=== PATIENT | female | born 1975 | race Caucasian/White ===

== ENCOUNTER 2017-06-01 17:58 | Observation (INO) | payer OTHER ==
[2017-06-01] MEDS ORDERED: HYDROmorphone 0.5 MG/0.5 ML SYRINGE IVP STA (18:33)
[2017-06-01] MEDS ORDERED: ONDANSETRON 4 MG/2 ML VIAL IVP STA (18:33)
[2017-06-01] MEDS ORDERED: ACETAMINOPHEN TAB 500 MG TAB PO STA (18:33)
[2017-06-01] MEDS ORDERED: RX INFO: IV CONTRAST WAS GIVEN 1 EACH MISC MISCELLANE PRN (18:36)
--- NOTE | 2017-06-01 18:40 | ED ---
Nausea/Vomiting/Diarrhea HPI - General Chief complaint: Nausea/Vomiting/Diarrhea Stated complaint: Vomiting Time Seen by Provider: 06/01/17 18:27 Source: patient, RN notes reviewed Mode of arrival: ambulatory Limitations: no limitations - History of Present Illness Initial comments: 41-year-old female presents emergency Department chief complaint of nausea vomiting abdominal discomfort. Patient states that she had abdominal surgery for colon cancer [address] Villa Moreno. Patient states she was released from the hospital one week ago. Patient does have 2 ZOE drains states that she has not had to empty them as often as she was. She states it slowing down. She does complain of mid to left-sided abdominal pain. Patient states that she was diagnosed with stage III colon cancer she did have bowel resection she believes along with some of her pancreas. Patient denies knowing that she had a fever she is febrile here at the emergency department. Patient denies headache, dizziness, chest pain or shortness breath. Denies any dysuria hematuria. - Related Data Home Medications Medication Instructions Recorded Confirmed Esomeprazole Magnesium [NexIUM] 20 mg PO DAILY 05/13/17 06/01/17 Previous Rx's Medication Instructions Recorded HYDROcodone/APAP 7.5-325MG [[place] 1 tab PO Q4H PRN #20 tab 05/24/17 7.5-325] Allergies Allergy/AdvReac Type Severity Reaction Status Date / Time No Known Allergies Allergy Verified 06/01/17 19:02 Review of Systems ROS Statement: Those systems with pertinent positive or pertinent negative responses have been documented in the HPI. ROS Other: All systems not noted in ROS Statement are negative. Past Medical History Past Medical History: Cancer, GERD/Reflux Additional Past Medical History / Comment(s): Intermittent diarrhea since gallbladder surgery, colon History of Any Multi-Drug Resistant Organisms: None Reported Past Surgical History: Bowel Resection, Section, Cholecystectomy Additional Past Surgical History / Comment(s): colon CA removal Additional Past Anesthesia/Blood Transfusion Reaction / Comment(s): Pt states she woke from anesthesia very confused. Past Psychological History: No Psychological Hx Reported Smoking Status: Never smoker Past Alcohol Use History: None Reported Past Drug Use History: None Reported - Past Family History Mother Family Medical History: Diabetes Mellitus Father Family Medical History: No Reported History Additional Family Medical History / Comment(s): Father is 64 yrs old. General Exam Limitations: no limitations General appearance: alert, in no apparent distress Head exam: Present: atraumatic, normocephalic, normal inspection Respiratory exam: Present: normal lung sounds bilaterally. Absent: respiratory distress, wheezes, rales, rhonchi, stridor Cardiovascular Exam: Present: normal rhythm, tachycardia, normal heart sounds. Absent: systolic murmur, diastolic murmur, rubs, gallop, clicks GI/Abdominal exam: Present: soft, tenderness (Moderate mid to left-sided abdominal tenderness), normal bowel sounds, other (There is a midline incision healing with no erythema or purulent drainage to her dermal alexandru in place along with 2 ZOE drains). Absent: distended, guarding, rebound, rigid Back exam: Absent: CVA tenderness (R), CVA tenderness (L) Skin exam: Present: warm, dry, intact, normal color. Absent: rash Course Vital Signs 06/01/17 06/01/17 18:10 19:33 Temperature 100.9 F H 98.2 F Pulse Rate 125 H 78 Respiratory 16 16 Rate Blood Pressure 135/78 137/68 O2 Sat by Pulse 100 98 Oximetry Medical Decision Making - Medical Decision Making Dr. Estevez did discuss case with on-call surgeon from [facility]. Patient be admitted for IV antibiotics and reevaluation. - Lab Data Result diagrams: 06/01/17 18:43 06/01/17 18:43 Lab Results 06/01/17 06/01/17 06/01/17 Range/Units 18:43 18:43 18:43 WBC 13.9 H (3.8-10.6) k/uL RBC 5.72 H (3.80-5.40) m/uL Hgb 11.3 L (11.4-16.0) gm/dL Hct 41.9 (34.0-46.0) % MCV 73.2 L (80.0-100.0) fL MCH 19.8 L (25.0-35.0) pg MCHC 27.1 L (31.0-37.0) g/dL RDW 23.8 H (11.5-15.5) % Plt Count 705 H (150-450) k/uL Neutrophils % (Manual) 81 % Lymphocytes % (Manual) 11 % Monocytes % (Manual) 4 % Eosinophils % (Manual) 4 % Neutrophils # (Manual) 11.26 H (1.3-7.7) k/uL Lymphocytes # (Manual) 1.53 (1.0-4.8) k/uL Monocytes # (Manual) 0.56 (0-1.0) k/uL Eosinophils # (Manual) 0.56 (0-0.7) k/uL Nucleated RBCs 0 (0-0) /100 WBC Manual Slide Review Performed Polychromasia Present Hypochromasia Marked Poikilocytosis Moderate Anisocytosis Moderate Microcytosis Marked Spherocytes Present Ovalocytes Present PT (9.0-12.0) sec INR (<1.2) APTT (22.0-30.0) sec Sodium 138 (137-145) mmol/L Potassium 5.0 (3.5-5.1) mmol/L Chloride 104 (98-107) mmol/L Carbon Dioxide 23 (22-30) mmol/L Anion Gap 11 mmol/L BUN 7 (7-17) mg/dL Creatinine 0.70 (0.52-1.04) mg/dL Est GFR (MDRD) Af Amer >60 (>60 ml/min/1.73 sqM) Est GFR (MDRD) Non-Af >60 (>60 ml/min/1.73 sqM) Glucose 101 H (74-99) mg/dL Plasma Lactic Acid [place] 1.3 (0.7-2.0) mmol/L Calcium 9.4 (8.4-10.2) mg/dL Total Bilirubin 0.6 (0.2-1.3) mg/dL AST 35 (14-36) U/L ALT 30 (9-52) U/L Alkaline Phosphatase 82 (38-126) U/L Total Protein 7.8 (6.3-8.2) g/dL Albumin 3.5 (3.5-5.0) g/dL Urine Color Urine Appearance (Clear) Urine pH (5.0-8.0) Ur Specific [place] (1.001-1.035) Urine Protein (Negative) Urine Glucose (UA) (Negative) Urine Ketones (Negative) Urine Blood (Negative) Urine Nitrite (Negative) Urine Bilirubin (Negative) Urine Urobilinogen (<2.0) mg/dL Ur Leukocyte Esterase (Negative) Urine RBC (0-5) /hpf Urine WBC (0-5) /hpf Ur Squamous Epith Cells (0-4) /hpf Urine Bacteria (None) /hpf Hyaline Casts (0-2) /lpf Urine Mucus (None) /hpf 06/01/17 06/01/17 Range/Units 18:43 18:54 WBC (3.8-10.6) k/uL RBC (3.80-5.40) m/uL Hgb (11.4-16.0) gm/dL Hct (34.0-46.0) % MCV (80.0-100.0) fL MCH (25.0-35.0) pg MCHC (31.0-37.0) g/dL RDW (11.5-15.5) % Plt Count (150-450) k/uL Neutrophils % (Manual) % Lymphocytes % (Manual) % Monocytes % (Manual) % Eosinophils % (Manual) % Neutrophils # (Manual) (1.3-7.7) k/uL Lymphocytes # (Manual) (1.0-4.8) k/uL Monocytes # (Manual) (0-1.0) k/uL Eosinophils # (Manual) (0-0.7) k/uL Nucleated RBCs (0-0) /100 WBC Manual Slide Review Polychromasia Hypochromasia Poikilocytosis Anisocytosis Microcytosis Spherocytes Ovalocytes PT 10.9 (9.0-12.0) sec INR 1.1 (<1.2) APTT 22.5 (22.0-30.0) sec Sodium (137-145) mmol/L Potassium (3.5-5.1) mmol/L Chloride (98-107) mmol/L Carbon Dioxide (22-30) mmol/L Anion Gap mmol/L BUN (7-17) mg/dL Creatinine (0.52-1.04) mg/dL Est GFR (MDRD) Af Amer (>60 ml/min/1.73 sqM) Est GFR (MDRD) Non-Af (>60 ml/min/1.73 sqM) Glucose (74-99) mg/dL Plasma Lactic Acid [place] (0.7-2.0) mmol/L Calcium (8.4-10.2) mg/dL Total Bilirubin (0.2-1.3) mg/dL AST (14-36) U/L ALT (9-52) U/L Alkaline Phosphatase (38-126) U/L Total Protein (6.3-8.2) g/dL Albumin (3.5-5.0) g/dL Urine Color Yellow Urine Appearance Turbid H (Clear) Urine pH 6.0 (5.0-8.0) Ur Specific [place] 1.019 (1.001-1.035) Urine Protein 1+ H (Negative) Urine Glucose (UA) Negative (Negative) Urine Ketones Negative (Negative) Urine Blood Small H (Negative) Urine Nitrite Negative (Negative) Urine Bilirubin Negative (Negative) Urine Urobilinogen <2.0 (<2.0) mg/dL Ur Leukocyte Esterase Moderate H (Negative) Urine RBC 4 (0-5) /hpf Urine WBC 6 H (0-5) /hpf Ur Squamous Epith Cells 31 H (0-4) /hpf Urine Bacteria Occasional H (None) /hpf Hyaline Casts 6 H (0-2) /lpf Urine Mucus Few H (None) /hpf Disposition Clinical Impression: Postoperative fever, Nausea & vomiting, Abdominal pain Disposition: ADMITTED IP TO THIS [facility] Condition: Fair Referrals: None,Stated [Primary Care Provider] - 1-2 days
[2017-06-01] MEDS: SODIUM CHLORIDE 0.9% 500 ML IV SCH ×2 (18:44→19:30)
[2017-06-01 18:56] LABS: Anisocytosis Moderate; CH 19.9; CHCM 26.8; HCT 41.9 % (34.0-46.0); HGB 11.3 gm/dL (11.4-16.0); Hypochromasia Marked; MCH 19.8 pg (25.0-35.0); MCHC 27.1 g/dL (31.0-37.0); MCV 73.2 fL (80.0-100.0); Mean Platelet Volume 6.4; Microcytosis Marked; Poikilocytosis Moderate; RBC 5.72 m/uL (3.80-5.40); RBC Fragment Flag Slight; RDW 23.8 % (11.5-15.5); WBC 13.9 k/uL (3.8-10.6); WBC (Perox) 13.81
[2017-06-01 19:03] LABS: ALT 30 U/L (9-52); AST 35 U/L (14-36); Alkaline Phosphatase 82 U/L (38-126); Blood Urea Nitrogen 7 mg/dL (7-17); Calcium 9.4 mg/dL (8.4-10.2); Carbon Dioxide 23 mmol/L (22-30); Glucose 101 mg/dL (74-99); INR 1.1 (<1.2); Non-African American GFR(MDRD) >60 (>60 ml/min/1.73 sqM); Partial Thromboplastin Time 22.5 sec (22.0-30.0); Prothrombin Time 10.9 sec (9.0-12.0); Sodium 138 mmol/L (137-145); Total Bilirubin 0.6 mg/dL (0.2-1.3); Total Protein 7.8 g/dL (6.3-8.2)
[2017-06-01 19:04] LABS: Appearance,Urine Turbid (Clear); Bacteria,Urine Occasional /hpf; Bilirubin,Urine Negative (Negative); Glucose,Urine (UA) Negative (Negative); Ketones,Urine Negative (Negative); Leukocyte Esterase,Urine Moderate (Negative); Mucus,Urine Few /hpf; Nitrite,Urine Negative (Negative); Particle Count 16908; Protein,Urine 1+ (Negative); RBC,Urine 4 /hpf (0-5); Specific Gravity,Urine 1.019 (1.001-1.035); Squamous Epithelial Cell,Urine 31 /hpf (0-4); UA Billing (MACRO vs. MICRO) MICRO; Urobilinogen,Urine <2.0 mg/dL (<2.0); WBC,Urine 6 /hpf (0-5)
[2017-06-01 19:06] LABS: Anion Gap 11 mmol/L; Chloride 104 mmol/L (98-107)
[2017-06-01 19:30] LABS: Add Differential Manual Differential
[2017-06-01 19:31] LABS: Manual Review Performed; Nucleated Red Blood Cells 0 /100 WBC (0-0); Ovalocytes Present; Total Cells Counted 100
[2017-06-01 19:32] LABS: Polychromasia Present; Spherocytes Present
--- NOTE | 2017-06-01 19:53 | CT ---
EXAMINATION TYPE: CT abdomen pelvis w con DATE OF EXAM: 06/01/2017 COMPARISON: 05/15/2017 HISTORY: FEVER AND VOMITING CT DLP: 1892 mGycm Automated exposure control for dose reduction was used. TECHNIQUE: Helical acquisition of images was performed from the lung bases through the pelvis. CONTRAST: Performed without Oral Contrast and with IV Contrast, patient injected with 100 mL of Omnipaque 300. FINDINGS: Lung bases are clear of consolidation. There is no pleural effusion. There are numerous calcified granulomata in the spleen. There is mild periportal edema in the liver. Bile ducts are not dilated. There are clips from cholecystectomy. Pancreas appears normal. There are skin alexandru over the anterior midline abdomen. There is a 5 jX 16 cm subcutaneous fluid collection a t the incision site consistent with seroma or hematoma. There is a drainage catheter in the left uppe r quadrant. There is a 3 mm calcification in the lateral left kidney. There is no hydronephrosis. There is no ret roperitoneal adenopathy. There is a drainage catheter in the right paracolic gutter. There is a small amount of free fluid in the pelvis. Uterus is anteverted. Bladder is almost empty. There is some flu id anterior to the uterine fundus. I see no bony destructive process. There is no sign of a bowel obs truction. There are surgical clips noted at the gastric antrum. IMPRESSION: THERE IS MILD FREE FLUID IN THE PELVIS THAT IS INCREASED SLIGHTLY COMPARED TO LAST EXAM. THERE ARE LE FT AND RIGHT SIDED DRAINAGE CATHETERS NOTED. THESE APPEAR IN GOOD POSITION. LARGE MIDLINE SUBCUTANEOU S FLUID COLLECTION CONSISTENT WITH HEMATOMA OR SEROMA AT THE INCISION SITE IS NEW COMPARED TO OLD EXA M. Gastric surgery noted. Nonobstructing small left renal calculus.
--- NOTE | 2017-06-01 20:12 | XR ---
EXAMINATION TYPE: XR chest 2V DATE OF EXAM: 06/01/2017 COMPARISON: 05/13/2017 HISTORY: Cough and fever TECHNIQUE: Frontal and lateral views of the chest are obtained. FINDINGS: Heart and mediastinum are normal. Lungs are clear of consolidation. There is no pleural ef fusion. Bony thorax is intact. IMPRESSION: No active cardiopulmonary disease. No change.
[2017-06-01] MEDS ORDERED: PIPERACILLIN-TAZOBACTAM 3.375 GM in DEXTROSE/WATER 1 50ML.BAG IVPB STA (20:33)
[2017-06-01] MEDS ORDERED: HYDROmorphone 0.5 MG/0.5 ML SYRINGE IVP PRN (20:34)
[2017-06-01] MEDS ORDERED: NALOXONE 0.4 MG/ML 1 ML VIAL IV PRN (20:34)
[2017-06-01] MEDS ORDERED: ACETAMINOPHEN TAB 500 MG TAB PO PRN (21:05)
[2017-06-01] MEDS: SODIUM CHLORIDE 0.9% 1,000 ML IV SCH (21:10)
[2017-06-01] MEDS: ONDANSETRON 4 MG/2 ML VIAL IVP PRN (21:12)
[2017-06-01 21:37] VITALS: BMI 38.0
[2017-06-02] MEDS: PIPERACILLIN-TAZOBACTAM 3.375 GM in DEXTROSE/WATER 1 50ML.BAG IVPB SCH ×3 (04:56→20:04)
[2017-06-02] MEDS: ONDANSETRON 4 MG/2 ML VIAL IVP PRN (05:01)
[2017-06-02] MEDS ORDERED: METOCLOPRAMIDE 5 MG/ML 2 ML VIAL IVP PRN (07:20)
[2017-06-02] MEDS ORDERED: HYDROcodone/APAP 5-325MG 1 EACH TAB PO PRN (08:24)
[2017-06-02] MEDS ORDERED: HYDROmorphone 0.5 MG/0.5 ML SYRINGE IVP PRN (08:25)
--- NOTE | 2017-06-02 08:36 | P.GSHP ---
History of Present Illness H&P Date: 06/02/17 Chief Complaint: Nausea vomiting 41-year-old female presented to the emergency room on the day of admission with a chief complaint of developing nausea vomiting with abdominal cramping with a sudden onset patient states that she woke up yesterday morning felt nauseated and vomited once. Stated continued to feel nauseated came into the emergency room to be evaluated patient denies any fever chills frequent stooling dizziness lightheadedness shortness of breath or chest pain. Denied any burning on urination. Patient was just discharged one week prior after undergoing on May 18 laparoscopic assisted right colon resection open procedure for removal of approximately 14 cm tumor was desmoplastic on the third and fourth portion of the duodenum. For near obstructing colon cancer to ZOE drains were in place patient states it's been serous drainage output has decreased plan was for the patient to follow-up with surgical service tomorrow to have a ZOE drains removed currently the patient is denying abdominal pain had one episode of vomiting this morning white count on admission 13.9 hemoglobin 11.3 electrolytes potassium 5 temp on admission 100.9 with the current temp this morning 98.3 A CAT scan of the abdomen pelvis with contrast was done on admission. It showed no evidence of a small bowel obstruction. It did show a large midline subcutaneous fluid collection consistent with hematoma or seroma - Review of Systems ROS unobtainable: Reports: due to endotracheal tube - Constitutional Comment: Essentially unremarkable except as mentioned in the present illness Past Medical History Past Medical History: Cancer, GERD/Reflux Additional Past Medical History / Comment(s): Intermittent diarrhea since gallbladder surgery, colon History of Any Multi-Drug Resistant Organisms: None Reported Past Surgical History: Bowel Resection, Section, Cholecystectomy Additional Past Surgical History / Comment(s): colon CA removal Additional Past Anesthesia/Blood Transfusion Reaction / Comment(s): Pt states she woke from anesthesia very confused. Past Psychological History: No Psychological Hx Reported Additional Psychological History / Comment(s): Pt resides with her parents and her 16yr old maikol. She is independent. Smoking Status: Never smoker Past Alcohol Use History: None Reported Past Drug Use History: None Reported - Past Family History Mother Family Medical History: Diabetes Mellitus Father Family Medical History: No Reported History Additional Family Medical History / Comment(s): Father is 64 yrs old. Medications and Allergies Home Medications Medication Instructions Recorded Confirmed Type Esomeprazole Magnesium [NexIUM] 20 mg PO DAILY 05/13/17 06/01/17 History HYDROcodone/APAP 7.5-325MG [[place] 1 tab PO Q4H PRN #20 tab 05/24/17 06/01/17 Rx 7.5-325] Allergies Allergy/AdvReac Type Severity Reaction Status Date / Time No Known Allergies Allergy Verified 06/01/17 19:02 Surgical - Exam Vital Signs Temp Pulse Resp BP Pulse Ox 100.9 F H 125 H 16 135/78 100 06/01/17 18:10 06/01/17 18:10 06/01/17 18:10 06/01/17 18:10 06/01/17 18:10 GENERAL APPEARANCE: 41-year-old female pleasant cooperative patient is alert, oriented, in no acute distress. VITAL SIGNS: Reviewed HEENT: Head is normocephalic and atraumatic. Pupils are equal and reactive. The nares are patent. Oropharynx is clear without lesions. NECK: Supple without lymphadenopathy. Traches midline. HEART: S1, S2. Regular rate and rhythm. No murmur noted LUNGS: No crackles or wheezes are heard. Adequate air movement bilaterally on room air sats 95% ABDOMEN: alexandru to suture line well approximated no redness 2 ZOE drains noted serous straw colored drainage noted soft not distended no facial grimacing to palpitation to the abdominal wall nontender, nondistended with good bowel sounds. No peritoneal signs. No palpable organomegaly or masses. Bowel tones present repair a nausea sensation no active emesis states urinating no difficulty no burning on urination states had a bowel movement yesterday EXTREMITIES: Normal skin color and turgor. No cyanosis, rash, ulceration, clubbing or edema. Radial pedal pulses are 2/4 bilaterally. NEUROLOGICAL: No focal deficits. Strength and sensation are grossly intact. Results - Labs 06/02/17 08:30 06/02/17 08:30 Abnormal Lab Results - Last 24 Hours (Table) 06/01/17 06/01/17 06/01/17 Range/Units 18:43 18:43 18:54 WBC 13.9 H (3.8-10.6) k/uL RBC 5.72 H (3.80-5.40) m/uL Hgb 11.3 L (11.4-16.0) gm/dL MCV 73.2 L (80.0-100.0) fL MCH 19.8 L (25.0-35.0) pg MCHC 27.1 L (31.0-37.0) g/dL RDW 23.8 H (11.5-15.5) % Plt Count 705 H (150-450) k/uL Neutrophils # (Manual) 11.26 H (1.3-7.7) k/uL Glucose 101 H (74-99) mg/dL Urine Appearance Turbid H (Clear) Urine Protein 1+ H (Negative) Urine Blood Small H (Negative) Ur Leukocyte Esterase Moderate H (Negative) Urine WBC 6 H (0-5) /hpf Ur Squamous Epith Cells 31 H (0-4) /hpf Urine Bacteria Occasional H (None) /hpf Hyaline Casts 6 H (0-2) /lpf Urine Mucus Few H (None) /hpf Microbiology - Last 24 Hours (Table) 06/01/17 18:54 Urine Culture - Preliminary Urine,Voided Diabetes panel 06/01/17 Range/Units 18:43 Sodium 138 (137-145) mmol/L Potassium 5.0 (3.5-5.1) mmol/L Chloride 104 (98-107) mmol/L Carbon Dioxide 23 (22-30) mmol/L BUN 7 (7-17) mg/dL Creatinine 0.70 (0.52-1.04) mg/dL Glucose 101 H (74-99) mg/dL Calcium 9.4 (8.4-10.2) mg/dL AST 35 (14-36) U/L ALT 30 (9-52) U/L Alkaline Phosphatase 82 (38-126) U/L Total Protein 7.8 (6.3-8.2) g/dL Albumin 3.5 (3.5-5.0) g/dL Calcium panel 06/01/17 Range/Units 18:43 Calcium 9.4 (8.4-10.2) mg/dL Albumin 3.5 (3.5-5.0) g/dL Pituitary panel 06/01/17 Range/Units 18:43 Sodium 138 (137-145) mmol/L Potassium 5.0 (3.5-5.1) mmol/L Chloride 104 (98-107) mmol/L Carbon Dioxide 23 (22-30) mmol/L BUN 7 (7-17) mg/dL Creatinine 0.70 (0.52-1.04) mg/dL Glucose 101 H (74-99) mg/dL Calcium 9.4 (8.4-10.2) mg/dL Adrenal panel 06/01/17 Range/Units 18:43 Sodium 138 (137-145) mmol/L Potassium 5.0 (3.5-5.1) mmol/L Chloride 104 (98-107) mmol/L Carbon Dioxide 23 (22-30) mmol/L BUN 7 (7-17) mg/dL Creatinine 0.70 (0.52-1.04) mg/dL Glucose 101 H (74-99) mg/dL Calcium 9.4 (8.4-10.2) mg/dL Total Bilirubin 0.6 (0.2-1.3) mg/dL AST 35 (14-36) U/L ALT 30 (9-52) U/L Alkaline Phosphatase 82 (38-126) U/L Total Protein 7.8 (6.3-8.2) g/dL Albumin 3.5 (3.5-5.0) g/dL Assessment and Plan Assessment: Impression Present on admission nausea vomiting with abdominal cramping febrile mild leukocytosis suspect viral gastroenteritis Recent Right colon resection for adenocarcinoma done on May 18 Obesity BMI 38 Present on admission UTI urine culture pending Plan Nasal swab to rule out influenza A and B Repeat a CMP lipase and amylase now follow up on results Repeat flat plate of the abdomen now follow up on results IV fluid for hydration Clear liquid diet advanced after evaluating abdominal x-rays Pain control DVT and GI prophylaxis Home meds as appropriate No evidence of an acute surgical abdomen Medical management consult pending The above impression and plan of care have been discussed and directed by signing physician. Manisha Quintana nurse practitioner acting as scribe for signing physician.
--- NOTE | 2017-06-02 08:39 | XR ---
EXAMINATION TYPE: XR abdomen 2V DATE OF EXAM: 06/02/2017 HISTORY: Pain. Technique: 3 views of the abdomen are submitted. Comparison: None. Findings: There is no convincing evidence of pneumoperitoneum. Bowel gas pattern is nonspecific as there is an overall possibility of the bowel gas noted. No dilate d loops seen at this time. Drainage catheters are in place as well as midline skin alexandru and rings of sutures. No mass effects are noted. No renal calcifications are identified. IMPRESSION: 1. Nonspecific bowel gas pattern
[2017-06-02 08:57] LABS: Anisocytosis Marked; Basophils % (A) 0 %; CH 19.1; CHCM 26.7; Eosinophils # (A) 0.4 k/uL (0-0.7); Eosinophils % (A) 3 %; HCT 36.2 % (34.0-46.0); HDW 4.09; Hypochromasia Marked; Luc # (Auto) 0.11; Luc % (Auto) 1; Lymphocytes # (A) 1.2 k/uL (1.0-4.8); Lymphocytes % (A) 12 %; MCH 19.5 pg (25.0-35.0); MCHC 27.7 g/dL (31.0-37.0); MCV 70.5 fL (80.0-100.0); Mean Platelet Volume 7.1; Microcytosis Marked; Monocytes # (A) 0.8 k/uL (0-1.0); Monocytes % (A) 7 %; Neutrophils # (A) 8.2 k/uL (1.3-7.7); Neutrophils % (A) 76 %; Poikilocytosis Moderate; RBC 5.13 m/uL (3.80-5.40); WBC 10.8 k/uL (3.8-10.6); WBC (Perox) 10.89
[2017-06-02 08:58] LABS: RDW 25.6 % (11.5-15.5)
[2017-06-02 09:00] LABS: ALT 32 U/L (9-52); AST 14 U/L (14-36); Alkaline Phosphatase 72 U/L (38-126); Amylase 35 U/L (30-110); Anion Gap 8 mmol/L; Blood Urea Nitrogen 7 mg/dL (7-17); Calcium 8.8 mg/dL (8.4-10.2); Carbon Dioxide 24 mmol/L (22-30); Chloride 106 mmol/L (98-107); Glucose 103 mg/dL (74-99); Non-African American GFR(MDRD) >60 (>60 ml/min/1.73 sqM); Potassium 4.4 mmol/L (3.5-5.1); Sodium 138 mmol/L (137-145); Total Bilirubin 0.6 mg/dL (0.2-1.3); Total Protein 6.8 g/dL (6.3-8.2)
--- NOTE | 2017-06-02 10:13 | P.CONS ---
History of Present Illness - Reason for Consult Consult date: 06/02/17 Fevers Requesting physician: Dorota Cortez - Chief Complaint vomiting - History of Present Illness Is a 41-year-old female with a past medical history of acid reflux and recently discovered colon cancer status post hemicolectomy who presented with nausea and vomiting. In the ER she underwent an extensive evaluation. She was found to be febrile on arrival with a fever of 100.9. She was found to have a leukocytosis of 13.9. She underwent a CT of the abdomen and pelvis which showed possible hematoma versus seroma at her prior incision site. She was admitted to Dr. Cortez we have been consulted for medical management. Patient seen and examined at bedside. She states that yesterday she ate breakfast and then had vomiting 1. She then had an upset stomach but denies abdominal pain. She denies any unusual diarrhea or constipation. She states her bowel movements have been normal. She does state she stopped taking her Nexium once she was discharged she was worried whether she should take this or not. She has been having issues with acid reflux since discharge. She denies any recent travel, eating any unusual foods, or exposure to contaminated water. She denies any sick contacts at home. She has not ate out since leaving the hospital. She feels as though this might be "the flu". She denies any dysuria or urinary frequency. She states that she tolerated a water and jackie crackers this morning. She denies any unusual cough or cold. She has no other complaints currently. She had not been able to find a PCP which would take her melena insurance. We have contacted Dr. Cummings's office and she is in agreement with excepting the patient is very able to take her insurance. Review of Systems General: no fever/chills at home, no rigors, no weight loss/weight gain, no change in appetite Eyes: No double vision, no unusual blurry vision, no loss of vision ENT: No rhinorrhea, congestion, no trush Cardiovascular: No chest pain, no palpitations, no syncope, no edema, No paroxysmal nocturnal dyspnea, No dizziness Pulmonary: No shortness of breath, no wheezing, no cough, hemoptysis Abdominal: + Abdominal cramping, no constipation, no diarrhea, + vomiting, + nausea, no distention Genitourinary: No dysuria, no urinary frequency, no hematuria, no unusual discharge/odor Neuro: No unusual paresthesias, no unusual paresis/paralysis, no headache Dermatologic: No unusual rashes, no unusual lesions, no unusual changes in nails Endocrinology: No intolerance to heat/cold, no excessive thirst,] no unusual fatigue Hematologic: No unusual bruising or bleeding, no unusual cervical lymphadenopathy Psychiatric: No changes in mood or behaviors, no changes in sleep pattern Past Medical History Past Medical History: Cancer, GERD/Reflux Additional Past Medical History / Comment(s): Colon cancer History of Any Multi-Drug Resistant Organisms: None Reported Past Surgical History: Bowel Resection, Section, Cholecystectomy Additional Past Surgical History / Comment(s): Right hemicolectomy for colon CA Additional Past Anesthesia/Blood Transfusion Reaction / Comm: Pt states she woke from anesthesia very confused. Past Psychological History: No Psychological Hx Reported Additional Psychological History / Comment(s): Pt resides with her parents and her 16yr old maikol. She is independent. Smoking Status: Never smoker Past Alcohol Use History: None Reported Past Drug Use History: None Reported Additional History: Has not returned to work since surgery. No assistive devices. Oncologist is Dr. Culver - Past Family History Mother Family Medical History: Diabetes Mellitus Father Family Medical History: No Reported History Additional Family Medical History / Comment(s): Father is 64 yrs old. Medications and Allergies Home Medications Medication Instructions Recorded Confirmed Type Esomeprazole Magnesium [NexIUM] 20 mg PO DAILY 05/13/17 06/01/17 History HYDROcodone/APAP 7.5-325MG [[place] 1 tab PO Q4H PRN #20 tab 05/24/17 06/01/17 Rx 7.5-325] Allergies Allergy/AdvReac Type Severity Reaction Status Date / Time No Known Allergies Allergy Verified 06/01/17 19:02 Physical Exam Osteopathic Statement: *. No significant issues noted on an osteopathic structural exam other than those noted in the History and Physical/Consult. Vitals: Vital Signs Temp Pulse Pulse Resp BP BP Pulse Ox 06/02/17 07:00 98.8 F 88 16 111/52 96 06/02/17 00:15 98.3 F 82 16 109/67 97 06/01/17 21:00 100.5 F H 76 18 122/79 99 06/01/17 20:59 98.6 F 16 129/71 94 L 06/01/17 19:33 98.2 F 78 16 137/68 98 06/01/17 18:10 100.9 F H 125 H 16 135/78 100 Intake and Output 06/01/17 06/02/17 06/02/17 22:59 06:59 14:59 Intake Total 75 600 Balance 75 600 Intake: Intake, IV Titration 75 600 Amount Sodium Chloride 0.9% 1, 75 600 000 ml @ 75 mls/hr IV . [id number] MAY Rx#:[id number] Other: # Voids 2 Weight 113.398 kg General: Ill appearing, no distress, appears at stated age, obese Derm: Midline incision clean/dry/intact with alexandru in place or erythema, ZOE drain site without erythema no rashes, no lesions, no ulcers, no unusual ecchymoses, tattoo over left shoulder blade Head: atraumatic, normocephalic, symmetric Eyes: EOMI, no lid lag, anicteric sclera, pupils equal round reactive to light ENT: no post nasal drip, no thrush , nares patent, no pharyngeal erythema Neck: No thyromegaly, no cervical lymphadenopathy, trachea midline, supple Mouth: no lip lesion, mucus membranes moist Cardiovascular: S1S2 reg, no murmur, positive posterior tibial pulse bilateral, no edema , no JVD, no clubbing, no cyanosis, capillary refill less than 2 seconds Lungs: CTA bilateral, no rhonchi, no rales , no accessory muscle use Abdominal: soft, nontender to palpation, no guarding, no appreciable organomegaly, normal bowel sounds Ext: no gross muscle atrophy, muscle strength 5 out of 5 in all 4 extremities grossly, no contractures, Neuro: CN II-XI grossly intact, light touch intact all 4 extremities, finger to nose within normal limits, Psych: Alert, oriented, appropriate affect Results CBC & Chem 7: 06/02/17 08:30 06/02/17 08:30 Labs: Abnormal Lab Results - Last 24 Hours (Table) 06/01/17 06/01/17 06/01/17 Range/Units 18:43 18:43 18:54 WBC 13.9 H (3.8-10.6) k/uL RBC 5.72 H (3.80-5.40) m/uL Hgb 11.3 L (11.4-16.0) gm/dL MCV 73.2 L (80.0-100.0) fL MCH 19.8 L (25.0-35.0) pg MCHC 27.1 L (31.0-37.0) g/dL RDW 23.8 H (11.5-15.5) % Plt Count 705 H (150-450) k/uL Neutrophils # (1.3-7.7) k/uL Neutrophils # (Manual) 11.26 H (1.3-7.7) k/uL Glucose 101 H (74-99) mg/dL Albumin (3.5-5.0) g/dL Urine Appearance Turbid H (Clear) Urine Protein 1+ H (Negative) Urine Blood Small H (Negative) Ur Leukocyte Esterase Moderate H (Negative) Urine WBC 6 H (0-5) /hpf Ur Squamous Epith Cells 31 H (0-4) /hpf Urine Bacteria Occasional H (None) /hpf Hyaline Casts 6 H (0-2) /lpf Urine Mucus Few H (None) /hpf 06/02/17 06/02/17 Range/Units 08:30 08:30 WBC 10.8 H (3.8-10.6) k/uL RBC (3.80-5.40) m/uL Hgb 10.0 L (11.4-16.0) gm/dL MCV 70.5 L (80.0-100.0) fL MCH 19.5 L (25.0-35.0) pg MCHC 27.7 L (31.0-37.0) g/dL RDW 25.6 H (11.5-15.5) % Plt Count 577 H (150-450) k/uL Neutrophils # 8.2 H (1.3-7.7) k/uL Neutrophils # (Manual) (1.3-7.7) k/uL Glucose 103 H (74-99) mg/dL Albumin 3.1 L (3.5-5.0) g/dL Urine Appearance (Clear) Urine Protein (Negative) Urine Blood (Negative) Ur Leukocyte Esterase (Negative) Urine WBC (0-5) /hpf Ur Squamous Epith Cells (0-4) /hpf Urine Bacteria (None) /hpf Hyaline Casts (0-2) /lpf Urine Mucus (None) /hpf Microbiology - Last 24 Hours (Table) 06/01/17 18:54 Urine Culture - Preliminary Urine,Voided CT scan - abdomen: report reviewed CT scan - pelvis: report reviewed Assessment and Plan Plan: #Febrile illness with vomiting and leukocytosis -Check urinalysis as prior urine was contaminated with epithelial cells -Await influenza swab results -Suspect possibly secondary to viral gastroenteritis -IV fluids, antiemetics, advance diet as per surgical team -Also with hematoma/seroma on computed tomography scan -Continue to await blood cultures -Continue with empiric Zosyn, if urine is negative and blood cultures are negative then would suggest discontinuation as this is likely secondary to viral illness #Severe iron deficiency anemia with ferritin 3.3 last admission -Suggest oral iron supplementation, status post parenteral replacement during her hospitalization -Is following up with oncology as an outpatient #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 Russell Bursitis, psychosis, secondary to severe iron deficiency anemia -Downtrending -Follow intermittent CBC #Morbid obesity with BMI 38 -Outpatient weight loss regiment Dr. Cummings's office has been accepted the patient in follow-up, information given to floor nursing on how to obtain admission packet from Dr. Cummings's office. DVT prophylaxis: SCDs Discussed with: Patient, nursing, hospitalist RN A total of 60 minutes was spent on the care of this complex patient more than 50 % of the time was spent in counseling and care coordination.
[2017-06-02 11:35] LABS: Appearance,Urine Clear (Clear); Bilirubin,Urine Negative (Negative); Glucose,Urine (UA) Negative (Negative); Ketones,Urine Negative (Negative); Leukocyte Esterase,Urine Negative (Negative); Nitrite,Urine Negative (Negative); Protein,Urine Trace (Negative); UA Billing (MACRO vs. MICRO) CHEM; Urobilinogen,Urine <2.0 mg/dL (<2.0)
[2017-06-02] MEDS: PANTOPRAZOLE 40 MG TABLET PO SCH ×2 (13:35→19:01)
[2017-06-02] MEDS ORDERED: CALCIUM CARBONATE 500 MG CHEWABLE PO PRN (17:51)
[2017-06-02] MEDS ORDERED: MELATONIN 5 MG TABLET PO PRN (17:51)
[2017-06-02] MEDS: FERROUS SULFATE 325 MG TAB PO SCH (19:01)
[2017-06-02] MEDS: SODIUM CHLORIDE 0.9% 1,000 ML IV SCH ×2 (19:45→19:46)
[2017-06-03] MEDS: PIPERACILLIN-TAZOBACTAM 3.375 GM in DEXTROSE/WATER 1 50ML.BAG IVPB SCH (04:05)
[2017-06-03] MEDS: SODIUM CHLORIDE 0.9% 1,000 ML IV SCH (04:05)
[2017-06-03 07:18] VITALS: BP 102/69; PULSE 78; RESP 12; TEMP 98.3
[2017-06-03] MEDS: FERROUS SULFATE 325 MG TAB PO SCH (07:21)
[2017-06-03] MEDS: PANTOPRAZOLE 40 MG TABLET PO SCH (07:21)
[2017-06-03 07:29] LABS: Anisocytosis Marked; CH 19.3; CHCM 26.8; HCT 34.4 % (34.0-46.0); HDW 4.08; HGB 9.5 gm/dL (11.4-16.0); Hypochromasia Marked; MCH 19.6 pg (25.0-35.0); MCHC 27.4 g/dL (31.0-37.0); MCV 71.3 fL (80.0-100.0); Microcytosis Marked; Poikilocytosis Moderate; RBC 4.83 m/uL (3.80-5.40); WBC 9.4 k/uL (3.8-10.6)
[2017-06-03 07:38] LABS: RDW 25.7 % (11.5-15.5)
[2017-06-03 07:56] LABS: ALT 21 U/L (9-52); AST 24 U/L (14-36); Alkaline Phosphatase 72 U/L (38-126); Anion Gap 10 mmol/L; Blood Urea Nitrogen 6 mg/dL (7-17); Calcium 8.7 mg/dL (8.4-10.2); Carbon Dioxide 21 mmol/L (22-30); Chloride 106 mmol/L (98-107); Glucose 106 mg/dL (74-99); Non-African American GFR(MDRD) >60 (>60 ml/min/1.73 sqM); Potassium 4.7 mmol/L (3.5-5.1); Sodium 137 mmol/L (137-145); Total Bilirubin 0.4 mg/dL (0.2-1.3); Total Protein 6.5 g/dL (6.3-8.2)
--- NOTE | 2017-06-03 08:55 | P.PN ---
Subjective Progress Note Date: 06/03/17 Principal diagnosis: vomiting Is a 41-year-old female with a past medical history of acid reflux and recently discovered colon cancer status post hemicolectomy who presented with nausea and vomiting. In the ER she underwent an extensive evaluation. She was found to be febrile on arrival with a fever of 100.9. She was found to have a leukocytosis of 13.9. She underwent a CT of the abdomen and pelvis which showed possible hematoma versus seroma at her prior incision site. She was admitted to Dr. Cortez we have been consulted for medical management. On have possible urinary tract infection. Her urine does appear contaminated but it is growing out post gram negatives and group B strep which could be considered contaminants which she will complete a course of antibiotics. Patient seen and examined at bedside. Asking to go home. She is feeling well. She denies any nausea, vomiting, diarrhea, constipation, and abdominal pain. No shortness of breath. She has no other complaints currently. Discussed with Dr. Cummings will take her insurance, she needs to go to their office and supervisor picking crew her new patient packet. Objective - Vital Signs Vital signs: Vital Signs Temp 98.3 F 06/03/17 07:00 Pulse 78 06/03/17 07:00 Resp 12 06/03/17 07:00 BP 102/69 06/03/17 07:00 Pulse Ox 95 06/03/17 07:00 Intake & Output 06/02/17 06/03/17 06/03/17 18:59 06:59 18:59 Intake Total 250 1550 240 Output Total 40 Balance 250 1550 200 Weight 113.398 kg Intake: Intake, IV Titration 50 1250 Amount Piperacillin-Tazobactam 3 50 100 .375 gm In Dextrose/Water 1 50ml.bag @ 12.5 mls/hr IVPB Q8H MAY Rx#: [id number] Sodium Chloride 0.9% 1, 1150 000 ml @ 100 mls/hr IV . Q10H MAY Rx#:[id number] Oral 200 300 240 Output: Drainage 40 Abdomen 40 Other: Voiding Method Toilet # Voids 2 1 - Exam General: non toxic, no distress, appears at stated age, obese Derm: no rashes, no lesions Head: atraumatic, normocephalic, symmetric Eyes: EOMI, no lid lag, anicteric sclera ENT: no post nasal drip, no thrush Mouth: no lip lesion, mucus membranes moist Cardiovascular: S1S2 reg, no murmur, positive posterior tibial pulse bilateral, Lungs: CTA bilateral, no rhonchi, no rales , no accessory muscle use Abdominal: soft, nontender to palpation, no guarding, no appreciable organomegaly, alexandru in ZOE drain intact Ext: no gross muscle atrophy, no edema, no contractures Neuro: CN II-XI grossly intact, no focal neuro deficits Psych: Alert, oriented, appropriate affect - Labs CBC & Chem 7: 06/03/17 06:52 06/03/17 06:52 Labs: Abnormal Lab Results - Last 24 Hours (Table) 06/02/17 06/02/17 06/02/17 Range/Units 08:30 08:30 10:55 WBC 10.8 H (3.8-10.6) k/uL Hgb 10.0 L (11.4-16.0) gm/dL MCV 70.5 L (80.0-100.0) fL MCH 19.5 L (25.0-35.0) pg MCHC 27.7 L (31.0-37.0) g/dL RDW 25.6 H (11.5-15.5) % Plt Count 577 H (150-450) k/uL Neutrophils # 8.2 H (1.3-7.7) k/uL Carbon Dioxide (22-30) mmol/L BUN (7-17) mg/dL Glucose 103 H (74-99) mg/dL Albumin 3.1 L (3.5-5.0) g/dL Urine Protein Trace H (Negative) 06/03/17 06/03/17 Range/Units 06:52 06:52 WBC (3.8-10.6) k/uL Hgb 9.5 L (11.4-16.0) gm/dL MCV 71.3 L (80.0-100.0) fL MCH 19.6 L (25.0-35.0) pg MCHC 27.4 L (31.0-37.0) g/dL RDW 25.7 H (11.5-15.5) % Plt Count 489 H (150-450) k/uL Neutrophils # (1.3-7.7) k/uL Carbon Dioxide 21 L (22-30) mmol/L BUN 6 L (7-17) mg/dL Glucose 106 H (74-99) mg/dL Albumin 2.9 L (3.5-5.0) g/dL Urine Protein (Negative) Microbiology - Last 24 Hours (Table) 06/01/17 18:54 Urine Culture - Preliminary Urine,Voided Gram Neg Bacilli Strep agalactiae - (group b) 06/01/17 18:43 Blood Culture - Preliminary Blood No Growth after 24 hours 06/02/17 10:55 Urine Culture - Preliminary Urine,Clean Catch Assessment and Plan Plan: # Uncomplicated UTI, POA - has received 1.5 days of ABX, will complete a 3 day course with cipro Rx sent to pharmacy -Initial urine does appear contaminated however urine culture is growing out skin elena plus gram-negative bacilli plus group B strep. We'll treat her with antibiotics for 3 days to ensure that there is not an infection. - will follow with Dr. 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 Russell # Thrombocytosis, secondary to severe iron deficiency anemia -Downtrending -Follow intermittent CBC #Morbid obesity with BMI 38 -Outpatient weight loss regiment Dr. Cummings's office has been accepted the patient in follow-up, information given to patient on how to obtain admission packet from Dr. Cummings's office. Patient has asked for a prescription of zofran for home. This has been ordered and sent to pharmacy DVT prophylaxis: SCDs Discussed with: Patient, nursing, A total of 25 minutes was spent on the care of this complex patient more than 50 % of the time was spent in counseling and care coordination. Thank you for allowing us to participate in the care of this patient.
[2017-06-03] MEDS ORDERED: INFLUENZA VACCINE (6 MOS+) 60 MCG/0.5 ML SYRINGE IM ONE (09:04)
--- NOTE | 2017-06-03 12:04 | P.DS ---
Providers Date of admission: 06/01/17 20:45 Expected date of discharge: 06/03/17 Attending physician: Dorota Cortez Consults: 06/02/17 08:07 Consult Physician Urgent Consulting Provider: Jesica Alvardao Consult Reason/Comments: Medical management Do you want consulting provider notified?: Yes Primary care physician: Stated None Hospital Course: 41-year-old female presented to the emergency room on the day of admission with a chief complaint of developing nausea vomiting with abdominal cramping with a sudden onset patient states that she woke up yesterday morning felt nauseated and vomited once. Stated continued to feel nauseated came into the emergency room to be evaluated patient denies any fever chills frequent stooling dizziness lightheadedness shortness of breath or chest pain. Denied any burning on urination. Patient was just discharged one week prior after undergoing on May 18 laparoscopic assisted right colon resection open procedure for removal of approximately 14 cm tumor was desmoplastic on the third and fourth portion of the duodenum. For near obstructing colon cancer to ZOE drains were in place patient states it's been serous drainage output has decreased plan was for the patient to follow-up with surgical service tomorrow to have a ZOE drains removed currently the patient is denying abdominal pain had one episode of vomiting this morning white count on admission 13.9 hemoglobin 11.3 electrolytes potassium 5 temp on admission 100.9 with the current temp this morning 98.3 A CAT scan of the abdomen pelvis with contrast was done on admission. It showed no evidence of a small bowel obstruction. It did show a large midline subcutaneous fluid collection consistent with hematoma or seroma Doug were removed from the surgical site with the 2 ZOE drains removed prior to discharge. 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 Manisha Quintana nurse practitioner acting as scribe for signing physician. Patient Condition at Discharge: Fair Plan - Discharge Summary Discharge Rx Participant: Yes New Discharge Prescriptions: New Ciprofloxacin HCl [Cipro] 500 mg PO Q12HR #3 tablet Ferrous Sulfate [Iron (65 MG Elemental)] 325 mg PO BID-W/MEALS #60 tab Ondansetron [Zofran] 4 mg PO Q8HR PRN 30 Days #90 tab PRN Reason: Nausea Continue HYDROcodone/APAP 7.5-325MG [[place] 7.5-325] 1 tab PO Q4H PRN #20 tab PRN Reason: Mild Breakthrough Pain Esomeprazole Magnesium [NexIUM] 20 mg PO DAILY #30 capsule.dr Discharge Medication List HYDROcodone/APAP 7.5-325MG [[place] 7.5-325] 1 tab PO Q4H PRN #20 tab 05/24/17 [Rx ] Ciprofloxacin HCl [Cipro] 500 mg PO Q12HR #3 tablet 06/03/17 [Rx] Esomeprazole Magnesium [NexIUM] 20 mg PO DAILY #30 capsule. 06/03/17 [Rx] Ferrous Sulfate [Iron (65 MG Elemental)] 325 mg PO BID-W/MEALS #60 tab 06/03/17 [Rx] Ondansetron [Zofran] 4 mg PO Q8HR PRN 30 Days #90 tab 06/03/17 [Rx] Follow up Appointment(s)/Referral(s): Kavitha Cummings MD [STAFF PHYSICIAN] - 3 Days Dorota Cortez MD [STAFF PHYSICIAN] - 1 Week Patient Instructions/Handouts: Iron Rich Diet (DC), Anemia (DC), Enteritis (DC) Activity/Diet/Wound Care/Special Instructions: After you leave the hospital please proceed to Dr. Cummings's office where you can pickling solution maker the admission packet for her practice. Discharge Disposition: HOME SELF-CARE
== END 2017-06-03 14:05 | disposition home or self-care (01) ==
LOC: EC 17:58 → 3SUR 20:45 → INTOOBSV 20:45
PROVIDERS: ADMIT Surgery; ATTEND Surgery
DX: R82.71 Bacteriuria (principal); B95.1 Streptococcus, group B, as the cause of diseases classified elsewhere; R11.2 Nausea with vomiting, unspecified; R50.9 Fever, unspecified; R10.9 Unspecified abdominal pain; D72.829 Elevated white blood cell count, unspecified; C18.9 Malignant neoplasm of colon, unspecified; K21.9 Gastro-esophageal reflux disease without esophagitis; D75.89 Other specified diseases of blood and blood-forming organs; D50.9 Iron deficiency anemia, unspecified; E66.01 Morbid (severe) obesity due to excess calories; Z68.38 Body mass index [BMI] 38.0-38.9, adult; Z90.49 Acquired absence of other specified parts of digestive tract; Z79.899 Other long term (current) drug therapy
CPT/HCPCS: 96376 ×2; 96366 ×2; 96375 ×2; 96361; 96365; 99285; 36415; 93005; 80053 ×3; 82150; 83605; 83690; 85025 ×2; 85027; 85610; 85730; 81003; 81001; 87040; 87086 ×2; 87077; 87186; 87502; 71020; 74020; 74177; 90686; G0378 ×3; G0008; J2765; J2405 ×2; J2543 ×3; Q9967; J1170

== ENCOUNTER 2018-01-05 09:00 | Day surgery (SDC) | payer OTHER ==
[2017-12-30 14:00] VITALS: BMI 43.0
[~2018-01-05 09:00] MED LIST: DEXAMETHASONE SOD PHOSPHATE 10 MG/ML 1 ML VIAL IV ONE; HEPARIN SODIUM,PORCINE 5,000 UNIT/ML 1 ML VIAL SQ ONE; LACTATED RINGERS 1,000 ML IV SCH; MORPHINE SULFATE 4 MG/ML SYRINGE IV PRN; ONDANSETRON 4 MG/2 ML VIAL IVP ONE; ONDANSETRON 4 MG/2 ML VIAL IVP PRN
[2018-01-05 09:24] VITALS: TEMP 98.4
[2018-01-05] MEDS ORDERED: LIDOCAINE 1% 20 ML VIAL (10MG/ML) FOR IV START INTRADERMA ONE (09:37)
[2018-01-05] MEDS ORDERED: SCOPOLAMINE 1.5MG/72HR PATCH TRANSDERM ONE (09:47)
[2018-01-05] MEDS ORDERED: fentaNYL (PF) 50 MCG/ML 2 ML AMP ONE (10:04)
[2018-01-05] MEDS ORDERED: PROPOFOL 10 MG/ML 20 ML VIAL IV ONE (10:04)
[2018-01-05] MEDS ORDERED: LIDOCAINE 1% INJ 10MG/ML (20 ML MDV) ONE (10:04)
--- NOTE | 2018-01-05 10:06 | P.GSHP ---
History of Present Illness H&P Date: 01/05/18 Chief Complaint: History of colon cancer This a 42-year-old female with history of colon cancer. Patient presents today for removal of Port-A-Cath. Past Medical History Past Medical History: Cancer, GERD/Reflux Additional Past Medical History / Comment(s): Intermittent diarrhea since gallbladder surgery, colon cancer received chemotherapy for 6 months completed 11/21/17, port a cath History of Any Multi-Drug Resistant Organisms: None Reported Past Surgical History: Bowel Resection, Section, Cholecystectomy Additional Past Surgical History / Comment(s): colon CA removal, port a cath Past Anesthesia/Blood Transfusion Reactions: Previous Problems w/ Anesthesia, Motion Sickness Additional Past Anesthesia/Blood Transfusion Reaction / Comment(s): Pt states she woke from anesthesia very confused. "Mom takes a while to go to sleep" Smoking Status: Never smoker - Past Family History Mother Family Medical History: Diabetes Mellitus Father Family Medical History: No Reported History Additional Family Medical History / Comment(s): Father is 64 yrs old. Medications and Allergies Home Medications Medication Instructions Recorded Confirmed Type Ferrous Sulfate [Iron (65 MG 325 mg PO BID-W/MEALS #60 tab 06/03/17 01/05/18 Rx Elemental)] Ondansetron [Zofran] 4 mg PO Q8HR PRN 30 Days #90 tab 06/03/17 01/05/18 Rx Pantoprazole [Protonix] 40 mg PO DAILY PRN 06/09/17 01/05/18 History Allergies Allergy/AdvReac Type Severity Reaction Status Date / Time No Known Allergies Allergy Verified 01/05/18 09:24 Surgical - Exam Vital Signs Temp Pulse Resp BP Pulse Ox 98.4 F 104 H 16 153/73 95 01/05/18 09:22 01/05/18 09:22 01/05/18 09:22 01/05/18 09:22 01/05/18 09:22 - General well developed, no distress - Eyes PERRL - ENT normal pinna - Neck no masses - Respiratory normal expansion - Cardiovascular Rhythm: regular - Abdomen Abdomen: soft, non tender Assessment and Plan Assessment: History of colon cancer. We'll perform removal of Port-A-Cath.
[2018-01-05] MEDS ORDERED: BUPIVACAINE (PF) 0.5% 30 ML VIAL SQ ONE ×2 (10:16)
--- NOTE | 2018-01-05 10:35 | P.OP ---
Date of Procedure: 01/05/18 Preoperative Diagnosis: History of colon cancer Postoperative Diagnosis: History of colon cancer Procedure(s) Performed: Removal of Port-A-Cath Anesthesia: MAC Surgeon: Bharat Stein Estimated Blood Loss (ml): 5 Pathology: none sent Condition: stable Disposition: PACU Description of Procedure: The patient's placed on the operating table in supine position. She received IV sedation. Her left chest wall was prepped and draped in usual sterile fashion. The skin anesthetized with Xylocaine. Using a 15 blade the skin was incised at the port site and then using blunt and sharp dissection with cautery the port cath was removed from subcutaneous tissue. The catheter was removed intact with the Port-A-Cath. Hemostasis was achieved with a Bovie. Skin was closed interrupted 3-0 Monocryl suture. Dermabond was applied. Patient thought procedure well and sent to recovery in stable condition.
[2018-01-05 11:41] VITALS: PULSE 89; RESP 18
[2018-01-05 11:53] VITALS: BP 133/84
== END 2018-01-05 12:15 | disposition home or self-care (01) ==
LOC: OR 09:00
PROVIDERS: ATTEND Surgery
DX: C18.9 Malignant neoplasm of colon, unspecified (principal); Z45.2 Encounter for adjustment and management of vascular access device; Z90.49 Acquired absence of other specified parts of digestive tract; K21.9 Gastro-esophageal reflux disease without esophagitis; Z92.21 Personal history of antineoplastic chemotherapy; Z79.899 Other long term (current) drug therapy
CPT/HCPCS: 36589; J1644; J1100; J0690; J2405; J2001; J3010; J2704

== ENCOUNTER → 2018-03-18 | Outpatient (CLI) | payer OTHER ==
--- NOTE | 2018-03-18 13:58 | US ---
EXAMINATION TYPE: US venous doppler duplex LE LT DATE OF EXAM: 03/18/2018 1:47 PM COMPARISON: NONE CLINICAL HISTORY: Swelling left leg R22.42. Patient had colon cancer, finished chemo in November. Bruisi ng and swelling left calf. Does not recall any injury. No history of blood clots SIDE PERFORMED: Left TECHNIQUE: The lower extremity deep venous system is examined utilizing real time linear array sonog malik with graded compression, doppler sonography and color-flow sonography. VESSELS IMAGED: External Iliac Vein (EIV) Common Femoral Vein Deep Femoral Vein Greater Saphenous Vein * Femoral Vein Popliteal Vein Small Saphenous Vein * Proximal Calf Veins (* superficial vessels) Grayscale, color doppler, spectral doppler imaging performed of the deep veins of the left lower ext remity. There is normal flow, compressibility, vascular waveforms. Left Leg: Appears negative for DVT At the area of bruising on the patient's left calf, there is a hyperechoic area with internal heterog eneity within visualized measuring 1.5 x 1.6 x 1.7 cm. There was no vascularity visualized within thi s area. IMPRESSION: 1. No sonographic evidence of deep venous thrombosis within the left lower extremity. 2. Deep to the superficial visible anastomosis there is a hyperechoic subcutaneous region measuring 1 .7 cm that is avascular most compatible with a resolving hematoma/contusion. However if palpable abno rmality or bruising persists short-term follow-up ultrasound could be performed.
== END | disposition home or self-care (01) ==
LOC: RADUSWWP 13:23
PROVIDERS: ATTEND Internal Medicine Hematology & Oncology
DX: R22.42 Localized swelling, mass and lump, left lower limb (principal); Z98.890 Other specified postprocedural states

== ENCOUNTER 2018-05-06 09:53 | Emergency (ER) | payer OTHER ==
[2018-05-06] MEDS ORDERED: ACETAMINOPHEN TAB 500 MG TAB PO STA (10:21)
[2018-05-06] MEDS ORDERED: HYDROmorphone 1 MG/ML 1 ML SYRINGE IVP STA (10:22)
[2018-05-06] MEDS ORDERED: ONDANSETRON 4 MG/2 ML VIAL IVP STA (10:22)
--- NOTE | 2018-05-06 10:24 | ED ---
Abdominal Pain HPI - General Source: patient, RN notes reviewed, old records reviewed Mode of arrival: ambulatory Limitations: no limitations <Hellen Shaw - Last Filed: 05/06/18 13:27> <Bobby Medina - Last Filed: 05/06/18 13:36> - General Chief Complaint: Abdominal Pain Stated Complaint: poss uti Time Seen by Provider: 05/06/18 10:09 - History of Present Illness Initial Comments: Patient is a 42-year-old female with a history of colon cancer, last chemo treatment in November. Patient reports that over the past 3 days she's been having some right-sided back pain as well as increased nausea and vomiting. She reports that she's been having over 10 episodes of vomiting over the past few days. She states she feels weak and dizzy. She denies any chest pain shortness of breath. She relates that she has had off-and-on fevers and chills. She denies any dysuria at this time. As that she's had normal bowel movements. Her last menstrual period was 3 weeks ago and she does report that it was happy at that time. (Hellen Shaw) - Related Data Home Medications Medication Instructions Recorded Confirmed Pantoprazole [Protonix] 40 mg PO DAILY 06/09/17 05/06/18 Cranberry Fruit Concentrate [Azo 500 mg PO TID PRN 05/06/18 05/06/18 Cranberry] Ferrous Sulfate [Iron (65 MG 650 mg PO DAILY 05/06/18 05/06/18 Elemental)] Ibuprofen [Motrin Ib] 400 mg PO Q6H PRN 05/06/18 05/06/18 Previous Rx's Medication Instructions Recorded Nitrofurantoin Monohyd/M-Cryst 100 mg PO Q12HR #14 cap 05/06/18 [Macrobid] Ondansetron [Zofran] 4 mg PO Q8HR PRN #8 tab 05/06/18 Allergies Allergy/AdvReac Type Severity Reaction Status Date / Time No Known Allergies Allergy Verified 05/06/18 10:09 Review of Systems ROS Other: All systems not noted in ROS Statement are negative. <Hellen Shaw - Last Filed: 05/06/18 13:27> ROS Other: All systems not noted in ROS Statement are negative. <Bobby Medina - Last Filed: 05/06/18 13:36> ROS Statement: Those systems with pertinent positive or pertinent negative responses have been documented in the HPI. Past Medical History Past Medical History: Cancer, GERD/Reflux Additional Past Medical History / Comment(s): Intermittent diarrhea since gallbladder surgery, colon cancer received chemotherapy for 6 months completed 11/21/17, port a cath History of Any Multi-Drug Resistant Organisms: None Reported Past Surgical History: Bowel Resection, Section, Cholecystectomy Additional Past Surgical History / Comment(s): colon CA removal, port a cath Past Anesthesia/Blood Transfusion Reactions: Previous Problems w/ Anesthesia, Motion Sickness Additional Past Anesthesia/Blood Transfusion Reaction / Comment(s): Pt states she woke from anesthesia very confused. "Mom takes a while to go to sleep" Past Psychological History: No Psychological Hx Reported Smoking Status: Never smoker Past Alcohol Use History: None Reported Past Drug Use History: None Reported - Past Family History Mother Family Medical History: Diabetes Mellitus Father Family Medical History: No Reported History Additional Family Medical History / Comment(s): Father is 64 yrs old. <Hellen Shaw - Last Filed: 05/06/18 13:27> General Exam Limitations: no limitations General appearance: alert, in no apparent distress Head exam: Present: atraumatic, normocephalic, normal inspection Eye exam: Present: normal appearance, PERRL, EOMI. Absent: scleral icterus, conjunctival injection, periorbital swelling ENT exam: Present: normal exam, mucous membranes moist Neck exam: Present: normal inspection. Absent: tenderness, meningismus, lymphadenopathy Respiratory exam: Present: normal lung sounds bilaterally. Absent: respiratory distress, wheezes, rales, rhonchi, stridor Cardiovascular Exam: Present: regular rate, normal rhythm, normal heart sounds. Absent: systolic murmur, diastolic murmur, rubs, gallop, clicks GI/Abdominal exam: Present: soft, tenderness (Suprapubic tenderness and left lower quadrant tenderness.), normal bowel sounds, other (Patient has well- appearing scar over the mid abdomen.). Absent: distended, guarding, rebound, rigid Extremities exam: Present: normal inspection, full ROM, normal capillary refill. Absent: tenderness, pedal edema, joint swelling, calf tenderness Back exam: Present: normal inspection, CVA tenderness (R) Neurological exam: Present: alert, oriented X3, CN II-XII intact Psychiatric exam: Present: normal affect, normal mood <ValeriaHellen - Last Filed: 05/06/18 13:27> <Bobby Medina - Last Filed: 05/06/18 13:36> - General Exam Comments Initial Comments: This is a 42-year-old female. Alert and oriented. No significant distress. ( Hellen Shaw) Vital Signs 05/06/18 05/06/18 09:56 11:34 Temperature 98.7 F 98.4 F Pulse Rate 123 H 87 Respiratory 20 18 Rate Blood Pressure 130/87 139/86 O2 Sat by Pulse 95 96 Oximetry Medical Decision Making - Lab Data Result diagrams: 05/06/18 10:46 05/06/18 10:46 - Radiology Data Radiology results: report reviewed <ValeriaHellen - Last Filed: 05/06/18 13:27> - Lab Data Result diagrams: 05/06/18 10:46 05/06/18 10:46 <Bobby Medina - Last Filed: 05/06/18 13:36> - Medical Decision Making Patient's case discussed with Dr. thomas. He recommends following up with him out patiently. Patient can have follow-up with surgeon as well. Given referrals for Dr. Barroso and Dr. Whyte. We will treat the Patient for the possibility of urinary tract infection, she was given a dose of Rocephin emergency department we'll discharge her with Macrobid. Urine culture pending. Discussed strict return parameters. Patient agrees treatment plan will comply. (Hellen Shaw) Case was discussed with Dr. Beckett including CT results. He does feel patient can be discharged. He will follow-up with the patient. Patient will be provided discharge instructions with recommendation to follow-up with oncology as well as surgery. (Bobby Medina) - Lab Data Lab Results 05/06/18 05/06/18 05/06/18 Range/Units 10:09 10:46 10:46 WBC 7.0 (3.8-10.6) k/uL RBC 5.30 (3.80-5.40) m/uL Hgb 13.0 (11.4-16.0) gm/dL Hct 41.2 (34.0-46.0) % MCV 77.6 L (80.0-100.0) fL MCH 24.5 L (25.0-35.0) pg MCHC 31.6 (31.0-37.0) g/dL RDW 14.7 (11.5-15.5) % Plt Count 263 (150-450) k/uL Neutrophils % 69 % Lymphocytes % 18 % Monocytes % 7 % Eosinophils % 4 % Basophils % 1 % Neutrophils # 4.8 (1.3-7.7) k/uL Lymphocytes # 1.3 (1.0-4.8) k/uL Monocytes # 0.5 (0-1.0) k/uL Eosinophils # 0.3 (0-0.7) k/uL Basophils # 0.1 (0-0.2) k/uL Hypochromasia Slight PT (9.0-12.0) sec INR (<1.2) APTT (22.0-30.0) sec Sodium 141 (137-145) mmol/L Potassium 4.0 (3.5-5.1) mmol/L Chloride 107 (98-107) mmol/L Carbon Dioxide 21 L (22-30) mmol/L Anion Gap 13 mmol/L BUN 10 (7-17) mg/dL Creatinine 0.84 (0.52-1.04) mg/dL Est GFR (CKD-EPI)AfAm >90 (>60 ml/min/1.73 sqM) Est GFR (CKD-EPI)NonAf 86 (>60 ml/min/1.73 sqM) Glucose 101 H (74-99) mg/dL Plasma Lactic Acid [place] (0.7-2.0) mmol/L Calcium 9.7 (8.4-10.2) mg/dL Total Bilirubin 1.3 (0.2-1.3) mg/dL AST 39 H (14-36) U/L ALT 28 (9-52) U/L Alkaline Phosphatase 115 (38-126) U/L Troponin I (0.000-0.034) ng/mL Total Protein 8.4 H (6.3-8.2) g/dL Albumin 4.2 (3.5-5.0) g/dL Urine Color Dark Brown Urine Appearance Cloudy H (Clear) Urine pH 5.5 (5.0-8.0) Ur Specific [place] 1.023 (1.001-1.035) Urine Protein 1+ H (Negative) Urine Glucose (UA) Negative (Negative) Urine Ketones Negative (Negative) Urine Blood Small H (Negative) Urine Nitrite Positive H (Negative) Urine Bilirubin 2+ H (Negative) Urine Urobilinogen 8.0 (<2.0) mg/dL Ur Leukocyte Esterase Negative (Negative) Urine RBC 57 H (0-5) /hpf Urine WBC 8 H (0-5) /hpf Ur Squamous Epith Cells 3 (0-4) /hpf Urine Bacteria Rare H (None) /hpf Urine Mucus Many H (None) /hpf 05/06/18 05/06/18 05/06/18 Range/Units 10:46 10:46 11:15 WBC (3.8-10.6) k/uL RBC (3.80-5.40) m/uL Hgb (11.4-16.0) gm/dL Hct (34.0-46.0) % MCV (80.0-100.0) fL MCH (25.0-35.0) pg MCHC (31.0-37.0) g/dL RDW (11.5-15.5) % Plt Count (150-450) k/uL Neutrophils % % Lymphocytes % % Monocytes % % Eosinophils % % Basophils % % Neutrophils # (1.3-7.7) k/uL Lymphocytes # (1.0-4.8) k/uL Monocytes # (0-1.0) k/uL Eosinophils # (0-0.7) k/uL Basophils # (0-0.2) k/uL Hypochromasia PT 11.0 (9.0-12.0) sec INR 1.1 (<1.2) APTT 24.9 (22.0-30.0) sec Sodium (137-145) mmol/L Potassium (3.5-5.1) mmol/L Chloride (98-107) mmol/L Carbon Dioxide (22-30) mmol/L Anion Gap mmol/L BUN (7-17) mg/dL Creatinine (0.52-1.04) mg/dL Est GFR (CKD-EPI)AfAm (>60 ml/min/1.73 sqM) Est GFR (CKD-EPI)NonAf (>60 ml/min/1.73 sqM) Glucose (74-99) mg/dL Plasma Lactic Acid [place] 0.9 (0.7-2.0) mmol/L Calcium (8.4-10.2) mg/dL Total Bilirubin (0.2-1.3) mg/dL AST (14-36) U/L ALT (9-52) U/L Alkaline Phosphatase (38-126) U/L Troponin I <0.012 (0.000-0.034) ng/mL Total Protein (6.3-8.2) g/dL Albumin (3.5-5.0) g/dL Urine Color Urine Appearance (Clear) Urine pH (5.0-8.0) Ur Specific [place] (1.001-1.035) Urine Protein (Negative) Urine Glucose (UA) (Negative) Urine Ketones (Negative) Urine Blood (Negative) Urine Nitrite (Negative) Urine Bilirubin (Negative) Urine Urobilinogen (<2.0) mg/dL Ur Leukocyte Esterase (Negative) Urine RBC (0-5) /hpf Urine WBC (0-5) /hpf Ur Squamous Epith Cells (0-4) /hpf Urine Bacteria (None) /hpf Urine Mucus (None) /hpf 05/06/18 10:55 EKG performed at 1046 shows sinus tachycardia otherwise normal EKG noted. Ventricular rate of 103 beats were minute. Verbal 176 most seconds. QRS duration 86 most seconds. QT QTc is 350/458 ms. ( Hellen Shaw) - Radiology Data : Soft tissue mass within the region of the gena hepatis is warm or masses noted to the small bowel mesentery reflect adenopathy. Also splinted megaly. Correlating for lymphoma or leukemia. (Hellen Shaw) Disposition Is patient prescribed a controlled substance at d/c from ED?: No Time of Disposition: 13:30 <Hellen Shaw - Last Filed: 05/06/18 13:27> <Bobby Medina - Last Filed: 05/06/18 13:36> Clinical Impression: Nausea & vomiting, UTI (urinary tract infection), Abdominal mass Disposition: HOME SELF-CARE Condition: Good Instructions: Urinary Tract Infection in Women (ED) Additional Instructions: Patient has a take the antibiotic as prescribed. Follow-up with your primary care provider, as well as the oncologist and surgeon. Patient should return to the emergency department if any alarming signs or symptoms occur. Prescriptions: Nitrofurantoin Monohyd/M-Cryst [Macrobid] 100 mg PO Q12HR #14 cap Ondansetron [Zofran] 4 mg PO Q8HR PRN #8 tab PRN Reason: Nausea And Vomiting Referrals: None,Stated [Primary Care Provider] - 1-2 days Kenan Montgomery MD [STAFF PHYSICIAN] - 1-2 days Bharat Stein MD [STAFF PHYSICIAN] - 1-2 days Bhumika Miranda MD [STAFF PHYSICIAN] - 1-2 days
[2018-05-06] MEDS: SODIUM CHLORIDE 0.9% 500 ML IV SCH ×2 (10:39→12:50)
[2018-05-06 11:07] LABS: Basophils # (A) 0.1 k/uL (0-0.2); Basophils % (A) 1 %; Eosinophils # (A) 0.3 k/uL (0-0.7); Eosinophils % (A) 4 %; HCT 41.2 % (34.0-46.0); Hypochromasia Slight; Lymphocytes # (A) 1.3 k/uL (1.0-4.8); Lymphocytes % (A) 18 %; MCH 24.5 pg (25.0-35.0); MCHC 31.6 g/dL (31.0-37.0); MCV 77.6 fL (80.0-100.0); Mean Platelet Volume 7.6; Monocytes # (A) 0.5 k/uL (0-1.0); Monocytes % (A) 7 %; Neutrophils # (A) 4.8 k/uL (1.3-7.7); Neutrophils % (A) 69 %; Platelet Count 263 k/uL (150-450); RDW 14.7 % (11.5-15.5)
[2018-05-06 11:26] LABS: ALT 28 U/L (9-52); AST 39 U/L (14-36); Albumin 4.2 g/dL (3.5-5.0); Alkaline Phosphatase 115 U/L (38-126); Anion Gap 13 mmol/L; Blood Urea Nitrogen 10 mg/dL (7-17); Calcium 9.7 mg/dL (8.4-10.2); Carbon Dioxide 21 mmol/L (22-30); Chloride 107 mmol/L (98-107); Glucose 101 mg/dL (74-99); Sodium 141 mmol/L (137-145); Total Bilirubin 1.3 mg/dL (0.2-1.3); Total Protein 8.4 g/dL (6.3-8.2)
[2018-05-06 11:27] LABS: Appearance,Urine Cloudy (Clear); Bacteria,Urine Rare /hpf; Bilirubin,Urine 2+ (Negative); Blood,Urine Small (Negative); Color,Urine Dark Brown; Glucose,Urine (UA) Negative (Negative); Ketones,Urine Negative (Negative); Leukocyte Esterase,Urine Negative (Negative); Mucus,Urine Many /hpf; Nitrite,Urine Positive (Negative); PH, Urine 5.5 (5.0-8.0); Protein,Urine 1+ (Negative); RBC,Urine 57 /hpf (0-5); Specific Gravity,Urine 1.023 (1.001-1.035); Squamous Epithelial Cell,Urine 3 /hpf (0-4); WBC,Urine 8 /hpf (0-5)
[2018-05-06] MEDS ORDERED: cefTRIAXone 2,000 MG in SODIUM CHLORIDE 0.9% 100 ML IVPB STA (11:28)
[2018-05-06 11:35] VITALS: RESP 18
[2018-05-06 12:08] LABS: INR 1.1 (<1.2); Partial Thromboplastin Time 24.9 sec (22.0-30.0)
--- NOTE | 2018-05-06 12:29 | CT ---
EXAMINATION TYPE: CT abdomen pelvis w con DATE OF EXAM: 05/06/2018 COMPARISON: 06/01/2017 HISTORY: AB PAIN/LOWER BACK PAIN CT DLP: 2383.1 mGycm CONTRAST: CT scan of the abdomen and pelvis is performed without Oral Contrast and with IV Contrast, patient in jected with 100 mL of Isovue 300. FINDINGS: LUNG BASES-: No visible nodule. No infiltrate. LIVER/GB: Cholecystectomy clips are in place. No space occupying hepatic lesion. Common bile duct appears to be prominent. Soft tissue appears to encase the common bile duct. PANCREAS: No inflammation. No distinct mass. SPLEEN: Splenomegaly noted without chronic caudal measurement of 14 cm and AP dimension of 18.6 cm. N o lesion seen. ADRENALS: No nodule. No thickening. KIDNEYS/BLADDER: No hydronephrosis. No nephrolithiasis. No distinct renal mass. Urinary bladder g rossly unremarkable. BOWEL: Normal appendix. Postoperative changes involving the transverse colon. Normal bowel caliber. No inflammation. GENITAL ORGANS: No gross abnormality. LYMPH NODES: 5.3 x 5.5 cm soft tissue mass in the region of the gena hepatis likely reflects conglom erate adenopathy. There appears to be encasement of the common bile duct dilatation noted. Additional mass within the small bowel mesentery measuring 8.1 x 5.8 cm. AORTA: No significant abnormality. OSSEOUS STRUCTURES: No significant abnormality is seen. OTHER: No significant additional abnormality is seen. IMPRESSION: 1. Conglomerate soft tissue mass within the region of the gena hepatis as well as conglomerate mass in the region of the small bowel mesentery felt to reflect adenopathy. There is also splenomegaly. Co rrelate for lymphoma or leukemia.
[2018-05-06 13:50] VITALS: BP 121/90; PULSE 75; TEMP 98
== END 2018-05-06 13:50 | disposition home or self-care (01) ==
LOC: EC 09:53
DX: N39.0 Urinary tract infection, site not specified (principal); R11.2 Nausea with vomiting, unspecified; R19.00 Intra-abdominal and pelvic swelling, mass and lump, unspecified site; R16.1 Splenomegaly, not elsewhere classified; R00.0 Tachycardia, unspecified; R53.1 Weakness; R42 Dizziness and giddiness; K21.9 Gastro-esophageal reflux disease without esophagitis; Z79.899 Other long term (current) drug therapy; Z85.038 Personal history of other malignant neoplasm of large intestine; Z92.21 Personal history of antineoplastic chemotherapy; Z90.49 Acquired absence of other specified parts of digestive tract
CPT/HCPCS: 36415; 93005; 80053; 83605; 84484; 85025; 85610; 85730; 81001; 87040; 87086; 74177; 99285; 96365; 96375 ×2; 96361 ×2; J2405; J0696; J1170; Q9967

== ENCOUNTER 2018-05-23 08:55 | Day surgery (SDC) | payer OTHER ==
[2018-05-23 09:49] LABS: Mean Platelet Volume 7.8; Platelet Count 177 k/uL (150-450)
[2018-05-23 09:54] LABS: INR 1.1 (<1.2); Prothrombin Time 10.4 sec (9.0-12.0)
[2018-05-23] MEDS ORDERED: ALPRAZolam 0.5 MG TAB PO STA (09:54)
[2018-05-23 10:38] VITALS: RESP 16
[2018-05-23] MEDS ORDERED: HYDROmorphone 1 MG/ML 1 ML SYRINGE IVP STA (10:41)
[2018-05-23 12:15] VITALS: TEMP 98.2
--- NOTE | 2018-05-23 12:34 | CT ---
EXAMINATION TYPE: CT guided FNA DATE OF EXAM: 05/23/2018 HISTORY: Abdominal mass, colon cancer COMPARISON: CT 05/06/2018 Maximal barrier technique was utilized. The skin overlying a suitable path to the lesion was localiz ed using CT and the overlying skin was prepped and draped. Lidocaine used for local anesthesia. A s kin mana made with a scalpel. Using CT guidance, access was gained to the lesion with a 22-gauge nee dle through a 17-gauge guide. Aspirated specimen submitted to cytology. 2 passes were performed in all. Patient experienced pain despite pain medication IV, the procedure was aborted. Following the p rocedure no immediate complications. The patient is discharged in stable condition. Hemostasis ach ieved. IMPRESSION: SUCCESSFUL CT GUIDED BIOPSY, fine-needle aspiration. PATHOLOGY PENDING. THIS PROCEDURE WAS PERFORME D BY THE UNDERSIGNED.
[2018-05-23 13:49] VITALS: BP 133/77; PULSE 86
== END 2018-05-23 13:42 | disposition home or self-care (01) ==
LOC: RADPROMAIN 08:55
PROVIDERS: ATTEND Internal Medicine Hematology & Oncology
DX: C18.3 Malignant neoplasm of hepatic flexure (principal); C77.2 Secondary and unspecified malignant neoplasm of intra-abdominal lymph nodes
CPT/HCPCS: 88305; 88173; 85049; 85610; 88342; 88341; 96374; 36415; 77012; 10022; J1170

== ENCOUNTER → 2018-06-06 | Outpatient (CLI) | payer OTHER ==
--- NOTE | 2018-06-06 15:28 | NM ---
EXAMINATION TYPE: NM bone scan whole body DATE OF EXAM: 06/06/2018 COMPARISON: NONE HISTORY: C18.3 colon CA Delayed whole-body scanning was performed following the injection of 24.6 mCi Tc 99m MDP. Images acq uired 3.5 hours post injection. FINDINGS: No concerning uptake to suggest metastatic disease. Degenerative uptake about the shoulders, sternocl avicular joints, mid thoracic spine, bilateral knees as well as bilateral ankles and feet. IMPRESSION: No scintigraphic evidence to suggest metastatic uptake at this time.
== END | disposition home or self-care (01) ==
LOC: RADNMMAIN 10:09
PROVIDERS: ATTEND Internal Medicine Hematology & Oncology
DX: C18.3 Malignant neoplasm of hepatic flexure (principal)
CPT/HCPCS: 78306; A9503

== ENCOUNTER 2018-06-16 18:05 | Emergency (ER) | payer OTHER ==
[2018-06-16] MEDS ORDERED: SODIUM CHLORIDE 0.9% 1,000 ML IV STA (19:01)
[2018-06-16] MEDS ORDERED: ONDANSETRON 4 MG/2 ML VIAL IVP STA (19:03)
[2018-06-16] MEDS ORDERED: HYDROmorphone 1 MG/ML 1 ML SYRINGE IVP STA ×2 (19:05→22:15)
--- NOTE | 2018-06-16 19:13 | ED ---
Back Pain HPI - General Chief Complaint: Back Pain/Injury Stated Complaint: chest & back pain/SOB/ has colon cancer Time Seen by Provider: 06/16/18 18:53 Source: patient Limitations: no limitations - History of Present Illness Initial Comments: 42-year-old female patient with past medical history significant for colon cancer presents to emergency department today for complaints of increased mid back pain. Patient states that the pain to the middle and radiates all across her back to the bilateral flanks. Patient states that she has had pain similar to this in the past when she was diagnosed with a return of colon cancer in May. She is treated by Dr. Russell. She started immune therapy with Opdivo- [place]erv[place] today. States when she got home from her infusion the back pain started and has been gradually worsening. Patient states she is on her menses currently. She denies any dysuria, urinary frequency, or urinary urgency. States that she has been having constipation with small bowel movements daily. States she is passing gas. States that she has been nauseated and has vomited several times related to this. She denies any fever, chills, numbness, tingling , or weakness to her extremities. She denies any loss of bowel or bladder control or saddle anesthesia. Patient denies any recent rash, shortness breath, chest pain, abdominal pain, headache, visual changes, or any other complaints. - Related Data Home Medications Medication Instructions Recorded Confirmed Pantoprazole [Protonix] 40 mg PO DAILY 06/09/17 06/16/18 Ferrous Sulfate [Iron (65 MG 325 mg PO BID 05/06/18 06/16/18 Elemental)] HYDROcodone/APAP 10-325MG [[place] 1 tab PO BID PRN 06/16/18 06/16/18 10-325] Allergies Allergy/AdvReac Type Severity Reaction Status Date / Time No Known Allergies Allergy Verified 06/16/18 19:14 Review of Systems ROS Statement: Those systems with pertinent positive or pertinent negative responses have been documented in the HPI. ROS Other: All systems not noted in ROS Statement are negative. Past Medical History Past Medical History: Cancer, GERD/Reflux Additional Past Medical History / Comment(s): Intermittent diarrhea since gallbladder surgery, colon cancer received chemotherapy for 6 months completed 11/21/17, port a cath,port removed History of Any Multi-Drug Resistant Organisms: None Reported Past Surgical History: Bowel Resection, Section, Cholecystectomy Additional Past Surgical History / Comment(s): colon CA removal, Past Anesthesia/Blood Transfusion Reactions: Previous Problems w/ Anesthesia, Motion Sickness Additional Past Anesthesia/Blood Transfusion Reaction / Comment(s): Pt states she woke from anesthesia very confused. "Mom takes a while to go to sleep" Past Psychological History: No Psychological Hx Reported Smoking Status: Never smoker Past Alcohol Use History: None Reported Past Drug Use History: None Reported - Past Family History Mother Family Medical History: Diabetes Mellitus Father Family Medical History: No Reported History Additional Family Medical History / Comment(s): Father is 64 yrs old. General Exam Limitations: no limitations General appearance: alert, in no apparent distress, other (This is a well- developed, well-nourished adult female patient in no acute distress. Vital signs upon presentation are temperature 98.8F, pulse 124, respirations 18, blood pressure 141/83, pulse ox 99% on room air.) Eye exam: Present: normal appearance, PERRL, EOMI. Absent: scleral icterus, conjunctival injection, periorbital swelling ENT exam: Present: normal exam, normal oropharynx, mucous membranes moist Respiratory exam: Present: normal lung sounds bilaterally. Absent: respiratory distress, wheezes, rales, rhonchi, stridor Cardiovascular Exam: Present: regular rate, normal rhythm, normal heart sounds. Absent: systolic murmur, diastolic murmur, rubs, gallop, clicks GI/Abdominal exam: Present: soft, normal bowel sounds. Absent: distended, tenderness, guarding, rebound, rigid Back exam: Present: normal inspection. Absent: CVA tenderness (R), CVA tenderness (L) Neurological exam: Present: alert, oriented X3, CN II-XII intact Psychiatric exam: Present: normal affect, normal mood Skin exam: Present: warm, dry, intact, normal color. Absent: rash Course Vital Signs 06/16/18 06/16/18 06/16/18 18:17 21:39 22:55 Temperature 98.8 F 99.3 F Pulse Rate 124 H 104 H 101 H Respiratory 18 16 14 Rate Blood Pressure 141/83 143/82 129/75 O2 Sat by Pulse 99 98 96 Oximetry Medical Decision Making - Medical Decision Making 42-year-old female patient with past medical history significant for colon cancer presented to the emergency department today for evaluation of increased back pain. Physical examination is relatively unremarkable. Abdomen soft and nontender. Patient is neurologically intact with no focal deficits. Labs reviewed and were unremarkable. Urinalysis did have presence of a large amount of blood however patient is currently on her menstrual cycle. She denies any dysuria or urinary frequency. KUB x-ray of the abdomen was negative for any evidence of obstruction. Patient was given IV pain medication here in the department. Did improve her symptoms somewhat. Patient will be discharged home at this time to follow-up with her oncologist. She is instructed to call the morning for an appointment and further guidance regarding increasing back pain. Return parameters were discussed in detail. She verbalizes understanding and agrees with this plan. - Lab Data Result diagrams: 06/16/18 20:21 06/16/18 20:21 Lab Results 06/16/18 06/16/18 06/16/18 Range/Units 20:21 20:21 20:21 WBC 10.1 (3.8-10.6) k/uL RBC 5.10 (3.80-5.40) m/uL Hgb 12.8 (11.4-16.0) gm/dL Hct 41.0 (34.0-46.0) % MCV 80.3 (80.0-100.0) fL MCH 25.0 (25.0-35.0) pg MCHC 31.2 (31.0-37.0) g/dL RDW 15.4 (11.5-15.5) % Plt Count 177 (150-450) k/uL Neutrophils % 83 % Lymphocytes % 7 % Monocytes % 7 % Eosinophils % 2 % Basophils % 0 % Neutrophils # 8.4 H (1.3-7.7) k/uL Lymphocytes # 0.7 L (1.0-4.8) k/uL Monocytes # 0.7 (0-1.0) k/uL Eosinophils # 0.2 (0-0.7) k/uL Basophils # 0.0 (0-0.2) k/uL Hypochromasia Slight Sodium 138 (137-145) mmol/L Potassium 4.3 (3.5-5.1) mmol/L Chloride 107 (98-107) mmol/L Carbon Dioxide 22 (22-30) mmol/L Anion Gap 9 mmol/L BUN 8 (7-17) mg/dL Creatinine 0.70 (0.52-1.04) mg/dL Est GFR (CKD-EPI)AfAm >90 (>60 ml/min/1.73 sqM) Est GFR (CKD-EPI)NonAf >90 (>60 ml/min/1.73 sqM) Glucose 116 H (74-99) mg/dL Calcium 9.1 (8.4-10.2) mg/dL Total Bilirubin 1.1 (0.2-1.3) mg/dL AST 46 H (14-36) U/L ALT 30 (9-52) U/L Alkaline Phosphatase 205 H (38-126) U/L Total Creatine Kinase 73 (30-135) U/L CK-MB (CK-2) 0.5 (0.0-2.4) ng/mL CK-MB (CK-2) Rel Index 0.7 Troponin I <0.012 (0.000-0.034) ng/mL Total Protein 8.1 (6.3-8.2) g/dL Albumin 3.8 (3.5-5.0) g/dL Lipase 33 (23-300) U/L Urine Color Urine Appearance (Clear) Urine pH (5.0-8.0) Ur Specific [place] (1.001-1.035) Urine Protein (Negative) Urine Glucose (UA) (Negative) Urine Ketones (Negative) Urine Blood (Negative) Urine Nitrite (Negative) Urine Bilirubin (Negative) Urine Urobilinogen (<2.0) mg/dL Ur Leukocyte Esterase (Negative) Urine RBC (0-5) /hpf Urine WBC (0-5) /hpf 06/16/18 Range/Units 21:30 WBC (3.8-10.6) k/uL RBC (3.80-5.40) m/uL Hgb (11.4-16.0) gm/dL Hct (34.0-46.0) % MCV (80.0-100.0) fL MCH (25.0-35.0) pg MCHC (31.0-37.0) g/dL RDW (11.5-15.5) % Plt Count (150-450) k/uL Neutrophils % % Lymphocytes % % Monocytes % % Eosinophils % % Basophils % % Neutrophils # (1.3-7.7) k/uL Lymphocytes # (1.0-4.8) k/uL Monocytes # (0-1.0) k/uL Eosinophils # (0-0.7) k/uL Basophils # (0-0.2) k/uL Hypochromasia Sodium (137-145) mmol/L Potassium (3.5-5.1) mmol/L Chloride (98-107) mmol/L Carbon Dioxide (22-30) mmol/L Anion Gap mmol/L BUN (7-17) mg/dL Creatinine (0.52-1.04) mg/dL Est GFR (CKD-EPI)AfAm (>60 ml/min/1.73 sqM) Est GFR (CKD-EPI)NonAf (>60 ml/min/1.73 sqM) Glucose (74-99) mg/dL Calcium (8.4-10.2) mg/dL Total Bilirubin (0.2-1.3) mg/dL AST (14-36) U/L ALT (9-52) U/L Alkaline Phosphatase (38-126) U/L Total Creatine Kinase (30-135) U/L CK-MB (CK-2) (0.0-2.4) ng/mL CK-MB (CK-2) Rel Index Troponin I (0.000-0.034) ng/mL Total Protein (6.3-8.2) g/dL Albumin (3.5-5.0) g/dL Lipase (23-300) U/L Urine Color Red Urine Appearance Cloudy H (Clear) Urine pH 6.0 (5.0-8.0) Ur Specific [place] 1.016 (1.001-1.035) Urine Protein 1+ H (Negative) Urine Glucose (UA) Negative (Negative) Urine Ketones Trace H (Negative) Urine Blood Large H (Negative) Urine Nitrite Negative (Negative) Urine Bilirubin Negative (Negative) Urine Urobilinogen <2.0 (<2.0) mg/dL Ur Leukocyte Esterase Large H (Negative) Urine RBC >182 H (0-5) /hpf Urine WBC >182 H (0-5) /hpf - Radiology Data Radiology results: report reviewed, image reviewed Two-view x-ray of the abdomen was obtained. There is no sign of intestinal obstruction or pneumoperitoneum. Fecal pattern is normal. There are clips from cholecystectomy. Lung bases are clear. There are no pathologic calcifications. Impression by Dr. Bang shows nonacute abdomen. Disposition Clinical Impression: Back pain, Flank pain Disposition: HOME SELF-CARE Condition: Good Instructions: Flank Pain (ED), Back Pain (ED) Additional Instructions: Take home medication as prescribed. Take Zofran as needed. Follow up with your oncologist tomorrow. Return here immediately for any new, worsening, or concerning symptoms. Is patient prescribed a controlled substance at d/c from ED?: No Referrals: Nellie Russell MD [STAFF PHYSICIAN] - 1-2 days Time of Disposition: 22:25
--- NOTE | 2018-06-16 19:47 | XR ---
EXAMINATION TYPE: XR KUB DATE OF EXAM: 06/16/2018 COMPARISON: NONE HISTORY: Back pain TECHNIQUE: 2 views upright FINDINGS: There is no sign of intestinal obstruction or pneumoperitoneum. Fecal pattern is normal. Th ere are clips from cholecystectomy. Lung bases are clear. There are no pathologic calcifications. IMPRESSION: Nonacute abdomen.
[2018-06-16 20:38] LABS: Basophils % (A) 0 %; Eosinophils # (A) 0.2 k/uL (0-0.7); Eosinophils % (A) 2 %; HGB 12.8 gm/dL (11.4-16.0); Hypochromasia Slight; Lymphocytes # (A) 0.7 k/uL (1.0-4.8); Lymphocytes % (A) 7 %; MCHC 31.2 g/dL (31.0-37.0); MCV 80.3 fL (80.0-100.0); Mean Platelet Volume 7.7; Monocytes # (A) 0.7 k/uL (0-1.0); Monocytes % (A) 7 %; Neutrophils # (A) 8.4 k/uL (1.3-7.7); Neutrophils % (A) 83 %; Platelet Count 177 k/uL (150-450); RDW 15.4 % (11.5-15.5); WBC 10.1 k/uL (3.8-10.6)
[2018-06-16 20:52] LABS: Sodium 138 mmol/L (137-145)
[2018-06-16 20:54] LABS: ALT 30 U/L (9-52); AST 46 U/L (14-36); Albumin 3.8 g/dL (3.5-5.0); Alkaline Phosphatase 205 U/L (38-126); Anion Gap 9 mmol/L; Blood Urea Nitrogen 8 mg/dL (7-17); Calcium 9.1 mg/dL (8.4-10.2); Carbon Dioxide 22 mmol/L (22-30); Chloride 107 mmol/L (98-107); Glucose 116 mg/dL (74-99); Lipase 33 U/L (23-300); Potassium 4.3 mmol/L (3.5-5.1); Total Bilirubin 1.1 mg/dL (0.2-1.3); Total Protein 8.1 g/dL (6.3-8.2)
[2018-06-16 20:58] LABS: Creatine Kinase 73 U/L (30-135)
[2018-06-16 21:11] LABS: Creatine Kinase MB 0.5 ng/mL (0.0-2.4); Troponin I <0.012 ng/mL (0.000-0.034)
[2018-06-16 22:03] LABS: Appearance,Urine Cloudy (Clear); Bilirubin,Urine Negative (Negative); Blood,Urine Large (Negative); Color,Urine Red; Glucose,Urine (UA) Negative (Negative); Ketones,Urine Trace (Negative); Leukocyte Esterase,Urine Large (Negative); Nitrite,Urine Negative (Negative); Protein,Urine 1+ (Negative); RBC,Urine >182 /hpf (0-5); Specific Gravity,Urine 1.016 (1.001-1.035); Urobilinogen,Urine <2.0 mg/dL (<2.0); WBC,Urine >182 /hpf (0-5)
[2018-06-16] MEDS ORDERED: ONDANSETRON 4 MG ODT STARTER PACK 2 TAB BTL PO STA (22:24)
[2018-06-16 23:01] VITALS: BP 129/75; PULSE 101; RESP 14; TEMP 99.3
== END 2018-06-16 22:55 | disposition home or self-care (01) ==
LOC: EC 18:05
DX: M54.6 Pain in thoracic spine (principal); R10.9 Unspecified abdominal pain; R11.2 Nausea with vomiting, unspecified; K59.00 Constipation, unspecified; K21.9 Gastro-esophageal reflux disease without esophagitis; Z85.038 Personal history of other malignant neoplasm of large intestine; Z90.49 Acquired absence of other specified parts of digestive tract; Z92.21 Personal history of antineoplastic chemotherapy; Z98.890 Other specified postprocedural states; Z79.899 Other long term (current) drug therapy
CPT/HCPCS: 36415; 93005; 80053; 82550; 82553; 83690; 84484; 85025; 81001; 74018; 99284; 96374; 96375; 96376; 96361 ×2; J2405; J1170; S0119

== ENCOUNTER 2018-06-27 06:25 | Day surgery (SDC) | payer OTHER ==
[2018-06-23 14:56] VITALS: BMI 46.6
[~2018-06-27 06:25] MED LIST changes: +HYDROmorphone 0.5 MG/0.5 ML SYRINGE IVP PRN; +MIDAZOLAM 2 MG/2 ML VIAL IV PRN; -MORPHINE SULFATE 4 MG/ML SYRINGE IV PRN; -ONDANSETRON 4 MG/2 ML VIAL IVP PRN; +SCOPOLAMINE 1.5MG/72HR PATCH TRANSDERM ONE
[2018-06-27] MEDS ORDERED: LIDOCAINE 1% 20 ML VIAL (10MG/ML) FOR IV START INTRADERMA ONE (07:10)
--- NOTE | 2018-06-27 07:50 | P.GSHP ---
History of Present Illness H&P Date: 06/27/18 Chief Complaint: History of colon cancer A 42-year-old female who presents today for Port-A-Cath insertion. Patient is. History of colon cancer. Past Medical History Past Medical History: Cancer, GERD/Reflux Additional Past Medical History / Comment(s): Intermittent diarrhea since gallbladder surgery, colon cancer received chemotherapy for 6 months completed 11/21/17, port a cath IN PAST, NOW port removed History of Any Multi-Drug Resistant Organisms: None Reported Past Surgical History: Bowel Resection, Section, Cholecystectomy Additional Past Surgical History / Comment(s): colon CA removal, Past Anesthesia/Blood Transfusion Reactions: Previous Problems w/ Anesthesia, Motion Sickness Additional Past Anesthesia/Blood Transfusion Reaction / Comment(s): Pt states she woke from anesthesia very confused in past Smoking Status: Never smoker - Past Family History Mother Family Medical History: Diabetes Mellitus Father Family Medical History: No Reported History Additional Family Medical History / Comment(s): Father is 64 yrs old. Medications and Allergies Home Medications Medication Instructions Recorded Confirmed Type Pantoprazole [Protonix] 40 mg PO DAILY 06/09/17 06/27/18 History Ferrous Sulfate [Iron (65 MG 325 mg PO BID 05/06/18 06/27/18 History Elemental)] HYDROcodone/APAP 10-325MG [[facility] 1 tab PO BID PRN 06/16/18 06/27/18 History 10-325] Ondansetron HCl [Zofran] 4 mg PO DAILY PRN 06/23/18 06/27/18 History Allergies Allergy/AdvReac Type Severity Reaction Status Date / Time No Known Allergies Allergy Verified 06/23/18 14:50 Surgical - Exam Vital Signs Temp Pulse Resp BP Pulse Ox 98.6 F 77 16 136/85 97 06/27/18 07:03 06/27/18 07:03 06/27/18 07:03 06/27/18 07:03 06/27/18 07:03 - General well developed, no distress - Eyes PERRL - ENT normal pinna - Neck no masses - Respiratory normal expansion - Cardiovascular Rhythm: regular - Abdomen Abdomen: soft, non tender Assessment and Plan Assessment: History of colon cancer. We'll perform Port-A-Cath insertion.
[2018-06-27] MEDS ORDERED: GLYCOPYRROLATE 0.2 MG/ML 2 ML VIAL ONE (07:58)
[2018-06-27] MEDS ORDERED: fentaNYL (PF) 50 MCG/ML 2 ML AMP ONE (07:58)
[2018-06-27] MEDS ORDERED: KETAMINE 10 MG/ML 20 ML VIAL ONE (07:58)
[2018-06-27] MEDS ORDERED: MIDAZOLAM 2 MG/2 ML VIAL ONE (07:58)
[2018-06-27] MEDS ORDERED: PROPOFOL 10 MG/ML 20 ML VIAL IV ONE (07:58)
[2018-06-27] MEDS ORDERED: BUPIVACAIN-EPI 0.25%-1:200,000 30 ML VIAL SQ ONE ×2 (08:26)
[2018-06-27] MEDS ORDERED: HEPARIN SODIUM,PORCINE 100 UNIT/ML 5 ML VIAL IV ONE (08:26)
[2018-06-27] MEDS ORDERED: IOHEXOL 180 MG/ML 1 ML ML MISCELLANE ONE ×2 (08:26)
--- NOTE | 2018-06-27 08:52 | P.OP ---
Date of Procedure: 06/27/18 Preoperative Diagnosis: Colon cancer Postoperative Diagnosis: Colon cancer Procedure(s) Performed: Insertion of right subclavian Port-A-Cath Anesthesia: MAC Surgeon: Bharat Stein Estimated Blood Loss (ml): 3 Pathology: none sent Condition: stable Disposition: PACU Description of Procedure: MPROCEDURE: The patient was placed on the operating table in the supine position. She received MAC anesthetic. The [right] chest was prepped and draped in the usual sterile fashion. The skin underneath the right clavicle was anesthetized with 1% Xylocaine and using Seldinger technique, the right subclavian vein was cannulized. The wire was placed through the needle and positioned under fluoroscopy. Next, the needle was removed and the port site was anesthetized with 1% Xylocaine. Skin was incised with #15 blade and port pocket was made using blunt and sharp dissection. Following this the catheter was attached to the sport and the port was flushed. The port was positioned into the pocket site and was secured with 3-0 Vicryl suture. The catheter was then brought out through the wire site and then the dilator sheath was placed over the wire and the dilator and the wire were removed. The catheter was placed through the sheath and the sheath was removed. The port was flushed with hep-lock solution. Skin was closed with interrupted 3-0 Vicryl sutures. Steri-Strips were applied. The patient tolerated the procedure well. The patient was sent to recovery room for chest x-ray after the procedure.
[2018-06-27 09:06] VITALS: TEMP 97.6
[2018-06-27 09:45] VITALS: RESP 16
[2018-06-27 10:09] VITALS: BP 115/72; PULSE 90
--- NOTE | 2018-06-27 10:11 | XR ---
EXAMINATION TYPE: XR chest 1V portable DATE OF EXAM: 06/27/2018 Comparison: 06/14/2017 Clinical History: 42-year-old female with Line placement Findings: Heart normal size. Interstitial changes may reflect low lung volumes and crowded vascular markings. R ight perihilar opacity is unchanged. Right-sided subclavian injection port with catheter tip at the m id SVC level. Impression: Similar interstitial changes and possible right perihilar infiltrate. Right-sided subclavian injectio n port is similar with catheter tip at the mid SVC.
--- NOTE | 2018-06-27 12:26 | FL ---
EXAMINATION TYPE: FL guided central line placement DATE OF EXAM: 06/27/2018 FLUOROSCOPY Fluoroscopy time of 24 seconds was used during Port-A-Cath insertion. 1 image/s document/s arianne patterson.
== END 2018-06-27 10:25 | disposition home or self-care (01) ==
LOC: OR 06:25
PROVIDERS: ATTEND Surgery
DX: C18.3 Malignant neoplasm of hepatic flexure (principal); G62.0 Drug-induced polyneuropathy; Z80.0 Family history of malignant neoplasm of digestive organs; Z83.2 Family history of diseases of the blood and blood-forming organs and certain disorders involving the immune mechanism; Z79.899 Other long term (current) drug therapy; Z90.49 Acquired absence of other specified parts of digestive tract; K21.9 Gastro-esophageal reflux disease without esophagitis; Z92.21 Personal history of antineoplastic chemotherapy
CPT/HCPCS: 81025; 77001; 71045; 36571; 76937; C1788; J2250; J1644; J1642; J1100; Q9965; J2405; J3010; J2704

== ENCOUNTER → 2018-09-08 | Outpatient (CLI) | payer OTHER ==
[2018-09-08 08:30] LABS: Blood Urea Nitrogen 11 mg/dL (7-17)
--- NOTE | 2018-09-08 11:25 | CT ---
EXAMINATION TYPE: CT ChestAbdPelvis w con DATE OF EXAM: 09/08/2018 COMPARISON: 04/28/2018 HISTORY: 42-year-old female follow up to colon CA, pt currently receiving immunotherapy TECHNIQUE: Contiguous axial scanning of the chest, abdomen, and pelvis performed with IV Contrast, pa tient injected with 100 mL of Isovue 300. Delayed images through the kidneys were obtained. Coronal/s agittal reconstructions performed. CT DLP: 2355 mGycm Automated exposure control for dose reduction was used. FINDINGS: Chest: Heart normal size without pericardial effusion. Aorta normal caliber with conventional branching anatomy. Calcified lymph node in the prevascular space. Additional calcified left hilar lymph node. Findings s uggest prior granulomatous disease. No thoracic lymphadenopathy by CT size criteria. Scattered centrilobular nodularity with mild diffuse bronchial wall thickening. Some of the nodularit y has a somewhat tree-in-bud appearance. Small patches of groundglass opacity in the superior segment left lower lobe axial image 21, left upper lobe axial image 12, posterior left lower lobe axial imag e 31, and a couple foci in the basilar left lower lobe, axial image 35. No pleural effusion. ABDOMEN: Small hiatal hernia. Lower left paraesophageal lymph node measures 1.3 cm, unchanged from prior. Cholecystectomy clips. Adrenal glands within normal limits. Aside from the multiple collateralization along the pancreatic head, pancreas shows no gross abnormality. Spleen measures 18.4 cm with calcified granulomas. Lobulated contour of the bilateral kidneys is unch anged. Nonobstructive 3 mm right midpole renal calculus. Tiny subcentimeter hypodensity posterior mid left kidney, likely a tiny cyst, was also present previously. Similar lesion at the medial lower blas e left kidney. 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 Extensive collateral v essels extend along the pancreatic head. The previously described hypodense area in the gena hepatis/caudate lobe region now measures 2.9 x 2 .3 cm versus 5.5 x 5.3 cm, previously. In addition, the mid mesentery soft tissue abnormality measures 4.9 x 1.8 cm versus 8.1 x 5.8 cm, pre viously. Scattered mesenteric lymph nodes remain measuring up to 6 mm short axis, axial image 61. No dilated small bowel, free fluid, or free air. There is a anastomosis of the proximal third transverse colon relating to prior bowel resection. Scat tered moderate stool remains. Pelvis: Uterus is anteverted. 2.8 cm dominant follicle or functional cyst in left ovary. No abnormal fluid co llection in the pelvis or pelvic lymphadenopathy seen. Bones: Facet arthropathy lower lumbar spine. Endplate spondylosis mid to lower thoracic spine. No osseous de structive process. Right CVC tip terminates at the mid SVC level. The portal vein redemonstrated are chronic portal vein thrombosis/occlusion. IMPRESSION: 1. 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 EXTE NSIVE COLLATERAL VESSEL FORMATION ALONG THE PANCREATIC HEAD. 2. THE SUSPICIOUS HYPODENSE AREA IN THE PORTAHEPATIS /CAUDATE LOBE MEASURES 2.9 X 2.3 CM VERSUS 5.5 C M, PREVIOUSLY. FINDINGS SUGGEST RESPONSE TO TREATMENT. 3. THE MID MESENTERIC MASS MEASURES 4.9 X 1.8 CM VERSUS 8.1 X 5.8 CM, PREVIOUSLY. AGAIN, PARTIAL RESP ONSE TO TREATMENT IS SUGGESTED. 4. SCATTERED NONENLARGED AND BORDERLINE ENLARGED MESENTERIC LYMPH NODES MEASURING UP TO 6 MM, LARGELY STABLE. A FEW NODES HAVE SLIGHTLY ENLARGED BUT COULD BE REACTIVE. 5. SPLENOMEGALY 18.4 CM. 6. DIFFUSE CENTRILOBULAR NODULARITY. SOME OF THE NODULARITY HAS A MORE TREE-IN-BUD APPEARANCE. CORREL ATE FOR POSSIBLE ETIOLOGIES SUCH RESPIRATORY OR INFECTIOUS BRONCHIOLITIS INCLUDING ATYPICAL INFECT IONS OR CHRONIC SEQUELA OF PRIOR FUNGAL OR VIRAL INFECTIONS. SOME MORE FOCAL PATCHY AREAS OF GROUNDGL ASS ARE PRESENT ON THE LEFT SUGGESTING SMALL INFECTIOUS/INFLAMMATORY FOCI. 7. SMALL HIATAL HERNIA WITH STABLE MILDLY ENLARGED 1.3 CM PARAESOPHAGEAL LYMPH NODE.
== END | disposition home or self-care (01) ==
LOC: RADPROMAIN 06:08
PROVIDERS: ATTEND Internal Medicine Hematology & Oncology
DX: I81 Portal vein thrombosis (principal); R16.1 Splenomegaly, not elsewhere classified; R91.8 Other nonspecific abnormal finding of lung field; R59.0 Localized enlarged lymph nodes; C18.3 Malignant neoplasm of hepatic flexure
CPT/HCPCS: 82565; 84520; 71260; 74177; Q9967

== ENCOUNTER → 2018-11-28 | Outpatient (CLI) | payer OTHER ==
[2018-11-28 14:12] LABS: Blood Urea Nitrogen 10 mg/dL (7-17)
--- NOTE | 2018-11-28 16:01 | CT ---
EXAMINATION TYPE: CT ChestAbdPelvis w con DATE OF EXAM: 11/28/2018 COMPARISON: 09/08/2018 HISTORY: COLON CA CT DLP: 2761.8 mGycm CONTRAST: CT scan of the chest, abdomen and pelvis is performed with Oral Contrast and with IV Contrast, patien t injected with 100 mL of Isovue 300. CT Chest: LUNGS: Scattered centrilobular nodularity with mild diffuse bronchial wall thickening. Some of the no dularity has a somewhat tree-in-bud appearance. Small patches of groundglass opacity in the superior segment left lower lobe. No pulmonary nodule or mass is detected. No pleural effusion or CT evidence of interstitial lung dis ease. MEDIASTINUM: Thoracic aorta is of normal caliber. The heart is not enlarged. No evidence for media stinal mass or adenopathy. Multiple hiatal hernia noted. HILAR STRUCTURES: No evidence for mass. No hilar adenopathy is appreciated. OTHER: No significant abnormality. CONTRAST CT ABDOMEN AND PELVIS FINDINGS: LIVER/GB: There is cavernous transformation of the portal vein due to chronic occlusion. Extensive c ollateral vessels extend along the pancreatic head. The gallbladder surgically absent. Hypodense mass at the level of the gena hepatis currently measures 3.3 cm in greatest dimension versus 2.9 cm prev iously. No space occupying hepatic lesion. Biliary tree is of normal caliber. PANCREAS: No inflammation. No distinct mass. SPLEEN: Spleen is enlarged at 18.9 cm AP dimension. No lesion seen. Splenic granulomas noted. ADRENALS: No nodule. No thickening. KIDNEYS/BLADDER: No hydronephrosis. Nonobstructing nephrolithiasis noted. No distinct renal mass. BOWEL: Normal appendix. Normal bowel caliber. No inflammation. GENITAL ORGANS: No gross abnormality. LYMPH NODES: Negative mesenteric mass is smaller in size and measures 4.7 cm in greatest dimension ve rsus 4.8 cm previously. AORTA: No significant abnormality. OSSEOUS STRUCTURES: Degenerative changes lumbar spine OTHER: No significant additional abnormality is seen. IMPRESSION: 1. Cavernous transformation of the portal vein is unchanged. 2. Slight increase in size in gena hepatis mass at 3.3 cm versus 2.9 cm and may reflect adenopathy. 3. Mid mesenteric mass is essentially unchanged relative to the prior study. 4. Scattered mesenteric lymph nodes that remain stable and measure up to 6 to 7 mm. 5. Splenomegaly. 6. centrilobular nodularity of uncertain etiology with tree-in-bud appearance could reflect prior inf ectious bronchiolitis.
== END | disposition home or self-care (01) ==
LOC: RADPROMAIN 13:21
PROVIDERS: ATTEND Internal Medicine Hematology & Oncology
DX: Z03.89 Encounter for observation for other suspected diseases and conditions ruled out (principal); R16.2 Hepatomegaly with splenomegaly, not elsewhere classified; K66.8 Other specified disorders of peritoneum; R91.8 Other nonspecific abnormal finding of lung field; C18.3 Malignant neoplasm of hepatic flexure
CPT/HCPCS: 82565; 84520; 71260; 74177; 36415; J1642; Q9967

== ENCOUNTER → 2019-03-07 | Outpatient (CLI) | payer OTHER ==
--- NOTE | 2019-03-07 13:06 | CT ---
EXAMINATION TYPE: CT ChestAbdPelvis w con DATE OF EXAM: 03/07/2019 COMPARISON: Prior CT 11/28/2018 HISTORY: Colon cancer, observe for mets. CT DLP: 2843.6 mGycm Automated exposure control for dose reduction was used. CONTRAST: CT scan of the chest, abdomen and pelvis is performed with Oral Contrast and with IV Contrast, patien t injected with 100 mL of Isovue M300. FINDINGS: LUNGS: The lungs are grossly clear, there is no concerning parenchymal mass or nodule identified. T here is no pleural effusion or pneumothorax seen. The tracheobronchial tree is patent. MEDIASTINUM: There are no greater than 1 cm hilar or mediastinal lymph nodes. Calcification in the martinez perior mediastinum on the left is stable. No pericardial effusion is seen. AORTA: No significant abnormality is seen. OTHER: No additional significant abnormality is seen. LIVER/GB: No significant interval change is appreciated, gallbladder is absent surgically. Serpiginou s vascularity present in the portal region, portal vein is not seen at the level of the splenoportal confluence as on prior. Hypodensity within the gena likely due to central portal vein occlusion is s table appearance. PANCREAS: No significant abnormality is seen. SPLEEN: Stable splenomegaly with associated calcifications.. ADRENALS: No significant abnormality is seen. KIDNEYS: No significant abnormality is seen. REPRODUCTIVE ORGANS: Probable left ovarian cystic focus is noted measuring approximately 2.2 cm. BOWEL: Postop changes are noted at the transverse colon level, there is some soft tissue density pre sent within the mesenteric fat at this level but shows a stable appearance. FREE AIR: No Free Air visible. ASCITES: None seen. RETROPERITONEAL ADENOPATHY: No retroperitoneal adenopathy is seen. LYMPH NODES: No greater than 1 cm abdominal or pelvic lymph nodes are appreciated. URINARY BLADDER: No significant abnormality is seen. PELVIC ADENOPATHY: None visualized. OSSEOUS STRUCTURES: No significant abnormality is seen. IMPRESSION: Essentially stable findings. No evident recurrence. Additional findings above.
== END | disposition home or self-care (01) ==
LOC: RADPROMAIN 10:20
PROVIDERS: ATTEND Internal Medicine Hematology & Oncology
DX: C18.3 Malignant neoplasm of hepatic flexure (principal); R16.1 Splenomegaly, not elsewhere classified; Z90.49 Acquired absence of other specified parts of digestive tract
CPT/HCPCS: 82565; 84520; 71260; 74177; J1642; Q9967

== ENCOUNTER 2019-04-22 08:24 | Emergency (ER) | payer OTHER ==
[2019-04-22 08:31] VITALS: TEMP 98.6
--- NOTE | 2019-04-22 08:58 | ED ---
General Adult HPI - General Chief complaint: ENT Stated complaint: chemo pt, burning in mouth Time Seen by Provider: 04/22/19 08:32 Source: patient Mode of arrival: ambulatory Limitations: no limitations - History of Present Illness Initial comments: Dictation was produced using [employer] dictation software. please excuse any grammatical, word or spelling errors. Chief Complaint: 43-year-old female who is receiving chemotherapy for colon cancer presents with oral burning sensation. History of Present Illness: 43-year-old female she has been diagnosed with colon cancer for several years now. She is currently undergoing chemotherapy for colon cancer. Her oncologist is Dr. Russell. Over the last month patient has been having burning sensation in her mouth especially when she eats. She has no other complaints at this time. Otherwise feels well. She denies any abdominal pain. No difficulty in breathing. She states when she eats she feels a burning sensation however when she is not eating her oral area feels well. She does complain of some sloughing of the oral mucosa during eating. Patient normally wears dentures however she has been unable to put him in because of the discomfort. The ROS documented in this emergency department record has been reviewed and confirmed by me. Those systems with pertinent positive or negative responses have been documented in the HPI. All other systems are other negative and/or noncontributory. PHYSICAL EXAM: General Impression: Alert and oriented x3, not in acute distress HEENT: Normocephalic atraumatic, extra-ocular movements intact, pupils equal and reactive to light bilaterally, mucous membranes moist. Oral: White exudates on the tongue and buccal mucosa. No significant erythematous base with scraping of white tongue discharge. Cardiovascular: Heart regular rate and rhythm, S1&S2 audible, no murmurs, rubs or gallops Chest: Lungs clear to auscultation bilaterally, no rhonchi, no wheeze, no rales Abdomen: Bowel sounds present, abdomen soft, non-tender, non-distended, no organomegaly Musculoskeletal: Pulses present and equal in all extremities, no peripheral edema Motor: no focal deficits noted Neurological: CN II-XII grossly intact, no focal motor or sensory deficits noted Skin: Intact with no visualized rashes Psych: Normal affect and mood ED course: 43-year-old female presents with oral complaint. She is on chemotherapy for treatment of stage III colon cancer. Patient has been having these symptoms for approximately one month. Vital signs upon arrival shows heart rate of 102, worse vital signs within acceptable limits. Rest of physical examination is benign. Patient is well-appearing.Lab return evaluation obtained. CBC, metabolic panel is unremarkable. Clinical presentation is concerning for thrush. She given prescription for nystatin oral suspension. She is advised to follow-up with oncologist. Patient agreeable and un derstandable discharge. - Related Data Home Medications Medication Instructions Recorded Confirmed Ondansetron HCl [Zofran] 4 mg PO Q4H PRN 06/23/18 04/22/19 ALPRAZolam [Xanax] 0.25 mg PO BID PRN 04/22/19 04/22/19 Lidocaine-Prilocaine Cream [Emla 1 applic TOPICAL DAILY PRN 04/22/19 04/22/19 Cream 2.5%/2.5%] Pantoprazole Sodium [Protonix] 20 mg PO DAILY 04/22/19 04/22/19 Rivaroxaban [Xarelto] 20 mg PO W/SUPPER 04/22/19 04/22/19 Previous Rx's Medication Instructions Recorded Nystatin 400,000 unit PO Q6H 2 Days #1 04/22/19 bottle Allergies Allergy/AdvReac Type Severity Reaction Status Date / Time No Known Allergies Allergy Verified 04/22/19 08:59 Review of Systems ROS Statement: Those systems with pertinent positive or pertinent negative responses have been documented in the HPI. ROS Other: All systems not noted in ROS Statement are negative. Past Medical History Past Medical History: Cancer, GERD/Reflux Additional Past Medical History / Comment(s): Intermittent diarrhea since gallbladder surgery, colon cancer received chemotherapy for 6 months completed 11/21/17, port a cath IN PAST, NOW port removed History of Any Multi-Drug Resistant Organisms: None Reported Past Surgical History: Bowel Resection, Section, Cholecystectomy Additional Past Surgical History / Comment(s): colon CA removal, Past Anesthesia/Blood Transfusion Reactions: Previous Problems w/ Anesthesia, Motion Sickness Additional Past Anesthesia/Blood Transfusion Reaction / Comment(s): Pt states she woke from anesthesia very confused in past Past Psychological History: No Psychological Hx Reported Smoking Status: Never smoker Past Alcohol Use History: None Reported Past Drug Use History: None Reported - Past Family History Mother Family Medical History: Diabetes Mellitus Father Family Medical History: No Reported History Additional Family Medical History / Comment(s): Father is 64 yrs old. General Exam Limitations: no limitations Course Vital Signs 04/22/19 08:28 Temperature 98.6 F Pulse Rate 102 H Respiratory 18 Rate Blood Pressure 120/80 O2 Sat by Pulse 99 Oximetry Medical Decision Making - Lab Data Result diagrams: 04/22/19 09:00 04/22/19 09:00 Lab Results 04/22/19 04/22/19 Range/Units 09:00 09:00 WBC 6.6 (3.8-10.6) k/uL RBC 5.19 (3.80-5.40) m/uL Hgb 12.1 (11.4-16.0) gm/dL Hct 38.3 (34.0-46.0) % MCV 73.8 L (80.0-100.0) fL MCH 23.3 L (25.0-35.0) pg MCHC 31.6 (31.0-37.0) g/dL RDW 16.0 H (11.5-15.5) % Plt Count 213 (150-450) k/uL Neutrophils % 68 % Lymphocytes % 16 % Monocytes % 7 % Eosinophils % 5 % Basophils % 2 % Neutrophils # 4.5 (1.3-7.7) k/uL Lymphocytes # 1.1 (1.0-4.8) k/uL Monocytes # 0.5 (0-1.0) k/uL Eosinophils # 0.4 (0-0.7) k/uL Basophils # 0.1 (0-0.2) k/uL Hypochromasia Moderate Anisocytosis Slight Microcytosis Slight Sodium 140 (137-145) mmol/L Potassium 4.2 (3.5-5.1) mmol/L Chloride 108 H (98-107) mmol/L Carbon Dioxide 23 (22-30) mmol/L Anion Gap 9 mmol/L BUN 14 (7-17) mg/dL Creatinine 0.80 (0.52-1.04) mg/dL Est GFR (CKD-EPI)AfAm >90 (>60 ml/min/1.73 sqM) Est GFR (CKD-EPI)NonAf >90 (>60 ml/min/1.73 sqM) Glucose 110 H (74-99) mg/dL Calcium 9.1 (8.4-10.2) mg/dL Phosphorus 3.2 (2.5-4.5) mg/dL Magnesium 1.7 (1.6-2.3) mg/dL Disposition Clinical Impression: Thrush Disposition: HOME SELF-CARE Condition: Good Instructions (If sedation given, give patient instructions): Oral Candidiasis (ED) Prescriptions: Nystatin 400,000 unit PO Q6H 2 Days #1 bottle Is patient prescribed a controlled substance at d/c from ED?: No Referrals: Nellie Russell MD [Primary Care Provider] - 1-2 days Time of Disposition: 09:54
[2019-04-22 09:13] LABS: Anisocytosis Slight; Basophils # (A) 0.1 k/uL (0-0.2); Basophils % (A) 2 %; Eosinophils # (A) 0.4 k/uL (0-0.7); Eosinophils % (A) 5 %; HCT 38.3 % (34.0-46.0); HGB 12.1 gm/dL (11.4-16.0); Hypochromasia Moderate; Lymphocytes # (A) 1.1 k/uL (1.0-4.8); Lymphocytes % (A) 16 %; MCH 23.3 pg (25.0-35.0); MCHC 31.6 g/dL (31.0-37.0); MCV 73.8 fL (80.0-100.0); Mean Platelet Volume 7.6; Microcytosis Slight; Monocytes # (A) 0.5 k/uL (0-1.0); Monocytes % (A) 7 %; Neutrophils # (A) 4.5 k/uL (1.3-7.7); Neutrophils % (A) 68 %; Platelet Count 213 k/uL (150-450); RBC 5.19 m/uL (3.80-5.40); WBC 6.6 k/uL (3.8-10.6)
[2019-04-22 09:22] LABS: African American GFR (CKD) >90 (>60 ml/min/1.73 sqM); Anion Gap 9 mmol/L; Blood Urea Nitrogen 14 mg/dL (7-17); Calcium 9.1 mg/dL (8.4-10.2); Carbon Dioxide 23 mmol/L (22-30); Chloride 108 mmol/L (98-107); Glucose 110 mg/dL (74-99); Magnesium 1.7 mg/dL (1.6-2.3); Non-African American GFR(CKD) >90 (>60 ml/min/1.73 sqM); Phosphorus 3.2 mg/dL (2.5-4.5); Potassium 4.2 mmol/L (3.5-5.1); Sodium 140 mmol/L (137-145)
[2019-04-22 09:43] VITALS: BP 120/80; PULSE 102; RESP 18
== END 2019-04-22 10:04 | disposition home or self-care (01) ==
LOC: EC 08:24
DX: B37.0 Candidal stomatitis (principal); K21.9 Gastro-esophageal reflux disease without esophagitis; Z79.01 Long term (current) use of anticoagulants; Z79.899 Other long term (current) drug therapy; Z92.21 Personal history of antineoplastic chemotherapy; Z85.038 Personal history of other malignant neoplasm of large intestine; Z90.49 Acquired absence of other specified parts of digestive tract
CPT/HCPCS: 36415; 80048; 83735; 84100; 85025; 93005; 99283

== ENCOUNTER → 2019-05-29 | Outpatient (CLI) | payer OTHER ==
[2019-05-29 14:15] LABS: African American GFR (CKD) >90 (>60 ml/min/1.73 sqM); Blood Urea Nitrogen 9 mg/dL (7-17); Non-African American GFR(CKD) >90 (>60 ml/min/1.73 sqM)
--- NOTE | 2019-05-29 22:20 | CT ---
EXAMINATION TYPE: CT ChestAbdPelvis w con DATE OF EXAM: 05/29/2019 INDICATION: Observation for mets. COMPARISON: 03/07/2019 CT DLP: 1728 mGycm CONTRAST: Performed with Oral Contrast and with IV Contrast, patient injected with 100 mL of Isovue 300. TECHNIQUE: Axial images at 5 mm thick sections. Reconstructed images in the coronal plane. Delayed images through the kidneys. FINDINGS: CT CHEST: Portion of the thyroid visualized is normal. No suspicious lung nodules or focal infiltrates are present. No enlarged mediastinal or hilar adenopathy is evident. Some calcified lymphadenopathy is in the left hilar region. The ascending aorta diameter at the level of the main pulmonary artery is 2.8 cm. The main pulmonary artery diameter at the bifurcation is 3.[address] ABDOMEN: Liver: Normal Spleen: Calcified splenic granuloma are within the enlarged spleen Pancreas: Normal Adrenal glands: The adrenal glands are normal. Gallbladder: Surgically absent Kidneys: No masses are evident. No hydronephrosis is present. No cysts are present. Delayed images were obtained through the kidneys, which remain unremarkable. Aorta: Normal Inferior vena cava: Normal. CT PELVIS: Loops of bowel within the abdomen and pelvis are normal. There are loops of bowel which are incom pletely distended or lack oral contrast limiting their evaluation. Appendix: Normal as visualized. Urinary bladder: Decompressed and cannot be evaluated. Genitourinary structures: Uterus is normal. Adnexal regions are clear. Osseous structures: No suspicious lytic or sclerotic lesions. IMPRESSIONS: 1. No suspicious changes to suggest metastatic disease. 2. Splenomegaly
== END | disposition home or self-care (01) ==
LOC: RADPROMAIN 13:37
PROVIDERS: ATTEND Internal Medicine Hematology & Oncology
DX: R16.1 Splenomegaly, not elsewhere classified (principal); C18.3 Malignant neoplasm of hepatic flexure
CPT/HCPCS: 82565; 84520; 71260; 74177; 36415; J1642; Q9967 ×2

== ENCOUNTER → 2019-06-29 | Outpatient (CLI) | payer OTHER ==
[2019-06-29 15:26] VITALS: RESP 18; TEMP 98.4
[2019-06-29 15:34] VITALS: BP 146/94; PULSE 89
[2019-06-29 15:49] LABS: Anisocytosis Slight; Basophils # (A) 0.1 k/uL (0-0.2); Basophils % (A) 2 %; Eosinophils # (A) 0.3 k/uL (0-0.7); Eosinophils % (A) 6 %; HCT 35.5 % (34.0-46.0); Hypochromasia Marked; Lymphocytes # (A) 1.1 k/uL (1.0-4.8); Lymphocytes % (A) 18 %; MCH 24.3 pg (25.0-35.0); MCHC 31.1 g/dL (31.0-37.0); Mean Platelet Volume 7.3; Microcytosis Slight; Monocytes # (A) 0.5 k/uL (0-1.0); Monocytes % (A) 8 %; Neutrophils # (A) 3.8 k/uL (1.3-7.7); Neutrophils % (A) 65 %; Platelet Count 233 k/uL (150-450); RBC 4.55 m/uL (3.80-5.40); RDW 16.8 % (11.5-15.5); WBC 5.9 k/uL (3.8-10.6)
[2019-06-29 15:57] LABS: Potassium 4.2 mmol/L (3.5-5.1)
[2019-06-29 15:59] LABS: ALT 20 U/L (9-52); AST 23 U/L (14-36); African American GFR (CKD) >90 (>60 ml/min/1.73 sqM); Albumin 3.6 g/dL (3.5-5.0); Alkaline Phosphatase 61 U/L (38-126); Anion Gap 6 mmol/L; Blood Urea Nitrogen 12 mg/dL (7-17); C Reactive Protein 13.6 mg/L (<10.0); Calcium 8.9 mg/dL (8.4-10.2); Carbon Dioxide 25 mmol/L (22-30); Chloride 109 mmol/L (98-107); Glucose 92 mg/dL (74-99); Non-African American GFR(CKD) >90 (>60 ml/min/1.73 sqM); Sodium 140 mmol/L (137-145); Total Bilirubin 0.4 mg/dL (0.2-1.3); Total Protein 6.7 g/dL (6.3-8.2)
[2019-06-29 16:58] LABS: Erythrocyte Sedimentation Rate 14 mm/hr (0-20)
[2019-06-30 01:18] LABS: Folate, Serum 9.9 ng/mL
[2019-06-30 04:01] LABS: Hemoglobin A1C 5.5 % (4.0-6.0)
== END ==
LOC: PROCWHC3 15:05
PROVIDERS: ATTEND Nurse Practitioner Family
DX: K12.1 Other forms of stomatitis (principal); C18.2 Malignant neoplasm of ascending colon; M79.644 Pain in right finger(s); M79.645 Pain in left finger(s); R30.0 Dysuria; Z83.3 Family history of diabetes mellitus; Z79.899 Other long term (current) drug therapy
CPT/HCPCS: 84425; 80053; 85652; 82607; 82746; 85025; 86140; 82306; 83036; 36591; J1642

== ENCOUNTER 2019-07-17 10:33 | Emergency (ER) | payer OTHER ==
[2019-07-17 10:56] VITALS: RESP 18
--- NOTE | 2019-07-17 12:18 | ED ---
General Adult HPI - General Chief complaint: Vaginal Bleeding Stated complaint: Female Time Seen by Provider: 07/17/19 11:12 Source: patient, RN notes reviewed Mode of arrival: ambulatory Limitations: no limitations - History of Present Illness Initial comments: 43-year-old female with a past medical history of colon cancer, intermittent diarrhea, GERD presents to the emergency department for a chief complaint of "polyp in vagina." Patient states that she was urinating today and went to wipe and noticed some blood. Patient states she felt something coming out of her vagina. Patient denies any significant pain at this time. Denies significant bleeding to states it was spotting on the toilet paper. Patient has no other complaints at this time including shortness of breath, chest pain, abdominal pain, nausea or vomiting, headache, or visual changes. - Related Data Home Medications Medication Instructions Recorded Confirmed Ondansetron HCl [Zofran] 4 mg PO Q4H PRN 06/23/18 06/29/19 ALPRAZolam [Xanax] 0.25 mg PO BID PRN 04/22/19 06/29/19 Lidocaine-Prilocaine Cream [Emla 1 applic TOPICAL DAILY PRN 04/22/19 06/29/19 Cream 2.5%/2.5%] Pantoprazole Sodium [Protonix] 20 mg PO DAILY 04/22/19 06/29/19 Allergies Allergy/AdvReac Type Severity Reaction Status Date / Time No Known Allergies Allergy Verified 07/17/19 10:56 Review of Systems ROS Statement: Those systems with pertinent positive or pertinent negative responses have been documented in the HPI. ROS Other: All systems not noted in ROS Statement are negative. Past Medical History Past Medical History: Cancer, GERD/Reflux Additional Past Medical History / Comment(s): Intermittent diarrhea since gallbladder surgery, colon cancer stage 3 received chemotherapy for 6 months completed 06/23/18, port a cath IN PAST, recieiving immunotherapy History of Any Multi-Drug Resistant Organisms: None Reported Past Surgical History: Bowel Resection, Section, Cholecystectomy Additional Past Surgical History / Comment(s): colon CA removal, Past Anesthesia/Blood Transfusion Reactions: Previous Problems w/ Anesthesia, Motion Sickness Additional Past Anesthesia/Blood Transfusion Reaction / Comment(s): Pt states she woke from anesthesia very confused in past Past Psychological History: No Psychological Hx Reported Smoking Status: Never smoker Past Alcohol Use History: None Reported Past Drug Use History: None Reported - Past Family History Mother Family Medical History: Diabetes Mellitus Father Family Medical History: No Reported History Additional Family Medical History / Comment(s): Father is 64 yrs old. General Exam Limitations: no limitations General appearance: alert, in no apparent distress Head exam: Present: atraumatic, normocephalic, normal inspection Eye exam: Present: normal appearance, PERRL, EOMI. Absent: scleral icterus, conjunctival injection, periorbital swelling ENT exam: Present: normal exam, mucous membranes moist Neck exam: Present: normal inspection, full ROM. Absent: tenderness, meningismus, lymphadenopathy Respiratory exam: Present: normal lung sounds bilaterally. Absent: respiratory distress, wheezes, rales, rhonchi, stridor Cardiovascular Exam: Present: regular rate, normal rhythm, normal heart sounds. Absent: systolic murmur, diastolic murmur, rubs, gallop, clicks GI/Abdominal exam: Present: soft, normal bowel sounds. Absent: distended, tenderness, guarding, rebound, rigid External exam: Present: other (Patient has probable rectocele noted in the vaginal os. This was reduced with direct pressure). Absent: erythema, swelling, lesions, lacerations, ecchymosis Speculum exam: Present: normal speculum exam. Absent: erythema, vaginal discharge, cervical discharge, vaginal bleeding, foreign body, tissue, laceration By manual exam: Present: normal by manual exam. Absent: cervical motion tenderness, adnexal tenderness, adnexal mass, uterine enlargement, uterine tenderness Course Vital Signs 07/17/19 10:52 Temperature 99 F Pulse Rate 99 Respiratory 18 Rate Blood Pressure 156/105 O2 Sat by Pulse 98 Oximetry Medical Decision Making - Medical Decision Making On physical examination there is tissue in vaginal os, likely rectocele. I did apply direct pressure to this and it seems to have reduced. I performed a speculum exam did not show any vaginal bleeding. Patient does not have any significant pain at this time. Discussed that she needs follow-up with [facility] for this. She can also follow up with primary care. Discussed that if she has any worsening symptoms prior to that to return to the emergency department. She is aware of this. Disposition Clinical Impression: Vaginal discomfort Disposition: HOME SELF-CARE Condition: Good Instructions (If sedation given, give patient instructions): Rectocele (ED) Additional Instructions: Please follow up with primary care or [facility]. If you have any worsening symptoms such as worsening pain or vaginal bleeding be sure to return to the emergency department. Is patient prescribed a controlled substance at d/c from ED?: No Referrals: Letha South MD [Primary Care Provider] - 1-2 days Lillie Perez MD [STAFF PHYSICIAN] - 1-2 days Time of Disposition: 12:15
[2019-07-17 12:32] VITALS: BP 154/96; PULSE 92; TEMP 97
== END 2019-07-17 12:34 | disposition home or self-care (01) ==
LOC: EC 10:33
DX: N89.8 Other specified noninflammatory disorders of vagina (principal); K21.9 Gastro-esophageal reflux disease without esophagitis; Z79.899 Other long term (current) drug therapy; Z85.038 Personal history of other malignant neoplasm of large intestine; Z92.21 Personal history of antineoplastic chemotherapy; Z90.49 Acquired absence of other specified parts of digestive tract; Z98.890 Other specified postprocedural states
CPT/HCPCS: 99283

== ENCOUNTER 2019-08-22 12:35 | Observation (INO) | payer OTHER ==
[2019-08-22] MEDS ORDERED: SODIUM CHLORIDE 0.9% 500 ML 500 ML IV ONE (13:10)
[2019-08-22] MEDS ORDERED: SODIUM CHLORIDE 0.9% 1,000 ML IV ONE ×2 (13:10→14:34)
[2019-08-22] MEDS ORDERED: PIPERACILLIN-TAZOBACTAM 3.375 GM in SODIUM CHLORIDE 0.9% 100 ML IVPB STA (13:10)
[2019-08-22 13:49] LABS: Albumin 3.6 g/dL (3.5-5.0); Calcium 8.8 mg/dL (8.4-10.2); Total Bilirubin 1.1 mg/dL (0.2-1.3); Total Protein 6.7 g/dL (6.3-8.2)
[2019-08-22 14:09] LABS: Anisocytosis Slight; Basophils # (A) 0.1 k/uL (0-0.2); Basophils % (A) 1 %; Eosinophils # (A) 0.8 k/uL (0-0.7); Eosinophils % (A) 3 %; HCT 44.6 % (34.0-46.0); HGB 13.5 gm/dL (11.4-16.0); Hypochromasia Marked; Lymphocytes # (A) 2.3 k/uL (1.0-4.8); Lymphocytes % (A) 10 %; MCHC 30.3 g/dL (31.0-37.0); MCV 79.2 fL (80.0-100.0); Mean Platelet Volume 7.6; Microcytosis Slight; Monocytes # (A) 2.2 k/uL (0-1.0); Monocytes % (A) 9 %; Neutrophils # (A) 18.5 k/uL (1.3-7.7); Neutrophils % (A) 77 %; RBC 5.63 m/uL (3.80-5.40); RDW 16.8 % (11.5-15.5); WBC 24.1 k/uL (3.8-10.6)
[2019-08-22 14:17] LABS: Platelet Count 476 k/uL (150-450)
[2019-08-22] MEDS: SODIUM CHLORIDE 0.9% 1,000 ML IV SCH ×2 (14:33→20:32)
[2019-08-22] MEDS ORDERED: NALOXONE 0.4 MG/ML 1 ML VIAL IV PRN (14:42)
--- NOTE | 2019-08-22 14:44 | ED ---
Nausea/Vomiting/Diarrhea HPI - General Chief complaint: Nausea/Vomiting/Diarrhea Stated complaint: Diarrhea Time Seen by Provider: 08/22/19 12:58 Source: patient Mode of arrival: ambulatory Limitations: no limitations - History of Present Illness Initial comments: 43-year-old female with history of colon cancer presents emergency department today for diarrhea 2 days. Patient states she has recurrent episodes of diarrhea throughout the day for the past 2 days she states she is beginning to feel dehydrated. Patient states that she has had on-and-off fevers. Patient denies melena hematochezia. States she has had a small amount of bright red blood in the stools on occasion. Patient denies any severe abdominal pain, vomiting chest pain shortness of breath. Denies any headache neck stiffness or upper rest or symptoms. Patient states the oral lesions she previously was evaluated for seemed be getting better. She states she is supposed to follow-up today with infectious disease however headedness or appointment secondary to the profuse diarrhea. Patient has no other complaints upon arrival appears nontoxic however is found to have a heart rate of 139 with blood pressure near the lower aspect of normal. Patient moved to room with telemetry once reviewing VS. - Related Data Home Medications Medication Instructions Recorded Confirmed Ondansetron HCl [Zofran] 4 mg PO Q4H PRN 06/23/18 08/22/19 ALPRAZolam [Xanax] 0.25 mg PO BID PRN 04/22/19 08/22/19 Pantoprazole Sodium [Protonix] 20 mg PO DAILY 04/22/19 08/22/19 Ergocalciferol [Vitamin D2 50,000 unit PO TH 08/05/19 08/22/19 (DRISDOL)] Lisinopril [Zestril] 5 mg PO DAILY 08/05/19 08/22/19 Ibuprofen [Motrin] 600 mg PO AC-TID PRN 08/22/19 08/22/19 Lidocaine-Prilocaine Cream [Emla 1 applic TOPICAL DAILY PRN 08/22/19 08/22/19 Cream 2.5%/2.5%] hydrOXYzine HCL [Atarax] 50 mg PO Q8H PRN 08/22/19 08/22/19 predniSONE See Taper PO DAILY 08/22/19 08/22/19 valACYclovir HCL [Valtrex] 1,000 mg PO Q12HR PRN 08/22/19 08/22/19 Previous Rx's Medication Instructions Recorded Triamcinolone 0.1% Paste [Oralone 1 applic MUCOUS MEM TID PRN 7 Days 08/06/19 0.1% Paste] #1 applic Allergies Allergy/AdvReac Type Severity Reaction Status Date / Time No Known Allergies Allergy Verified 08/22/19 15:25 Review of Systems ROS Statement: Those systems with pertinent positive or pertinent negative responses have been documented in the HPI. ROS Other: All systems not noted in ROS Statement are negative. Past Medical History Past Medical History: Cancer, GERD/Reflux, Hypertension Additional Past Medical History / Comment(s): Intermittent diarrhea since gallbladder surgery, colon cancer stage 3 received chemotherapy for 6 months c ompleted 06/23/18, port a cath IN PAST, recieiving immunotherapy History of Any Multi-Drug Resistant Organisms: None Reported Past Surgical History: Bowel Resection, Section, Cholecystectomy Additional Past Surgical History / Comment(s): colon CA removal, Past Anesthesia/Blood Transfusion Reactions: Previous Problems w/ Anesthesia, Motion Sickness Additional Past Anesthesia/Blood Transfusion Reaction / Comment(s): Pt states she woke from anesthesia very confused in past Past Psychological History: No Psychological Hx Reported Smoking Status: Never smoker Past Alcohol Use History: None Reported Past Drug Use History: None Reported - Past Family History Mother Family Medical History: Diabetes Mellitus Father Family Medical History: No Reported History Additional Family Medical History / Comment(s): Father is 64 yrs old. General Exam - General Exam Comments Initial Comments: General: The patient is awake and alert, in no distress Eye: +3 mm pupils are equal, round and reactive to light, extra-ocular movements are intact. No nystagmus. There is normal conjunctiva bilaterally. No signs of icterus. Ears, nose, mouth and throat: There are dry mucous membranes and no oral lesions. Neck: The neck is supple, there is no tenderness or JVD. Cardiovascular: There is a increased rate and rhythm. No murmur, rub or gallop is appreciated. Respiratory: Lungs are clear to auscultation, respirations are non-labored, breath sounds are equal. No wheezes, stridor, rales, or rhonchi. Gastrointestinal: Soft, non-distended, non-tender abdomen without masses or organomegaly noted. There is no rebound or guarding present. Musculoskeletal: Normal ROM, no tenderness. Strength 5/5. Sensation intact. Radial pulses equal bilaterally 2+. Neurological: A&O x 3. CN II-XII intact grossly, There are no obvious motor or sensory deficits. Coordination appears grossly intact. Speech is normal. Skin: Skin is warm and dry and no rashes or lesions are noted. No LE edema. Psychiatric: Cooperative, appropriate mood & affect, normal judgment. Limitations: no limitations Course Vital Signs 08/22/19 08/22/19 08/22/19 12:39 13:10 14:30 Temperature 98.8 F Pulse Rate 139 H 123 H 98 Respiratory 22 18 18 Rate Blood Pressure 93/74 90/68 120/79 O2 Sat by Pulse 99 98 100 Oximetry 08/22/19 15:20 Temperature Pulse Rate 105 H Respiratory 18 Rate Blood Pressure 96/45 O2 Sat by Pulse 100 Oximetry Medical Decision Making - Medical Decision Making 43-year-old female presenting for possible dehydration. Patient is found to have symmetric elevation of heart rate, mild hypotension on arrival. Patient that she has had profound diarrhea 2 days. As well as unknown fevers denies any abdominal pain had outpatient CT scheduled for today, which was revealed revealing no acute process. Patient's vital signs improved and patient was given IV fluids patient's laboratory studies reveal findings consistent with developing RADHA as patient's has nearly creatinine has doubled. patient appears dry on exam. Abdominal exam benign. Lung clear. CXR (-) for acute process. Patient has lactic acidosis. Patient influenza testing (-). Unable to provide stool sample in ER. At this time we will start patient on zosyn. Admit patient for hydration, IV abx, GI evaluation. Patient is agreeable to admission Dr. zuniga patient in the emergency department. Dr. Medina was agreeable to care plan and admission. - Lab Data Result diagrams: 08/22/19 13:20 08/22/19 13:20 Lab Results 08/22/19 08/22/19 08/22/19 Range/Units 13:20 13:20 13:20 WBC 24.1 H (3.8-10.6) k/uL RBC 5.63 H (3.80-5.40) m/uL Hgb 13.5 (11.4-16.0) gm/dL Hct 44.6 (34.0-46.0) % MCV 79.2 L (80.0-100.0) fL MCH 24.0 L (25.0-35.0) pg MCHC 30.3 L (31.0-37.0) g/dL RDW 16.8 H (11.5-15.5) % Plt Count 476 H D (150-450) k/uL Neutrophils % 77 % Lymphocytes % 10 % Monocytes % 9 % Eosinophils % 3 % Basophils % 1 % Neutrophils # 18.5 H (1.3-7.7) k/uL Lymphocytes # 2.3 (1.0-4.8) k/uL Monocytes # 2.2 H (0-1.0) k/uL Eosinophils # 0.8 H (0-0.7) k/uL Basophils # 0.1 (0-0.2) k/uL Hypochromasia Marked Anisocytosis Slight Microcytosis Slight Sodium 136 L (137-145) mmol/L Potassium 4.0 (3.5-5.1) mmol/L Chloride 107 (98-107) mmol/L Carbon Dioxide 18 L (22-30) mmol/L Anion Gap 11 mmol/L BUN 27 H (7-17) mg/dL Creatinine 1.47 H (0.52-1.04) mg/dL Est GFR (CKD-EPI)AfAm 50 (>60 ml/min/1.73 sqM) Est GFR (CKD-EPI)NonAf 43 (>60 ml/min/1.73 sqM) Glucose 95 (74-99) mg/dL Plasma Lactic Acid Rosendo 2.3 H* (0.7-2.0) mmol/L Calcium 8.8 (8.4-10.2) mg/dL Total Bilirubin 1.1 (0.2-1.3) mg/dL AST 16 (14-36) U/L ALT 12 (4-34) U/L Alkaline Phosphatase 64 (38-126) U/L Troponin I (0.000-0.034) ng/mL Total Protein 6.7 (6.3-8.2) g/dL Albumin 3.6 (3.5-5.0) g/dL HCG, Qual Influenza Type A RNA (Not Detectd) Influenza Type B (PCR) (Not Detectd) 08/22/19 08/22/19 08/22/19 Range/Units 13:20 13:20 13:51 WBC (3.8-10.6) k/uL RBC (3.80-5.40) m/uL Hgb (11.4-16.0) gm/dL Hct (34.0-46.0) % MCV (80.0-100.0) fL MCH (25.0-35.0) pg MCHC (31.0-37.0) g/dL RDW (11.5-15.5) % Plt Count (150-450) k/uL Neutrophils % % Lymphocytes % % Monocytes % % Eosinophils % % Basophils % % Neutrophils # (1.3-7.7) k/uL Lymphocytes # (1.0-4.8) k/uL Monocytes # (0-1.0) k/uL Eosinophils # (0-0.7) k/uL Basophils # (0-0.2) k/uL Hypochromasia Anisocytosis Microcytosis Sodium (137-145) mmol/L Potassium (3.5-5.1) mmol/L Chloride (98-107) mmol/L Carbon Dioxide (22-30) mmol/L Anion Gap mmol/L BUN (7-17) mg/dL Creatinine (0.52-1.04) mg/dL Est GFR (CKD-EPI)AfAm (>60 ml/min/1.73 sqM) Est GFR (CKD-EPI)NonAf (>60 ml/min/1.73 sqM) Glucose (74-99) mg/dL Plasma Lactic Acid Rosendo (0.7-2.0) mmol/L Calcium (8.4-10.2) mg/dL Total Bilirubin (0.2-1.3) mg/dL AST (14-36) U/L ALT (4-34) U/L Alkaline Phosphatase (38-126) U/L Troponin I <0.012 (0.000-0.034) ng/mL Total Protein (6.3-8.2) g/dL Albumin (3.5-5.0) g/dL HCG, Qual Not Detected Influenza Type A RNA Not Detected (Not Detectd) Influenza Type B (PCR) Not Detected (Not Detectd) - EKG Data EKG Comments: Ventricular rate 115 bpm, SD interval 150 ms, QR taoist 80 ms, QT/QTC 312/ 431 ms. This is has tachycardia. No ST elevation or depression noted. Nonspecific T-wave. Otherwise no acute findings. EKG per se interpreted and reviewed by my attending provider Disposition Clinical Impression: Dehydration, SIRS (systemic inflammatory response syndrome), Diarrhea Disposition: ADMITTED IP TO THIS HOSP Condition: Stable Is patient prescribed a controlled substance at d/c from ED?: No Time of Disposition: 14:44 Decision to Admit Reason: Admit from EC Decision Date: 08/22/19 Decision Time: 14:44
--- NOTE | 2019-08-22 15:37 | XR ---
EXAMINATION TYPE: XR chest 2V DATE OF EXAM: 08/22/2019 COMPARISON: Prior chest x-ray 08/05/2019, CT 08/22/2019 HISTORY: Leukocytosis, colon cancer TECHNIQUE: Frontal and lateral views of the chest are obtained. FINDINGS: There is no focal air space opacity, pleural effusion, or pneumothorax seen. The cardiac silhouette size is within normal limits. The osseous structures are intact. Port-A-Cath is present in the right pectoral region with distal tip the catheter overlying superior vena cava via right subc lavian approach. There are overlying cardiac leads. IMPRESSION: No acute cardiopulmonary process.
[2019-08-22] MEDS ORDERED: TRIAMCINOLONE ACET 0.1% ORAL PASTE 5 GM TUBE MUCOUS MEM PRN (16:12)
[2019-08-22] MEDS ORDERED: ALPRAZolam 0.25 MG TAB PO PRN (16:12)
[2019-08-22] MEDS ORDERED: IBUPROFEN 600 MG TAB PO PRN (16:12)
[2019-08-22] MEDS ORDERED: LIDOCAINE-PRILOCAINE 2.5-2.5% CREAM 5 GM TUBE TOPICAL PRN (16:12)
--- NOTE | 2019-08-22 16:38 | XR ---
EXAMINATION TYPE: XR abdomen 1V DATE OF EXAM: 08/22/2019 COMPARISON: 06/16/2018 HISTORY: Back pain TECHNIQUE: 2 views upright FINDINGS: There is no sign of intestinal obstruction or pneumoperitoneum. Fecal pattern is normal. Th ere is contrast in the urinary tract and urinary bladder. Lung bases are clear. There is no sign of a mass. There is some contrast in the large bowel. IMPRESSION: Nonacute abdomen. No adverse change.
--- NOTE | 2019-08-22 16:52 | P.HPIM ---
History of Present Illness This is a pleasant 43 years old female with past medical history of GERD, hypertension, stage III colon cancer status post chemotherapy for 6 months, last dose was in 06/23/2018. recently was on immunotherapy.which was stopeed due to mouth sores, pt was recently admitted to the hospital for non healing mouth sores and upper resp infection , she was discharged on prednisone 60 mg , topical mouth steroid and valcyclovir. pt presents this time with 3 days history of diarrhea, with some blood in stool. nausea but no vomiting , and right lower quadrant and tanisha-umbilical pain , which looks mild on admission pt was lightheaded as well, no syncope, no fall. on admission pt was hypontensive with bp 93/73 and heart rate of 139 compared to last month her BP was 110-120s/80s-90s. currently BP 96/45 and heart rate of 105. pt is afebrile but wbc is 24k , however pt was also on steroid. creatinine elevated at 1.4, lactic acid high at 2.3, influenza negative and cxr: no acute process in ED pt was started on zosyn and iv fluids Review of Systems CONSTITUTIONAL: No fever, no malaise, no fatigue. HEENT: No recent visual problems or hearing problems. Denied any sore throat. CARDIOVASCULAR: No orthopnea, PND, no palpitations, no syncope. PULMONARY: no cough, no hemoptysis. GASTROINTESTINAL: Normoactive bowel sounds. NEUROLOGICAL: No headaches, no weakness, no numbness. HEMATOLOGICAL: Denies any bleeding or petechiae. GENITOURINARY: Denies any burning micturition, frequency, or urgency. MUSCULOSKELETAL/RHEUMATOLOGICAL: Denies any joint pain, swelling, or any muscle pain. ENDOCRINE: Denies any polyuria or polydipsia. Past Medical History Past Medical History: Cancer, GERD/Reflux, Hypertension Additional Past Medical History / Comment(s): Intermittent diarrhea since gallbladder surgery, colon cancer stage 3 received chemotherapy for 6 months completed 06/23/18, port a cath IN PAST, recieiving immunotherapy History of Any Multi-Drug Resistant Organisms: None Reported Past Surgical History: Bowel Resection, Section, Cholecystectomy Additional Past Surgical History / Comment(s): colon CA removal, Past Anesthesia/Blood Transfusion Reactions: Previous Problems w/ Anesthesia, Motion Sickness Additional Past Anesthesia/Blood Transfusion Reaction / Comment(s): Pt states she woke from anesthesia very confused in past Past Psychological History: No Psychological Hx Reported Smoking Status: Never smoker Past Alcohol Use History: None Reported Past Drug Use History: None Reported - Past Family History Mother Family Medical History: Diabetes Mellitus Father Family Medical History: No Reported History Additional Family Medical History / Comment(s): Father is 64 yrs old. Medications and Allergies Home Medications Medication Instructions Recorded Confirmed Type Ondansetron HCl [Zofran] 4 mg PO Q4H PRN 06/23/18 08/22/19 History ALPRAZolam [Xanax] 0.25 mg PO BID PRN 04/22/19 08/22/19 History Pantoprazole Sodium [Protonix] 20 mg PO DAILY 04/22/19 08/22/19 History Ergocalciferol [Vitamin D2 50,000 unit PO TH 08/05/19 08/22/19 History (DRISDOL)] Lisinopril [Zestril] 5 mg PO DAILY 08/05/19 08/22/19 History Triamcinolone 0.1% Paste [Oralone 1 applic MUCOUS MEM TID PRN 7 Days 08/06/19 08/22/19 Rx 0.1% Paste] #1 applic Ibuprofen [Motrin] 600 mg PO AC-TID PRN 08/22/19 08/22/19 History Lidocaine-Prilocaine Cream [Emla 1 applic TOPICAL DAILY PRN 08/22/19 08/22/19 History Cream 2.5%/2.5%] hydrOXYzine HCL [Atarax] 50 mg PO Q8H PRN 08/22/19 08/22/19 History predniSONE See Taper PO DAILY 08/22/19 08/22/19 History valACYclovir HCL [Valtrex] 1,000 mg PO Q12HR PRN 08/22/19 08/22/19 History Allergies Allergy/AdvReac Type Severity Reaction Status Date / Time No Known Allergies Allergy Verified 08/22/19 15:25 Physical Exam Vitals: Vital Signs Temp Pulse Resp BP Pulse Ox 08/22/19 15:20 105 H 18 96/45 100 08/22/19 14:30 98 18 120/79 100 08/22/19 13:10 123 H 18 90/68 98 08/22/19 12:39 98.8 F 139 H 22 93/74 99 Intake and Output 01/14/20 01/14/20 01/14/20 06:59 14:59 22:59 Other: Weight 136.078 kg GENERAL: The patient is alert and oriented x3, not in any acute distress. Well developed, well nourished. -HEENT: Pupils are round and equally reacting to light. EOMI. No scleral icterus. No conjunctival pallor. Normocephalic, atraumatic. No pharyngeal erythema. No thyromegaly. dry mucous membranes CARDIOVASCULAR: S1 and S2 present. No murmurs, rubs, or gallops. PULMONARY: Chest is clear to auscultation, no wheezing or crackles. -ABDOMEN: Soft, mild RLQ and periumbilical tenderness, no rebound tenderness or guarding, nondistended, normoactive bowel sounds. No palpable organomegaly. MUSCULOSKELETAL: No joint swelling or deformity. EXTREMITIES: No cyanosis, clubbing, or pedal edema. NEUROLOGICAL: Gross neurological examination did not reveal any focal deficits. SKIN: No rashes. Results CBC & Chem 7: 08/22/19 13:20 08/22/19 13:20 Labs: Abnormal Lab Results - Last 24 Hours (Table) 08/22/19 08/22/19 08/22/19 Range/Units 13:20 13:20 13:20 WBC 24.1 H (3.8-10.6) k/uL RBC 5.63 H (3.80-5.40) m/uL MCV 79.2 L (80.0-100.0) fL MCH 24.0 L (25.0-35.0) pg MCHC 30.3 L (31.0-37.0) g/dL RDW 16.8 H (11.5-15.5) % Plt Count 476 H D (150-450) k/uL Neutrophils # 18.5 H (1.3-7.7) k/uL Monocytes # 2.2 H (0-1.0) k/uL Eosinophils # 0.8 H (0-0.7) k/uL Sodium 136 L (137-145) mmol/L Carbon Dioxide 18 L (22-30) mmol/L BUN 27 H (7-17) mg/dL Creatinine 1.47 H (0.52-1.04) mg/dL Plasma Lactic Acid Rosendo 2.3 H* (0.7-2.0) mmol/L Assessment and Plan Assessment: -possible gastroenteritis -SIRS with leukocytosis and tachycardia -sepsis secondary to above -possible blood in stool -acute kidney injury -hypovolemia -elevated lactic acid -Chronic mouth sores -Metastatic colon cancer. stage III colon cancer status post chemotherapy for 6 months, last dose was in 06/23/2018 Status post immunotherapy. Status post bowel resection -GERD -Hypertension -History of severe dental caries, most of her teeth were pulled out as per patient Plan: this is a pleasant 43 yo F who presents with possible sepsis and gastroenteritis, check stool studies, continue with iv hydration , antibiotics as per ID team . Continue with the same treatment , continue with symptomatic treatment , resume home medication , monitor lytes and vitals, . GI and DVT prophylaxis , further recommendation based upon pt clinical course and progress DVT prophylaxis sc heparin GI prophylaxis Ppi Prognosis is guarded
[2019-08-22] MEDS: HEPARIN SODIUM,PORCINE 5,000 UNIT/ML 1 ML VIAL SQ SCH (20:29)
[2019-08-22] MEDS: FAMOTIDINE 20 MG/2 ML VIAL IV SCH (20:29)
--- NOTE | 2019-08-22 23:36 | CONS ---
CONSULTATION DATE OF SERVICE: 08/22/2019 REASON FOR CONSULTATION: Sepsis and diarrhea. HISTORY OF PRESENT ILLNESS: The patient is a 43-year-old female with a past medical history significant for colon cancer, presenting to the ER at [facility] with chief complaints of diarrhea that has been going on for the last 2 days apparently getting worse. The patient did mention that she has multiple loose stools but no blood or mucus in the stool. The patient has been nauseated but no vomiting and denies significant abdominal pain. The patient denies any high-grade fever or chills. With these symptoms, the patient presented to hospital. On arrival to the ER, the patient has been afebrile. The patient noticed to have elevated white count [id number]. Influenza serology was negative. Lactic acid was 2.3. Repeat is 1.2 with liver enzymes normal. Creatinine is 1.47. The patient did have abdominal x-ray which shows no acute abdomen. Chest x- ray negative as well. The patient has been started on Zosyn. Infectious Disease was consulted for further recommendations regarding antibiotic therapy. REVIEW OF SYSTEMS: Positive points have been mentioned in HPI. Rest of the systems are negative. PAST MEDICAL HISTORY: Stage III colon cancer. Gastroesophageal reflux disease. Hypertension. PAST SURGICAL HISTORY: Bowel resection, , Cholecystectomy. SOCIAL HISTORY: No history of smoking, drinking or drug use. FAMILY HISTORY: Mother with history of diabetes. ALLERGIES: No known drug allergies. MEDICATIONS: Medications currently include the patient is on prednisone. He is on Zosyn, Marcaine, Motrin, heparin, Pepcid and Xanax. PHYSICAL EXAMINATION: Blood pressure is 115/67 with a pulse of 83, temperature 99.1. She is 94% on room air. General description is a middle-aged female lying in bed in no distress. No tachypnea or accessory muscles of respiration use. HEENT: Examination shows no pallor or scleral icterus. Oral mucosal membranes are moist. Some superficial ulceration. No thrush. Neck: Trachea central. No thyromegaly. Lungs: Unlabored breathing. Clear to auscultation. No wheeze or crackles. Heart S1, S2. Regular rate and rhythm. ABDOMEN: Soft, no tenderness. No guarding. No rigidity. EXTREMITIES: No edema of the feet. SKIN examination: No rash or mass palpable. NEUROLOGICAL: Patient is awake, alert, oriented times three. Mood and affect normal. LABS: Hemoglobin 13.5, white count 4.1, BUN of 27, creatinine 1.47. Electrolytes have been normal. Lactic acid is 2.8. Repeat is 1.2. X-ray report as mentioned above. DIAGNOSTIC IMPRESSION AND PLAN: Patient admitted to the hospital with intractable diarrhea in this patient who does have a history of stage III colon cancer and the patient has been on chemo and radiation with recent admission to this facility. The patient did have an oral sore and was treated with Valtrex. C difficile will be on the top of the list versus other enteric gram- negative pathogen less likely ischemic colitis. PLAN: 1. We will check stool for C difficile. 2. Check a stool culture. 3. Discontinue Zosyn. 4. We will start the patient empirically on Flagyl. 5. We will follow up on clinical condition and culture to further adjust medication if needed. Thank you for this consultation. We will follow this patient along with you. MMDARRYL / GLADISN: [id number] / MTDD
[2019-08-23] MEDS ORDERED: PIPERACILLIN-TAZOBACTAM 3.375 GM in SODIUM CHLORIDE 0.9% 100 ML IVPB SCH ×2
[2019-08-23] MEDS: metroNIDAZOLE 500 MG TAB PO SCH ×4 (00:12→20:29)
[2019-08-23] MEDS: SODIUM CHLORIDE 0.9% 1,000 ML IV SCH ×3 (04:19→17:41)
[2019-08-23] MEDS: FAMOTIDINE 20 MG/2 ML VIAL IV SCH ×2 (08:21→20:28)
[2019-08-23] MEDS: HEPARIN SODIUM,PORCINE 5,000 UNIT/ML 1 ML VIAL SQ SCH ×2 (08:21→20:28)
--- NOTE | 2019-08-23 08:27 | P.PN ---
Subjective This is a pleasant 43 years old female with past medical history of GERD, hypertension, stage III colon cancer status post chemotherapy for 6 months, last dose was in 06/23/2018. recently was on immunotherapy.which was stopeed due to mouth sores, pt was recently admitted to the hospital for non healing mouth sores and upper resp infection , she was discharged on prednisone 60 mg , topical mouth steroid and valcyclovir. pt presents this time with 3 days history of diarrhea, with some blood in stool. nausea but no vomiting , and right lower quadrant and tanisha-umbilical pain , which looks mild on admission pt was lightheaded as well, no syncope, no fall. on admission pt was hypontensive with bp 93/73 and heart rate of 139 compared to last month her BP was 110-120s/80s-90s. currently BP 96/45 and heart rate of 105. pt is afebrile but wbc is 24k , however pt was also on steroid. creatinine elevated at 1.4, lactic acid high at 2.3, influenza negative and cxr: no acute process in ED pt was started on zosyn and iv fluids 08/23/2019 Patient is improving, she does not have any more abdominal pain and tenderness compared to yesterday, no nausea vomiting. She has 1 hernias bowel movement this morning but is better compared to yesterday. Her blood pressure is improving and currently 113/65, she is mildly tachycardic Patient conference to me that she just started her prednisone tapering and she supposed to be on 30 mg of prednisone. Her occult blood in his stools positive . C. diff is negative. continue with Flagyl, infectious disease input is appreciated Continue with normal saline at 70 mL per hour Review of systems CONSTITUTIONAL: No fever, no malaise, no fatigue. HEENT: No recent visual problems or hearing problems. Denied any sore throat. CARDIOVASCULAR: No orthopnea, PND, no palpitations, no syncope. PULMONARY: No shortness of breath, no cough, no hemoptysis. NEUROLOGICAL: No headaches, no weakness, no numbness. HEMATOLOGICAL: Denies any bleeding or petechiae. GENITOURINARY: Denies any burning micturition, frequency, or urgency. MUSCULOSKELETAL/RHEUMATOLOGICAL: Denies any joint pain, swelling, or any muscle pain. ENDOCRINE: Denies any polyuria or polydipsia. Active Medications Generic Name Dose Route Start Last Admin Trade Name Freq PRN Reason Stop Dose Admin Alprazolam 0.25 mg 08/22/19 16:12 Xanax PO BID PRN Anxiety Ergocalciferol 50,000 unit 08/24/19 09:00 Vitamin D2 PO TH MAY Famotidine 20 mg 08/22/19 21:00 08/23/19 08:21 Pepcid IV 20 mg Q12HR MAY Administration Heparin Sodium (Porcine) 5,000 unit 08/22/19 21:00 08/23/19 08:21 Heparin SQ 5,000 unit Q12HR MAY Administration Sodium Chloride 1,000 mls @ 150 mls/hr 08/22/19 13:15 08/23/19 04:19 Saline 0.9% IV 150 mls/hr .Q6H40M MAY Administration Ibuprofen 600 mg 08/22/19 16:12 Motrin PO AC-TID PRN Pain Lidocaine/Prilocaine 1 applic 08/22/19 16:12 Emla Cream 2.5%/2.5% TOPICAL DAILY PRN port access Metronidazole 500 mg 08/22/19 23:00 08/23/19 08:21 Flagyl PO 500 mg TID MAY Administration Naloxone HCl 0.2 mg 08/22/19 14:42 Narcan IV Q2M PRN Opioid Reversal Prednisone 30 mg 08/23/19 09:00 PO DAILY [facility] Triamcinolone Acetonide 1 applic 08/22/19 16:12 Oralone MUCOUS MEM TID PRN MOUTH LESIONS Objective - Vital Signs Vital signs: Vital Signs Temp 99.3 F 08/23/19 05:54 Pulse 101 H 08/23/19 05:54 Resp 18 08/23/19 05:54 BP 113/65 08/23/19 05:54 Pulse Ox 97 08/23/19 05:54 Intake & Output 08/22/19 08/23/19 08/23/19 18:59 06:59 18:59 Intake Total 500 2160 Balance 500 2160 Weight 136.078 kg 136.078 kg Intake: Amount of Fluid Infused ( 500 ml) Intake, IV Titration 1800 Amount Sodium Chloride 0.9% 1, 1800 000 ml @ 150 mls/hr IV . Q6H40M [facility] Rx#:[id number] Oral 360 - Exam GENERAL: The patient is alert and oriented x3, not in any acute distress. Well developed, well nourished. -HEENT: Pupils are round and equally reacting to light. EOMI. No scleral icterus. No conjunctival pallor. Normocephalic, atraumatic. No pharyngeal erythema. No thyromegaly. dry mucous membranes CARDIOVASCULAR: S1 and S2 present. No murmurs, rubs, or gallops. PULMONARY: Chest is clear to auscultation, no wheezing or crackles. -ABDOMEN: Soft, mild RLQ and periumbilical tenderness, no rebound tenderness or guarding, nondistended, normoactive bowel sounds. No palpable organomegaly. MUSCULOSKELETAL: No joint swelling or deformity. EXTREMITIES: No cyanosis, clubbing, or pedal edema. NEUROLOGICAL: Gross neurological examination did not reveal any focal deficits. SKIN: No rashes. - Labs CBC & Chem 7: 08/22/19 13:20 08/22/19 13:20 Labs: Abnormal Lab Results - Last 24 Hours (Table) 08/22/19 08/22/19 08/22/19 Range/Units 13:20 13:20 13:20 WBC 24.1 H (3.8-10.6) k/uL RBC 5.63 H (3.80-5.40) m/uL MCV 79.2 L (80.0-100.0) fL MCH 24.0 L (25.0-35.0) pg MCHC 30.3 L (31.0-37.0) g/dL RDW 16.8 H (11.5-15.5) % Plt Count 476 H D (150-450) k/uL Neutrophils # 18.5 H (1.3-7.7) k/uL Monocytes # 2.2 H (0-1.0) k/uL Eosinophils # 0.8 H (0-0.7) k/uL Sodium 136 L (137-145) mmol/L Carbon Dioxide 18 L (22-30) mmol/L BUN 27 H (7-17) mg/dL Creatinine 1.47 H (0.52-1.04) mg/dL Plasma Lactic Acid Rosendo 2.3 H* (0.7-2.0) mmol/L Stool Occult Blood (Negative) 08/23/19 Range/Units 00:25 WBC (3.8-10.6) k/uL RBC (3.80-5.40) m/uL MCV (80.0-100.0) fL MCH (25.0-35.0) pg MCHC (31.0-37.0) g/dL RDW (11.5-15.5) % Plt Count (150-450) k/uL Neutrophils # (1.3-7.7) k/uL Monocytes # (0-1.0) k/uL Eosinophils # (0-0.7) k/uL Sodium (137-145) mmol/L Carbon Dioxide (22-30) mmol/L BUN (7-17) mg/dL Creatinine (0.52-1.04) mg/dL Plasma Lactic Acid Rosendo (0.7-2.0) mmol/L Stool Occult Blood Positive H (Negative) Assessment and Plan Assessment: -possible gastroenteritis, improving -SIRS with leukocytosis and tachycardia -sepsis secondary to above -possible blood in stool -acute kidney injury -hypovolemia -elevated lactic acid -Chronic mouth sores -Metastatic colon cancer. stage III colon cancer status post chemotherapy for 6 months, last dose was in 06/23/2018 Status post immunotherapy. Status post bowel resection -GERD -Hypertension -History of severe dental caries, most of her teeth were pulled out as per patient Plan: this is a pleasant 43 yo F who presents with possible sepsis and gastr oenteritis, check stool studies, continue with iv hydration , antibiotics as per ID team . Consult GI team for occult blood in stool Continue with the same treatment , continue with symptomatic treatment , resume home medication , monitor lytes and vitals, . GI and DVT prophylaxis , further recommendation based upon pt clinical course and progress DVT prophylaxis sc heparin GI prophylaxis Ppi Prognosis is guarded
[2019-08-23] MEDS ORDERED: predniSONE 10 MG TAB PO SCH (09:00)
[2019-08-23 12:00] VITALS: RESP 16
[2019-08-23] MEDS: ERGOCALCIFEROL 50,000 UNIT CAP PO SCH (13:02)
[2019-08-23] MEDS: predniSONE 10 MG TAB PO SCH (13:02)
--- NOTE | 2019-08-24 00:16 | P.CONS ---
History of Present Illness - Reason for Consult Consult date: 08/23/19 Positive stool test for blood Requesting physician: Kirill E Sheet - Chief Complaint Diarrhea - History of Present Illness 43-year-old female with past medical history significant for GERD, hypertension, stage III colon cancer status post partial colectomy recently started on immunotherapy which has been held since April due to oral lesions/sores which was initiated after outpatient was found to have recurrence of her disease presents to the hospital with complaints left diarrhea. The patient reports 3 days of loose stool. She reports multiple watery bowel movements prior to presentation. She denies any unusual foods, travel, no antibiotic therapy but had been started on oral steroids for treatment of suspected mucositis. She reports that her swallowing and mucositis is much improved. She also had associated lower abdominal cramping with her diarrhea. She felt very dehydrated presented for further evaluation. Since that time diarrhea is much improved and hasn't abdominal pain has also resolved. She did have stool testing positive for lactoferrin. Testing for Clostridium difficile was negative. X-ray of the abdomen was negative. Laboratory evaluation significant for leukocytosis with WBC 24, hemoglobin 13.5, platelet count 476,000. Stool testing was positive for occult blood but the patient denies any signs or symptoms of overt bleeding. Review of Systems REVIEW OF SYSTEMS: CONSTITUTIONAL: Denies any fevers, chills, weight change but does report fatigue and generalized weakness prior to presentation. CARDIOVASCULAR: Denies any chest pain, palpitations high or low blood pressures RESPIRATORY: Denies any shortness of breath, hemoptysis or cough. GENITOURINARY: No dysuria or hematuria. MUSCULOSKELETAL: No weakness reported. SKIN: Denies any new rashes or lesions, jaundice or pallor. PSYCHIATRIC: Denies any depression or anxiety. NEUROLOGY: Denies headache, denies any new focal deficits. EARS/NOSE/THROAT: No recent hearing change, congestion, nasal discharge or sore throat. EYES: No pain in eyes, discharge or change in vision. GASTROINTESTINAL: As per HPI. Past Medical History Past Medical History: Cancer, GERD/Reflux, Hypertension Additional Past Medical History / Comment(s): Intermittent diarrhea since gallbladder surgery, colon cancer stage 3 received chemotherapy for 6 months com pleted 04/24/19 (second round), port a cath IN PAST, recieiving immunotherapy none since 04/26 History of Any Multi-Drug Resistant Organisms: None Reported Past Surgical History: Bowel Resection, Section, Cholecystectomy Additional Past Surgical History / Comment(s): colon CA removal, Past Anesthesia/Blood Transfusion Reactions: Previous Problems w/ Anesthesia, Motion Sickness Additional Past Anesthesia/Blood Transfusion Reaction / Comm: Pt states she woke from anesthesia very confused in past Past Psychological History: No Psychological Hx Reported Additional Psychological History / Comment(s): . Smoking Status: Never smoker Past Alcohol Use History: None Reported Past Drug Use History: None Reported - Past Family History Mother Family Medical History: Diabetes Mellitus Father Family Medical History: No Reported History Additional Family Medical History / Comment(s): Father is 64 yrs old. Medications and Allergies Home Medications Medication Instructions Recorded Confirmed Type Ondansetron HCl [Zofran] 4 mg PO Q4H PRN 06/23/18 08/22/19 History ALPRAZolam [Xanax] 0.25 mg PO BID PRN 04/22/19 08/22/19 History Pantoprazole Sodium [Protonix] 20 mg PO DAILY 04/22/19 08/22/19 History Ergocalciferol [Vitamin D2 50,000 unit PO TH 08/05/19 08/22/19 History (DRISDOL)] Lisinopril [Zestril] 5 mg PO DAILY 08/05/19 08/22/19 History Triamcinolone 0.1% Paste [Oralone 1 applic MUCOUS MEM TID PRN 7 Days 08/06/19 08/22/19 Rx 0.1% Paste] #1 applic Ibuprofen [Motrin] 600 mg PO AC-TID PRN 08/22/19 08/22/19 History Lidocaine-Prilocaine Cream [Emla 1 applic TOPICAL DAILY PRN 08/22/19 08/22/19 History Cream 2.5%/2.5%] hydrOXYzine HCL [Atarax] 50 mg PO Q8H PRN 08/22/19 08/22/19 History predniSONE See Taper PO DAILY 08/22/19 08/22/19 History Allergies Allergy/AdvReac Type Severity Reaction Status Date / Time No Known Allergies Allergy Verified 08/22/19 15:25 Physical Exam Vitals: Vital Signs Temp Pulse Resp BP Pulse Ox 08/23/19 21:46 98.0 F 75 16 115/77 95 01/15/20 16:00 76 16 08/23/19 12:00 98.6 F 76 16 112/56 97 08/23/19 08:00 101 H 18 08/23/19 05:54 99.3 F 101 H 18 113/65 97 Intake and Output 08/23/19 08/23/19 08/24/19 14:59 22:59 06:59 Intake Total 1200 590 Balance 1200 590 Intake: Intake, IV Titration 1200 Amount Sodium Chloride 0.9% 1, 1200 000 ml @ 75 mls/hr IV . [id number] [facility] Rx#:[id number] Oral 590 Other: # Voids 2 On physical examination, patient appears comfortable in no apparent distress. HEAD: Normocephalic, atraumatic. EYES: No scleral icterus. No conjunctival injection. MOUTH: No lesions, tongue midline. NECK: Trachea midline, no gross abnormalities. CHEST: Clear to auscultation with no wheezing or rhonchi appreciated. HEART: Regular rate and rhythm. ABDOMEN: Soft. Bowel sounds are positive. No organomegaly. No guarding or rigidity. EXTREMITIES: No pedal edema. SKIN: No rashes, no jaundice. NEUROLOGIC: Alert and oriented x3. No focal deficits. Results CBC & Chem 7: 08/22/19 13:20 08/22/19 13:20 Labs: Abnormal Lab Results - Last 24 Hours (Table) 08/23/19 08/23/19 Range/Units 00:25 00:25 Stool Occult Blood Positive H (Negative) Stool Lactoferrin POSITIVE H (NEGATIVE) Microbiology - Last 24 Hours (Table) 08/22/19 14:06 Blood Culture - Preliminary Blood No Growth after 24 hours 08/23/19 00:25 Stool Culture - Preliminary Stool Abdominal x-ray: report reviewed (No acute process seen on x-ray abdomen) Assessment and Plan (1) Diarrhea Narrative/Plan: 43-year-old with multiple medical comorbidities including stationary colon cancer treated with surgical resection currently on immunotherapy who presents to the hospital due to complaints of multiple loose bowel movements and associated weakness and dehydration. Currently bowel movements are much improved with no further diarrhea patient reporting to formed stools today. Testing for Clostridium difficile was negative. Currently on the antibiotic regimen with Flagyl. Patient did have stool testing for blood which was positive but denies any signs or symptoms GI bleeding and has had a hemoglobin which has remained normal. Current Visit: Yes Status: Acute Code(s): R19.7 - DIARRHEA, UNSPECIFIED S NOMED Code(s): 40078899 (2) Abdominal pain Current Visit: No Status: Acute Code(s): R10.9 - UNSPECIFIED ABDOMINAL PAIN SNOMED Code(s): 90245330 (3) Adenocarcinoma, colon Current Visit: No Status: Acute Code(s): C18.9 - MALIGNANT NEOPLASM OF COLON, UNSPECIFIED SNOMED Code(s): 178301824 Plan: Supportive care Okay for diet advance to low fiber low lactose today Continue monitor CBC, CMP Continue supportive care Appreciate recommendations from infectious disease service Continue Flagyl therapy No plans for endoscopic evaluation at this time Okay for discharge when otherwise medically stable Thank you for allowing us to participate in the care of the patient, the GI service will stand by, please call us back with any questions or concerns
[2019-08-24] MEDS: SODIUM CHLORIDE 0.9% 1,000 ML IV SCH (04:28)
--- NOTE | 2019-08-24 05:38 | PN ---
PROGRESS NOTE DATE OF SERVICE: 08/23/2019 REASON FOR FOLLOWUP: Diarrhea and colitis. INTERVAL HISTORY: The patient is currently afebrile. Patient overall feeling better. The patient's diarrhea has resolved and the stools are forming up. No abdominal pain. No nausea or vomiting. No chest pain, shortness of breath or cough. PHYSICAL EXAMINATION: Blood pressure is 115/77 with a pulse of 75, temperature of 98. She is 95% on room air. General description is a middle-aged female lying in bed in no distress. RESPIRATORY SYSTEM: Unlabored breathing, clear to auscultation anteriorly. HEART: S1, S2. Regular rate and rhythm. ABDOMEN: Soft, no tenderness. LABS: Stool for C difficile negative. Stool occult blood and lactoferrin was positive. Stool cultures currently pending. DIAGNOSTIC IMPRESSION AND PLAN: Patient presented to hospital with acute diarrhea with concern for possible infectious etiology. The patient Clostridium difficile is negative responded to oral Flagyl to continue while waiting for the stool culture to finalize. Continue with supportive care. MMODL / IJN: [id number] /
[2019-08-24] MEDS: FAMOTIDINE 20 MG/2 ML VIAL IV SCH (07:30)
[2019-08-24] MEDS: HEPARIN SODIUM,PORCINE 5,000 UNIT/ML 1 ML VIAL SQ SCH (07:30)
[2019-08-24] MEDS: predniSONE 10 MG TAB PO SCH (07:30)
[2019-08-24] MEDS: metroNIDAZOLE 500 MG TAB PO SCH (07:31)
[2019-08-24] MEDS: ERGOCALCIFEROL 50,000 UNIT CAP PO SCH (07:31)
[2019-08-24 08:09] LABS: Anisocytosis Slight; Basophils % (A) 1 %; Eosinophils # (A) 0.3 k/uL (0-0.7); Eosinophils % (A) 4 %; HGB 10.8 gm/dL (11.4-16.0); Hypochromasia Moderate; Lymphocytes # (A) 0.9 k/uL (1.0-4.8); Lymphocytes % (A) 12 %; MCH 23.6 pg (25.0-35.0); MCHC 30.1 g/dL (31.0-37.0); MCV 78.4 fL (80.0-100.0); Mean Platelet Volume 7.2; Microcytosis Slight; Monocytes # (A) 0.5 k/uL (0-1.0); Monocytes % (A) 7 %; Neutrophils # (A) 5.7 k/uL (1.3-7.7); Neutrophils % (A) 75 %; RBC 4.59 m/uL (3.80-5.40); RDW 17.4 % (11.5-15.5); WBC 7.6 k/uL (3.8-10.6)
[2019-08-24 08:10] LABS: Platelet Count 181 k/uL (150-450)
[2019-08-24 08:22] LABS: African American GFR (CKD) >90 (>60 ml/min/1.73 sqM); Anion Gap 5 mmol/L; Blood Urea Nitrogen 11 mg/dL (7-17); Calcium 8.4 mg/dL (8.4-10.2); Carbon Dioxide 23 mmol/L (22-30); Chloride 112 mmol/L (98-107); Glucose 97 mg/dL (74-99); Non-African American GFR(CKD) >90 (>60 ml/min/1.73 sqM); Potassium 3.8 mmol/L (3.5-5.1); Sodium 140 mmol/L (137-145)
[2019-08-24 11:46] VITALS: BP 134/92; PULSE 91; TEMP 99.1
--- NOTE | 2019-08-24 12:20 | P.DS ---
Providers Date of admission: 08/22/19 15:22 Attending physician: Kirill Gonzalez MD Consults: 08/22/19 16:06 Consult Physician Urgent Consulting Provider: Jasiel Davenport Consult Reason/Comments: sepsis Do you want consulting provider notified?: Yes 08/23/19 08:27 Consult Physician Urgent Consulting Provider: Mariusz Voss Consult Reason/Comments: Positive occult blood in stool Do you want consulting provider notified?: Yes Primary care physician: [facility] Course: Diagnoses: -Acute gastroenteritis, improved with therapy. Her symptoms are completely resolved prior to Discharge -SIRS with leukocytosis and tachycardia, present on admission. Improved -sepsis secondary to above -possible blood in stool, mostly related to her gastroenteritis. Improved with therapy. Patient has been evaluated by GI service. -acute kidney injury , improved -hypovolemia and hypotension, improved -elevated lactic acid, back to normal -Chronic mouth sores, improving on steroids, she is on prednisone taper currently -Metastatic colon cancer. stage III colon cancer status post chemotherapy for 6 months, last dose was in 06/23/2018 Status post immunotherapy. Status post bowel resection. She follows up with Dr. Culver next week and she is telling me she already has appointment -GERD -Hypertension -History of severe dental caries, most of her teeth were pulled out as per patient Hospital course: This is a pleasant 43 years old female with past medical history of GERD, hypertension, stage III colon cancer status post chemotherapy for 6 months, last dose was in 06/23/2018. recently was on immunotherapy.which was stopped due to mouth sores, pt was recently admitted to the hospital for non healing mouth sores and upper resp infection , she was discharged on prednisone 60 mg , top ical mouth steroid and valcyclovir. pt presents this time with 3 days history of diarrhea, with some blood in stool. nausea but no vomiting , and right lower quadrant and tanisha-umbilical pain , on admission pt was lightheaded as well, no syncope, no fall. on admission pt was hypontensive with bp 93/73 and heart rate of 139 compared to last month her BP was 110-120s/80s-90s. currently BP 112/74, no more tachycardia. Patient was treated with Zosyn and Flagyl antibiotics, and normal saline drip, and to continue with taper steroids. Patient symptoms are significantly improved, her nausea vomiting are completely stop. Patient is tolerating regular diet. Her pain and abdominal tenderness are completely resolved and directed as 0/10 today. Patient denies other symptoms. Patient is eager to be discharged home today. Patient will be discharged on short course of antibiotics of Flagyl Patient has been cleared for discharge by ID and oncology team, as well as GI team Problems and management plan were discussed with the patient and he verbalized understanding and acceptance Patient was found stable and can be discharged home however he needs follow-up as an outpatient. Patient was instructed to follow up with PCP within one week and patient agrees Gen: patient is a AAOx3, no distress CVS: S1-S2, RRR, no murmur Lungs: B/L CTA, no wheezing Abdomen: soft, no distention, no tenderness, positive bowel sounds Extremity: no leg edema or induration Time spent more than 35 minutes Patient Condition at Discharge: Stable Plan - Discharge Summary Discharge Rx Participant: Yes New Discharge Prescriptions: New metroNIDAZOLE [Flagyl] 500 mg PO TID 5 Days #15 tab Continue Ondansetron HCl [Zofran] 4 mg PO Q4H PRN PRN Reason: Nausea ALPRAZolam [Xanax] 0.25 mg PO BID PRN PRN Reason: Anxiety Pantoprazole Sodium [Protonix] 20 mg PO DAILY Ergocalciferol [Vitamin D2 (DRISDOL)] 50,000 unit PO TH Lisinopril [Zestril] 5 mg PO DAILY Triamcinolone 0.1% Paste [Oralone 0.1% Paste] 1 applic MUCOUS MEM TID PRN 7 Days #1 applic PRN Reason: MOUTH LESIONS predniSONE See Taper PO DAILY Lidocaine-Prilocaine Cream [Emla Cream 2.5%/2.5%] 1 applic TOPICAL DAILY PRN PRN Reason: port access Discontinued hydrOXYzine HCL [Atarax] 50 mg PO Q8H PRN PRN Reason: Cough Ibuprofen [Motrin] 600 mg PO AC-TID PRN PRN Reason: Pain Discharge Medication List Ondansetron HCl [Zofran] 4 mg PO Q4H PRN 06/23/18 [History] ALPRAZolam [Xanax] 0.25 mg PO BID PRN 04/22/19 [History] Pantoprazole Sodium [Protonix] 20 mg PO DAILY 04/22/19 [History] Ergocalciferol [Vitamin D2 (DRISDOL)] 50,000 unit PO TH 08/05/19 [History] Lisinopril [Zestril] 5 mg PO DAILY 08/05/19 [History] Triamcinolone 0.1% Paste [Oralone 0.1% Paste] 1 applic MUCOUS MEM TID PRN 7 Days #1 applic 08/06/19 [Rx] Lidocaine-Prilocaine Cream [Emla Cream 2.5%/2.5%] 1 applic TOPICAL DAILY PRN 08/22/19 [History] predniSONE See Taper PO DAILY 08/22/19 [History] metroNIDAZOLE [Flagyl] 500 mg PO TID 5 Days #15 tab 08/24/19 [Rx] Follow up Appointment(s)/Referral(s): Letha South MD [Primary Care Provider] - 08/25/19 8:00 am (patient has appt. with Maddie Toledo NP on 08/25/19 already) Patient Instructions/Handouts: Metronidazole (By mouth), Dehydration (DC), Acute Diarrhea (GEN) Activity/Diet/Wound Care/Special Instructions: Patient instructed to make a follow-up with a GI doctor if she can find one in [place] that will take her [employer] - (Dr. Voss's office does not accept pt's insurance.) Discharge Disposition: HOME SELF-CARE
--- NOTE | 2019-08-24 14:05 | PN ---
PROGRESS NOTE DATE OF SERVICE: 08/24/2019 REASON FOR FOLLOWUP: Diarrhea, possible infection. INTERVAL HISTORY: The patient was seen on rounds this morning. The patient has been afebrile. The patient is breathing comfortably. The patient denies having any chest pain. No shortness of breath or cough. No nausea, vomiting. No abdominal pain. No diarrhea. The patient did have small bowel movement. PHYSICAL EXAMINATION: Blood pressure 134/90 with a pulse of 91, temperature is 98.1, she is 94% on room air. General description is a middle-aged female, up in the bed in no distress. RESPIRATORY SYSTEM: Unlabored breathing, clear to auscultation anteriorly. HEART: S1, S2. Regular rate and rhythm. ABDOMEN: Soft, no tenderness. LABS: Hemoglobin is 10.1, white count is 10.7, BUN of 11, creatinine 0.68. Blood culture currently pending. Blood culture negative. DIAGNOSTIC IMPRESSION AND PLAN: Patient admitted to the hospital with intractable diarrhea, evidence of colitis, possible infectious, concern for Clostridium difficile through Clostridium difficile came back negative. The patient has been clinically responding to Flagyl which will be continued for another 10 days with close outpatient followup. Patient questions and concerns were answered. MMODL / IJN: [id number] / ZAIDA
== END 2019-08-24 11:45 | disposition home or self-care (01) ==
LOC: EC 12:35 → 5NMEDONC 15:22
PROVIDERS: ADMIT Internal Medicine; ATTEND Internal Medicine
DX: A41.9 Sepsis, unspecified organism (principal); K52.9 Noninfective gastroenteritis and colitis, unspecified; N17.9 Acute kidney failure, unspecified; E86.1 Hypovolemia; E86.0 Dehydration; I10 Essential (primary) hypertension; K12.30 Oral mucositis (ulcerative), unspecified; K21.9 Gastro-esophageal reflux disease without esophagitis; Z79.899 Other long term (current) drug therapy; Z83.3 Family history of diabetes mellitus; Z85.038 Personal history of other malignant neoplasm of large intestine; Z90.49 Acquired absence of other specified parts of digestive tract; Z92.21 Personal history of antineoplastic chemotherapy; Z79.1 Long term (current) use of non-steroidal anti-inflammatories (NSAID)
CPT/HCPCS: 96376 ×2; 96361 ×4; 96365; 96372 ×3; 96375; 99285; 36415; 93005; 80053; 80048; 83605; 84484; 85025 ×2; 82272; 84703; 87040; 87324; 87045; 83630; 87046; 87502; 71046; 74018; G0378 ×3; J2543; J1644 ×3; J1642; J7512 ×2

== ENCOUNTER → 2019-08-22 | Outpatient (CLI) | payer OTHER ==
--- NOTE | 2019-08-22 13:06 | CT ---
EXAMINATION TYPE: CT ChestAbdPelvis w con DATE OF EXAM: 08/22/2019 COMPARISON: 05/29/2019 HISTORY: Colon cancer, observe for mets. CT DLP: 2592.2 mGycm CONTRAST: CT scan of the chest, abdomen and pelvis is performed with Oral Contrast and with IV Contrast, patien t injected with 80 mL of Isovue M300. CT Chest: LUNGS: The lungs are clear and free of infiltrate or atelectasis. No pulmonary nodule or mass is det ected. No pleural effusion or CT evidence of interstitial lung disease. MEDIASTINUM: Thoracic aorta is of normal caliber. The heart is not enlarged. No evidence for media stinal mass or adenopathy. HILAR STRUCTURES: No evidence for mass. No hilar adenopathy is appreciated. OTHER: No significant abnormality. CONTRAST CT ABDOMEN AND PELVIS FINDINGS: LIVER/GB: The gallbladder surgically absent. No space occupying hepatic lesion. Biliary tree is of no rmal caliber. PANCREAS: No inflammation. No distinct mass. SPLEEN: The spleen is enlarged and measures 12.6 cm cranial caudal dimension. Splenic granulomas iden tified. Overall no change is seen. ADRENALS: No nodule. No thickening. KIDNEYS/BLADDER: No hydronephrosis. Nonobstructing right-sided nephrolithiasis. No distinct renal ma ss. BOWEL: Soft tissue within in the small bowel mesentery persists although is smaller in size and curre ntly measures 1.3 cm versus 3.2 cm previously. Right hemicolectomy changes are redemonstrated. No chelsey dence for recurrent or residual mass. GENITAL ORGANS: Left ovarian cystic lesion measuring 3 cm. Right ovary is normal in appearance as is the uterus. LYMPH NODES: No greater than 1cm abdominal or pelvic lymph nodes are appreciated. AORTA: No significant abnormality. OSSEOUS STRUCTURES: No significant abnormality is seen. OTHER: No significant additional abnormality is seen. IMPRESSION: 1. No evidence for metastatic disease at this time.
== END | disposition home or self-care (01) ==
LOC: RADPROMAIN 10:07
PROVIDERS: ATTEND Internal Medicine Hematology & Oncology
DX: C18.3 Malignant neoplasm of hepatic flexure (principal)
CPT/HCPCS: 82565; 84520; 71260; 74177; J1642; Q9967 ×2

== ENCOUNTER 2019-09-13 09:06 | Day surgery (SDC) | payer OTHER ==
[2019-09-11 10:22] VITALS: BMI 45.6
[~2019-09-13 09:06] MED LIST changes: -DEXAMETHASONE SOD PHOSPHATE 10 MG/ML 1 ML VIAL IV ONE; -HEPARIN SODIUM,PORCINE 5,000 UNIT/ML 1 ML VIAL SQ ONE; -HYDROmorphone 0.5 MG/0.5 ML SYRINGE IVP PRN; +LIDOCAINE 1% 20 ML VIAL (10MG/ML) FOR IV START INTRADERMA PRN; -MIDAZOLAM 2 MG/2 ML VIAL IV PRN; -ONDANSETRON 4 MG/2 ML VIAL IVP ONE; -SCOPOLAMINE 1.5MG/72HR PATCH TRANSDERM ONE
[2019-09-13 09:48] VITALS: TEMP 99.7
[2019-09-13] MEDS ORDERED: PROPOFOL 10 MG/ML 20 ML VIAL IV ONE (09:49)
[2019-09-13 09:51] LABS: Glucose,Whole Blood 94 mg/dL (75-99)
--- NOTE | 2019-09-13 09:53 | P.GSHP ---
History of Present Illness H&P Date: 09/13/19 Chief Complaint: History of colon cancer This a 43-year-old female with a previous history of right colon cancer. Patient rents today for colonoscopy she underwent right colectomy in 2017 Past Medical History Past Medical History: Cancer, GERD/Reflux, Hypertension Additional Past Medical History / Comment(s): Intermittent diarrhea since gallbladder surgery, colon cancer stage 3 received chemotherapy for 6 months completed 04/24/19 (second round), port a cath, received immunotherapy none since 04/26 History of Any Multi-Drug Resistant Organisms: None Reported Past Surgical History: Bowel Resection, Section, Cholecystectomy Additional Past Surgical History / Comment(s): colon CA removal, Past Anesthesia/Blood Transfusion Reactions: Previous Problems w/ Anesthesia, Motion Sickness Additional Past Anesthesia/Blood Transfusion Reaction / Comment(s): Pt states she woke from anesthesia very confused in past Past Psychological History: No Psychological Hx Reported Additional Psychological History / Comment(s): . Smoking Status: Never smoker Past Alcohol Use History: None Reported Past Drug Use History: None Reported - Past Family History Mother Family Medical History: Diabetes Mellitus Father Family Medical History: No Reported History Additional Family Medical History / Comment(s): Father is 64 yrs old. Medications and Allergies Home Medications Medication Instructions Recorded Confirmed Type Ondansetron HCl [Zofran] 4 mg PO Q4H PRN 06/23/18 09/11/19 History ALPRAZolam [Xanax] 0.25 mg PO BID PRN 04/22/19 09/11/19 History Pantoprazole Sodium [Protonix] 20 mg PO DAILY 04/22/19 09/11/19 History Ergocalciferol [Vitamin D2 50,000 unit PO TH 08/05/19 09/11/19 History (DRISDOL)] Lisinopril [Zestril] 5 mg PO DAILY 08/05/19 09/11/19 History Lidocaine-Prilocaine Cream [Emla 1 applic TOPICAL DAILY PRN 08/22/19 09/11/19 History Cream 2.5%/2.5%] predniSONE 10 mg PO DAILY 09/11/19 09/11/19 History Allergies Allergy/AdvReac Type Severity Reaction Status Date / Time No Known Allergies Allergy Verified 09/11/19 10:13 Surgical - Exam Vital Signs Temp Pulse Resp BP Pulse Ox 99.7 F H 86 20 112/73 96 09/13/19 09:40 09/13/19 09:40 09/13/19 09:40 09/13/19 09:40 09/13/19 09:40 - General well developed, well nourished, no distress - Eyes PERRL - ENT normal pinna - Neck no masses - Respiratory normal expansion - Cardiovascular Rhythm: regular - Abdomen Abdomen: soft, non tender Assessment and Plan Assessment: History of colon cancer. We'll perform colonoscopy.
--- NOTE | 2019-09-13 10:03 | P.OP ---
Date of Procedure: 09/13/19 Preoperative Diagnosis: History of colon cancer Postoperative Diagnosis: Normal colonoscopy status post right colectomy Procedure(s) Performed: Colonoscopy Anesthesia: MAC Surgeon: Bharat Stein Pathology: none sent Condition: stable Disposition: PACU Description of Procedure: Patient's placed on the endoscopy table in the lateral position. She received IV sedation. Digital rectal exam was performed which revealed no. Flexible colonoscope was then placed patient anus and passed throughout the entire colon. Patient a previous right colectomy. The ileocolonic anastomosis visualized. The transverse colon, descending colon and sigmoid colon appeared normal. The scope was then brought back into the rectum this appeared normal. The scope was then brought back and removed from the Patient.
[2019-09-13 10:20] VITALS: PULSE 99
[2019-09-13 10:25] VITALS: BP 121/88; RESP 16
== END 2019-09-13 10:55 | disposition home or self-care (01) ==
LOC: ORWHC2ENDO 09:06
PROVIDERS: ATTEND Surgery
DX: Z12.11 Encounter for screening for malignant neoplasm of colon (principal); Z85.038 Personal history of other malignant neoplasm of large intestine; K21.9 Gastro-esophageal reflux disease without esophagitis; I10 Essential (primary) hypertension; K08.109 Complete loss of teeth, unspecified cause, unspecified class; Z92.21 Personal history of antineoplastic chemotherapy; Z90.49 Acquired absence of other specified parts of digestive tract; Z98.890 Other specified postprocedural states; Z91.89 Other specified personal risk factors, not elsewhere classified; Z87.898 Personal history of other specified conditions; Z98.0 Intestinal bypass and anastomosis status; Z79.899 Other long term (current) drug therapy; Z79.52 Long term (current) use of systemic steroids; Z83.3 Family history of diabetes mellitus
CPT/HCPCS: 81025; J2704; G0105; 45378

== ENCOUNTER → 2020-02-08 | Outpatient (CLI) | payer OTHER ==
[2020-02-08 16:00] LABS: African American GFR (CKD) >90 (>60 ml/min/1.73 sqM); Blood Urea Nitrogen 9 mg/dL (7-17); Non-African American GFR(CKD) 87 (>60 ml/min/1.73 sqM)
--- NOTE | 2020-02-08 17:10 | CT ---
EXAMINATION TYPE: CT ChestAbdPelvis w con DATE OF EXAM: 02/08/2020 COMPARISON: 08/22/2019 HISTORY: Colon cancer. CT DLP: 3187.6 mGycm CONTRAST: CT scan of the chest, abdomen and pelvis is performed with Oral Contrast and with IV Contrast, patien t injected with 80 mL of Isovue M300. CT Chest: LUNGS: The lungs are clear and free of infiltrate or atelectasis. No pulmonary nodule or mass is det ected. No pleural effusion or CT evidence of interstitial lung disease. MEDIASTINUM: Thoracic aorta is of normal caliber. The heart is not enlarged. No evidence for media stinal mass or adenopathy. HILAR STRUCTURES: No evidence for mass. No hilar adenopathy is appreciated. OTHER: No significant abnormality. CONTRAST CT ABDOMEN AND PELVIS FINDINGS: LIVER/GB: Cholecystectomy clips are identified.. No space occupying hepatic lesion. Biliary tree is of normal caliber. PANCREAS: No inflammation. No distinct mass. SPLEEN: The spleen is enlarged with maximal AP dimension of 19 cm. Splenic granulomas noted. No lesio n seen. ADRENALS: No nodule. No thickening. KIDNEYS/BLADDER: No hydronephrosis. Nonobstructing left-sided nephrolithiasis. No distinct renal mas s. BOWEL: Normal appendix. Postsurgical resection planes respectively. No recurrent or residual mass. N ormal bowel caliber. No inflammation. GENITAL ORGANS: No gross abnormality. LYMPH NODES: No greater than 1cm abdominal or pelvic lymph nodes are appreciated. AORTA: No significant abnormality. OSSEOUS STRUCTURES: No significant abnormality is seen. OTHER: No significant additional abnormality is seen. IMPRESSION: 1. No evidence for recurrent disease or metastatic disease at this time.
== END | disposition home or self-care (01) ==
LOC: RADPROMAIN 13:08
PROVIDERS: ATTEND Internal Medicine Hematology & Oncology
DX: C18.3 Malignant neoplasm of hepatic flexure (principal)
CPT/HCPCS: 82565; 84520; 71260; 74177; J1642; Q9967

== ENCOUNTER → 2020-02-28 | Outpatient (CLI) | payer OTHER ==
--- NOTE | 2020-02-28 09:29 | US ---
EXAMINATION TYPE: US venous doppler duplex LE RT DATE OF EXAM: 02/28/2020 9:13 AM COMPARISON: NONE CLINICAL HISTORY: M25.561 ACUTE PAIN OF RT KNEE,M25.461 SWELLING RT KNEE. SIDE PERFORMED: Right TECHNIQUE: The lower extremity deep venous system is examined utilizing real time linear array sonog malik with graded compression, doppler sonography and color-flow sonography. VESSELS IMAGED: External Iliac Vein (EIV) Common Femoral Vein Deep Femoral Vein Greater Saphenous Vein * Femoral Vein Popliteal Vein Small Saphenous Vein * Proximal Calf Veins (* superficial vessels) Right Leg: Negative for DVT Grayscale, color doppler, spectral doppler imaging performed of the deep veins of the right lower ext remity. There is normal flow, compressibility, vascular waveforms. IMPRESSION: No ultrasound evidence for acute DVT in the right lower extremity.
== END | disposition home or self-care (01) ==
LOC: RADUSWWP 08:53
PROVIDERS: ATTEND Family Medicine
DX: M25.561 Pain in right knee (principal); M25.461 Effusion, right knee

== ENCOUNTER → 2020-09-13 | Outpatient (CLI) | payer OTHER ==
--- NOTE | 2020-09-13 15:20 | CT ---
EXAMINATION TYPE: CT ChestAbdPelvis w con DATE OF EXAM: 09/13/2020 COMPARISON: Most recent CT February 08, 2020 and older studies HISTORY: F/U for colon CA CT DLP: 3334.7 mGycm. Automated Exposure Control for Dose Reduction was Utilized. CONTRAST: CT scan of the thorax, abdomen and pelvis is performed with IV Contrast, patient injected with 100 mL of Isovue 300. FINDINGS: LUNGS: The lungs are grossly clear, there is no no greater than 5 mm or enlarging parenchymal nodules identified. There is no pleural effusion or pneumothorax seen. The tracheobronchial tree is paten t. MEDIASTINUM: There are no new greater than 1 cm hilar or mediastinal lymph nodes. No cardiomegaly o r pericardial effusion is seen. OTHER: Stable right subclavian Mediport catheter. LIVER/GB: Visualized liver remains low dense consistent with diffuse fatty infiltration. Cholecystect regan clips are redemonstrated. PANCREAS: No significant abnormality is seen. SPLEEN: Scattered calcification throughout the enlarged spleen redemonstrated. ADRENALS: No significant abnormality is seen. KIDNEYS: Nonobstructing 3 to 4 mm right renal calculus anteriorly right kidney mid pole level axial i mage 69 redemonstrated. BOWEL: Oral contrast was not reached colonic level making evaluation for distal bowel slightly subopt imal. Surgical changes from partial proximal right-sided colectomy and bowel anastomosis redemonstrat ed. No suspicious small or large bowel dilatation. Nonobstructing 3 to 4 mm right renal calculus GENITAL ORGANS: Anteverted uterus. Stable slightly heterogeneous prominence of the lower uterine segm ent. LYMPH NODES: No new or enlarging greater than 1cm abdominal or pelvic lymph nodes are appreciated. St able prominent but subcentimeter right retroperitoneal lymph node posterior to IVC at left renal vein junction axial image 62. OSSEOUS STRUCTURES: No significant abnormality is seen. OTHER: No significant additional abnormality is seen. IMPRESSION: No new mass or adenopathy to suggest active neoplastic recurrence.
== END | disposition home or self-care (01) ==
LOC: RADPROMAIN 12:57
PROVIDERS: ATTEND Internal Medicine Hematology & Oncology
DX: C18.3 Malignant neoplasm of hepatic flexure (principal)
CPT/HCPCS: 71260; 74177; J1642; Q9967

== ENCOUNTER 2020-10-03 09:00 | Day surgery (SDC) | payer OTHER ==
[2020-10-01 10:48] VITALS: BMI 53.6
[~2020-10-03 09:00] MED LIST changes: +LIDOCAINE 1% (10MG/ML) FOR IV START INTRADERMA PRN; -LIDOCAINE 1% 20 ML VIAL (10MG/ML) FOR IV START INTRADERMA PRN
[2020-10-03 10:48] VITALS: TEMP 97.5
[2020-10-03] MEDS ORDERED: PROPOFOL 10 MG/ML 20 ML VIAL IV ONE (11:07)
--- NOTE | 2020-10-03 11:08 | P.GSHP ---
History of Present Illness H&P Date: 10/03/20 Chief Complaint: History of colon cancer Is a 44 female with previous history: Cancer. Patient presents today for colonoscopy Past Medical History Past Medical History: Cancer, GERD/Reflux, Hypertension Additional Past Medical History / Comment(s): Colon cancer stage 3 received chemotherapy for 6 months completed 04/24/19 (second round), port a cath, received immunotherapy none since 04/26 History of Any Multi-Drug Resistant Organisms: None Reported Past Surgical History: Bowel Resection, Section, Cholecystectomy Additional Past Surgical History / Comment(s): colon CA removal, Colonoscopy Past Anesthesia/Blood Transfusion Reactions: Previous Problems w/ Anesthesia Additional Past Anesthesia/Blood Transfusion Reaction / Comment(s): Pt states she woke from anesthesia very confused in past few times. Smoking Status: Never smoker - Past Family History Mother Family Medical History: Diabetes Mellitus Father Family Medical History: No Reported History Additional Family Medical History / Comment(s): Father is 64 yrs old. Medications and Allergies Home Medications Medication Instructions Recorded Confirmed Type Ondansetron HCl [Zofran] 4 mg PO Q4H PRN 06/23/18 10/03/20 History Pantoprazole Sodium [Protonix] 40 mg PO DAILY 04/22/19 10/03/20 History Ergocalciferol [Vitamin D2 50,000 unit PO TH 08/05/19 10/03/20 History (DRISDOL)] lisinopriL [Zestril] 5 mg PO DAILY 08/05/19 10/03/20 History Lidocaine-Prilocaine Cream [Emla 1 applic TOPICAL DAILY PRN 08/22/19 10/03/20 History Cream 2.5%/2.5%] Ferrous Sulfate [Feosol] 325 mg PO DAILY 10/01/20 10/03/20 History Vitamin D3 (Unknown Dose) 1 tab PO DAILY 10/01/20 10/03/20 History Allergies Allergy/AdvReac Type Severity Reaction Status Date / Time No Known Allergies Allergy Verified 10/03/20 10:48 Surgical - Exam Vital Signs Temp Pulse Resp BP Pulse Ox 97.5 F L 114 H 18 169/76 95 10/03/20 10:47 10/03/20 10:47 10/03/20 10:47 10/03/20 10:47 10/03/20 10:47 - General well developed, well nourished, no distress - Eyes PERRL - ENT normal pinna - Neck no masses - Respiratory normal expansion - Cardiovascular Rhythm: regular - Abdomen Abdomen: soft, non tender Assessment and Plan Assessment: History of colon Cancer. We'll perform colonoscopy
--- NOTE | 2020-10-03 11:18 | P.OP ---
Date of Procedure: 10/03/20 Preoperative Diagnosis: History of colon cancer Postoperative Diagnosis: Normal colon status post right colectomy Procedure(s) Performed: Colonoscopy Anesthesia: RAND Surgeon: Bharat Stein Pathology: none sent Condition: stable Disposition: PACU Description of Procedure: The patient's placed on the operative table in the lateral position. She received IV sedation. Digital rectal exam was performed which revealed no ebonized. The flexible colonoscope was then placed patient anus and passed throughout the entire colon. The patient had a previous right collecting. The ileocolonic anastomosis visualized. The remainder of the transverse colon, descending colon and sigmoid colon appeared normal. Scope was brought back the rectum and this was normal. Scope was withdrawn for patient.
[2020-10-03 12:11] VITALS: BP 125/74; PULSE 88; RESP 16
== END 2020-10-03 12:11 | disposition home or self-care (01) ==
LOC: ORWHC2ENDO 09:00
PROVIDERS: ATTEND Surgery
DX: Z12.11 Encounter for screening for malignant neoplasm of colon (principal); Z86.19 Personal history of other infectious and parasitic diseases; K21.9 Gastro-esophageal reflux disease without esophagitis; I10 Essential (primary) hypertension; Z85.038 Personal history of other malignant neoplasm of large intestine; Z92.21 Personal history of antineoplastic chemotherapy; Z90.49 Acquired absence of other specified parts of digestive tract; Z98.891 History of uterine scar from previous surgery; Z98.890 Other specified postprocedural states; Z83.3 Family history of diabetes mellitus; Z79.899 Other long term (current) drug therapy; E66.01 Morbid (severe) obesity due to excess calories; Z68.43 Body mass index [BMI] 50.0-59.9, adult
CPT/HCPCS: 81025; J2704; G0105

== ENCOUNTER → 2020-10-16 | Outpatient (CLI) | payer OTHER ==
--- NOTE | 2020-10-16 13:18 | MM ---
Reason for exam: screening (asymptomatic). Baseline mammogram. History: Patient has history of colon cancer at age 42. Physical Findings: Nurse did not find any significant physical abnormalities on exam. MG Screening Mammo w CAD Bilateral CC and MLO view(s) were taken. There are scattered fibroglandular densities. Right infusion port overlies the pectoralis. Benign oil cyst calcifications. Subareolar nodular asymmetric density right MLO view. No clear CC view correlate. These results were verbally communicated with the patient and result sheet given to the patient on 10/16/20. ASSESSMENT: Incomplete: need additional imaging evaluation, BI-RAD 0 RECOMMENDATION: Special view mammogram of the right breast. (3D)
--- NOTE | 2020-10-16 13:20 | MM ---
Reason for exam: additional evaluation requested from abnormal screening. History: Patient has history of colon cancer at age 42. Physical Findings: Breast exam preformed at baseline screening. MG Work Up Mamm w CAD RT Spot compression CC, spot compression MLO, and ML view(s) were taken of the right breast. There are scattered fibroglandular densities. Subareolar asymmetric density does not persist on the lateral view. Tight spot MLO view shows the appearance of fibroglandular tissue. These results were verbally communicated with the patient and result sheet given to the patient on 10/16/20. ASSESSMENT: Benign, BI-RAD 2 RECOMMENDATION: Return to routine screening mammogram schedule for both breasts.
== END | disposition home or self-care (01) ==
LOC: RADMAMWWP 09:56
PROVIDERS: ATTEND Internal Medicine Hematology & Oncology
DX: Z12.31 Encounter for screening mammogram for malignant neoplasm of breast (principal); R92.8 Other abnormal and inconclusive findings on diagnostic imaging of breast
CPT/HCPCS: 77065; 77067

== ENCOUNTER → 2021-05-20 | Outpatient (CLI) | payer OTHER ==
[2021-05-20 11:25] LABS: African American GFR (CKD) >90 (>60 ml/min/1.73 sqM); Blood Urea Nitrogen 20 mg/dL (7-17); Non-African American GFR(CKD) >90 (>60 ml/min/1.73 sqM)
--- NOTE | 2021-05-20 13:03 | CT ---
EXAMINATION TYPE: CT ChestAbdPelvis w con DATE OF EXAM: 05/20/2021 COMPARISON: CT 09/13/2020 HISTORY: Colon CA, C 18.5 CT DLP: 4566.3 mGycm Automated exposure control for dose reduction was used. CONTRAST: CT scan of the chest, abdomen and pelvis is performed with Oral Contrast and with IV Contrast, patien t injected with 100 mL of Isovue 300. FINDINGS: LUNGS: The lungs are grossly clear, there is no concerning parenchymal mass or nodule identified. T here is no pleural effusion or pneumothorax seen. The tracheobronchial tree is patent. MEDIASTINUM: There are no greater than 1 cm hilar or mediastinal lymph nodes. No pericardial effusi on is seen. Calcified superior mediastinal node is again seen. There is a central venous catheter cou rsing via the subclavian approach with the distal tip in the superior vena cava AORTA: No significan t abnormality is seen. OTHER: No additional significant abnormality is seen. LIVER/GB: Liver shows low attenuation likely due to hepatic steatosis with enlargement, patient is po st cholecystectomy. Suspect there is chronic portal vein occlusion, cavernous transformation changes of the portal vein seen are stable. PANCREAS: No significant abnormality is seen. SPLEEN: Multiple calcifications are again seen, spleen is enlarged as on prior ADRENALS: No significant abnormality is seen. KIDNEYS: No significant interval change is seen. REPRODUCTIVE ORGANS: No gross abnormality seen. BOWEL: Scattered diverticular changes present, postop changes are noted at the transverse colon leve l as on prior status post right hemicolectomy. Some probable scarring present within the mesentery si milar to prior exam, axial image #72 FREE AIR: No Free Air visible. ASCITES: None seen. RETROPERITONEAL ADENOPATHY: No retroperitoneal adenopathy is seen. LYMPH NODES: No greater than 1 cm abdominal or pelvic lymph nodes are appreciated. URINARY BLADDER: No significant abnormality is seen. PELVIC ADENOPATHY: None visualized. OSSEOUS STRUCTURES: No significant interval change is seen, degenerative disc disease, facet arthrop athy changes are present especially in the lumbar spine. IMPRESSION: Chronic portal vein occlusion. Hepatic steatosis, hepatosplenomegaly. Old granulomatous d isease. Nonobstructive right nephrolithiasis. No evident recurrence.
== END | disposition home or self-care (01) ==
LOC: RADPROMAIN 10:29
PROVIDERS: ATTEND Internal Medicine Hematology & Oncology
DX: N20.0 Calculus of kidney (principal); K76.0 Fatty (change of) liver, not elsewhere classified; R16.2 Hepatomegaly with splenomegaly, not elsewhere classified; I81 Portal vein thrombosis; Z85.038 Personal history of other malignant neoplasm of large intestine
CPT/HCPCS: 82565; 84520; 71260; 74177; 36415; J1642; Q9967 ×2

== ENCOUNTER 2021-06-06 10:29 | Emergency (ER) | payer OTHER ==
[2021-06-06 10:44] VITALS: RESP 18
[2021-06-06] MEDS ORDERED: LOSARTAN 25 MG TAB PO STA (11:03)
[2021-06-06] MEDS ORDERED: IBUPROFEN 600 MG TAB PO STA (11:03)
[2021-06-06] MEDS ORDERED: ACETAMINOPHEN TAB 500 MG TAB PO STA (11:03)
--- NOTE | 2021-06-06 11:25 | ED ---
URI HPI - General Chief Complaint: Upper Respiratory Infection Stated Complaint: Cough, IGOR Time Seen by Provider: 06/06/21 10:44 Source: patient, RN notes reviewed Mode of arrival: ambulatory Limitations: no limitations - History of Present Illness Initial Comments: 45-year-old female presents emergency Department chief complaint of cough congestion body aches. Patient states she's had a cough for a few days but today woke up with fever, body aches. Patient called her primary care physician who recommended come emergency department. She has not been vaccinated for COVID-19 and has not been infected the past with COVID-19. Patient has not taken any Tylenol Motrin did not take her blood pressure medications this morning. Patient denies any known sick contacts. No chest pain no severe shortness breath states she just has a cough. - Related Data Home Medications Medication Instructions Recorded Confirmed Pantoprazole Sodium [Protonix] 40 mg PO QAM 04/22/19 06/05/21 Albuterol Sulfate [Proair Hfa] 1 - 2 puff INHALATION Q4H PRN 06/05/21 06/05/21 Ergocalciferol [Vitamin D2 (1250 1,250 mcg PO CASPER 06/05/21 06/05/21 Mcg = 74593 Iu)] Famotidine 20 mg PO BID 06/05/21 06/05/21 Fluticasone/Salmeterol [Advair Hfa 2 puff INHALATION BID 06/05/21 06/05/21 115-21 Mcg Inhaler] Ibuprofen 600 mg PO TID PRN 06/05/21 06/05/21 Loratadine [Claritin] 10 mg PO DAILY 06/05/21 06/05/21 Losartan Potassium [Cozaar] 25 mg PO QAM 06/05/21 06/05/21 Allergies Allergy/AdvReac Type Severity Reaction Status Date / Time No Known Allergies Allergy Verified 06/06/21 10:44 Review of Systems ROS Statement: Those systems with pertinent positive or pertinent negative responses have been documented in the HPI. ROS Other: All systems not noted in ROS Statement are negative. Past Medical History Past Medical History: Cancer, GERD/Reflux, Hypertension Additional Past Medical History / Comment(s): persistent cough, hx Colon cancer stage 3 received chemotherapy for 6 months completed 04/24/19 (second round), port a cath, received immunotherapy none since 04/26 History of Any Multi-Drug Resistant Organisms: None Reported Past Surgical History: Bowel Resection, Section, Cholecystectomy Additional Past Surgical History / Comment(s): colon CA removal, Co lonoscopy,port a cath insertion Past Anesthesia/Blood Transfusion Reactions: Previous Problems w/ Anesthesia Additional Past Anesthesia/Blood Transfusion Reaction / Comment(s): Pt states she woke from anesthesia very confused in past few times. no hx of known blood transfusion Past Psychological History: No Psychological Hx Reported Smoking Status: Never smoker - Past Family History Mother Family Medical History: Diabetes Mellitus Father Family Medical History: No Reported History Additional Family Medical History / Comment(s): Father is 64 yrs old. General Exam Limitations: no limitations General appearance: alert, in no apparent distress Head exam: Present: atraumatic, normocephalic, normal inspection Eye exam: Present: normal appearance, PERRL, EOMI. Absent: scleral icterus, conjunctival injection, periorbital swelling ENT exam: Present: normal exam, normal oropharynx, mucous membranes moist Neck exam: Present: normal inspection, full ROM. Absent: tenderness, meningismus, lymphadenopathy Respiratory exam: Present: normal lung sounds bilaterally. Absent: respiratory distress, wheezes, rales, rhonchi, stridor Cardiovascular Exam: Present: normal rhythm, tachycardia, normal heart sounds. Absent: systolic murmur, diastolic murmur, rubs, gallop, clicks GI/Abdominal exam: Present: soft, normal bowel sounds. Absent: distended, tenderness, guarding, rebound, rigid Course Vital Signs 06/06/21 06/06/21 10:38 12:02 Temperature 101.3 F H 100.3 F H Pulse Rate 127 H 122 H Respiratory 18 18 Rate Blood Pressure 152/107 149/93 O2 Sat by Pulse 93 L 94 L Oximetry Medical Decision Making - Medical Decision Making 45-year-old female presented for fever cough congestion patient is COVID-19 positive or see monoclonal antibodies, was hydrated given antipyretics and discharged in stable condition. Return parameters were discussed. - Lab Data Lab Results 06/06/21 Range/Units 11:23 Coronavirus (PCR) Detected A (Not Detectd) Disposition Clinical Impression: COVID-19 Disposition: HOME SELF-CARE Condition: Stable Instructions (If sedation given, give patient instructions): Coronavirus Disease 2019 (COVID-19) Additional Instructions: Please return to the Emergency Department if symptoms worsen or any other concerns. Is patient prescribed a controlled substance at d/c from ED?: No Referrals: Letha South MD [Primary Care Provider] - 1-2 days Time of Disposition: 12:08
[2021-06-06 12:03] VITALS: BP 149/93; PULSE 122
[2021-06-06] MEDS ORDERED: SODIUM CHLORIDE 0.9% 1,000 ML IV ONE (12:07)
--- NOTE | 2021-06-06 12:15 | XR ---
EXAMINATION TYPE: XR chest 2V DATE OF EXAM: 06/06/2021 COMPARISON: Chest x-ray 08/22/2019 HISTORY: Fever and cough TECHNIQUE: Frontal and lateral views of the chest are obtained. FINDINGS: There is no focal air space opacity. Exam is expiratory and rotated, right hemidiaphragm remains elevated. There is a port in the right pectoral region, subclavian central venous catheter chino s the tip overlying the superior vena cava. There is no evident pneumothorax or pleural effusion. Car diac and mediastinal silhouette is unchanged. The osseous structures are intact. IMPRESSION: Expiratory rotated exam without evident acute cardiopulmonary disease, follow-up as brittany cated
[2021-06-06] MEDS ORDERED: SODIUM CHLORIDE 0.9% 50 ML IVPB ONE (13:00)
[2021-06-06] MEDS ORDERED: CASIRIVIMAB (REGN10933) (EUA) 600 MG, IMDEVIMAB (REGN10987) (EUA) 600 MG in SODIUM CHLO... IVPB ONE (13:00)
[2021-06-06 15:50] VITALS: TEMP 98.5
== END 2021-06-06 15:50 | disposition home or self-care (01) ==
LOC: EC 10:29
DX: U07.1 COVID-19 (principal); I10 Essential (primary) hypertension; K21.9 Gastro-esophageal reflux disease without esophagitis; Z85.038 Personal history of other malignant neoplasm of large intestine; Z90.49 Acquired absence of other specified parts of digestive tract
CPT/HCPCS: 99283 ×2; 96365; 87635; 71046; M0243; Q0243

== ENCOUNTER 2021-10-13 06:22 | Day surgery (SDC) | payer OTHER ==
[2021-10-09 14:33] VITALS: BMI 45.6
[~2021-10-13 06:22] MED LIST changes: +ACETAMINOPHEN TAB 500 MG TAB PO PRN; +HEPARIN SODIUM,PORCINE/PF 5,000 UNIT/0.5 ML SYRINGE SQ PRN; -LACTATED RINGERS 1,000 ML IV SCH; -LIDOCAINE 1% (10MG/ML) FOR IV START INTRADERMA PRN; +ceFAZolin 3 GM in SODIUM CHLORIDE 0.9% 100 ML IVPB PRN
[2021-10-13 06:52] VITALS: RESP 16
[2021-10-13] MEDS ORDERED: ONDANSETRON 4 MG/2 ML VIAL IVP ONE (07:10)
[2021-10-13] MEDS ORDERED: HYDROmorphone 0.5 MG/0.5 ML SYRINGE IVP PRN (07:10)
[2021-10-13] MEDS ORDERED: LACTATED RINGERS 1,000 ML IV SCH (07:10)
[2021-10-13] MEDS ORDERED: DEXAMETHASONE SOD PHOSPHATE 4 MG/ML 1 ML VIAL IV ONE (07:10)
[2021-10-13] MEDS ORDERED: LACTATED RINGERS 1,000 ML IV ONE (07:11)
[2021-10-13] MEDS ORDERED: KETAMINE 10 MG/ML 20 ML VIAL ONE (07:35)
[2021-10-13] MEDS ORDERED: MIDAZOLAM 2 MG/2 ML VIAL ONE (07:35)
[2021-10-13] MEDS ORDERED: fentaNYL (PF) 50 MCG/ML 2 ML AMP ONE (07:35)
[2021-10-13] MEDS ORDERED: PROPOFOL 10 MG/ML 20 ML VIAL IV ONE (07:35)
[2021-10-13] MEDS ORDERED: LIDOCAINE 2%-EPI 1:100,000 20 ML VIAL SQ ONE (08:12)
--- NOTE | 2021-10-13 08:36 | P.GSHP ---
History of Present Illness H&P Date: 10/13/21 Chief Complaint: Colon cancer Is a 46-year-old female with previous history of colon cancer. Patient presents today for removal of Port-A-Cath. Past Medical History Past Medical History: Cancer, GERD/Reflux, Hypertension Additional Past Medical History / Comment(s): Persistent cough. Hx colon cancer stage 3 received chemotherapy/immunotherapy for 6 months completed 04/24/19. History of Any Multi-Drug Resistant Organisms: None Reported Past Surgical History: Bowel Resection, Section, Cholecystectomy Additional Past Surgical History / Comment(s): Colonoscopy, port a cath insertion, all teeth extracted. Past Anesthesia/Blood Transfusion Reactions: Previous Problems w/ Anesthesia Additional Past Anesthesia/Blood Transfusion Reaction / Comment(s): States she woke from anesthesia very confused/hyperventilating in past few times. No hx of known blood transfusion. Past Psychological History: Anxiety Smoking Status: Never smoker Past Alcohol Use History: None Reported Past Drug Use History: None Reported - Past Family History Mother Family Medical History: Diabetes Mellitus Father Family Medical History: No Reported History Additional Family Medical History / Comment(s): Father is 64 yrs old. Medications and Allergies Home Medications Medication Instructions Recorded Confirmed Type Albuterol Sulfate [Proair Hfa] 1 - 2 puff INHALATION QID PRN 06/05/21 10/09/21 History Ergocalciferol [Vitamin D2 (1250 1,250 mcg PO CASPER 06/05/21 10/09/21 History Mcg = 75458 Iu)] Famotidine 20 mg PO HS 06/05/21 10/09/21 History Loratadine [Claritin] 10 mg PO DAILY 06/05/21 10/09/21 History Losartan Potassium [Cozaar] 25 mg PO QAM 06/05/21 10/09/21 History ALPRAZolam [Xanax] 0.25 mg PO BID PRN 06/06/21 10/09/21 History Ibuprofen [Motrin] 600 mg PO TID PRN 06/06/21 10/09/21 History Ondansetron Odt [Zofran Odt] 4 mg PO DAILY PRN 06/06/21 10/09/21 History Pantoprazole [Protonix] 40 mg PO QAM 06/06/21 10/09/21 History hydrOXYzine HCL [Atarax] 50 mg PO DAILY PRN 06/06/21 10/13/21 History Ferrous Sulfate [Iron] 325 mg PO DAILY 10/09/21 10/09/21 History Potassium Supplement 1 tab PO DAILY 10/09/21 10/09/21 History Allergies Allergy/AdvReac Type Severity Reaction Status Date / Time No Known Allergies Allergy Verified 10/13/21 06:41 Surgical - Exam Vital Signs Temp Pulse Resp BP Pulse Ox 98 F 118 H 16 148/73 96 10/13/21 06:50 10/13/21 06:50 10/13/21 06:50 10/13/21 06:50 10/13/21 06:50 - General well developed, well nourished, no distress - Eyes PERRL - ENT normal pinna - Neck no masses - Respiratory normal expansion - Cardiovascular Rhythm: regular - Abdomen Abdomen: soft, non tender Assessment and Plan Assessment: History of colon cancer. We'll perform removal of Port-A-Cath.
--- NOTE | 2021-10-13 08:38 | P.OP ---
Date of Procedure: 10/13/21 Preoperative Diagnosis: History of colon cancer Postoperative Diagnosis: History of colon cancer Procedure(s) Performed: Removal of Port-A-Cath Anesthesia: MAC Surgeon: Bharat Stein Estimated Blood Loss (ml): 5 Pathology: none sent Condition: stable Disposition: PACU Description of Procedure: The patient's placed on the operating table in supine position. She received IV sedation. The skin incision site was anesthetized 1% local Xylocaine. Skin was incised. The skin incisions placed over the Port-A-Cath. Using blunt and sharp dissection with cautery the Port-A-Cath was dissected free. The Bovie was used for this. The skin was closed interrupted 3-0 Monocryl suture. Dermabond was applied. Patient top she will was sent to recovery room in stable condition.
[2021-10-13 08:47] VITALS: TEMP 97.2
[2021-10-13 09:44] VITALS: BP 133/81; PULSE 113
== END 2021-10-13 09:48 | disposition home or self-care (01) ==
LOC: OR 06:22
PROVIDERS: ATTEND Surgery
DX: Z09 Encounter for follow-up examination after completed treatment for conditions other than malignant neoplasm (principal); Z85.038 Personal history of other malignant neoplasm of large intestine; I10 Essential (primary) hypertension; F41.9 Anxiety disorder, unspecified
CPT/HCPCS: 36590; 81025; J2250; J1100; J0690; J2405; J3010; J2704

== ENCOUNTER 2021-10-15 10:34 | Emergency (ER) | payer OTHER ==
[2021-10-15 10:38] VITALS: TEMP 97.9
[2021-10-15] MEDS ORDERED: SODIUM CHLORIDE 0.9% 500 ML 500 ML IV STA (12:06)
[2021-10-15] MEDS ORDERED: MORPHINE SULFATE 4 MG/ML SYRINGE IVP STA (12:06)
[2021-10-15] MEDS ORDERED: ONDANSETRON 4 MG/2 ML VIAL IVP STA (12:07)
--- NOTE | 2021-10-15 12:18 | ED ---
General Adult HPI - General Chief complaint: Fever Stated complaint: Recheck/Port Problems Time Seen by Provider: 10/15/21 11:52 Source: patient Mode of arrival: ambulatory Limitations: no limitations - History of Present Illness Initial comments: This 46-year-old female with past medical history of colon cancer and hypertension presents emergency department with fever and pain around her port site (right side of chest) that began yesterday afternoon. Patient states on Wednesday she had her port removed after being cleared from colon cancer. Patient states she has had a port for the last 2.5 years and starting yesterday evening it began to have increased pain. Patient states it feels "hot around the incision site." Patient states her temperature got up to 101 last night and she states she has been taking ibuprofen along with using ice packs to the area. Patient states once in a while she'll also get pain shooting from the site down her right arm. Patient states she is also been having sweats and chills on and off since yesterday afternoon. Patient states the pain around the incision site is 8/10. Patient states she sees who placed and removed her port. Patient denies any chest pain, shortness of breath, abdominal pain, nausea, vomiting, headache, visual changes, numbness or loss of feeling in right arm. Patient states she did call this morning who instructed her to come to the emergency department for labs if she wanted. - Related Data Home Medications Medication Instructions Recorded Confirmed Albuterol Sulfate [Proair Hfa] 1 - 2 puff INHALATION RT-QID PRN 06/05/21 10/15/21 Ergocalciferol [Vitamin D2 (1250 1,250 mcg PO CASPER 06/05/21 10/15/21 Mcg = 59473 Iu)] Famotidine 20 mg PO HS 06/05/21 10/15/21 Loratadine [Claritin] 10 mg PO DAILY 06/05/21 10/15/21 Losartan Potassium [Cozaar] 25 mg PO DAILY 06/05/21 10/15/21 ALPRAZolam [Xanax] 0.25 mg PO BID PRN 06/06/21 10/15/21 Ibuprofen [Motrin] 600 mg PO TID PRN 06/06/21 10/15/21 Ondansetron Odt [Zofran Odt] 4 mg PO BID PRN 06/06/21 10/15/21 Pantoprazole [Protonix] 40 mg PO DAILY 06/06/21 10/15/21 hydrOXYzine HCL [Atarax] 50 mg PO TID PRN 06/06/21 10/15/21 Ferrous Sulfate [Iron] 325 mg PO DAILY 10/09/21 10/15/21 Benzonatate [Tessalon Perles] 200 mg PO TID PRN 10/15/21 10/15/21 Potassium Otc(Unknown) 1 tab PO DAILY 10/15/21 10/15/21 Triamcinolone 0.1% Cream [Kenalog 1 applic TOPICAL DAILY PRN 10/15/21 10/15/21 0.1% Cream] Previous Rx's Medication Instructions Recorded Cephalexin [Keflex] 1,000 mg PO Q12HR #40 cap 10/15/21 Sulfamethox-Tmp 800-160Mg [Bactrim 1 tab PO Q12HR #20 tab 10/15/21 DS 800-160 mg] Allergies Allergy/AdvReac Type Severity Reaction Status Date / Time No Known Allergies Allergy Verified 10/15/21 12:49 Review of Systems ROS Statement: Those systems with pertinent positive or pertinent negative responses have been documented in the HPI. ROS Other: All systems not noted in ROS Statement are negative. Past Medical History Past Medical History: Cancer, GERD/Reflux, Hypertension Additional Past Medical History / Comment(s): Persistent cough. Hx colon cancer stage 3 received chemotherapy/immunotherapy for 6 months completed 04/24/19. History of Any Multi-Drug Resistant Organisms: None Reported Past Surgical History: Bowel Resection, Section, Cholecystectomy Additional Past Surgical History / Comment(s): Colonoscopy, port a cath insertion, all teeth extracted. Past Anesthesia/Blood Transfusion Reactions: Previous Problems w/ Anesthesia Additional Past Anesthesia/Blood Transfusion Reaction / Comment(s): States she woke from anesthesia very confused/hyperventilating in past few times. No hx of known blood transfusion. Past Psychological History: Anxiety Smoking Status: Never smoker Past Alcohol Use History: None Reported Past Drug Use History: None Reported - Past Family History Mother Family Medical History: Diabetes Mellitus Father Family Medical History: No Reported History Additional Family Medical History / Comment(s): Father is 64 yrs old. General Exam Limitations: no limitations General appearance: alert, in no apparent distress Head exam: Present: atraumatic, normocephalic, normal inspection Eye exam: Present: normal appearance, PERRL, EOMI. Absent: scleral icterus, conjunctival injection, periorbital swelling ENT exam: Present: normal exam, mucous membranes moist Neck exam: Present: normal inspection, full ROM. Absent: tenderness, meningismus, lymphadenopathy Respiratory exam: Present: normal lung sounds bilaterally. Absent: respiratory distress, wheezes, rales, rhonchi, stridor Cardiovascular Exam: Present: regular rate, normal rhythm, normal heart sounds. Absent: systolic murmur, diastolic murmur, rubs, gallop, clicks GI/Abdominal exam: Present: soft, normal bowel sounds. Absent: distended, tenderness, guarding, rebound, rigid Extremities exam: Present: normal inspection (Right arm without any swelling, erythema, warmth or sign of infection), full ROM, normal capillary refill, other (When asking patient to raise right arm in front of her or laterally it does cause pain to the right side of her anterior chest where the incision site from her port is. Patient with equal strength in both arms and does experience pain to her port site when pushing/pulling against resistance). Absent: tenderness, pedal edema, joint swelling, calf tenderness Back exam: Present: normal inspection, full ROM. Absent: CVA tenderness (R), CVA tenderness (L), paraspinal tenderness, vertebral tenderness Neurological exam: Present: alert, oriented X3, CN II-XII intact Psychiatric exam: Present: normal affect, normal mood Skin exam: Present: warm, dry, normal color. Absent: intact (Patient with 3-4 centimeter incision on anterior right chest. No erythema or warmth around the incision site. No bruising, bleeding or pus coming from site. No sign of infection), rash Course Vital Signs 10/15/21 10/15/21 10:35 14:37 Temperature 97.9 F Pulse Rate 120 H 100 Respiratory 18 16 Rate Blood Pressure 158/103 161/90 O2 Sat by Pulse 99 95 Oximetry - Reevaluation(s) Reevaluation #1: 10/15/21 13:20 On reevaluation, patient states her pain has significantly improved from the incision site after receiving pain medications and fluids. She states she does have whitecoat syndrome and her blood pressure and pulse both usually go up when coming to the hospital or doctors appointments. 10/15/21 13:45 I did speak with and reviewed labs with him. He instructed me to discharge patient on antibiotics and for her to follow up with him in the next couple of days. I discussed with patient who agreed to the plan and stated her pain is still feeling significantly improved HR= 98 O2= 97 10/15/21 14:15 Patient without any complaints at this time and states she feels well without a ny pain, SEVERINO, weakenss, visual changes, or pain at incision site. Medical Decision Making - Medical Decision Making This 46-year-old female presents emergency department with pain to her port incision site x1 day along with a fever last night. Labs unremarkable. Urine with large leukocyte esterase and white blood cells of 140. Patient treated with Keflex and Bactrim No sign of infection around incision site or to the right arm. I did speak with Dr. Stein who instructed me to discharge patient with antibiotics and for her to follow-up with him in the next couple days. Discussed case with my attending, Dr. Dumont. Strict return precautions were discussed with patient. Patient to follow-up with and her primary care provider next 1-2 days. Patient verbally agreed to plan. Prior to discharge, patient without any pain of the incision site, right arm and did not have fever, slightly elevated blood pressure that is asymptomatic and patient states she does get whitecoat syndrome and presenting to the hospital or to Dr. mena. Patient sent home in stable condition. - Lab Data Result diagrams: 10/15/21 12:32 10/15/21 12:32 Lab Results 10/15/21 10/15/21 10/15/21 Range/Units 12:32 12:32 12:32 WBC 6.7 (3.8-10.6) k/uL RBC 5.12 (3.80-5.40) m/uL Hgb 13.4 (11.4-16.0) gm/dL Hct 41.4 (34.0-46.0) % MCV 80.8 (80.0-100.0) fL MCH 26.2 (25.0-35.0) pg MCHC 32.4 (31.0-37.0) g/dL RDW 14.1 (11.5-15.5) % Plt Count 161 (150-450) k/uL MPV 8.4 Neutrophils % 59 % Lymphocytes % 23 % Monocytes % 8 % Eosinophils % 7 % Basophils % 1 % Neutrophils # 4.0 (1.3-7.7) k/uL Lymphocytes # 1.6 (1.0-4.8) k/uL Monocytes # 0.5 (0-1.0) k/uL Eosinophils # 0.4 (0-0.7) k/uL Basophils # 0.1 (0-0.2) k/uL Sodium 140 (137-145) mmol/L Potassium 3.6 (3.5-5.1) mmol/L Chloride 106 (98-107) mmol/L Carbon Dioxide 27 (22-30) mmol/L Anion Gap 7 mmol/L BUN 18 H (7-17) mg/dL Creatinine 0.89 (0.52-1.04) mg/dL Est GFR (CKD-EPI)AfAm >90 (>60 ml/min/1.73 sqM) Est GFR (CKD-EPI)NonAf 78 (>60 ml/min/1.73 sqM) Glucose 112 H (74-99) mg/dL Plasma Lactic Acid [place] 1.5 (0.7-2.0) mmol/L Calcium 8.9 (8.4-10.2) mg/dL Magnesium 1.5 L (1.6-2.3) mg/dL Total Bilirubin 0.8 (0.2-1.3) mg/dL AST 38 H (14-36) U/L ALT 31 (4-34) U/L Alkaline Phosphatase 79 (38-126) U/L Total Protein 7.6 (6.3-8.2) g/dL Albumin 4.1 (3.5-5.0) g/dL Urine Color Urine Appearance (Clear) Urine pH (5.0-8.0) Ur Specific [place] (1.001-1.035) Urine Protein (Negative) Urine Glucose (UA) (Negative) Urine Ketones (Negative) Urine Blood (Negative) Urine Nitrite (Negative) Urine Bilirubin (Negative) Urine Urobilinogen (<2.0) mg/dL Ur Leukocyte Esterase (Negative) Urine RBC (0-5) /hpf Urine WBC (0-5) /hpf Ur Squamous Epith Cells (0-4) /hpf Urine Bacteria (None) /hpf Urine Mucus (None) /hpf 10/15/21 Range/Units 13:10 WBC (3.8-10.6) k/uL RBC (3.80-5.40) m/uL Hgb (11.4-16.0) gm/dL Hct (34.0-46.0) % MCV (80.0-100.0) fL MCH (25.0-35.0) pg MCHC (31.0-37.0) g/dL RDW (11.5-15.5) % Plt Count (150-450) k/uL MPV Neutrophils % % Lymphocytes % % Monocytes % % Eosinophils % % Basophils % % Neutrophils # (1.3-7.7) k/uL Lymphocytes # (1.0-4.8) k/uL Monocytes # (0-1.0) k/uL Eosinophils # (0-0.7) k/uL Basophils # (0-0.2) k/uL Sodium (137-145) mmol/L Potassium (3.5-5.1) mmol/L Chloride (98-107) mmol/L Carbon Dioxide (22-30) mmol/L Anion Gap mmol/L BUN (7-17) mg/dL Creatinine (0.52-1.04) mg/dL Est GFR (CKD-EPI)AfAm (>60 ml/min/1.73 sqM) Est GFR (CKD-EPI)NonAf (>60 ml/min/1.73 sqM) Glucose (74-99) mg/dL Plasma Lactic Acid [place] (0.7-2.0) mmol/L Calcium (8.4-10.2) mg/dL Magnesium (1.6-2.3) mg/dL Total Bilirubin (0.2-1.3) mg/dL AST (14-36) U/L ALT (4-34) U/L Alkaline Phosphatase (38-126) U/L Total Protein (6.3-8.2) g/dL Albumin (3.5-5.0) g/dL Urine Color Yellow Urine Appearance Cloudy H (Clear) Urine pH 6.0 (5.0-8.0) Ur Specific [place] 1.025 (1.001-1.035) Urine Protein Trace H (Negative) Urine Glucose (UA) Negative (Negative) Urine Ketones Negative (Negative) Urine Blood Small H (Negative) Urine Nitrite Negative (Negative) Urine Bilirubin Negative (Negative) Urine Urobilinogen <2.0 (<2.0) mg/dL Ur Leukocyte Esterase Large H (Negative) Urine RBC 24 H (0-5) /hpf Urine WBC 140 H (0-5) /hpf Ur Squamous Epith Cells 2 (0-4) /hpf Urine Bacteria Rare H (None) /hpf Urine Mucus Rare H (None) /hpf Disposition Clinical Impression: History of fever, Pain at surgical incision Disposition: HOME SELF-CARE Condition: Stable Instructions (If sedation given, give patient instructions): Fever in Adults (E D) Additional Instructions: Please take antibiotics as directed. Follow-up with your primary care provider and in next 24-48 hours. Return to the emergency department with any new, worsening, or concerning symptoms. Prescriptions: Sulfamethox-Tmp 800-160Mg [Bactrim DS 800-160 mg] 1 tab PO Q12HR #20 tab Cephalexin [Keflex] 1,000 mg PO Q12HR #40 cap Is patient prescribed a controlled substance at d/c from ED?: No Referrals: Letha South MD [Primary Care Provider] - 1-2 days Time of Disposition: 14:03
[2021-10-15 12:43] LABS: Basophils # (A) 0.1 k/uL (0-0.2); Basophils % (A) 1 %; Eosinophils # (A) 0.4 k/uL (0-0.7); Eosinophils % (A) 7 %; HCT 41.4 % (34.0-46.0); HGB 13.4 gm/dL (11.4-16.0); Lymphocytes # (A) 1.6 k/uL (1.0-4.8); Lymphocytes % (A) 23 %; MCH 26.2 pg (25.0-35.0); MCHC 32.4 g/dL (31.0-37.0); MCV 80.8 fL (80.0-100.0); Mean Platelet Volume 8.4; Monocytes # (A) 0.5 k/uL (0-1.0); Monocytes % (A) 8 %; Neutrophils % (A) 59 %; Platelet Count 161 k/uL (150-450); RBC 5.12 m/uL (3.80-5.40); RDW 14.1 % (11.5-15.5); WBC 6.7 k/uL (3.8-10.6)
[2021-10-15 13:05] LABS: ALT 31 U/L (4-34); AST 38 U/L (14-36); African American GFR (CKD) >90 (>60 ml/min/1.73 sqM); Albumin 4.1 g/dL (3.5-5.0); Alkaline Phosphatase 79 U/L (38-126); Anion Gap 7 mmol/L; Blood Urea Nitrogen 18 mg/dL (7-17); Calcium 8.9 mg/dL (8.4-10.2); Carbon Dioxide 27 mmol/L (22-30); Chloride 106 mmol/L (98-107); Glucose 112 mg/dL (74-99); Magnesium 1.5 mg/dL (1.6-2.3); Non-African American GFR(CKD) 78 (>60 ml/min/1.73 sqM); Potassium 3.6 mmol/L (3.5-5.1); Sodium 140 mmol/L (137-145); Total Bilirubin 0.8 mg/dL (0.2-1.3); Total Protein 7.6 g/dL (6.3-8.2)
[2021-10-15 13:48] LABS: Appearance,Urine Cloudy (Clear); Bacteria,Urine Rare /hpf; Bilirubin,Urine Negative (Negative); Blood,Urine Small (Negative); Color,Urine Yellow; Glucose,Urine (UA) Negative (Negative); Ketones,Urine Negative (Negative); Leukocyte Esterase,Urine Large (Negative); Mucus,Urine Rare /hpf; Nitrite,Urine Negative (Negative); Protein,Urine Trace (Negative); RBC,Urine 24 /hpf (0-5); Specific Gravity,Urine 1.025 (1.001-1.035); Squamous Epithelial Cell,Urine 2 /hpf (0-4); Urobilinogen,Urine <2.0 mg/dL (<2.0); WBC,Urine 140 /hpf (0-5)
[2021-10-15 14:38] VITALS: BP 161/90; PULSE 100; RESP 16
== END 2021-10-15 14:37 | disposition home or self-care (01) ==
LOC: EC 10:34
DX: R50.9 Fever, unspecified (principal); G89.18 Other acute postprocedural pain; I10 Essential (primary) hypertension; F41.9 Anxiety disorder, unspecified
CPT/HCPCS: 99283; 96374; 96375; 96361; 36415; 80053; 83605; 83735; 85025; 81001; 87040; 87086; J2270; J2405

== ENCOUNTER 2021-10-22 16:11 | Emergency (ER) | payer OTHER ==
--- NOTE | 2021-10-22 17:11 | ED ---
General Adult HPI - General Chief complaint: Recheck/Abnormal Lab/Rx Stated complaint: Pain at port site Time Seen by Provider: 10/22/21 16:45 Source: patient Mode of arrival: ambulatory Limitations: no limitations - History of Present Illness Initial comments: Dictation was produced using [employer] dictation software. please excuse any grammatical, word or spelling errors. Chief Complaint: 46-year-old female presents emergency department for pain at port removal site History of Present Illness: Patient is a 46-year-old female approximately 10 days ago she had her port removed from her right chest. Says she's been having pain in her right anterior chest. She was seen here in emergency department 7 days ago where she was initially evaluated. She did have a UTI at that time and was treated with antibiotics Keflex and Bactrim. Since that she still been having persistent pain at the site. States that the pain radiates down her breast. The ROS documented in this emergency department record has been reviewed and confirmed by me. Those systems with pertinent positive or negative responses have been documented in the HPI. All other systems are other negative and/or noncontributory. PHYSICAL EXAM: General Impression: Alert and oriented x3, not in acute distress HEENT: Normocephalic atraumatic, extra-ocular movements intact, pupils equal and reactive to light bilaterally, mucous membranes moist. Cardiovascular: Heart regular rate and rhythm Chest: Able to complete full sentences, no retractions, no tachypnea Right anterior chest: Incision site is clean dry and intact with no erythema, no discharge Abdomen: abdomen soft, non-tender, non-distended, no organomegaly Musculoskeletal: Pulses present and equal in all extremities, no peripheral edema Motor: no focal deficits noted Neurological: CN II-XII grossly intact, no focal motor or sensory deficits noted Skin: Intact with no visualized rashes Psych: Normal affect and mood ED course: 46-year-old female presents to the emergency department at pain at the incision site. She had a Port removed almost 2 weeks ago and still having pain at the site. Vital signs upon arrival shows heart of 120, rest of vital signs within acceptable limits. laboratory evaluation obtained. CBC and metabolic panel is unremarkable. No leukocytosis. Soft tissue ultrasound shows anechoic fluid collection just under the incision site measuring 1.3 x 0.7 x 1.0 cm could be seroma versus hematoma versus abscess. Case discussed with Dr. Stein at 6:12 PM states that it is likely seroma. He would like to see her in the office tomorrow afternoon. Laboratory evaluation obtained. CBC unremarkable. Metabolic panel is unremarkable. Chest x-ray shows no acute processes. Patient related bedside at 7:00 PM started been stable medical condition. Patient states that she will follow up with her oral. Patient is agreeable plan. She feels better after IV analgesia. - Related Data Home Medications Medication Instructions Recorded Confirmed Albuterol Sulfate [Proair Hfa] 1 - 2 puff INHALATION RT-QID PRN 06/05/21 Ergocalciferol [Vitamin D2 (1250 1,250 mcg PO CASPER 06/05/21 10/22/21 Mcg = 83368 Iu)] Famotidine 20 mg PO HS 06/05/21 10/22/21 Loratadine [Claritin] 10 mg PO DAILY 06/05/21 10/22/21 Losartan Potassium [Cozaar] 25 mg PO DAILY 06/05/21 10/22/21 ALPRAZolam [Xanax] 0.25 mg PO BID PRN 06/06/21 10/22/21 Ibuprofen [Motrin] 600 mg PO TID PRN 06/06/21 10/22/21 Ondansetron Odt [Zofran Odt] 4 mg PO BID PRN 06/06/21 10/22/21 Pantoprazole [Protonix] 40 mg PO DAILY 06/06/21 10/22/21 hydrOXYzine HCL [Atarax] 50 mg PO TID PRN 06/06/21 10/22/21 Ferrous Sulfate [Iron] 325 mg PO DAILY 10/09/21 10/22/21 Benzonatate [Tessalon Perles] 200 mg PO TID PRN 10/15/21 10/22/21 Potassium Otc(Unknown) 1 tab PO DAILY 10/15/21 10/22/21 Triamcinolone 0.1% Cream [Kenalog 1 applic TOPICAL DAILY PRN 10/15/21 10/22/21 0.1% Cream] Cyclobenzaprine [Flexeril] 10 mg PO TID PRN 10/22/21 10/22/21 Previous Rx's Medication Instructions Recorded Cephalexin [Keflex] 1,000 mg PO Q12HR #40 cap 10/15/21 Sulfamethox-Tmp 800-160Mg [Bactrim 1 tab PO Q12HR #20 tab 10/15/21 DS 800-160 mg] Allergies Allergy/AdvReac Type Severity Reaction Status Date / Time No Known Allergies Allergy Verified 10/22/21 17:52 Review of Systems ROS Statement: Those systems with pertinent positive or pertinent negative responses have been documented in the HPI. ROS Other: All systems not noted in ROS Statement are negative. Past Medical History Past Medical History: Cancer, GERD/Reflux, Hypertension Additional Past Medical History / Comment(s): Persistent cough. Hx colon cancer stage 3 received chemotherapy/immunotherapy for 6 months completed 04/24/19. History of Any Multi-Drug Resistant Organisms: None Reported Past Surgical History: Bowel Resection, Section, Cholecystectomy Additional Past Surgical History / Comment(s): Colonoscopy, port a cath insertion, all teeth extracted. Past Anesthesia/Blood Transfusion Reactions: Previous Problems w/ Anesthesia Additional Past Anesthesia/Blood Transfusion Reaction / Comment(s): States she woke from anesthesia very confused/hyperventilating in past few times. No hx of known blood transfusion. Past Psychological History: Anxiety Smoking Status: Never smoker Past Alcohol Use History: None Reported Past Drug Use History: None Reported - Past Family History Mother Family Medical History: Diabetes Mellitus Father Family Medical History: No Reported History Additional Family Medical History / Comment(s): Father is 64 yrs old. General Exam Limitations: no limitations Course Vital Signs 10/22/21 16:35 Temperature 97.9 F Pulse Rate 120 H Respiratory 16 Rate Blood Pressure 147/93 O2 Sat by Pulse 94 L Oximetry Medical Decision Making - Lab Data Result diagrams: 10/22/21 17:15 10/22/21 17:15 Lab Results 10/22/21 10/22/21 Range/Units 17:15 17:15 WBC 7.6 (3.8-10.6) k/uL RBC 5.34 (3.80-5.40) m/uL Hgb 14.1 (11.4-16.0) gm/dL Hct 42.8 (34.0-46.0) % MCV 80.2 (80.0-100.0) fL MCH 26.4 (25.0-35.0) pg MCHC 32.9 (31.0-37.0) g/dL RDW 14.4 (11.5-15.5) % Plt Count 215 (150-450) k/uL MPV 9.0 Neutrophils % 58 % Lymphocytes % 25 % Monocytes % 9 % Eosinophils % 5 % Basophils % 1 % Neutrophils # 4.4 (1.3-7.7) k/uL Lymphocytes # 1.9 (1.0-4.8) k/uL Monocytes # 0.7 (0-1.0) k/uL Eosinophils # 0.4 (0-0.7) k/uL Basophils # 0.1 (0-0.2) k/uL Sodium 138 (137-145) mmol/L Potassium 4.5 (3.5-5.1) mmol/L Chloride 105 (98-107) mmol/L Carbon Dioxide 24 (22-30) mmol/L Anion Gap 9 mmol/L BUN 14 (7-17) mg/dL Creatinine 0.94 (0.52-1.04) mg/dL Est GFR (CKD-EPI)AfAm 84 (>60 ml/min/1.73 sqM) Est GFR (CKD-EPI)NonAf 73 (>60 ml/min/1.73 sqM) Glucose 137 H (74-99) mg/dL Calcium 8.9 (8.4-10.2) mg/dL Disposition Clinical Impression: Pain at surgical site Disposition: HOME SELF-CARE Condition: Good Instructions (If sedation given, give patient instructions): Seroma (DC) Is patient prescribed a controlled substance at d/c from ED?: No Referrals: Letha South MD [Primary Care Provider] - 1-2 days
[2021-10-22 17:42] LABS: Basophils # (A) 0.1 k/uL (0-0.2); Basophils % (A) 1 %; Eosinophils # (A) 0.4 k/uL (0-0.7); Eosinophils % (A) 5 %; HCT 42.8 % (34.0-46.0); HGB 14.1 gm/dL (11.4-16.0); Lymphocytes # (A) 1.9 k/uL (1.0-4.8); Lymphocytes % (A) 25 %; MCH 26.4 pg (25.0-35.0); MCHC 32.9 g/dL (31.0-37.0); MCV 80.2 fL (80.0-100.0); Monocytes # (A) 0.7 k/uL (0-1.0); Monocytes % (A) 9 %; Neutrophils # (A) 4.4 k/uL (1.3-7.7); Neutrophils % (A) 58 %; Platelet Count 215 k/uL (150-450); RBC 5.34 m/uL (3.80-5.40); RDW 14.4 % (11.5-15.5); WBC 7.6 k/uL (3.8-10.6)
[2021-10-22 17:48] LABS: Calcium 8.9 mg/dL (8.4-10.2); Potassium 4.5 mmol/L (3.5-5.1)
--- NOTE | 2021-10-22 17:57 | US ---
EXAMINATION TYPE: US mass soft tissue chest/back DATE OF EXAM: 10/22/2021 COMPARISON: NONE CLINICAL HISTORY: limited, to anterior chest, port site. Hx colon ca; patient had rt anterior chest p ort removed last week. Patient complains of pain at area of port removal. Hypoechoic area measuring 1.3 x 0.7 x 1.0 cm noted just beneath the skin surface at area of port leonid vivian; area of pain. Adjacent vascularity noted. IMPRESSION: Hypoechoic area without vascularity in the area of pain and concern at the site of the po rt. This is consistent with a seroma or hematoma or abscess.
[2021-10-22] MEDS ORDERED: HYDROmorphone 0.5 MG/0.5 ML SYRINGE IVP STA (18:05)
[2021-10-22] MEDS ORDERED: ONDANSETRON 4 MG/2 ML VIAL IVP STA (18:43)
--- NOTE | 2021-10-22 18:49 | XR ---
EXAMINATION TYPE: XR chest 2V DATE OF EXAM: 10/22/2021 COMPARISON: 06/06/2021 HISTORY: Chest pain TECHNIQUE: FINDINGS: Heart and mediastinum are normal. Lungs are clear. There is no pleural effusion or pneumoth orax. Bony thorax is intact. IMPRESSION: No active cardiopulmonary disease. No adverse change.
[2021-10-22 19:18] VITALS: BP 133/94; PULSE 108; RESP 18; TEMP 98.4
== END 2021-10-22 19:18 | disposition home or self-care (01) ==
LOC: EC 16:11
DX: R07.89 Other chest pain (principal); G89.18 Other acute postprocedural pain; K21.9 Gastro-esophageal reflux disease without esophagitis; I10 Essential (primary) hypertension; F41.9 Anxiety disorder, unspecified; Z85.030 Personal history of malignant carcinoid tumor of large intestine; Z90.49 Acquired absence of other specified parts of digestive tract
CPT/HCPCS: 99285; 96374; 96375; 36415; 80048; 85025; 87040; 71046; 76604; J2405; J1170

== ENCOUNTER 2021-12-04 07:53 | Day surgery (SDC) | payer OTHER ==
[~2021-12-04 07:53] MED LIST changes: -ACETAMINOPHEN TAB 500 MG TAB PO PRN; -HEPARIN SODIUM,PORCINE/PF 5,000 UNIT/0.5 ML SYRINGE SQ PRN; +LACTATED RINGERS 1,000 ML IV SCH; +LIDOCAINE 1% (10MG/ML) FOR IV START INTRADERMA PRN; -ceFAZolin 3 GM in SODIUM CHLORIDE 0.9% 100 ML IVPB PRN
[2021-12-04 08:33] VITALS: TEMP 98
[2021-12-04] MEDS ORDERED: fentaNYL (PF) 50 MCG/ML 2 ML AMP ONE (09:20)
[2021-12-04] MEDS ORDERED: KETAMINE 10 MG/ML 20 ML VIAL ONE (09:20)
[2021-12-04] MEDS ORDERED: LIDOCAINE 2% INJ 20 MG/ML (2 ML VIAL) ONE (09:20)
[2021-12-04] MEDS ORDERED: MIDAZOLAM 2 MG/2 ML VIAL ONE (09:20)
[2021-12-04] MEDS ORDERED: PROPOFOL 10 MG/ML 20 ML VIAL IV ONE (09:20)
--- NOTE | 2021-12-04 09:22 | P.GSHP ---
History of Present Illness H&P Date: 12/04/21 Chief Complaint: History of colon cancer Is a 46-year-old female. History of right colon cancer. Patient presents today for colonoscopy. Past Medical History Past Medical History: Cancer, GERD/Reflux, Hypertension Additional Past Medical History / Comment(s): HAD COVID IN MAY 2021. Persistent cough. Hx colon cancer stage 3 received chemotherapy/immunotherapy. History of Any Multi-Drug Resistant Organisms: None Reported Past Surgical History: Bowel Resection, Section, Cholecystectomy Additional Past Surgical History / Comment(s): Colonoscopy, port a cath insertion, all teeth extracted. Past Anesthesia/Blood Transfusion Reactions: Previous Problems w/ Anesthesia Additional Past Anesthesia/Blood Transfusion Reaction / Comment(s): States she woke from anesthesia very confused/hyperventilating in past few times. No hx of known blood transfusion. Past Psychological History: Anxiety Additional Psychological History / Comment(s): . Smoking Status: Never smoker Past Alcohol Use History: None Reported Past Drug Use History: None Reported - Past Family History Mother Family Medical History: Diabetes Mellitus Father Family Medical History: No Reported History Additional Family Medical History / Comment(s): Father is 64 yrs old. Medications and Allergies Home Medications Medication Instructions Recorded Confirmed Type Albuterol Sulfate [Proair Hfa] 1 - 2 puff INHALATION RT-QID PRN 06/05/21 12/04/21 History Ergocalciferol [Vitamin D2 (1250 1,250 mcg PO CASPER 06/05/21 12/04/21 History Mcg = 04779 Iu)] Famotidine 20 mg PO HS 06/05/21 12/04/21 History Loratadine [Claritin] 10 mg PO DAILY 06/05/21 12/02/21 History Losartan Potassium [Cozaar] 25 mg PO QAM 06/05/21 12/02/21 History ALPRAZolam [Xanax] 0.25 mg PO BID PRN 06/06/21 12/02/21 History Ibuprofen [Motrin] 600 mg PO TID PRN 06/06/21 12/04/21 History Ondansetron Odt [Zofran Odt] 4 mg PO BID PRN 06/06/21 12/02/21 History Pantoprazole [Protonix] 40 mg PO QAM 06/06/21 12/02/21 History hydrOXYzine HCL [Atarax] 50 mg PO TID PRN 06/06/21 12/02/21 History Ferrous Sulfate [Iron] 325 mg PO DAILY 10/09/21 12/04/21 History Benzonatate [Tessalon Perles] 200 mg PO TID PRN 10/15/21 12/04/21 History Potassium Otc(Unknown) 1 tab PO DAILY 10/15/21 10/22/21 History Cyclobenzaprine [Flexeril] 10 mg PO TID PRN 10/22/21 12/04/21 History Allergies Allergy/AdvReac Type Severity Reaction Status Date / Time No Known Allergies Allergy Verified 12/04/21 08:27 Surgical - Exam Vital Signs Temp Pulse Resp BP Pulse Ox 98.0 F 123 H 20 157/90 97 12/04/21 08:30 12/04/21 08:30 12/04/21 08:30 12/04/21 08:30 12/04/21 08:30 - General well developed, well nourished, no distress - Eyes PERRL - ENT normal pinna - Neck no masses - Respiratory normal expansion - Cardiovascular Rhythm: regular - Abdomen Abdomen: soft, non tender Assessment and Plan Assessment: History of her colon cancer. We'll perform colonoscopy.
--- NOTE | 2021-12-04 09:36 | P.OP ---
Date of Procedure: 12/04/21 Preoperative Diagnosis: History of right colon cancer Postoperative Diagnosis: Normal colonoscopy status post right colectomy Procedure(s) Performed: Colonoscopy Anesthesia: MAC Surgeon: Bharat Stein Pathology: none sent Condition: stable Disposition: PACU Description of Procedure: Patient's placed on the endoscopy table in the lateral position her she received IV sedation. Digital rectal exam is performed which revealed no abnormalities. Flexible colonoscope was then placed patient anus passed throughout the entire colon. She had a previous right colectomy. The ileocolonic anastomosis visualized. The transverse colon, descending colon and sigmoid colon appeared normal. Scope was brought back the rectum and this appeared normal. Scope withdrawn for patient.
[2021-12-04 09:58] VITALS: BP 140/83; PULSE 112; RESP 18
== END 2021-12-04 10:14 | disposition home or self-care (01) ==
LOC: ORWHC2ENDO 07:53
PROVIDERS: ATTEND Surgery
DX: Z12.11 Encounter for screening for malignant neoplasm of colon (principal); Z85.038 Personal history of other malignant neoplasm of large intestine; Z90.49 Acquired absence of other specified parts of digestive tract; Z98.0 Intestinal bypass and anastomosis status; I10 Essential (primary) hypertension; K21.9 Gastro-esophageal reflux disease without esophagitis; E66.01 Morbid (severe) obesity due to excess calories; R05.3 Chronic cough; F41.9 Anxiety disorder, unspecified; Z92.21 Personal history of antineoplastic chemotherapy; Z86.16 Personal history of COVID-19; Z68.43 Body mass index [BMI] 50.0-59.9, adult; Z79.899 Other long term (current) drug therapy; Z98.891 History of uterine scar from previous surgery; Z97.2 Presence of dental prosthetic device (complete) (partial); Z83.3 Family history of diabetes mellitus
CPT/HCPCS: 81025; J2250; J3010; J2704; J2001; G0105; 45378

== ENCOUNTER → 2022-04-30 | Outpatient (CLI) | payer OTHER ==
[2022-04-30 11:35] LABS: African American GFR (CKD) >90 (>60 ml/min/1.73 sqM); Blood Urea Nitrogen 13 mg/dL (7-17); Non-African American GFR(CKD) 80 (>60 ml/min/1.73 sqM)
--- NOTE | 2022-04-30 13:15 | CT ---
EXAMINATION TYPE: CT ChestAbdPelvis w con CT DLP: 4102.7 mGycm, Automated exposure control for dose reduction was used. DATE OF EXAM: 04/30/2022 1:01 PM COMPARISON: 05/20/2021 CLINICAL INDICATION:Female, 46 years old with history of C18.3 Z03.89, colon CA Technique: Multiple axial images of the chest, abdomen, and pelvis were obtained. Two-dimensional cor onal and sagittal reconstructions were obtained. Contrast used:70 mL of Isovue 300 with IV Contrast, Oral contrast used: with Oral Contrast Findings: CHEST: LUNGS/ PLEURA: No evidence focal consolidation, pneumothorax or pleural effusion. AIRWAY: Patent and unremarkable. HEART: Size within normal limits. MEDIASTINUM: No gross evidence of adenopathy. VASCULATURE: No aortic aneurysm. MUSCULOSKELETAL: No acute osseous abnormalities. Left posterior rib 8 fracture with healing changes. SOFT TISSUES/LYMPH NODES: Unremarkable. LOWER NECK: No significant findings. ABDOMEN: ABDOMEN LIVER: Unremarkable GALLBLADDER AND BILE DUCTS: The gallbladder is surgically absent. PANCREAS: Unremarkable. SPLEEN: Scattered calcified granulomas. Enlarged for size measuring up to 16.0 cm previously 18.1 cm. ADRENAL GLANDS: Unremarkable. KIDNEYS AND URETERS: Nonobstructing right renal calculus. No evidence for hydronephrosis. PELVIS BLADDER: Unremarkable REPRODUCTIVE: Unremarkable. ABDOMEN & PELVIS STOMACH AND BOWEL: No evidence of bowel obstruction. Postsurgical changes to the hepatic flexure/righ t: no evidence of mass or recurrence. PERITONEUM: No evidence of pneumoperitoneum or free fluid. VASCULATURE: No evidence of aortic aneurysm. Similar cavernous transformation of the portal vein susp ected underlying chronic portal vein occlusion/obstruction. MUSCULOSKELETAL: No acute osseous abnormalities LYMPH NODES: No gross evidence for lymphadenopathy. SOFT TISSUE/ABDOMINAL WALL: Unremarkable IMPRESSION: 1. No evidence of mass or lymphadenopathy to suggest recurrence. 2. Nonobstructing right renal calculus. 3. Splenomegaly slightly decreased in size from prior.
== END | disposition home or self-care (01) ==
LOC: RADCTMAIN 09:30
PROVIDERS: ATTEND Internal Medicine Hematology & Oncology
DX: C18.3 Malignant neoplasm of hepatic flexure (principal); N20.0 Calculus of kidney; R16.1 Splenomegaly, not elsewhere classified
CPT/HCPCS: 82565; 84520; 71260; 74177; 36415; Q9967

== ENCOUNTER → 2022-12-21 | Outpatient (CLI) | payer OTHER ==
--- NOTE | 2022-12-22 19:40 | MM ---
Reason for Exam: Screening (asymptomatic). Last mammogram was performed 2 year(s) and 2 month(s) ago. Patient History: Menarche at age 13. First Full-Term at age 24. Colorectal cancer, age 42. Risk Values: Aye 5 year model risk: 0.8%. NCI Lifetime model risk: 8.4%. Prior Study Comparison: 10/16/2020 Bilateral Screening Mammogram, [facility]. 10/16/2020 Right Diagnostic Mammogram, [facility]. Tissue Density: There are scattered fibroglandular densities. Findings: Analyzed By CAD. Benign bilateral oil cyst calcifications. There is no suspicious group of microcalcifications or new suspicious mass in either breast. Overall Assessment: Benign, BI-RAD 2 Management: Screening Mammogram of both breasts in 1 year. . Patient should continue monthly self-breast exams. A clinical breast exam by your physician is recommended on an annual basis. This exam should not preclude additional follow-up of suspicious palpable abnormalities. Note on Aye scores and lifetime risk: 1. A Aye score greater than 3% is considered moderate risk. If this is the case, consider specialist referral to assess eligibility for a risk reducing agent. 2. If overall lifetime risk for the development of breast cancer is 20% or higher, the patient may qualify for future screening with alternating mammogram and breast MRI. Electronically signed and approved by: Juanito Maravilla M.D. Radiologist
== END | disposition home or self-care (01) ==
LOC: RADMAMWWP 15:46
PROVIDERS: ATTEND Internal Medicine Hematology & Oncology
DX: Z12.31 Encounter for screening mammogram for malignant neoplasm of breast (principal)
CPT/HCPCS: 77063; 77067

== ENCOUNTER 2023-01-07 06:41 | Day surgery (SDC) | payer OTHER ==
[~2023-01-07 06:41] MED LIST changes: -LIDOCAINE 1% (10MG/ML) FOR IV START INTRADERMA PRN
[2023-01-07 07:20] VITALS: RESP 16; TEMP 98.5
[2023-01-07 07:33] LABS: Glucose,Whole Blood 137 mg/dL (70-110)
[2023-01-07] MEDS ORDERED: LACTATED RINGERS 1,000 ML IV ONE ×2 (07:36→07:58)
[2023-01-07] MEDS ORDERED: PROPOFOL 10 MG/ML 20 ML VIAL IV ONE (07:43)
--- NOTE | 2023-01-07 07:47 | P.GSHP ---
History of Present Illness H&P Date: 01/07/23 Chief Complaint: History of right colon cancer This a 47-year-old female presents today for colonoscopy. Patient previous history of right colon cancer. This was diagnosed in 2017. Patient denies any significant GI complaints. Past Medical History Past Medical History: Cancer, Diabetes Mellitus, GERD/Reflux, Hypertension Additional Past Medical History / Comment(s): Intermittent diarrhea since gallbladder surgery, colon cancer stage 3 received chemotherapy for 6 months completed 04/24/19 (second round), port a cath, received immunotherapy none since 04/26 History of Any Multi-Drug Resistant Organisms: None Reported Past Surgical History: Bowel Resection, Section, Cholecystectomy Additional Past Surgical History / Comment(s): colon CA removal, med port placed and removed x2 Past Anesthesia/Blood Transfusion Reactions: Previous Problems w/ Anesthesia, Motion Sickness Additional Past Anesthesia/Blood Transfusion Reaction / Comment(s): Pt states she woke from anesthesia very confused in past Smoking Status: Never smoker - Past Family History Mother Family Medical History: Diabetes Mellitus Father Family Medical History: No Reported History Additional Family Medical History / Comment(s): Father is 64 yrs old. Medications and Allergies Home Medications Medication Instructions Recorded Confirmed Type Famotidine 20 mg PO HS 06/05/21 01/07/23 History Loratadine [Claritin] 10 mg PO DAILY 06/05/21 01/07/23 History Losartan Potassium [Cozaar] 100 mg PO QAM 06/05/21 01/07/23 History Ondansetron Odt [Zofran Odt] 4 mg PO BID PRN 06/06/21 01/07/23 History Pantoprazole [Protonix] 40 mg PO QAM 06/06/21 01/07/23 History Ferrous Sulfate [Iron] 325 mg PO DAILY 10/09/21 01/07/23 History Gabapentin [Neurontin] 100 mg PO DAILY PRN 01/05/23 01/07/23 History Montelukast [Singulair] 10 mg PO DAILY 01/05/23 01/07/23 History metFORMIN HCL [Glucophage] 500 mg PO BID 01/05/23 01/07/23 History Allergies Allergy/AdvReac Type Severity Reaction Status Date / Time No Known Allergies Allergy Verified 01/07/23 07:10 Surgical - Exam Vital Signs Pulse 109 H 01/07/23 07:11 - General well developed, well nourished, no distress - Eyes PERRL - ENT normal pinna - Neck no masses - Respiratory normal expansion, normal respiratory effort - Cardiovascular Rhythm: regular - Abdomen Abdomen: soft, non tender Results - Labs Abnormal Lab Results - Last 24 Hours (Table) 01/07/23 Range/Units 07:29 POC Glucose (mg/dL) 137 H (70-110) mg/dL Assessment and Plan Plan: History of rectal cancer. We'll perform colonoscopy.
--- NOTE | 2023-01-07 07:57 | P.OP ---
Date of Procedure: 01/07/23 Preoperative Diagnosis: History of right colon cancer Postoperative Diagnosis: Normal colonoscopy Procedure(s) Performed: Colonoscopy Anesthesia: MAC Surgeon: Bharat Stein Pathology: none sent Condition: stable Disposition: PACU Description of Procedure: The patient's placed on the endoscopy table in the lateral position. She received IV sedation. Digital rectal exam was performed. This revealed no abnormalities. The flexible colonoscope was then placed patient anus and passed throughout the entire colon. The ileocolonic anastomosis visualized. The colonoscope was then advanced into the small bowel. This appeared normal. Scope was withdrawn. The anastomosis appeared normal without any evidence of scarring. The remaining transverse colon, descending colon and sigmoid colon appeared normal. Scope was brought back the rectum and this appeared normal. Scope withdrawn for patient.
[2023-01-07 08:14] VITALS: BP 110/56; PULSE 100
== END 2023-01-07 08:57 | disposition home or self-care (01) ==
LOC: ORWHC2ENDO 06:41
PROVIDERS: ATTEND Surgery
DX: Z12.11 Encounter for screening for malignant neoplasm of colon (principal); K21.9 Gastro-esophageal reflux disease without esophagitis; E11.9 Type 2 diabetes mellitus without complications; I10 Essential (primary) hypertension; Z98.84 Bariatric surgery status; Z85.038 Personal history of other malignant neoplasm of large intestine; Z98.891 History of uterine scar from previous surgery; Z90.49 Acquired absence of other specified parts of digestive tract; Z83.3 Family history of diabetes mellitus; Z79.84 Long term (current) use of oral hypoglycemic drugs; Z79.899 Other long term (current) drug therapy
CPT/HCPCS: 45378; J2704

== ENCOUNTER 2023-03-13 10:17 | Emergency (ER) | payer OTHER ==
[2023-03-13 10:22] VITALS: RESP 20
[2023-03-13] MEDS ORDERED: SODIUM CHLORIDE 0.9% 1,000 ML IV ONE (11:44)
[2023-03-13 11:46] LABS: Appearance,Urine Cloudy (Clear); Bacteria,Urine Rare /hpf; Bilirubin,Urine Negative (Negative); Blood,Urine Moderate (Negative); Color,Urine Yellow; Glucose,Urine (UA) Negative (Negative); Ketones,Urine Negative (Negative); Leukocyte Esterase,Urine Large (Negative); Mucus,Urine Moderate /hpf; Nitrite,Urine Negative (Negative); PH, Urine 5.5 (5.0-8.0); Protein,Urine Trace (Negative); RBC,Urine 66 /hpf (0-5); Specific Gravity,Urine 1.024 (1.001-1.035); Squamous Epithelial Cell,Urine 2 /hpf (0-4); Urobilinogen,Urine <2.0 mg/dL (<2.0); WBC,Urine 38 /hpf (0-5)
[2023-03-13] MEDS ORDERED: METOCLOPRAMIDE 5 MG/ML 2 ML VIAL IVP STA (11:47)
[2023-03-13 11:48] LABS: Basophils % (A) 1 %; Eosinophils # (A) 0.2 k/uL (0-0.7); Eosinophils % (A) 3 %; Lymphocytes # (A) 1.7 k/uL (1.0-4.8); Lymphocytes % (A) 24 %; MCH 26.8 pg (25.0-35.0); MCHC 33.3 g/dL (31.0-37.0); MCV 80.6 fL (80.0-100.0); Mean Platelet Volume 8.6; Monocytes # (A) 0.4 k/uL (0-1.0); Monocytes % (A) 6 %; Neutrophils # (A) 4.7 k/uL (1.3-7.7); Neutrophils % (A) 66 %; Platelet Count 209 k/uL (150-450); RBC 5.22 m/uL (3.80-5.40); RDW 15.1 % (11.5-15.5); WBC 7.1 k/uL (3.8-10.6)
--- NOTE | 2023-03-13 12:04 | ED ---
General Adult HPI - General Chief complaint: Nausea/Vomiting/Diarrhea Stated complaint: Vomiting,Abd pain Time Seen by Provider: 03/13/23 11:11 Source: patient, RN notes reviewed Mode of arrival: ambulatory Limitations: no limitations - History of Present Illness Initial comments: 47-year-old female presents emergency Department with chief complaint of diarrhea with associated nausea and vomiting x5 days. She also admits to bilateral ear pain x3 days. Denies recent antibiotic use and travel. She is not taking any medications for her diarrhea or her ear pain. She reports attempting Zofran which did not help with her nausea. Denies any specific abdominal pain. Denies fever, chills. PMH includes T2DM, HTN, colon cancer. - Related Data Home Medications Medication Instructions Recorded Confirmed Famotidine 20 mg PO HS 06/05/21 01/07/23 Loratadine [Claritin] 10 mg PO DAILY 06/05/21 01/07/23 Losartan Potassium [Cozaar] 100 mg PO QAM 06/05/21 01/07/23 Ondansetron Odt [Zofran Odt] 4 mg PO BID PRN 06/06/21 01/07/23 Pantoprazole [Protonix] 40 mg PO QAM 06/06/21 01/07/23 Ferrous Sulfate [Iron] 325 mg PO DAILY 10/09/21 01/07/23 Gabapentin [Neurontin] 100 mg PO DAILY PRN 01/05/23 01/07/23 Montelukast [Singulair] 10 mg PO DAILY 01/05/23 01/07/23 metFORMIN HCL [Glucophage] 500 mg PO BID 01/05/23 01/07/23 Previous Rx's Medication Instructions Recorded Amoxic-Pot Clav 875-125Mg 1 tab PO Q12HR 5 Days #10 tab 03/13/23 [Augmentin 875-125] Fluticasone Nasal [place] [Flonase 2 spr EA NOSTRIL DAILY #16 gm 03/13/23 Nasal [place]] Allergies Allergy/AdvReac Type Severity Reaction Status Date / Time No Known Allergies Allergy Verified 03/13/23 10:22 Review of Systems ROS Statement: Those systems with pertinent positive or pertinent negative responses have been documented in the HPI. ROS Other: All systems not noted in ROS Statement are negative. Past Medical History Past Medical History: Cancer, Diabetes Mellitus, GERD/Reflux, Hypertension Additional Past Medical History / Comment(s): Intermittent diarrhea since gallbladder surgery, colon cancer stage 3 received chemotherapy for 6 months completed 04/24/19 (second round), port a cath, received immunotherapy none since 04/26 History of Any Multi-Drug Resistant Organisms: None Reported Past Surgical History: Bowel Resection, Section, Cholecystectomy Additional Past Surgical History / Comment(s): colon CA removal, med port placed and removed x2 Past Anesthesia/Blood Transfusion Reactions: Previous Problems w/ Anesthesia, Motion Sickness Additional Past Anesthesia/Blood Transfusion Reaction / Comment(s): Pt states she woke from anesthesia very confused in past Past Psychological History: No Psychological Hx Reported Smoking Status: Never smoker Past Alcohol Use History: None Reported Past Drug Use History: None Reported - Past Family History Mother Family Medical History: Diabetes Mellitus Father Family Medical History: No Reported History Additional Family Medical History / Comment(s): Father is 64 yrs old. General Exam Limitations: no limitations General appearance: alert, in no apparent distress Head exam: Present: atraumatic, normocephalic, normal inspection Eye exam: Present: normal appearance, PERRL, EOMI. Absent: scleral icterus, conjunctival injection, periorbital swelling ENT exam: Present: normal exam, mucous membranes moist Neck exam: Present: normal inspection. Absent: tenderness, meningismus, lymphadenopathy Respiratory exam: Present: normal lung sounds bilaterally. Absent: respiratory distress, wheezes, rales, rhonchi, stridor Cardiovascular Exam: Present: regular rate, normal rhythm, normal heart sounds. Absent: systolic murmur, diastolic murmur, rubs, gallop, clicks GI/Abdominal exam: Present: soft, normal bowel sounds. Absent: distended, tenderness, guarding, rebound, rigid Extremities exam: Present: normal inspection, full ROM, normal capillary refill. Absent: tenderness, pedal edema, joint swelling, calf tenderness Back exam: Present: normal inspection Neurological exam: Present: alert, oriented X3, CN II-XII intact Psychiatric exam: Present: normal affect, normal mood Skin exam: Present: warm, dry, intact, normal color. Absent: rash Course Vital Signs 03/13/23 03/13/23 03/13/23 10:19 11:32 12:00 Temperature 98.1 F Pulse Rate 108 H 108 H Respiratory 20 20 Rate Blood Pressure 171/99 129/102 129/102 O2 Sat by Pulse 97 96 Oximetry 03/13/23 03/13/23 12:30 13:00 Temperature 98.4 F Pulse Rate 96 Respiratory 20 Rate Blood Pressure 148/110 135/79 O2 Sat by Pulse 98 Oximetry Medical Decision Making - Medical Decision Making Was pt. sent in by a medical professional or institution ([facility], [facility], urgent care, hospital, or penitentiary...) When possible be specific @ -No Did you speak to anyone other than the patient for history (EMS, parent, family, police, friend...)? What history was obtained from this source @ -No Did you review nursing and triage notes (agree or disagree)? Why? @ -I reviewed and agree with nursing and triage notes Were old charts reviewed (outside hosp., previous admission, EMS record, old EKG, old radiological studies, urgent care reports/EKG's, penitentiary records)? Report findings @ -No old charts were reviewed Differential Diagnosis (chest pain, altered mental status, abdominal pain women, abdominal pain men, vaginal bleeding, weakness, fever, dyspnea, syncope, headache, dizziness, GI bleed, back pain, seizure, CVA, palpatations, mental health, musculoskeletal)? @ -Gastritis, Covid, gastroenteritis, UTI, cholecystitis, this list is not all- inclusive EKG interpreted by me (3pts min.). @ -none X-rays interpreted by me (1pt min.). @ -None done CT interpreted by me (1pt min.). @ -None done U/S interpreted by me (1pt. min.). @ -None done What testing was considered but not performed or refused? (CT, X-rays, U/S, labs)? Why? @ -None What meds were considered but not given or refused? Why? @ -None Did you discuss the management of the patient with other professionals (professionals i.e. [facility] Samuel, [facility] [facility], lab, RT, psych nurse, social science teacher, contact lens assistant, teacher, protective officer, counter caser)? Give summary @ -No Was smoking cessation discussed for >3mins.? @ -No Was critical care preformed (if so, how long)? @ -No Were there social determinants of health that impacted care today? How? (Homelessness, low income, unemployed, alcoholism, drug addiction, transportation, low edu. Level, literacy, decrease access to med. care, usp, rehab)? @ -No Was there de-escalation of care discussed even if they declined (Discuss DNR or withdrawal of care, Hospice)? DNR status @ -No What co-morbidities impacted this encounter? (DM, HTN, Smoking, COPD, CAD, Cancer, CVA, ARF, Chemo, Hep., AIDS, mental health diagnosis, sleep apnea, morbid obesity)? @ -None Was patient admitted / discharged? Hospital course, mention meds given and route, prescriptions, significant lab abnormalities, going to OR and other pertinent info. @ -Discharged. Patient presented to emergency department chief complaint of nausea, vomiting, diarrhea 5 days and ear pain 3 days. CBC shows white blood cell count 7.1, hemoglobin 14.0; CMP shows sodium 137, potassium 4.2, creatinine 0.72, AST 75, AST 49; UA shows cloudy urine with moderate blood, large leukocyte esterase, 38 white blood cells, 66 RBCs. Patient was given IV fluids, Reglan. She reports feeling much better after this. She has evidence of urinary tract infection will send for culture. Antibiotics sent to patient's pharmacy. Patient was also sent in Flonase for her ears. Patient agreeable with the discharge plan and advised to take antibiotics to completion. Return precautions discussed. Patient stable at time of discharge. Case discussed with attending, Dr. Del Real Undiagnosed new problem with uncertain prognosis? @ -No Drug Therapy requiring intensive monitoring for toxicity (Heparin, Nitro, Insulin, Cardizem)? @ -No Were any procedures done? @ -No Diagnosis/symptom? @ -UTI Acute, or Chronic, or Acute on Chronic? @ -Acute Uncomplicated (without systemic symptoms) or Complicated (systemic symptoms)? @ -uncomplicated Side effects of treatment? @ -No Exacerbation, Progression, or Severe Exacerbation? @ -No Poses a threat to life or bodily function? How? (Chest pain, [place], GA, pneumonia, PE, COPD, DKA, ARF, appy, cholecystitis, CVA, Diverticulitis, Homicidal, Suicidal, threat to staff... and all critical care pts) @ -No - Lab Data Result diagrams: 03/13/23 11:26 03/13/23 11:26 Lab Results 03/13/23 03/13/23 03/13/23 Range/Units 11:26 11:26 11:26 WBC 7.1 (3.8-10.6) k/uL RBC 5.22 (3.80-5.40) m/uL Hgb 14.0 (11.4-16.0) gm/dL Hct 42.0 (34.0-46.0) % MCV 80.6 (80.0-100.0) fL MCH 26.8 (25.0-35.0) pg MCHC 33.3 (31.0-37.0) g/dL RDW 15.1 (11.5-15.5) % Plt Count 209 (150-450) k/uL MPV 8.6 Neutrophils % 66 % Lymphocytes % 24 % Monocytes % 6 % Eosinophils % 3 % Basophils % 1 % Neutrophils # 4.7 (1.3-7.7) k/uL Lymphocytes # 1.7 (1.0-4.8) k/uL Monocytes # 0.4 (0-1.0) k/uL Eosinophils # 0.2 (0-0.7) k/uL Basophils # 0.0 (0-0.2) k/uL Sodium 137 (137-145) mmol/L Potassium 4.2 (3.5-5.1) mmol/L Chloride 104 (98-107) mmol/L Carbon Dioxide 25 (22-30) mmol/L Anion Gap 8 mmol/L BUN 12 (7-17) mg/dL Creatinine 0.73 (0.52-1.04) mg/dL Est GFR (CKD-EPI)AfAm >90 (>60 ml/min/1.73 sqM) Est GFR (CKD-EPI)NonAf >90 (>60 ml/min/1.73 sqM) Glucose 123 H (74-99) mg/dL Calcium 9.0 (8.4-10.2) mg/dL Total Bilirubin 0.7 (0.2-1.3) mg/dL AST 75 H (14-36) U/L ALT 49 H (4-34) U/L Alkaline Phosphatase 67 (38-126) U/L Total Protein 7.7 (6.3-8.2) g/dL Albumin 4.1 (3.5-5.0) g/dL Amylase 42 (30-110) U/L Lipase 50 (23-300) U/L Urine Color Yellow Urine Appearance Cloudy H (Clear) Urine pH 5.5 (5.0-8.0) Ur Specific [place] 1.024 (1.001-1.035) Urine Protein Trace H (Negative) Urine Glucose (UA) Negative (Negative) Urine Ketones Negative (Negative) Urine Blood Moderate H (Negative) Urine Nitrite Negative (Negative) Urine Bilirubin Negative (Negative) Urine Urobilinogen <2.0 (<2.0) mg/dL Ur Leukocyte Esterase Large H (Negative) Urine RBC 66 H (0-5) /hpf Urine WBC 38 H (0-5) /hpf Ur Squamous Epith Cells 2 (0-4) /hpf Urine Bacteria Rare H (None) /hpf Urine Mucus Moderate H (None) /hpf Influenza Type A (PCR) (Not Detectd) Influenza Type B (PCR) (Not Detectd) RSV (PCR) (Not Detectd) SARS-CoV-2 (PCR) (Not Detectd) 03/13/23 Range/Units 11:53 WBC (3.8-10.6) k/uL RBC (3.80-5.40) m/uL Hgb (11.4-16.0) gm/dL Hct (34.0-46.0) % MCV (80.0-100.0) fL MCH (25.0-35.0) pg MCHC (31.0-37.0) g/dL RDW (11.5-15.5) % Plt Count (150-450) k/uL MPV Neutrophils % % Lymphocytes % % Monocytes % % Eosinophils % % Basophils % % Neutrophils # (1.3-7.7) k/uL Lymphocytes # (1.0-4.8) k/uL Monocytes # (0-1.0) k/uL Eosinophils # (0-0.7) k/uL Basophils # (0-0.2) k/uL Sodium (137-145) mmol/L Potassium (3.5-5.1) mmol/L Chloride (98-107) mmol/L Carbon Dioxide (22-30) mmol/L Anion Gap mmol/L BUN (7-17) mg/dL Creatinine (0.52-1.04) mg/dL Est GFR (CKD-EPI)AfAm (>60 ml/min/1.73 sqM) Est GFR (CKD-EPI)NonAf (>60 ml/min/1.73 sqM) Glucose (74-99) mg/dL Calcium (8.4-10.2) mg/dL Total Bilirubin (0.2-1.3) mg/dL AST (14-36) U/L ALT (4-34) U/L Alkaline Phosphatase (38-126) U/L Total Protein (6.3-8.2) g/dL Albumin (3.5-5.0) g/dL Amylase (30-110) U/L Lipase (23-300) U/L Urine Color Urine Appearance (Clear) Urine pH (5.0-8.0) Ur Specific [place] (1.001-1.035) Urine Protein (Negative) Urine Glucose (UA) (Negative) Urine Ketones (Negative) Urine Blood (Negative) Urine Nitrite (Negative) Urine Bilirubin (Negative) Urine Urobilinogen (<2.0) mg/dL Ur Leukocyte Esterase (Negative) Urine RBC (0-5) /hpf Urine WBC (0-5) /hpf Ur Squamous Epith Cells (0-4) /hpf Urine Bacteria (None) /hpf Urine Mucus (None) /hpf Influenza Type A (PCR) Not Detected (Not Detectd) Influenza Type B (PCR) Not Detected (Not Detectd) RSV (PCR) Not Detected (Not Detectd) SARS-CoV-2 (PCR) Not Detected (Not Detectd) Disposition Clinical Impression: Nausea & vomiting, Serous otitis media, UTI (urinary tract infection) Disposition: HOME SELF-CARE Condition: Stable Instructions (If sedation given, give patient instructions): Urinary Tract Infection in Women (ED), Acute Nausea and Vomiting (ED) Prescriptions: Amoxic-Pot Clav 875-125Mg [Augmentin 875-125] 1 tab PO Q12HR 5 Days #10 tab Fluticasone Nasal [place] [Flonase Nasal [place]] 2 spr EA NOSTRIL DAILY #16 gm Is patient prescribed a controlled substance at d/c from ED?: No Referrals: Letha South MD [Primary Care Provider] - 1-2 days Time of Disposition: 13:03
[2023-03-13 12:08] LABS: ALT 49 U/L (4-34); AST 75 U/L (14-36); African American GFR (CKD) >90 (>60 ml/min/1.73 sqM); Albumin 4.1 g/dL (3.5-5.0); Alkaline Phosphatase 67 U/L (38-126); Amylase 42 U/L (30-110); Anion Gap 8 mmol/L; Blood Urea Nitrogen 12 mg/dL (7-17); Carbon Dioxide 25 mmol/L (22-30); Chloride 104 mmol/L (98-107); Glucose 123 mg/dL (74-99); Lipase 50 U/L (23-300); Non-African American GFR(CKD) >90 (>60 ml/min/1.73 sqM); Potassium 4.2 mmol/L (3.5-5.1); Sodium 137 mmol/L (137-145); Total Bilirubin 0.7 mg/dL (0.2-1.3); Total Protein 7.7 g/dL (6.3-8.2)
[2023-03-13 13:44] VITALS: BP 135/79; PULSE 96; TEMP 98.4
== END 2023-03-13 13:48 | disposition home or self-care (01) ==
LOC: EC 10:17
DX: N39.0 Urinary tract infection, site not specified (principal); H65.93 Unspecified nonsuppurative otitis media, bilateral; R11.2 Nausea with vomiting, unspecified; I10 Essential (primary) hypertension; E11.9 Type 2 diabetes mellitus without complications; K21.9 Gastro-esophageal reflux disease without esophagitis; Z79.899 Other long term (current) drug therapy; Z79.84 Long term (current) use of oral hypoglycemic drugs
CPT/HCPCS: 36415; 80053; 82150; 83690; 85025; 81001; 87086; 87636; 99284; 96374; 96361; J2765

== ENCOUNTER → 2023-06-30 | Outpatient (CLI) | payer OTHER ==
[2023-06-30 12:31] LABS: African American GFR (CKD) 59 (>60 ml/min/1.73 sqM); Blood Urea Nitrogen 18 mg/dL (7-17); Non-African American GFR(CKD) 51 (>60 ml/min/1.73 sqM)
--- NOTE | 2023-06-30 14:05 | CT ---
EXAMINATION TYPE: CT ChestAbdPelvis w con CT DLP: 3349.20 mGycm, Automated exposure control for dose reduction was used. DATE OF EXAM: 06/30/2023 1:51 PM COMPARISON: CT most recently 12/14/2022. 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 Two-dimensional cor onal and sagittal reconstructions were obtained. Contrast used:80 mL of Isovue 370 with IV Contrast, Oral contrast used: with Oral Contrast Findings: CHEST: LUNGS/ PLEURA: The lung parenchyma appears unremarkable. AIRWAY: Patent and unremarkable. HEART: Size within normal limits. MEDIASTINUM: No gross evidence of adenopathy. Partially calcified lymph node in the prevascular space . VASCULATURE: No aortic aneurysm. MUSCULOSKELETAL: No acute osseous abnormalities. Posterior left-sided rib fractures. SOFT TISSUES/LYMPH NODES: Unremarkable. LOWER NECK: No significant findings. ABDOMEN: ABDOMEN LIVER: Diffusely hypoattenuating parenchyma. GALLBLADDER AND BILE DUCTS: The gallbladder surgically absent. PANCREAS: Unremarkable. SPLEEN: Scattered calcified granulomas throughout the spleen. The spleen is enlarged measuring up to 17.0 mm in shortest ADRENAL GLANDS: Unremarkable. KIDNEYS AND URETERS: Nonobstructing right renal calculus. No left renal calculi. No obstructive uropa thy. PELVIS BLADDER: Unremarkable REPRODUCTIVE: Unremarkable. ABDOMEN & PELVIS STOMACH AND BOWEL: No evidence of bowel obstruction. Postsurgical changes to the colon. No evidence f or abnormal soft tissue near the surgical bed no lymphadenopathy. PERITONEUM: No evidence of pneumoperitoneum or free fluid. VASCULATURE: No evidence of aortic aneurysm. MUSCULOSKELETAL: No acute osseous abnormalities LYMPH NODES: No gross evidence for lymphadenopathy. SOFT TISSUE/ABDOMINAL WALL: Unremarkable IMPRESSION: 1. No evidence for recurrence or lymphadenopathy postsurgical changes to the hepatic flexure the col on. 2. Similar Splenomegaly. 3. Sequela of chronic granulomatous disease. 4. Hepatic steatosis. 5. Nonobstructing renal calculus.
== END | disposition home or self-care (01) ==
LOC: RADCTMAIN 11:44
PROVIDERS: ATTEND Internal Medicine Hematology & Oncology
DX: Z03.89 Encounter for observation for other suspected diseases and conditions ruled out (principal); C18.3 Malignant neoplasm of hepatic flexure; R16.1 Splenomegaly, not elsewhere classified; K76.0 Fatty (change of) liver, not elsewhere classified; N20.0 Calculus of kidney
CPT/HCPCS: 82565; 84520; 71260; 74177; Q9967

== ENCOUNTER 2023-10-16 08:27 | Emergency (ER) | payer OTHER ==
[2023-10-16] MEDS ORDERED: IBUPROFEN 600 MG TAB PO STA (08:56)
--- NOTE | 2023-10-16 09:01 | ED ---
General Adult HPI - General Chief complaint: ENT Stated complaint: Ear Pain Time Seen by Provider: 10/16/23 08:40 Source: patient, RN notes reviewed, old records reviewed Mode of arrival: ambulatory Limitations: no limitations - History of Present Illness Initial comments: This is a 48-year-old female presents to the emergency department complaining of pain just beneath her right ear and inside her right ear. Patient states the pain is increased with movement of the external ear. Patient states she was on antibiotics for 10 days and the pain still persists. Patient denies any drainage from the ear. Patient [place] any decreased hearing. Patient states she has had no fever or chills - Related Data Home Medications Medication Instructions Recorded Confirmed Famotidine 20 mg PO HS 06/05/21 01/07/23 Loratadine [Claritin] 10 mg PO DAILY 06/05/21 01/07/23 Losartan Potassium [Cozaar] 100 mg PO QAM 06/05/21 01/07/23 Ondansetron Odt [Zofran Odt] 4 mg PO BID PRN 06/06/21 01/07/23 Pantoprazole [Protonix] 40 mg PO QAM 06/06/21 01/07/23 Ferrous Sulfate [Iron] 325 mg PO DAILY 10/09/21 01/07/23 Gabapentin [Neurontin] 100 mg PO DAILY PRN 01/05/23 01/07/23 Montelukast [Singulair] 10 mg PO DAILY 01/05/23 01/07/23 metFORMIN HCL [Glucophage] 500 mg PO BID 01/05/23 01/07/23 Previous Rx's Medication Instructions Recorded Amoxic-Pot Clav 875-125Mg 1 tab PO Q12HR 5 Days #10 tab 03/13/23 [Augmentin 875-125] Fluticasone Nasal [place] [Flonase 2 spr EA NOSTRIL DAILY #16 gm 03/13/23 Nasal [place]] Ibuprofen [Motrin] 600 mg PO Q6HR PRN #20 tab 10/16/23 Lgbzgkjb-Rpcweenfv-Pt Otic 5 drops RIGHT EAR TID #10 ml 10/16/23 [Cortisporin Otic Soln] Allergies Allergy/AdvReac Type Severity Reaction Status Date / Time No Known Allergies Allergy Verified 10/16/23 08:42 Review of Systems ROS Statement: Those systems with pertinent positive or pertinent negative responses have been documented in the HPI. ROS Other: All systems not noted in ROS Statement are negative. Past Medical History Past Medical History: Cancer, Diabetes Mellitus, GERD/Reflux, Hypertension Additional Past Medical History / Comment(s): Intermittent diarrhea since gallbladder surgery, colon cancer stage 3 received chemotherapy for 6 months completed 04/24/19 (second round), port a cath, received immunotherapy none si nce 04/26 History of Any Multi-Drug Resistant Organisms: None Reported Past Surgical History: Bowel Resection, Section, Cholecystectomy Additional Past Surgical History / Comment(s): colon CA removal, med port placed and removed x2 Past Anesthesia/Blood Transfusion Reactions: Previous Problems w/ Anesthesia, Motion Sickness Additional Past Anesthesia/Blood Transfusion Reaction / Comment(s): Pt states she woke from anesthesia very confused in past Past Psychological History: No Psychological Hx Reported Smoking Status: Never smoker Past Alcohol Use History: None Reported Past Drug Use History: None Reported - Past Family History Mother Family Medical History: Diabetes Mellitus Father Family Medical History: No Reported History Additional Family Medical History / Comment(s): Father is 64 yrs old. General Exam - General Exam Comments Initial Comments: GENERAL Patient is well-developed and well-nourished. Patient is in mild distress. EYES Patient's pupils are equal and round. Extraocular motion is intact ENT Patient's canal is mildly swollen and painful when I move the pinna. Patient has no tenderness of the mastoids SKIN Unremarkable NEURO The patient is alert and oriented -3 PYSCH Patient has normal interpersonal interactions. MUSCULOSKELETAL Patient has all 4 extremities with full range of motion Limitations: no limitations Course Vital Signs 10/16/23 08:38 Temperature 98.1 F Pulse Rate 84 Respiratory 18 Rate Blood Pressure 123/83 O2 Sat by Pulse 99 Oximetry Medical Decision Making - Medical Decision Making Was pt. sent in by a medical professional or institution (, PA, CLINICAL RESEARCHER, urgent care, hospital, or [place] health care facility...) When possible be specific @ -No Did you speak to anyone other than the patient for history (EMS, parent, family, police, friend...)? What history was obtained from this source @ -No Did you review nursing and triage notes (agree or disagree)? Why? @ -I reviewed and agree with nursing and triage notes Were old charts reviewed (outside hosp., previous admission, EMS record, old EKG, old radiological studies, urgent care reports/EKG's, [place] health care facility records)? Report findings @ -No old charts were reviewed Differential Diagnosis (chest pain, altered mental status, abdominal pain women, abdominal pain men, vaginal bleeding, weakness, fever, dyspnea, syncope, headache, dizziness, GI bleed, back pain, seizure, CVA, palpatations, mental health, musculoskeletal)? @ -Otitis media, otitis externa, cholesteatoma, malignant otitis externa, this is not an all-inclusive list EKG interpreted by me (3pts min.). @ -As above X-rays interpreted by me (1pt min.). @ -None done CT interpreted by me (1pt min.). @ -None done U/S interpreted by me (1pt. min.). @ -None done What testing was considered but not performed or refused? (CT, X-rays, U/S, labs)? Why? @ -None What meds were considered but not given or refused? Why? @ -None Did you discuss the management of the patient with other professionals (professionals i.e. , PA, CLINICAL RESEARCHER, lab, RT, psych nurse, social media marketing analyst, it technical support specialist, teacher, chairman & chief executive officer, onsite case manager)? Give summary @ -No Was smoking cessation discussed for >3mins.? @ -No Was critical care preformed (if so, how long)? @ -No Were there social determinants of health that impacted care today? How? (Homelessness, low income, unemployed, alcoholism, drug addiction, transportation, low edu. Level, literacy, decrease access to med. care, fdc, rehab)? @ -No Was there de-escalation of care discussed even if they declined (Discuss DNR or withdrawal of care, Hospice)? DNR status @ -No What co-morbidities impacted this encounter? (DM, HTN, Smoking, COPD, CAD, Cancer, CVA, ARF, Chemo, Hep., AIDS, mental health diagnosis, sleep apnea, morbid obesity)? @ -None Was patient admitted / discharged? Hospital course, mention meds given and route, prescriptions, significant lab abnormalities, going to OR and other pertinent info. @ -Patient was given Motrin in the emergency department for the discomfort. Patient will be sent home with some eardrops and told to follow-up with ENT Undiagnosed new problem with uncertain prognosis? @ -No Drug Therapy requiring intensive monitoring for toxicity (Heparin, Nitro, Insulin, Cardizem)? @ -No Were any procedures done? @ -No Diagnosis/symptom? @ -Otitis externa Acute, or Chronic, or Acute on Chronic? @ -Acute Uncomplicated (without systemic symptoms) or Complicated (systemic symptoms)? @ -Uncomplicated Side effects of treatment? @ -No Exacerbation, Progression, or Severe Exacerbation? @ -No Poses a threat to life or bodily function? How? (Chest pain, [place], [place], pneumonia, PE, COPD, DKA, ARF, appy, cholecystitis, CVA, Diverticulitis, Homicidal, Suicidal, threat to staff... and all critical care pts) @ -No Disposition Clinical Impression: Otitis externa Disposition: HOME SELF-CARE Instructions (If sedation given, give patient instructions): [facility] (ED) Prescriptions: Lipjhkbt-Zwzeknngh-Pc Otic [Cortisporin Otic Soln] 5 drops RIGHT EAR TID #10 ml Ibuprofen [Motrin] 600 mg PO Q6HR PRN #20 tab PRN Reason: For pain Is patient prescribed a controlled substance at d/c from ED?: No Referrals: Stephane Woodward DO [Doctor of Osteopathic Medicine] - 1-2 days Time of Disposition: 08:59
[2023-10-16 09:42] VITALS: BP 123/83; PULSE 84; RESP 18; TEMP 98.1
== END 2023-10-16 09:13 | disposition home or self-care (01) ==
LOC: EC 08:27
DX: H60.91 Unspecified otitis externa, right ear (principal); E11.9 Type 2 diabetes mellitus without complications; I10 Essential (primary) hypertension; K21.9 Gastro-esophageal reflux disease without esophagitis; Z79.899 Other long term (current) drug therapy; Z79.84 Long term (current) use of oral hypoglycemic drugs
CPT/HCPCS: 99282

== ENCOUNTER 2023-12-09 07:43 | Day surgery (SDC) | payer OTHER ==
[2023-12-09] MEDS: LACTATED RINGERS 1,000 ML IV SCH (08:10)
[2023-12-09] MEDS ORDERED: PROPOFOL 10 MG/ML 20 ML VIAL IV ONE (08:24)
--- NOTE | 2023-12-09 08:26 | P.GSHP ---
History of Present Illness H&P Date: 12/09/23 Chief Complaint: history of colon cancer this is a 40-year-old female who presents today for colonoscopy. Patient has appears history of colon cancer. Past Medical History Past Medical History: Cancer, Diabetes Mellitus, GERD/Reflux, Hyperlipidemia, Hypertension, Sleep Apnea/CPAP/BIPAP Additional Past Medical History / Comment(s): Intermittent diarrhea since gallbladder surgery, colon cancer stage 3 received chemotherapy for 6 months completed 04/24/19 (second round), port a cath, received immunotherapy none since 04/27 History of Any Multi-Drug Resistant Organisms: None Reported Past Surgical History: Bowel Resection, Section, Cholecystectomy Additional Past Surgical History / Comment(s): colon CA removal, med port placed and removed x2, several colonoscopies Past Anesthesia/Blood Transfusion Reactions: Previous Problems w/ Anesthesia, Motion Sickness Additional Past Anesthesia/Blood Transfusion Reaction / Comment(s): Pt states she woke from anesthesia very confused in past after lap. brittany., no problems since, no hx. of transfusion reaction Smoking Status: Never smoker - Past Family History Mother Family Medical History: Diabetes Mellitus Father Family Medical History: No Reported History Additional Family Medical History / Comment(s): Father is 64 yrs old. Medications and Allergies Home Medications Medication Instructions Recorded Confirmed Type Famotidine 20 mg PO HS 06/05/21 12/07/23 History Losartan Potassium [Cozaar] 100 mg PO QAM 06/05/21 12/07/23 History Ondansetron Odt [Zofran Odt] 4 mg PO BID PRN 06/06/21 12/07/23 History Pantoprazole [Protonix] 40 mg PO QAM 06/06/21 12/07/23 History Ferrous Sulfate [Iron] 325 mg PO DAILY 10/09/21 12/07/23 History Gabapentin [Neurontin] 100 mg PO DAILY PRN 01/05/23 12/07/23 History metFORMIN HCL [Glucophage] 500 mg PO BID 01/05/23 12/07/23 History Fluticasone Nasal [place] [Flonase 2 spr EA NOSTRIL DAILY #16 gm 03/13/23 12/07/23 Rx Nasal [place]] Ibuprofen [Motrin] 600 mg PO Q6HR PRN #20 tab 10/16/23 12/07/23 Rx Cholecalciferol [Vitamin D3 (25 25 mcg PO DAILY 12/07/23 12/07/23 History Mcg = 1000 Iu)] Cinnamon Bark [Cinnamon] 500 mg PO DAILY 12/07/23 12/07/23 History Cyanocobalamin (Vitamin B-12) 1,000 mcg PO DAILY 12/07/23 12/07/23 History [Vitamin B-12] Magnesium 200 mg PO DAILY 12/07/23 12/07/23 History Metoprolol Succinate (ER) [Toprol 25 mg PO DAILY 12/07/23 12/07/23 History Xl] [place]-3/Dha/Epa/Fish Oil [Fish Oil 1 each PO DAILY 12/07/23 12/07/23 History 1,000 mg Softgel] Rosuvastatin Calcium 5 mg PO HS 12/07/23 12/07/23 History Allergies Allergy/AdvReac Type Severity Reaction Status Date / Time No Known Allergies Allergy Verified 12/07/23 15:05 Surgical - Exam Vital Signs Temp Pulse Resp BP Pulse Ox 97.2 F L 114 H 16 127/84 95 12/09/23 08:08 12/09/23 08:08 12/09/23 08:08 12/09/23 08:08 12/09/23 08:08 - General well developed, well nourished, no distress - Eyes PERRL - ENT normal pinna - Neck no masses - Respiratory normal expansion - Cardiovascular Rhythm: regular - Abdomen Abdomen: soft, non tender Assessment and Plan Assessment: history of colon cancer. We'll perform colonoscopy.
--- NOTE | 2023-12-09 08:36 | P.OP ---
Date of Procedure: 12/09/23 Preoperative Diagnosis: history of colon cancer Postoperative Diagnosis: normal colonoscopy status post right colectomy Procedure(s) Performed: colonoscopy Anesthesia: MAC Surgeon: Bharat Stein Pathology: none sent Condition: stable Disposition: PACU Description of Procedure: the patient's placed on the endoscopy table in the lateral position. She received IV sedation. Digital rectal exam was performed. This revealed no abnormalities. The flexible colonoscope was then placed patient anus and passed throughout the entire colon. The patient had a previous right collecting. The ileocolonic anastomosis visualized. The visualized transverse colon, descending colon and sigmoid colon appeared normal. Scope summer back the rectum this appeared normal. Scope withdrawn for patient.
[2023-12-09 08:37] VITALS: RESP 16; TEMP 97.2
[2023-12-09 08:37] LABS: Glucose,Whole Blood 125 mg/dL (70-110)
[2023-12-09 09:23] VITALS: BP 105/56; PULSE 85
== END 2023-12-09 09:15 | disposition home or self-care (01) ==
LOC: ORWHC2ENDO 07:43
PROVIDERS: ATTEND Surgery
DX: Z12.11 Encounter for screening for malignant neoplasm of colon (principal); K21.9 Gastro-esophageal reflux disease without esophagitis; I10 Essential (primary) hypertension; E78.5 Hyperlipidemia, unspecified; E11.9 Type 2 diabetes mellitus without complications; G47.33 Obstructive sleep apnea (adult) (pediatric); E66.01 Morbid (severe) obesity due to excess calories; Z79.84 Long term (current) use of oral hypoglycemic drugs; Z85.038 Personal history of other malignant neoplasm of large intestine; Z90.49 Acquired absence of other specified parts of digestive tract; Z79.899 Other long term (current) drug therapy; Z79.51 Long term (current) use of inhaled steroids; Z79.1 Long term (current) use of non-steroidal anti-inflammatories (NSAID)
CPT/HCPCS: 45378; J2704

== ENCOUNTER → 2023-12-23 | Outpatient (CLI) | payer OTHER ==
--- NOTE | 2023-12-23 19:00 | MM ---
Reason for Exam: Screening (asymptomatic). Last screening mammogram was performed 12 month(s) ago. Patient History: Menarche at age 13. First Full-Term at age 24. Colorectal cancer, age 42. Previous chemotherapy at age 42. Risk Values: Aye 5 year model risk: 0.8%. NCI Lifetime model risk: 8.3%. Prior Study Comparison: 10/16/2020 Bilateral Screening Mammogram, [facility]. 10/16/2020 Right Diagnostic Mammogram, [facility]. 12/21/2022 Bilateral MG 3D screening mammo w/cad, [facility]. Tissue Density: The breasts are almost entirely fatty. Findings: Analyzed By CAD. Benign bilateral oil cyst calcifications are redemonstrated. There is no suspicious group of microcalcifications or new suspicious mass in either breast. Overall Assessment: Benign, BI-RAD 2 Management: Screening Mammogram of both breasts in 1 year. . Patient should continue monthly self-breast exams. A clinical breast exam by your physician is recommended on an annual basis. This exam should not preclude additional follow-up of suspicious palpable abnormalities. Note on Aye scores and lifetime risk: 1. A Aye score greater than 3% is considered moderate risk. If this is the case, consider specialist referral to assess eligibility for a risk reducing agent. 2. If overall lifetime risk for the development of breast cancer is 20% or higher, the patient may qualify for future screening with alternating mammogram and breast MRI. Electronically signed and approved by: Juanito Maravilla M.D. Radiologist
== END | disposition home or self-care (01) ==
LOC: RADMAMWWP 08:51
PROVIDERS: ATTEND Internal Medicine Hematology & Oncology
DX: Z12.31 Encounter for screening mammogram for malignant neoplasm of breast (principal); C18.3 Malignant neoplasm of hepatic flexure; D50.9 Iron deficiency anemia, unspecified; G62.0 Drug-induced polyneuropathy; Z71.3 Dietary counseling and surveillance
CPT/HCPCS: 77063; 77067

== ENCOUNTER 2024-04-02 08:02 | Emergency (ER) | payer OTHER ==
--- NOTE | 2024-04-02 08:35 | ED ---
General Adult HPI - General Chief complaint: Weakness Stated complaint: Facial paralysis Time Seen by Provider: 04/02/24 08:12 Source: patient, RN notes reviewed Mode of arrival: ambulatory Limitations: no limitations - History of Present Illness Initial comments: Patient is a 48-year-old female presenting to the emergency department with concerns with facial weakness. Patient did have some mild symptoms last night, worse today. Patient has difficulty fully shutting her left eye. Patient has weakness of her left face. No arm weakness. No loss of sensation. No leg weakness. No difficulty with walking. No history of similar symptoms previously. Patient has a distant history of colon cancer and he has been cancer free for 5 years - Related Data Home Medications Medication Instructions Recorded Confirmed Famotidine 20 mg PO HS 06/05/21 12/07/23 Losartan Potassium [Cozaar] 100 mg PO QAM 06/05/21 12/07/23 Ondansetron Odt [Zofran Odt] 4 mg PO BID PRN 06/06/21 12/07/23 Pantoprazole [Protonix] 40 mg PO QAM 06/06/21 12/07/23 Ferrous Sulfate [Iron] 325 mg PO DAILY 10/09/21 12/07/23 Gabapentin [Neurontin] 100 mg PO DAILY PRN 01/05/23 12/07/23 metFORMIN HCL [Glucophage] 500 mg PO BID 01/05/23 12/07/23 Cholecalciferol [Vitamin D3 (25 25 mcg PO DAILY 12/07/23 12/07/23 Mcg = 1000 Iu)] Cinnamon Bark [Cinnamon] 500 mg PO DAILY 12/07/23 12/07/23 Cyanocobalamin (Vitamin B-12) 1,000 mcg PO DAILY 12/07/23 12/07/23 [Vitamin B-12] Magnesium 200 mg PO DAILY 12/07/23 12/07/23 Metoprolol Succinate (ER) [Toprol 25 mg PO DAILY 12/07/23 12/07/23 Xl] [place]-3/Dha/Epa/Fish Oil [Fish Oil 1 each PO DAILY 12/07/23 12/07/23 1,000 mg Softgel] Rosuvastatin Calcium 5 mg PO HS 12/07/23 12/07/23 Previous Rx's Medication Instructions Recorded Fluticasone Nasal [place] [Flonase 2 spr EA NOSTRIL DAILY #16 gm 03/13/23 Nasal [place]] Ibuprofen [Motrin] 600 mg PO Q6HR PRN #20 tab 10/16/23 predniSONE [Deltasone] 3 tab PO DAILY #21 tab 04/02/24 valACYclovir HCL [Valtrex] 1 tab PO TID #21 tablet 04/02/24 Allergies Allergy/AdvReac Type Severity Reaction Status Date / Time No Known Allergies Allergy Verified 04/02/24 08:12 Review of Systems ROS Statement: Those systems with pertinent positive or pertinent negative responses have been documented in the HPI. ROS Other: All systems not noted in ROS Statement are negative. Constitutional: Denies: fever Eyes: Reports: as per HPI. Denies: eye pain, vision change ENT: Denies: ear pain Respiratory: Denies: cough Cardiovascular: Denies: chest pain Endocrine: Denies: fatigue Neurological: Reports: as per HPI. Denies: headache, confusion, abnormal gait Past Medical History Past Medical History: Cancer, Diabetes Mellitus, GERD/Reflux, Hyperlipidemia, Hypertension, Sleep Apnea/CPAP/BIPAP Additional Past Medical History / Comment(s): Intermittent diarrhea since gallbladder surgery, colon cancer stage 3 received chemotherapy for 6 months completed 04/24/19 (second round), port a cath, received immunotherapy none since 04/27 History of Any Multi-Drug Resistant Organisms: None Reported Past Surgical History: Bowel Resection, Section, Cholecystectomy Additional Past Surgical History / Comment(s): colon CA removal, med port placed and removed x2, several colonoscopies Past Anesthesia/Blood Transfusion Reactions: Previous Problems w/ Anesthesia, Motion Sickness Additional Past Anesthesia/Blood Transfusion Reaction / Comment(s): Pt states she woke from anesthesia very confused in past after lap. brittany., no problems since, no hx. of transfusion reaction Past Psychological History: No Psychological Hx Reported Smoking Status: Never smoker - Past Family History Mother Family Medical History: Diabetes Mellitus Father Family Medical History: No Reported History Additional Family Medical History / Comment(s): Father is 64 yrs old. General Exam Limitations: no limitations General appearance: alert, in no apparent distress Head exam: Present: normocephalic Eye exam: Present: normal appearance, PERRL, EOMI ENT exam: Present: normal oropharynx, TM's normal bilaterally Neck exam: Present: normal inspection Respiratory exam: Present: normal lung sounds bilaterally Cardiovascular Exam: Present: regular rate, normal rhythm GI/Abdominal exam: Present: soft. Absent: tenderness Extremities exam: Present: normal inspection Neurological exam: Present: alert, oriented X3 Expanded Neurological exam: Present: protecting the airway Speech: Present: fluid speech Cranial nerves: EOM's Intact: Normal, Facial Palsy without Forehead Movement: Abnormal Left (Difficulty with strength of the left forehead, difficulty raising eyebrow and shutting) Sensory exam: Upper Extremity Light Touch: Normal, Lower Extremity Light Touch: Normal Motor strength exam: RUE: 5, LUE: 5, RLE: 5, LLE: 5 Eye Response: (4) open spontaneously Motor Response: (6) obeys commands Verbal Response: (5) oriented Psychiatric exam: Present: normal affect, normal mood Skin exam: Present: normal color. Absent: rash Course Vital Signs 04/02/24 08:08 Temperature 97.7 F Pulse Rate 93 Respiratory 16 Rate Blood Pressure 150/90 O2 Sat by Pulse 99 Oximetry Medical Decision Making - Medical Decision Making Was pt. sent in by a medical professional or institution (LIZZETH Samuel, AUTOMOTIVE SALES SPECIALIST, urgent care, hospital, or [facility]...) When possible be specific @ -No Did you speak to anyone other than the patient for history (EMS, parent, family, police, friend...)? What history was obtained from this source @ -No Did you review nursing and triage notes (agree or disagree)? Why? @ -I reviewed and agree with nursing and triage notes Were old charts reviewed (outside hosp., previous admission, EMS record, old EKG, old radiological studies, urgent care reports/EKG's, [facility] records)? Report findings @ -No old charts were reviewed Differential Diagnosis (chest pain, altered mental status, abdominal pain women, abdominal pain men, vaginal bleeding, weakness, fever, dyspnea, syncope, headache, dizziness, GI bleed, back pain, seizure, CVA, palpatations, mental health, musculoskeletal)? @ -Differential Weakness: Hypoglycemia, shock, sepsis, hyponatremia, anemia, infection, [place], ETOH, adverse medicine reaction, overdose, stroke, this is not meant to be an all-inclusive list. EKG interpreted by me (3pts min.). @ -As above X-rays interpreted by me (1pt min.). @ -None done CT interpreted by me (1pt min.). @ -None done U/S interpreted by me (1pt. min.). @ -None done What testing was considered but not performed or refused? (CT, X-rays, U/S, labs)? Why? @ -CT however patient has classic Aggarwal's palsy What meds were considered but not given or refused? Why? @ -Provided prescription Did you discuss the management of the patient with other professionals (professionals i.e. DrTommie, PA, AUTOMOTIVE SALES SPECIALIST, lab, RT, psych nurse, child welfare social worker, turret lathe machinist, teacher, police patrol officer, patient case coordinator)? Give summary @ -No Was smoking cessation discussed for >3mins.? @ -No Was critical care preformed (if so, how long)? @ -No Were there social determinants of health that impacted care today? How? (Homelessness, low income, unemployed, alcoholism, drug addiction, transportation, low edu. Level, literacy, decrease access to med. care, nursing home, rehab)? @ -No Was there de-escalation of care discussed even if they declined (Discuss DNR or withdrawal of care, Hospice)? DNR status @ -No What co-morbidities impacted this encounter? (DM, HTN, Smoking, COPD, CAD, Cancer, CVA, ARF, Chemo, Hep., AIDS, mental health diagnosis, sleep apnea, morbid obesity)? @ -None Was patient admitted / discharged? Hospital course, mention meds given and route, prescriptions, significant lab abnormalities, going to OR and other pertinent info. @ -Patient presents with left-sided weakness that does include to the forehead. Difficulty with raising her left eyebrow as well as shutting the left eyelid. Patient presents with classic Aggarwal's palsy, therefore CT not done. Patient will be discharged with prescriptions Undiagnosed new problem with uncertain prognosis? @ -No Drug Therapy requiring intensive monitoring for toxicity (Heparin, Nitro, Insulin, Cardizem)? @ -No Were any procedures done? @ -No Diagnosis/symptom? @ -Aggarwal's palsy Acute, or Chronic, or Acute on Chronic? @ -Acute Uncomplicated (without systemic symptoms) or Complicated (systemic symptoms)? @ -Default Side effects of treatment? @ -No Exacerbation, Progression, or Severe Exacerbation? @ -No Poses a threat to life or bodily function? How? (Chest pain, [place], [place], pneumonia, PE, COPD, DKA, ARF, appy, cholecystitis, CVA, Diverticulitis, Homicidal, Suicidal, threat to staff... and all critical care pts) @ -There is a threat although low likelihood of permanent facial weak Disposition Clinical Impression: Aggarwal's palsy Disposition: HOME SELF-CARE Instructions (If sedation given, give patient instructions): Aggarwal Palsy (ED) Additional Instructions: Prescriptions have been sent to pharmacy. Please do follow-up with your primary care physician in the next day or 2 for recheck. Return for other areas of weakness, worsening or changing symptoms, or other concerns. Use Lacri-Lube or similar eye lubricating drops 4 times daily and prior to going to bed. Tape left eye shut at nighttime to avoid scratching Prescriptions: predniSONE [Deltasone] 3 tab PO DAILY #21 tab valACYclovir HCL [Valtrex] 1 tab PO TID #21 tablet Is patient prescribed a controlled substance at d/c from ED?: No Referrals: Letha South MD [Primary Care Provider] - 1-2 days Time of Disposition: 08:27
[2024-04-02 09:15] VITALS: BP 124/84; PULSE 92; RESP 17; TEMP 98.2
== END 2024-04-02 09:01 | disposition home or self-care (01) ==
LOC: EC 08:02
DX: G51.0 Bell's palsy (principal)
CPT/HCPCS: 99284

== ENCOUNTER → 2024-06-13 | Outpatient (CLI) | payer OTHER ==
[2024-06-13 11:23] LABS: African American GFR (CKD) 72 (>60 ml/min/1.73 sqM); Blood Urea Nitrogen 15 mg/dL (7-17); Non-African American GFR(CKD) 62 (>60 ml/min/1.73 sqM)
--- NOTE | 2024-06-13 13:33 | CT ---
EXAMINATION TYPE: CT ChestAbdPelvis w con CT DLP: 3274.8 mGycm, Automated exposure control for dose reduction was used. DATE OF EXAM: 06/13/2024 12:48 PM COMPARISON: Multiple CT Chest Abdomen Pelvis with most recent 06/30/2023. 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 Oral contrast was demonstrated. Two-dimensional coronal an d sagittal reconstructions were obtained. Findings: CHEST: LUNGS/ PLEURA: The lung parenchyma appears unremarkable. No suspicious pulmonary nodules or masses. AIRWAY: Patent and unremarkable. HEART: Size within normal limits. No pericardial effusion. MEDIASTINUM: No gross evidence of adenopathy. Stable partially calcified lymph node in the prevascula r space. VASCULATURE: No aortic aneurysm. MUSCULOSKELETAL: No acute osseous abnormalities. Remote posterior left-sided rib fractures. Mild mult ilevel degenerative disc disease. No aggressive osseous lesion. SOFT TISSUES/LYMPH NODES: Unremarkable. LOWER NECK: No significant findings. ABDOMEN: ABDOMEN LIVER: Diffusely hypoattenuating parenchyma. No focal lesion identified. GALLBLADDER AND BILE DUCTS: The gallbladder surgically absent. No biliary duct dilatation. PANCREAS: Unremarkable. SPLEEN: Scattered calcified granulomas throughout the spleen. The spleen is enlarged measuring up to 16.6 cm in greatest dimension. ADRENAL GLANDS: Unremarkable. KIDNEYS AND URETERS: Nonobstructing bilateral renal calculi. Largest cyst within the right kidney noemi suring up to 7 mm. No hydronephrosis. The kidneys enhance symmetrically. PELVIS BLADDER: Incompletely distended but grossly unremarkable. REPRODUCTIVE: Unremarkable. ABDOMEN & PELVIS STOMACH AND BOWEL: Stomach and duodenum are unremarkable. No evidence of bowel obstruction. Postsurgi quique changes from right hemicolectomy. No evidence for abnormal soft tissue near the surgical bed. No focal wall thickening or surrounding inflammatory changes. Enteric contrast reaches the distal small bowel. PERITONEUM: No evidence of pneumoperitoneum or free fluid. VASCULATURE: No evidence of aortic aneurysm. MUSCULOSKELETAL: No acute osseous abnormalities. Mild multilevel degenerative disc disease. No aggres sive osseous lesion. LYMPH NODES: No evidence for lymphadenopathy. SOFT TISSUE/ABDOMINAL WALL: Postsurgical changes of the midline anterior atenolol. No organized fluid collection. IMPRESSION: 1. Postsurgical changes from right hemicolectomy without evidence for recurrence or metastasis. 2. Similar splenomegaly. 3. Sequela of chronic granulomatous disease. 4. Hepatic steatosis. 5. Nonobstructing bilateral renal calculi. [facility], , 06/13/2024 1:31 PM
== END | disposition home or self-care (01) ==
LOC: RADCTMAIN 10:42
PROVIDERS: ATTEND Internal Medicine Hematology & Oncology
DX: C18.3 Malignant neoplasm of hepatic flexure (principal); N20.0 Calculus of kidney; K76.0 Fatty (change of) liver, not elsewhere classified; R16.1 Splenomegaly, not elsewhere classified; D50.9 Iron deficiency anemia, unspecified; G62.0 Drug-induced polyneuropathy; Z71.3 Dietary counseling and surveillance; D71 Functional disorders of polymorphonuclear neutrophils
CPT/HCPCS: 82565; 84520; 71260; 74177; 36415; Q9967

== ENCOUNTER 2024-08-01 08:39 | Emergency (ER) | payer OTHER ==
[2024-08-01 08:47] VITALS: TEMP 97.7
--- NOTE | 2024-08-01 08:59 | ED ---
Back Pain HPI - General Chief Complaint: Urogenital Stated Complaint: Lower R side back pain Time Seen by Provider: 08/01/24 08:47 Source: patient, RN notes reviewed Mode of arrival: ambulatory Limitations: no limitations - History of Present Illness Initial Comments: This is a 48-year-old female who presents to the emergency department for right flank pain. States that over the last week she has noticed intermittent bouts of sharp right flank pain, however over the last 2 days in particular the pain seemed to get worse and started to radiate into her right lower quadrant. The pain is hitting her in waves and she has associated nausea. Reports some burning with urination as well. She has a history of colon cancer and had a CT scan last month demonstrating stones in the kidneys, and wonders if she may be passing one. She has never passed a kidney stone to her knowledge before. Denies any injuries or history of similar pain in the past. MD Complaint: back pain - Related Data Home Medications Medication Instructions Recorded Confirmed Famotidine 20 mg PO HS 06/05/21 12/07/23 Losartan Potassium [Cozaar] 100 mg PO QAM 06/05/21 12/07/23 Ondansetron Odt [Zofran Odt] 4 mg PO BID PRN 06/06/21 12/07/23 Pantoprazole [Protonix] 40 mg PO QAM 06/06/21 12/07/23 Ferrous Sulfate [Iron] 325 mg PO DAILY 10/09/21 12/07/23 Gabapentin [Neurontin] 100 mg PO DAILY PRN 01/05/23 12/07/23 metFORMIN HCL [Glucophage] 500 mg PO BID 01/05/23 12/07/23 Cholecalciferol [Vitamin D3 (25 25 mcg PO DAILY 12/07/23 12/07/23 Mcg = 1000 Iu)] Cinnamon Bark [Cinnamon] 500 mg PO DAILY 12/07/23 12/07/23 Cyanocobalamin (Vitamin B-12) 1,000 mcg PO DAILY 12/07/23 12/07/23 [Vitamin B-12] Magnesium 200 mg PO DAILY 12/07/23 12/07/23 Metoprolol Succinate (ER) [Toprol 25 mg PO DAILY 12/07/23 12/07/23 Xl] [place]-3/Dha/Epa/Fish Oil [Fish Oil 1 each PO DAILY 12/07/23 12/07/23 1,000 mg Softgel] Rosuvastatin Calcium 5 mg PO HS 12/07/23 12/07/23 Previous Rx's Medication Instructions Recorded Fluticasone Nasal [place] [Flonase 2 spr EA NOSTRIL DAILY #16 gm 03/13/23 Nasal [place]] Ibuprofen [Motrin] 600 mg PO Q6HR PRN #20 tab 10/16/23 predniSONE [Deltasone] 3 tab PO DAILY #21 tab 04/02/24 valACYclovir HCL [Valtrex] 1 tab PO TID #21 tablet 04/02/24 Meloxicam [Mobic] 15 mg PO DAILY PRN #20 tab 08/01/24 cefuroxime axetiL [Ceftin] 500 mg PO BID 7 Days #14 tab 08/01/24 methocarbamoL [Robaxin-750] 1,500 mg PO TID PRN #30 tab 08/01/24 Allergies Allergy/AdvReac Type Severity Reaction Status Date / Time No Known Allergies Allergy Verified 08/01/24 08:47 Review of Systems ROS Statement: Those systems with pertinent positive or pertinent negative responses have been documented in the HPI. ROS Other: All systems not noted in ROS Statement are negative. Past Medical History Past Medical History: Cancer, Diabetes Mellitus, GERD/Reflux, Hyperlipidemia, Hypertension, Sleep Apnea/CPAP/BIPAP Additional Past Medical History / Comment(s): Intermittent diarrhea since gallbladder surgery, colon cancer stage 3 received chemotherapy for 6 months completed 04/24/19 (second round), port a cath, received immunotherapy none since 04/27 History of Any Multi-Drug Resistant Organisms: None Reported Past Surgical History: Bowel Resection, Section, Cholecystectomy Additional Past Surgical History / Comment(s): colon CA removal, med port placed and removed x2, several colonoscopies Past Anesthesia/Blood Transfusion Reactions: Previous Problems w/ Anesthesia, Motion Sickness Additional Past Anesthesia/Blood Transfusion Reaction / Comment(s): Pt states she woke from anesthesia very confused in past after lap. brittany., no problems since, no hx. of transfusion reaction Past Psychological History: No Psychological Hx Reported Smoking Status: Never smoker Past Alcohol Use History: None Reported Past Drug Use History: None Reported - Past Family History Mother Family Medical History: Diabetes Mellitus Father Family Medical History: No Reported History Additional Family Medical History / Comment(s): Father is 64 yrs old. General Exam Limitations: no limitations General appearance: alert, in no apparent distress Head exam: Present: atraumatic, normocephalic, normal inspection Respiratory exam: Present: normal lung sounds bilaterally. Absent: respiratory distress, wheezes, rales, rhonchi, stridor Cardiovascular Exam: Present: regular rate, normal rhythm, normal heart sounds. Absent: systolic murmur, diastolic murmur, rubs, gallop, clicks GI/Abdominal exam: Present: soft, tenderness (Right mid to lower abdomen), normal bowel sounds. Absent: distended Back exam: Present: CVA tenderness (R). Absent: CVA tenderness (L) Neurological exam: Present: alert, oriented X3, CN II-XII intact Psychiatric exam: Present: normal affect, normal mood Skin exam: Present: warm, dry, intact, normal color. Absent: rash Course Vital Signs 08/01/24 08/01/24 08/01/24 08:43 09:20 11:38 Temperature 97.7 F Pulse Rate 90 88 84 Respiratory 17 16 20 Rate Blood Pressure 136/83 138/87 134/84 O2 Sat by Pulse 99 97 97 Oximetry Medical Decision Making - Medical Decision Making This is a 48 year old female who presents to the emergency department for right flank pain. Was pt. sent in by a medical professional or institution? @ -No Did you speak to anyone other than the patient for history? @ -No Did you review nursing and triage notes? @ -Yes, and I agree, it is accurate with regards to the patient's symptoms. Were old charts reviewed? @ -No Differential Diagnosis? @ -Differential Flank Pain: UTI, pyelonephritis, kidney stone, musculoskeletal, pancreatitis, cholecystitis, this is not meant to be an all-inclusive list. EKG interpreted by me (3pts min.)? @ -Not obtained X-rays interpreted by me (1pt min.)? @ -Not obtained CT interpreted by me (1pt min.)? @ -CT scan of the abdomen and pelvis obtained. My interpretation identifies no evidence of a ureteral calculus. U/S interpreted by me (1pt. min.)? @ -Not obtained What testing was considered but not performed? (CT, X-rays, U/S, labs)? Why? @ -None What meds were considered but not given? Why? @ -None Did you discuss the management of the patient with other professionals? @ -No Did you reconcile home meds? @ -No Was smoking cessation discussed for >3mins.? @ -No Was critical care preformed (if so, how long)? @ -No Were there social determinants of health that impacted care today? How? (Homelessness, low income, unemployed, alcoholism, drug addiction, t ransportation, low edu. Level, literacy, decrease access to med. care, senior living, rehab)? @ -No Was there de-escalation of care discussed even if they declined? (Discuss DNR or withdrawal of care, Hospice)? @ -No What co-morbidities impacted this encounter? (DM, HTN, Smoking, COPD, CAD, Cancer, CVA, Hep., AIDS, mental health diagnosis, sleep apnea, morbid obesity)? @ -Cancer Was patient admitted / discharged? @ -Discharged. Lab work demonstrates signs of dehydration and is otherwise relatively unremarkable. Urinalysis contains a large amount of blood as well as leukocyte esterase and white blood cells. Rare bacteria noted. Urine sent for culture. CT scan of the abdomen and pelvis reveals no evidence of a ureteral calculus. She does have a nonobstructive stones still in the kidneys bilaterally. Findings reviewed with the patient. She may have a component of infection contributing to her pain. It could also be related to a muscular strain. Symptoms treated in the emergency department. 2 g of Rocephin administered prior to discharge. Advised that we will treat her for infection and a prescription for cefuroxime was provided. Meloxicam and Robaxin provided for pain control. Advised that she will need to follow-up with urology regarding the hematuria as well. Patient discharged home in stable condition. Case discussed with ED attending Dr. Estevez. Return precautions reviewed in depth, the patient is instructed to return to the emergency department with any new, worsening, or concerning symptoms. Patient verbalized understanding. Undiagnosed new problem with uncertain prognosis? @ -None Drug Therapy requiring intensive monitoring for toxicity (Heparin, Nitro, Insulin, Cardizem)? @ -None Were any procedures done? @ -None Diagnosis/symptom? @ -UTI, hematuria, right flank pain Acute, or Chronic, or Acute on Chronic? @ -Acute Uncomplicated (without systemic symptoms) or Complicated (systemic symptoms)? @ -Uncomplicated Side effects of treatment? @ -None Exacerbation, Progression, or Severe Exacerbation] @ -Not applicable Poses a threat to life or bodily function? @ -Unlikely - Lab Data Result diagrams: 08/01/24 09:21 08/01/24 09:21 Lab Results 08/01/24 08/01/24 08/01/24 Range/Units 09:21 09:21 09:21 WBC 6.3 (3.8-10.6) k/uL RBC 5.08 (3.80-5.40) m/uL Hgb 13.9 (11.4-16.0) gm/dL Hct 41.7 (34.0-46.0) % MCV 82.0 (80.0-100.0) fL MCH 27.3 (25.0-35.0) pg MCHC 33.3 (31.0-37.0) g/dL RDW 14.4 (11.5-15.5) % Plt Count 179 (150-450) k/uL MPV 8.6 Neutrophils % 58 % Lymphocytes % 26 % Monocytes % 7 % Eosinophils % 5 % Basophils % 1 % Neutrophils # 3.7 (1.3-7.7) k/uL Lymphocytes # 1.6 (1.0-4.8) k/uL Monocytes # 0.5 (0-1.0) k/uL Eosinophils # 0.3 (0-0.7) k/uL Basophils # 0.1 (0-0.2) k/uL Sodium 140 (137-145) mmol/L Potassium 4.6 (3.5-5.1) mmol/L Chloride 106 (98-107) mmol/L Carbon Dioxide 26 (22-30) mmol/L Anion Gap 8 mmol/L BUN 19 H (7-17) mg/dL Creatinine 1.11 H (0.52-1.04) mg/dL Est GFR (CKD-EPI)AfAm 68 (>60 ml/min/1.73 sqM) Est GFR (CKD-EPI)NonAf 59 (>60 ml/min/1.73 sqM) Glucose 119 H (74-99) mg/dL Plasma Lactic Acid [place] (0.7-2.0) mmol/L Calcium 9.4 (8.4-10.2) mg/dL Total Bilirubin 0.7 (0.2-1.3) mg/dL AST 37 H (14-36) U/L ALT 27 (4-34) U/L Alkaline Phosphatase 46 (38-126) U/L Total Protein 7.3 (6.3-8.2) g/dL Albumin 4.3 (3.5-5.0) g/dL Urine Color Light Yellow Urine Appearance Cloudy H (Clear) Urine pH 5.5 (5.0-8.0) Ur Specific [place] 1.018 (1.001-1.035) Urine Protein Trace H (Negative) Urine Glucose (UA) Negative (Negative) Urine Ketones Negative (Negative) Urine Blood Moderate H (Negative) Urine Nitrite Negative (Negative) Urine Bilirubin Negative (Negative) Urine Urobilinogen <2.0 (<2.0) mg/dL Ur Leukocyte Esterase Large H (Negative) Urine RBC 51 H (0-5) /hpf Urine WBC 52 H (0-5) /hpf Ur Squamous Epith Cells 2 (0-4) /hpf Urine Bacteria Rare H (None) /hpf Urine Mucus Rare H (None) /hpf Urine HCG, Qual (Not Detectd) 08/01/24 08/01/24 Range/Units 09:21 09:21 WBC (3.8-10.6) k/uL RBC (3.80-5.40) m/uL Hgb (11.4-16.0) gm/dL Hct (34.0-46.0) % MCV (80.0-100.0) fL MCH (25.0-35.0) pg MCHC (31.0-37.0) g/dL RDW (11.5-15.5) % Plt Count (150-450) k/uL MPV Neutrophils % % Lymphocytes % % Monocytes % % Eosinophils % % Basophils % % Neutrophils # (1.3-7.7) k/uL Lymphocytes # (1.0-4.8) k/uL Monocytes # (0-1.0) k/uL Eosinophils # (0-0.7) k/uL Basophils # (0-0.2) k/uL Sodium (137-145) mmol/L Potassium (3.5-5.1) mmol/L Chloride (98-107) mmol/L Carbon Dioxide (22-30) mmol/L Anion Gap mmol/L BUN (7-17) mg/dL Creatinine (0.52-1.04) mg/dL Est GFR (CKD-EPI)AfAm (>60 ml/min/1.73 sqM) Est GFR (CKD-EPI)NonAf (>60 ml/min/1.73 sqM) Glucose (74-99) mg/dL Plasma Lactic Acid [place] 1.6 (0.7-2.0) mmol/L Calcium (8.4-10.2) mg/dL Total Bilirubin (0.2-1.3) mg/dL AST (14-36) U/L ALT (4-34) U/L Alkaline Phosphatase (38-126) U/L Total Protein (6.3-8.2) g/dL Albumin (3.5-5.0) g/dL Urine Color Urine Appearance (Clear) Urine pH (5.0-8.0) Ur Specific [place] (1.001-1.035) Urine Protein (Negative) Urine Glucose (UA) (Negative) Urine Ketones (Negative) Urine Blood (Negative) Urine Nitrite (Negative) Urine Bilirubin (Negative) Urine Urobilinogen (<2.0) mg/dL Ur Leukocyte Esterase (Negative) Urine RBC (0-5) /hpf Urine WBC (0-5) /hpf Ur Squamous Epith Cells (0-4) /hpf Urine Bacteria (None) /hpf Urine Mucus (None) /hpf Urine HCG, Qual Not Detected (Not Detectd) - Radiology Data Radiology results: report reviewed, image reviewed Disposition Clinical Impression: Urinary tract infection, Right flank pain, Hematuria Disposition: HOME SELF-CARE Instructions (If sedation given, give patient instructions): Urinary Tract Infection in Women (ED), Flank Pain (ED) Additional Instructions: Return to the emergency department with any new, worsening, or concerning symptoms. Take the antibiotic as prescribed for 7 days. Take the Mobic once daily for pain relief. Take this with Tylenol as well. Take the Robaxin as 1 to 2 tablets up to 3-4 times daily. This can also help with your pain. Contact the urologist listed below for a follow-up appointment regarding the blood in your urine. Follow up with your primary care provider in 1-2 days. Prescriptions: cefuroxime axetiL [Ceftin] 500 mg PO BID 7 Days #14 tab Meloxicam [Mobic] 15 mg PO DAILY PRN #20 tab PRN Reason: Pain methocarbamoL [Robaxin-750] 1,500 mg PO TID PRN #30 tab PRN Reason: Pain Is patient prescribed a controlled substance at d/c from ED?: No Referrals: Letha South MD [Primary Care Provider] - 1-2 days Cristobal Eid MD [STAFF PHYSICIAN] - 1-2 days Time of Disposition: 11:18
[2024-08-01] MEDS: MORPHINE SULFATE 4 MG/ML SYRINGE IVP STA (09:22)
[2024-08-01] MEDS: KETOROLAC 15 MG/ML 1 ML VIAL IVP STA (09:22)
[2024-08-01] MEDS: SODIUM CHLORIDE 0.9% 1,000 ML IV STA (09:23)
[2024-08-01 09:52] LABS: Basophils # (A) 0.1 k/uL (0-0.2); Basophils % (A) 1 %; Eosinophils # (A) 0.3 k/uL (0-0.7); Eosinophils % (A) 5 %; HCT 41.7 % (34.0-46.0); HGB 13.9 gm/dL (11.4-16.0); Lymphocytes # (A) 1.6 k/uL (1.0-4.8); Lymphocytes % (A) 26 %; MCH 27.3 pg (25.0-35.0); MCHC 33.3 g/dL (31.0-37.0); Mean Platelet Volume 8.6; Monocytes # (A) 0.5 k/uL (0-1.0); Monocytes % (A) 7 %; Neutrophils # (A) 3.7 k/uL (1.3-7.7); Neutrophils % (A) 58 %; Platelet Count 179 k/uL (150-450); RBC 5.08 m/uL (3.80-5.40); RDW 14.4 % (11.5-15.5); WBC 6.3 k/uL (3.8-10.6)
[2024-08-01 10:12] LABS: ALT 27 U/L (4-34); African American GFR (CKD) 68 (>60 ml/min/1.73 sqM); Anion Gap 8 mmol/L; Blood Urea Nitrogen 19 mg/dL (7-17); Calcium 9.4 mg/dL (8.4-10.2); Carbon Dioxide 26 mmol/L (22-30); Chloride 106 mmol/L (98-107); Glucose 119 mg/dL (74-99); Non-African American GFR(CKD) 59 (>60 ml/min/1.73 sqM); Sodium 140 mmol/L (137-145); Total Bilirubin 0.7 mg/dL (0.2-1.3)
--- NOTE | 2024-08-01 10:15 | CT ---
EXAMINATION TYPE: CT abdomen pelvis wo con DATE OF EXAM: 08/01/2024 9:50 AM COMPARISON: 06/13/2024 CLINICAL INDICATION: Female, 48 years old with history of Right flank pain, right flank pain, TECHNIQUE: Contiguous axial scanning of the abdomen and pelvis without IV contrast. Coronal and sagit shane reconstructions performed. CT DLP: 2104.8 mGycm. Automated exposure control for dose reduction was used. FINDINGS: The heart is normal size with no pericardial effusion. Streaky atelectasis in the lower lungs without pleural effusion. A couple calcified granulomas within the liver. Otherwise, noncontrast appearance of the liver, adren al glands, and pancreas show no gross abnormality. Gallbladder is absent. There appear to be collaterals and varices at the level of the main portal vei n and gena hepatis, unchanged back to 2022. Redemonstrated splenomegaly at 17.5 cm with calcified granulomas present. Right kidney shows a few nonobstructive stones, largest measuring 9 mm. Left kidney shows approximately 6 nonobstructing stones, largest measuring 5 mm. No hydronephrosis on either side. Postsurgical change of partial right hemicolectomy with ileocolonic anastomosis of the proximal trans verse colon. Mild scattered stool. Scattered minimal diverticular change left side of the colon. No p ericolonic inflammatory change. No dilated small bowel, fixed, free air. Some focal irregular mesenteric soft tissue thickening, axial images 72 and coronal image 43 remains unchanged back to at least 2022 suggesting some chronic scarring. Prominent 1.2 cm portacaval lymph node remains unchanged. No mesenteric or retroperitoneal lymphadeno ema otherwise seen. Bladder collapsed. Uterus anteverted. Both ovaries are visualized. No abnormal fluid collection in pe lvis or pelvic lymphadenopathy. Bones: Mild degenerative change in both hips. [facility] within the lower thoracic spine. Hypertrophic face t arthropathy mid to lower lumbar spine with mild to moderate multilevel degenerative disc disease. IMPRESSION: 1. Bilateral nonobstructing renal stones measuring up to 9 mm. No ureteral stone or hydronephrosis s een. 2. Previous partial right hemicolectomy with ileocolonic anastomosis at the proximal transverse colo n. Some focal soft tissue thickening at the mid mesentery remains unchanged back to at least 2022 sug gesting chronic scarring. 3. Similar splenomegaly at 17.5 cm along with evidence of prior granulomatous disease. [facility], , 08/01/2024 10:13 AM
[2024-08-01 10:37] LABS: AST 37 U/L (14-36); Albumin 4.3 g/dL (3.5-5.0); Alkaline Phosphatase 46 U/L (38-126); Potassium 4.6 mmol/L (3.5-5.1); Total Protein 7.3 g/dL (6.3-8.2)
[2024-08-01 10:41] LABS: Appearance,Urine Cloudy (Clear); Bacteria,Urine Rare /hpf; Bilirubin,Urine Negative (Negative); Blood,Urine Moderate (Negative); Color,Urine Light Yellow; Glucose,Urine (UA) Negative (Negative); Ketones,Urine Negative (Negative); Leukocyte Esterase,Urine Large (Negative); Mucus,Urine Rare /hpf; Nitrite,Urine Negative (Negative); PH, Urine 5.5 (5.0-8.0); Protein,Urine Trace (Negative); RBC,Urine 51 /hpf (0-5); Specific Gravity,Urine 1.018 (1.001-1.035); Squamous Epithelial Cell,Urine 2 /hpf (0-4); Urobilinogen,Urine <2.0 mg/dL (<2.0); WBC,Urine 52 /hpf (0-5)
[2024-08-01] MEDS: ACET/COD 300 MG/30 MG STARTER PACK 6 TAB BTL PO STA (11:30)
[2024-08-01] MEDS: cefTRIAXone IN SWFI 1,000 MG/10 ML SYRINGE IVP STA (11:31)
[2024-08-01 11:40] VITALS: BP 134/84; PULSE 84; RESP 20
== END 2024-08-01 11:43 | disposition home or self-care (01) ==
LOC: EC 08:39
DX: N39.0 Urinary tract infection, site not specified (principal); R31.9 Hematuria, unspecified; N20.0 Calculus of kidney; Z85.038 Personal history of other malignant neoplasm of large intestine
CPT/HCPCS: 36415; 80053; 83605; 85025; 81001; 81025; 87086; 74176; 99284; 96374; 96375 ×2; 96376; 96361 ×2; J2270; J0696; J1885

== ENCOUNTER 2024-09-30 10:56 | Emergency (ER) | payer OTHER ==
[2024-09-30 11:03] VITALS: TEMP 97.9
[2024-09-30] MEDS: KETOROLAC 15 MG/ML 1 ML VIAL IM STA (11:51)
--- NOTE | 2024-09-30 11:51 | ED ---
General Adult HPI - General Chief complaint: Extremity Problem,Nontraumatic Stated complaint: R leg swelling Time Seen by Provider: 09/30/24 11:29 Source: patient Mode of arrival: ambulatory - History of Present Illness Initial comments: Dictation was produced using [employer] dictation software. please excuse any grammatical, word or spelling errors. Chief Complaint: 48-year-old female with right leg pain History of Present Illness: Patient is a 48-year-old female presents to the emergency department 1 to 2 days of right leg pain. States that her calf hurts on the right lateral aspect. Denies any history of DVT. Denies any chest pain or shortness of breath. States that her leg hurts especially when she tries to take a step or press in the area. The ROS documented in this emergency department record has been reviewed and confirmed by me. Those systems with pertinent positive or negative responses have been documented in the HPI. All other systems are other negative and/or noncontributory. - Related Data Home Medications Medication Instructions Recorded Confirmed Famotidine 20 mg PO HS 06/05/21 09/28/24 Losartan Potassium [Cozaar] 100 mg PO QAM 06/05/21 09/28/24 Pantoprazole [Protonix] 40 mg PO QAM 06/06/21 09/28/24 Ferrous Sulfate [Iron] 325 mg PO DAILY 10/09/21 09/28/24 metFORMIN HCL [Glucophage] 500 mg PO BID 01/05/23 09/28/24 Cholecalciferol [Vitamin D3 (25 25 mcg PO DAILY 12/07/23 09/28/24 Mcg = 1000 Iu)] Cinnamon Bark [Cinnamon] 500 mg PO DAILY 12/07/23 09/28/24 Metoprolol Succinate (ER) [Toprol 25 mg PO QAM 12/07/23 09/28/24 Xl] [place]-3/Dha/Epa/Fish Oil [Fish Oil 1 each PO DAILY 12/07/23 09/28/24 1,000 mg Softgel] Rosuvastatin Calcium 5 mg PO HS 12/07/23 09/28/24 Previous Rx's Medication Instructions Recorded Fluticasone Nasal [place] [Flonase 2 spr EA NOSTRIL DAILY #16 gm 03/13/23 Nasal [place]] Allergies Allergy/AdvReac Type Severity Reaction Status Date / Time No Known Allergies Allergy Verified 09/30/24 11:03 Review of Systems ROS Statement: Those systems with pertinent positive or pertinent negative responses have been documented in the HPI. ROS Other: All systems not noted in ROS Statement are negative. Past Medical History Past Medical History: Cancer, Diabetes Mellitus, GERD/Reflux, Hyperlipidemia, Hypertension, Sleep Apnea/CPAP/BIPAP Additional Past Medical History / Comment(s): Intermittent diarrhea since gallbladder surgery, colon cancer stage 3 received chemotherapy for 6 months completed 04/24/19 (second round), port a cath, received immunotherapy none since 04/27. kidney stones History of Any Multi-Drug Resistant Organisms: None Reported Past Surgical History: Bowel Resection, Section, Cholecystectomy Additional Past Surgical History / Comment(s): colon CA removal, med port placed and removed x2, several colonoscopies Past Anesthesia/Blood Transfusion Reactions: Previous Problems w/ Anesthesia, Motion Sickness Additional Past Anesthesia/Blood Transfusion Reaction / Comment(s): Pt states she woke from anesthesia very confused in past after lap. brittany., no problems since, no hx. of transfusion reaction Past Psychological History: No Psychological Hx Reported Smoking Status: Never smoker Past Alcohol Use History: None Reported Past Drug Use History: None Reported - Past Family History Mother Family Medical History: Diabetes Mellitus Father Family Medical History: No Reported History Additional Family Medical History / Comment(s): Father is 64 yrs old. General Exam - General Exam Comments Initial Comments: PHYSICAL EXAM: General Impression: Alert and oriented x3, not in acute distress HEENT: Normocephalic atraumatic, extra-ocular movements intact, pupils equal and reactive to light bilaterally, mucous membranes moist. Cardiovascular: Heart regular rate and rhythm Chest: Able to complete full sentences, no retractions, no tachypnea Abdomen: abdomen soft, non-tender, non-distended, no organomegaly Musculoskeletal: Pulses present and equal in all extremities, no peripheral edema Motor: no focal deficits noted Neurological: CN II-XII grossly intact, no focal motor or sensory deficits noted Skin: Intact with no visualized rashes Psych: Normal affect and mood Right lower extremity: Soft compartments, pain over the right soleus, no edema Course Vital Signs 09/30/24 10:58 Temperature 97.9 F Pulse Rate 109 H Respiratory 20 Rate Blood Pressure 140/87 O2 Sat by Pulse 98 Oximetry Medical Decision Making - Medical Decision Making Was pt. sent in by a medical professional or institution (, PA, TRANSFER ENGINEER, urgent care, hospital, or prison...) When possible be specific @ -No Did you speak to anyone other than the patient for history (EMS, parent, family, police, friend...)? What history was obtained from this source @ -No Did you review nursing and triage notes (agree or disagree)? Why? @ -I reviewed and agree with nursing and triage notes Were old charts reviewed (outside hosp., previous admission, EMS record, old EKG, old radiological studies, urgent care reports/EKG's, prison records)? Report findings @ -No old charts were reviewed Differential Diagnosis (chest pain, altered mental status, abdominal pain women, abdominal pain men, vaginal bleeding, musculoskeletal, weakness, fever, dyspnea, syncope, headache, dizziness, GI bleed, back pain, seizure, CVA, palpatations, mental health)? @ -DVT, compartment syndrome, contusion, calf strain EKG interpreted by me (3pts min.). @ -None done X-rays interpreted by me (1pt min.). @ -None done CT interpreted by me (1pt min.). @ -None done U/S interpreted by me (1pt. min.). @ -Ultrasound of the lower extremity shows no DVT What testing was considered but not performed or refused? (CT, X-rays, U/S, labs)? Why? @ -None What meds were considered but not given or refused? Why? @ -None Was smoking cessation discussed for >3mins.? @ -No Were there social determinants of health that impacted care today? How? (Homelessness, low income, unemployed, alcoholism, drug addiction, trans portation, low edu. Level, literacy, decrease access to med. care, fci, rehab)? @ -No Was there de-escalation of care discussed even if they declined (Discuss DNR or withdrawal of care, Hospice)? DNR status @ -No What co-morbidities impacted this encounter? (DM, HTN, Smoking, COPD, CAD, Cancer, CVA, ARF, Chemo, Hep., AIDS, mental health diagnosis, sleep apnea, morbid obesity)? @ -None Was patient admitted / discharged? Hospital course, mention meds given and route, prescriptions, significant lab abnormalities, going to OR and other pertinent info. @ -48-year-old female Pain. Vital signs stable. Patient [place] any chest pain or shortness of breath. She has pain along the lateral aspect of her right lower calf. Ultrasound negative for DVT. Clinical presentation likely secondary to strain. Did you discuss the management of the patient with other professionals (professionals i.e. , PA, TRANSFER ENGINEER, lab, RT, psych nurse, social worker palliative care, diesel mechanic farm, teacher, animal park code enforcement officer, rn case manager)? Give summary @ -No Was critical care preformed (if so, how long)? @ -No Undiagnosed new problem with uncertain prognosis? @ -No Drug Therapy requiring intensive monitoring for toxicity (Heparin, Nitro, Insulin, Cardizem)? @ -No Were any procedures done? @ -No Diagnosis/symptom? Acute, or Chronic, or Acute on Chronic? Uncomplicated (without systemic symptoms) or Complicated (systemic symptoms)? @ -Calf pain Side effects of treatment? @ -No Exacerbation, Progression, or Severe Exacerbation? @ -No Poses a threat to life or bodily function? How? (Chest pain, [place], [place], pneumonia, PE, COPD, DKA, ARF, appy, cholecystitis, CVA, Diverticulitis, Homicidal, Suicidal, threat to staff... and all critical care pts) @ -No Disposition Clinical Impression: Calf pain Disposition: HOME SELF-CARE Condition: Fair Instructions (If sedation given, give patient instructions): Leg Pain (ED) Is patient prescribed a controlled substance at d/c from ED?: No Referrals: Letha South MD [Primary Care Provider] - 1-2 days Time of Disposition: 13:50
[2024-09-30] MEDS: ACETAMINOPHEN TAB 500 MG TAB PO STA (13:22)
--- NOTE | 2024-09-30 13:31 | US ---
EXAMINATION TYPE: US venous doppler duplex LE RT DATE OF EXAM: 09/30/2024 12:25 PM COMPARISON: US 2019 CLINICAL INDICATION: Female, 48 years old with history of calf pain; Intense pain right lateral calf that started this morning and woke patient up. No hx of DVT. Patient does not take blood thinners. No injury. TECHNIQUE: The lower extremity deep venous system is examined utilizing real time linear array sonog malik with graded compression, color doppler sonography, and spectral doppler. SIDE PERFORMED: Right FINDINGS: VESSELS IMAGED: Common Femoral Vein Deep Femoral Vein Greater Saphenous Vein * Femoral Vein Popliteal Vein Small Saphenous Vein * Proximal Calf Veins (* superficial vessels) Right Leg: No evidence of DVT, Color Doppler imaging shows patency of the vessels. Scanned right lateral calf at area of pain. No abnormalities seen by ultrasound. Exam is slightly limited due to edema/pt body habitus. IMPRESSION: No ultrasound evidence for deep venous thrombosis. 1. Right lower extremity ultrasound negative for deep venous thrombosis. [facility], , 09/30/2024 1:29 PM
[2024-09-30 13:58] VITALS: BP 104/72; PULSE 98; RESP 17
== END 2024-09-30 13:58 | disposition home or self-care (01) ==
LOC: EC 10:56
DX: M79.661 Pain in right lower leg (principal)
CPT/HCPCS: 93971; 99284; 96372; J1885

== ENCOUNTER → 2024-10-02 | Outpatient (CLI) | payer OTHER | END | disposition home or self-care (01) | LOC: LABPAT 07:56 | PROVIDERS: ATTEND Urology | DX: Z01.818 Encounter for other preprocedural examination (principal); I10 Essential (primary) hypertension | CPT/HCPCS: 93005 ==

== ENCOUNTER 2024-10-03 08:36 | Day surgery (SDC) | payer OTHER ==
[2024-09-28 11:46] VITALS: BMI 48.6
--- NOTE | 2024-10-03 07:47 | P.HPIHPCON ---
History of Present Illness H&P Date: 10/03/24 Chief Complaint: Right renal stone This is a 48-year-old female with a history of a 9 mm right-sided renal stone. She is symptomatic from her stone. Option of right-sided ureteroscopy with holmium laser was discussed. Discussed also the option of ESWL. She agreed to proceed with right-sided ureteroscopy with holmium laser. She is aware of the risk which includes but not limited to bleeding, infection, injury to the ureter Consent for Procedure: I have explained the operation/procedure to the patient, including the risks, benefits, side effects, alternative therapies (including not receiving the proposed treatment or service), the likelihood of the patient achieving his/her goals, and potential recuperation problems for the procedure/sedation/analgesia, as well as any blood products, if indicated. I also explained to the patient the risks, benefits and side effects of the alternatives, as well as the risks related to not receiving the proposed procedure, care, treatment, or services. Past Medical History Past Medical History: Cancer, Diabetes Mellitus, GERD/Reflux, Hyperlipidemia, Hypertension, Sleep Apnea/CPAP/BIPAP Additional Past Medical History / Comment(s): Current right kidney stone. Intermittent diarrhea since gallbladder removed. Hx colon cancer stage 3 with bowel resection and chemo for 6 months in 2017, cancer recurred in 2018 and 2019 had second round of chemo and immunotherapy completed 04/27. Legs ache a lot from chemotherapy. Hx Aggarwal's Palsy. History of Any Multi-Drug Resistant Organisms: None Reported Past Surgical History: Bowel Resection, Section, Cholecystectomy Additional Past Surgical History / Comment(s): Colon cancer removal 2017, med port placed and removed X2, several colonoscopies. Past Anesthesia/Blood Transfusion Reactions: Previous Problems w/ Anesthesia, Motion Sickness Additional Past Anesthesia/Blood Transfusion Reaction / Comment(s): Woke from anesthesia very confused after gallbladder surgery, no problems since. Hx blood tranfusion with no reaction. Smoking Status: Never smoker - Past Family History Mother Family Medical History: Diabetes Mellitus Father Family Medical History: No Reported History Additional Family Medical History / Comment(s): Father is 64 yrs old. Medications and Allergies Home Medications Medication Instructions Recorded Confirmed Type Famotidine 20 mg PO HS 06/05/21 09/28/24 History Losartan Potassium [Cozaar] 100 mg PO QAM 06/05/21 09/28/24 History Pantoprazole [Protonix] 40 mg PO QAM 06/06/21 09/28/24 History Ferrous Sulfate [Iron] 325 mg PO DAILY 10/09/21 09/28/24 History metFORMIN HCL [Glucophage] 500 mg PO BID 01/05/23 09/28/24 History Fluticasone Nasal [place] [Flonase 2 spr EA NOSTRIL DAILY #16 gm 03/13/23 09/28/24 Rx Nasal [place]] Cholecalciferol [Vitamin D3 (25 25 mcg PO DAILY 12/07/23 09/28/24 History Mcg = 1000 Iu)] Cinnamon Bark [Cinnamon] 500 mg PO DAILY 12/07/23 09/28/24 History Metoprolol Succinate (ER) [Toprol 25 mg PO QAM 12/07/23 09/28/24 History Xl] [place]-3/Dha/Epa/Fish Oil [Fish Oil 1 each PO DAILY 12/07/23 09/28/24 History 1,000 mg Softgel] Rosuvastatin Calcium 5 mg PO HS 12/07/23 09/28/24 History Allergies Allergy/AdvReac Type Severity Reaction Status Date / Time No Known Allergies Allergy Verified 09/30/24 11:03 Surgical - Exam - General no distress, moderate pain - Eyes normal ocular movement, no pale - ENT normal nares, normal mucosa - Respiratory normal expansion, normal respiratory effort Assessment and Plan Assessment: OR for right-sided ureteroscopy, holmium laser lithotripsy, stone basketing and stent insertion
--- NOTE | 2024-10-03 08:58 | XR ---
EXAMINATION TYPE: XR KUB DATE OF EXAM: 10/03/2024 8:47 AM COMPARISON: 06/16/2018 CLINICAL INDICATION: Female, 48 years old with history of Right kidney stone, TECHNIQUE: XR KUB view(s) obtained. FINDINGS: Nonspecific bowel gas is present. A focal ileus over the right mid abdomen may be present. Phlebolith s are within the pelvis. Distal right ureteral stones are not excluded calcifications appear to be an interval finding. Psoas margins are normal. No organomegaly is present. Upper most portion of the abdomen is limited. A few punctate calcifications may overlie the left kidn ey. There is limited visualization of the right kidney IMPRESSION: 1. Nonspecific abdomen. Focal ileus may be over the right mid abdomen. [facility], , 10/03/2024 8:56 AM
[2024-10-03 09:48] VITALS: RESP 16
[2024-10-03 09:59] LABS: Glucose,Whole Blood 130 mg/dL (70-110)
[2024-10-03] MEDS: LACTATED RINGERS 1,000 ML IV SCH (10:21)
[2024-10-03] MEDS: ONDANSETRON 4 MG/2 ML VIAL IVP ONE (10:22)
[2024-10-03] MEDS: DEXAMETHASONE SOD PHOSPHATE 4 MG/ML 1 ML VIAL IV ONE (10:22)
[2024-10-03] MEDS ORDERED: VASOPRESSIN 20 UNIT/ML 1 ML VIAL ONE (10:40)
[2024-10-03] MEDS ORDERED: SUCCINYLCHOLINE CHLORIDE 200 MG/10 ML VIAL IV ONE (10:40)
[2024-10-03] MEDS ORDERED: PHENYLEPHRINE-0.9% NACL SYG 1,000 MCG/10 ML SYRINGE ONE (10:40)
[2024-10-03] MEDS ORDERED: PROPOFOL 10 MG/ML 20 ML VIAL IV ONE (10:40)
[2024-10-03] MEDS ORDERED: fentaNYL (PF) 50 MCG/ML 2 ML AMP ONE (10:40)
[2024-10-03] MEDS ORDERED: MIDAZOLAM 2 MG/2 ML VIAL ONE (10:40)
[2024-10-03] MEDS ORDERED: LIDOCAINE 1% INJ 10MG/ML (20 ML MDV) ONE (10:40)
[2024-10-03] MEDS: IV FLUID CONTINUATION 1,000 ML IV ONE ×2 (10:42→12:03)
[2024-10-03] MEDS: ceFAZolin 3 GM in SODIUM CHLORIDE 0.9% 100 ML IVPB PRN (10:44)
--- NOTE | 2024-10-03 11:52 | P.OP ---
Date of Procedure: 10/03/24 Preoperative Diagnosis: Right renal stone Postoperative Diagnosis: Same Procedure(s) Performed: Cystoscopy, right ureteroscopy, holmium laser lithotripsy, stone basketing and stent insertion Implants: 4.8 Filipino by 24 cm stent into the right ureter Anesthesia: RAND Surgeon: Cristobal Eid Estimated Blood Loss (ml): 5 Pathology: other (Right renal stone) Condition: stable Disposition: PACU Indications for Procedure: This is a 48-year-old female with a history of a 9 mm right-sided renal stone. She is symptomatic from her stone. Option of right-sided ureteroscopy with holmium laser was discussed. Discussed also the option of ESWL. She agreed to proceed with right-sided ureteroscopy with holmium laser. She is aware of the risk which includes but not limited to bleeding, infection, injury to the ureter Operative Findings: Large stone in the right midpole Description of Procedure: Patient brought to the operating room, general anesthesia was induced. She was prepped and draped in sterile fashion and placed in dorsolithotomy position. Cystoscopy fitted through the 21 Filipino sheath was inserted per urethra, cystoscopy was performed showed no abnormality within the bladder. Of note dilan rodriguez did have a stage II cystocele. Attention was then carried to the right ureteral orifice, a sensor wire was advanced under fluoroscopy into the kidney. Next an 1113 Filipino access sheath was passed over the wire under fluoroscopy into the proximal ureter. Next a flexible ureteroscope was inserted through the access sheath, renoscopy was performed that showed a large stone in the midpole. Using the stone basket the stone was positioned to the upper pole for easier access. At this point using the holmium laser the stone was dusted, any sizable fragments were removed using a stone basket. Repeat renoscopy showed no sizable fragments or injury to the kidney, on fluoroscopy there was no radiopaque density seen. Pullback ureteroscopy was performed showed no injury to the ureter or any ureteral stone, as ureteroscope was withdrawn a sensor wire was advanced through. Next a ureteral stent was passed over the wire, the proximal curl was visualized on fluoroscopy and the distal curl was realized using cystoscope. The bladder was emptied at the end of the case. Patient tolerated procedure was taken to recovery in stable condition
[2024-10-03] MEDS: HYDROmorphone 0.5 MG/0.5 ML SYRINGE IVP PRN (11:53)
[2024-10-03] MEDS: KETOROLAC 15 MG/ML 1 ML VIAL IVP STA (12:17)
[2024-10-03 12:29] VITALS: TEMP 97
--- NOTE | 2024-10-03 12:47 | FL ---
Fluoroscopy INDICATION: Pain FINDINGS: Fluoroscopy time: 3.2 seconds. Total dose area product (DAP) in uGy*m?, mGy*cm? (or similar): [id number] Images obtained: 2. Fluoroscopy images document a right ureteral procedure IMPRESSION: 1. Documentation of fluoroscopy. [facility], , 10/03/2024 12:45 PM
[2024-10-03 13:05] VITALS: BP 135/78; PULSE 87
== END 2024-10-03 13:22 | disposition home or self-care (01) ==
LOC: OR 08:36
PROVIDERS: ATTEND Urology
DX: N20.0 Calculus of kidney (principal); N81.10 Cystocele, unspecified; I10 Essential (primary) hypertension; E11.9 Type 2 diabetes mellitus without complications; E78.5 Hyperlipidemia, unspecified; G47.33 Obstructive sleep apnea (adult) (pediatric); K21.9 Gastro-esophageal reflux disease without esophagitis; Z91.89 Other specified personal risk factors, not elsewhere classified; Z79.84 Long term (current) use of oral hypoglycemic drugs; Z79.899 Other long term (current) drug therapy; Z85.038 Personal history of other malignant neoplasm of large intestine; Z90.49 Acquired absence of other specified parts of digestive tract
CPT/HCPCS: 52356; 81025; 82365; 74018; C2625; C1769; J2250; J0330; J1100; J0690; J2405; J2003; J3010; J1885; J2704; J1171; J2371

== ENCOUNTER 2024-10-05 09:41 | Emergency (ER) | payer OTHER ==
--- NOTE | 2024-10-05 10:25 | ED ---
Recheck HPI - General Source: patient, RN notes reviewed Mode of arrival: ambulatory Limitations: no limitations <Julia Francisco - Last Filed: 10/05/24 10:25> - General Source: patient, RN notes reviewed Mode of arrival: ambulatory Limitations: no limitations <Bobby Medina - Last Filed: 10/05/24 16:06> - General Chief Complaint: Recheck/Abnormal Lab/Rx Stated Complaint: bilateral leg pain and arm pain Time Seen by Provider: 10/05/24 10:25 - History of Present Illness Initial Comments: Quick note: 48-year-old female presented to the ER for evaluation of generalized bodyaches. Patient states she underwent kidney stone removal with stent placement with Dr. Eid on 10/03/24. She states she has extreme pain to bilateral thighs and arms. Admits to fevers last night. Patient noted also admits to cough and congestion. (Julia Francisco) Patient is a 48-year-old female present to the emergency department with several complaints. Patient states she did have kidney stone removal and stent placement 1 week ago. Patient states the past day or so she has had generalized aches. Patient feels swollen all over, legs and arms. No fever. Patient has had a cough. Patient does have some discomfort left flank however states that it is chronic since she had stent placement and no worse. Patient still has had some hematuria. (Bobby Medina) - Related Data Home Medications Medication Instructions Recorded Confirmed Famotidine 20 mg PO HS 06/05/21 10/03/24 Losartan Potassium [Cozaar] 100 mg PO QAM 06/05/21 09/28/24 Pantoprazole [Protonix] 40 mg PO QAM 06/06/21 09/28/24 Ferrous Sulfate [Iron] 325 mg PO DAILY 10/09/21 09/28/24 metFORMIN HCL [Glucophage] 500 mg PO BID 01/05/23 10/03/24 Cholecalciferol [Vitamin D3 (25 25 mcg PO DAILY 12/07/23 09/28/24 Mcg = 1000 Iu)] Cinnamon Bark [Cinnamon] 500 mg PO DAILY 12/07/23 09/28/24 Metoprolol Succinate (ER) [Toprol 25 mg PO QAM 12/07/23 09/28/24 Xl] [place]-3/Dha/Epa/Fish Oil [Fish Oil 1 each PO DAILY 12/07/23 09/28/24 1,000 mg Softgel] Rosuvastatin Calcium 5 mg PO HS 12/07/23 09/28/24 Previous Rx's Medication Instructions Recorded Fluticasone Nasal [place] [Flonase 2 spr EA NOSTRIL DAILY #16 gm 03/13/23 Nasal [place]] Ketorolac [Toradol] 10 mg PO Q6HR PRN #10 tab 10/03/24 Sulfamethox-Tmp 800-160Mg [Bactrim 1 tab PO Q12HR 5 Days #10 tab 10/03/24 DS 800-160 mg] Cephalexin [Keflex] 500 mg PO TID #30 cap 10/05/24 Allergies Allergy/AdvReac Type Severity Reaction Status Date / Time No Known Allergies Allergy Verified 10/05/24 10:00 Review of Systems ROS Other: All systems not noted in ROS Statement are negative. <Julia Francisco - Last Filed: 10/05/24 10:25> ROS Other: All systems not noted in ROS Statement are negative. Constitutional: Denies: fever Eyes: Denies: eye pain ENT: Denies: ear pain Respiratory: Reports: as per HPI, cough Cardiovascular: Denies: chest pain Gastrointestinal: Reports: as per HPI Genitourinary: Reports: hematuria Neurological: Denies: weakness <Bobby Medina - Last Filed: 10/05/24 16:06> ROS Statement: Those systems with pertinent positive or pertinent negative responses have been documented in the HPI. Past Medical History Past Medical History: Cancer, Diabetes Mellitus, GERD/Reflux, Hyperlipidemia, Hypertension, Sleep Apnea/CPAP/BIPAP Additional Past Medical History / Comment(s): Intermittent diarrhea since gallbladder surgery, colon cancer stage 3 received chemotherapy for 6 months completed 04/24/19 (second round), port a cath, received immunotherapy none since 04/27. kidney stones History of Any Multi-Drug Resistant Organisms: None Reported Past Surgical History: Bowel Resection, Section, Cholecystectomy Additional Past Surgical History / Comment(s): colon CA removal, med port placed and removed x2, several colonoscopies Past Anesthesia/Blood Transfusion Reactions: Previous Problems w/ Anesthesia, Motion Sickness Additional Past Anesthesia/Blood Transfusion Reaction / Comment(s): Pt states she woke from anesthesia very confused in past after lap. brittany., no problems since, no hx. of transfusion reaction Past Psychological History: No Psychological Hx Reported Smoking Status: Never smoker Past Alcohol Use History: None Reported Past Drug Use History: None Reported - Past Family History Mother Family Medical History: Diabetes Mellitus Father Family Medical History: No Reported History Additional Family Medical History / Comment(s): Father is 64 yrs old. <Julia Francisco - Last Filed: 10/05/24 10:25> General Exam Limitations: no limitations <Julia Francisco - Last Filed: 10/05/24 10:25> Limitations: no limitations General appearance: alert, in no apparent distress Head exam: Present: normocephalic Eye exam: Present: normal appearance Neck exam: Present: normal inspection Respiratory exam: Present: normal lung sounds bilaterally Cardiovascular Exam: Present: regular rate, normal rhythm Expanded Peripheral pulses: 2+: Radial (R), Radial (L), Dorsalis Pedis (R), Dorsalis Pedis (L) GI/Abdominal exam: Present: soft. Absent: tenderness Extremities exam: Present: pedal edema (+1 bilateral). Absent: calf tenderness Neurological exam: Present: alert. Absent: motor sensory deficit Psychiatric exam: Present: normal affect, normal mood Skin exam: Present: normal color <Bobby Medina Last Filed: 10/05/24 16:06> - General Exam Comments Initial Comments: Visual Physical Exam Vital signs reviewed General: Well-appearing, nontoxic, no acute distress. Head: Normocephalic, atraumatic Eyes: PERRLA, EOMI ENT: Airway patent Chest: Nonlabored breathing Skin: No visual rash, normal skin tone Neuro: Alert and oriented 3 Musculoskeletal: No gross abnormalities (Julia Francisco) Course Vital Signs 10/05/24 10/05/24 09:58 14:01 Temperature 98.5 F 97.8 F Pulse Rate 91 88 Respiratory 18 17 Rate Blood Pressure 132/93 121/82 O2 Sat by Pulse 99 98 Oximetry Medical Decision Making <Julia Francisco - Last Filed: 10/05/24 10:25> - Lab Data Result diagrams: 10/05/24 11:09 10/05/24 11:09 <Bobby Medina Last Filed: 10/05/24 16:06> - Medical Decision Making I performed the quick note portion of this chart. Electronically signed by Julia Francisco PA-C (Julia Francisco) Was pt. sent in by a medical professional or institution (LIZZETH Samuel, OIL EXPELLER, urgent care, hospital, or intermediate...) When possible be specific @ -No Did you speak to anyone other than the patient for history (EMS, parent, family, police, friend...)? What history was obtained from this source @ -No Did you review nursing and triage notes (agree or disagree)? Why? @ -I reviewed and agree with nursing and triage notes Were old charts reviewed (outside hosp., previous admission, EMS record, old EKG, old radiological studies, urgent care reports/EKG's, intermediate records)? Report findings @ -Previous procedure and notes reviewed Differential Diagnosis (chest pain, altered mental status, abdominal pain women, abdominal pain men, vaginal bleeding, weakness, fever, dyspnea, syncope, headache, dizziness, GI bleed, back pain, seizure, CVA, palpatations, mental health, musculoskeletal)? @ -Differential Weakness: Hypoglycemia, shock, sepsis, hyponatremia, anemia, infection, AK, ETOH, adverse medicine reaction, overdose, stroke, this is not meant to be an all-inclusive list. EKG interpreted by me (3pts min.). @ -As above X-rays interpreted by me (1pt min.). @ -Chest x-ray does not reveal acute abnormality CT interpreted by me (1pt min.). @ -None done U/S interpreted by me (1pt. min.). @ -Bilateral lower extremity ultrasound negative for DVT. Renal ultrasound shows stent placed. Questionable stone. What testing was considered but not performed or refused? (CT, X-rays, U/S, labs)? Why? @ -None What meds were considered but not given or refused? Why? @ -None Did you discuss the management of the patient with other professionals (professionals i.e. LIZZETH Samuel, OIL EXPELLER, lab, RT, psych nurse, geriatric social worker, joiner apprentice, teacher, environmental protection officer, rn case management)? Give summary @ -Case discussed with Dr. Powell who is familiar with this patient and is comfo rtable with discharge home with oral antibiotics. Was smoking cessation discussed for >3mins.? @ -No Was critical care preformed (if so, how long)? @ -No Were there social determinants of health that impacted care today? How? (Homelessness, low income, unemployed, alcoholism, drug addiction, trans portation, low edu. Level, literacy, decrease access to med. care, fpc, rehab)? @ -No Was there de-escalation of care discussed even if they declined (Discuss DNR or withdrawal of care, Hospice)? DNR status @ -No What co-morbidities impacted this encounter? (DM, HTN, Smoking, COPD, CAD, Cancer, CVA, ARF, Chemo, Hep., AIDS, mental health diagnosis, sleep apnea, morbid obesity)? @ -Patient presents with recent uretral stent placement. Was patient admitted / discharged? Hospital course, mention meds given and route, prescriptions, significant lab abnormalities, going to OR and other pertinent info. @ -Patient presents with several complaints post stent placement. Evaluation unremarkable except for some red cells and white cells in the urine. Patient will be discharged with antibiotics. Patient was reevaluated and does feel better. Patient updated on results and plan Undiagnosed new problem with uncertain prognosis? @ -No Drug Therapy requiring intensive monitoring for toxicity (Heparin, Nitro, Insulin, Cardizem)? @ -No Were any procedures done? @ -No Diagnosis/symptom? @ -Edema, UTI Acute, or Chronic, or Acute on Chronic? @ -Acute, acute great Uncomplicated (without systemic symptoms) or Complicated (systemic symptoms)? @ -Default Side effects of treatment? @ -No Exacerbation, Progression, or Severe Exacerbation? @ -No Poses a threat to life or bodily function? How? (Chest pain, [place], AK, pneumonia, PE, COPD, DKA, ARF, appy, cholecystitis, CVA, Diverticulitis, Homicidal, Suicidal, threat to staff... and all critical care pts) @ -No (Bobby Medina) - Lab Data Lab Results 10/05/24 10/05/24 10/05/24 Range/Units 11:07 11:07 11:09 WBC 9.8 (3.8-10.6) k/uL RBC 5.39 (3.80-5.40) m/uL Hgb 14.3 (11.4-16.0) gm/dL Hct 44.9 (34.0-46.0) % MCV 83.2 (80.0-100.0) fL MCH 26.5 (25.0-35.0) pg MCHC 31.9 (31.0-37.0) g/dL RDW 14.5 (11.5-15.5) % Plt Count 285 (150-450) k/uL MPV 9.0 Neutrophils % 65 % Lymphocytes % 25 % Monocytes % 6 % Eosinophils % 3 % Basophils % 0 % Neutrophils # 6.4 (1.3-7.7) k/uL Lymphocytes # 2.4 (1.0-4.8) k/uL Monocytes # 0.6 (0-1.0) k/uL Eosinophils # 0.3 (0-0.7) k/uL Basophils # 0.0 (0-0.2) k/uL Sodium (137-145) mmol/L Potassium (3.5-5.1) mmol/L Chloride (98-107) mmol/L Carbon Dioxide (22-30) mmol/L Anion Gap mmol/L BUN (7-17) mg/dL Creatinine (0.52-1.04) mg/dL Est GFR (CKD-EPI)AfAm (>60 ml/min/1.73 sqM) Est GFR (CKD-EPI)NonAf (>60 ml/min/1.73 sqM) Glucose (74-99) mg/dL Plasma Lactic Acid [place] (0.7-2.0) mmol/L Calcium (8.4-10.2) mg/dL Total Bilirubin (0.2-1.3) mg/dL AST (14-36) U/L ALT (4-34) U/L Alkaline Phosphatase (38-126) U/L Creatine Kinase (30-135) U/L Troponin I (0.000-0.034) ng/mL NT-Pro-B Natriuret Pep pg/mL Total Protein (6.3-8.2) g/dL Albumin (3.5-5.0) g/dL Urine Color Light Red Urine Appearance Cloudy H (Clear) Urine pH 6.0 (5.0-8.0) Ur Specific [place] 1.019 (1.001-1.035) Urine Protein 1+ H (Negative) Urine Glucose (UA) Negative (Negative) Urine Ketones Negative (Negative) Urine Blood Large H (Negative) Urine Nitrite Negative (Negative) Urine Bilirubin Negative (Negative) Urine Urobilinogen <2.0 (<2.0) mg/dL Ur Leukocyte Esterase Large H (Negative) Urine RBC >182 H (0-5) /hpf Urine WBC 53 H (0-5) /hpf Ur Squamous Epith Cells 1 (0-4) /hpf Urine Bacteria Rare H (None) /hpf Urine Mucus Occasional H (None) /hpf Urine HCG, Qual Not Detected (Not Detectd) Influenza Type A (PCR) (Not Detectd) Influenza Type B (PCR) (Not Detectd) RSV (PCR) (Not Detectd) SARS-CoV-2 (PCR) (Not Detectd) 10/05/24 10/05/24 10/05/24 Range/Units 11:09 11:09 11:09 WBC (3.8-10.6) k/uL RBC (3.80-5.40) m/uL Hgb (11.4-16.0) gm/dL Hct (34.0-46.0) % MCV (80.0-100.0) fL MCH (25.0-35.0) pg MCHC (31.0-37.0) g/dL RDW (11.5-15.5) % Plt Count (150-450) k/uL MPV Neutrophils % % Lymphocytes % % Monocytes % % Eosinophils % % Basophils % % Neutrophils # (1.3-7.7) k/uL Lymphocytes # (1.0-4.8) k/uL Monocytes # (0-1.0) k/uL Eosinophils # (0-0.7) k/uL Basophils # (0-0.2) k/uL Sodium 136 L (137-145) mmol/L Potassium 5.2 H (3.5-5.1) mmol/L Chloride 105 (98-107) mmol/L Carbon Dioxide 22 (22-30) mmol/L Anion Gap 9 mmol/L BUN 17 (7-17) mg/dL Creatinine 1.05 H (0.52-1.04) mg/dL Est GFR (CKD-EPI)AfAm 73 (>60 ml/min/1.73 sqM) Est GFR (CKD-EPI)NonAf 63 (>60 ml/min/1.73 sqM) Glucose 110 H (74-99) mg/dL Plasma Lactic Acid [place] 1.2 (0.7-2.0) mmol/L Calcium 9.3 (8.4-10.2) mg/dL Total Bilirubin 0.9 (0.2-1.3) mg/dL AST 37 H (14-36) U/L ALT 22 (4-34) U/L Alkaline Phosphatase 55 (38-126) U/L Creatine Kinase (30-135) U/L Troponin I (0.000-0.034) ng/mL NT-Pro-B Natriuret Pep pg/mL Total Protein 7.4 (6.3-8.2) g/dL Albumin 4.3 (3.5-5.0) g/dL Urine Color Urine Appearance (Clear) Urine pH (5.0-8.0) Ur Specific [place] (1.001-1.035) Urine Protein (Negative) Urine Glucose (UA) (Negative) Urine Ketones (Negative) Urine Blood (Negative) Urine Nitrite (Negative) Urine Bilirubin (Negative) Urine Urobilinogen (<2.0) mg/dL Ur Leukocyte Esterase (Negative) Urine RBC (0-5) /hpf Urine WBC (0-5) /hpf Ur Squamous Epith Cells (0-4) /hpf Urine Bacteria (None) /hpf Urine Mucus (None) /hpf Urine HCG, Qual (Not Detectd) Influenza Type A (PCR) Not Detected (Not Detectd) Influenza Type B (PCR) Not Detected (Not Detectd) RSV (PCR) Not Detected (Not Detectd) SARS-CoV-2 (PCR) Not Detected (Not Detectd) 10/05/24 10/05/24 Range/Units 11:09 11:09 WBC (3.8-10.6) k/uL RBC (3.80-5.40) m/uL Hgb (11.4-16.0) gm/dL Hct (34.0-46.0) % MCV (80.0-100.0) fL MCH (25.0-35.0) pg MCHC (31.0-37.0) g/dL RDW (11.5-15.5) % Plt Count (150-450) k/uL MPV Neutrophils % % Lymphocytes % % Monocytes % % Eosinophils % % Basophils % % Neutrophils # (1.3-7.7) k/uL Lymphocytes # (1.0-4.8) k/uL Monocytes # (0-1.0) k/uL Eosinophils # (0-0.7) k/uL Basophils # (0-0.2) k/uL Sodium (137-145) mmol/L Potassium (3.5-5.1) mmol/L Chloride (98-107) mmol/L Carbon Dioxide (22-30) mmol/L Anion Gap mmol/L BUN (7-17) mg/dL Creatinine (0.52-1.04) mg/dL Est GFR (CKD-EPI)AfAm (>60 ml/min/1.73 sqM) Est GFR (CKD-EPI)NonAf (>60 ml/min/1.73 sqM) Glucose (74-99) mg/dL Plasma Lactic Acid [place] (0.7-2.0) mmol/L Calcium (8.4-10.2) mg/dL Total Bilirubin (0.2-1.3) mg/dL AST (14-36) U/L ALT (4-34) U/L Alkaline Phosphatase (38-126) U/L Creatine Kinase 186 H (30-135) U/L Troponin I <0.012 (0.000-0.034) ng/mL NT-Pro-B Natriuret Pep 873 pg/mL Total Protein (6.3-8.2) g/dL Albumin (3.5-5.0) g/dL Urine Color Urine Appearance (Clear) Urine pH (5.0-8.0) Ur Specific [place] (1.001-1.035) Urine Protein (Negative) Urine Glucose (UA) (Negative) Urine Ketones (Negative) Urine Blood (Negative) Urine Nitrite (Negative) Urine Bilirubin (Negative) Urine Urobilinogen (<2.0) mg/dL Ur Leukocyte Esterase (Negative) Urine RBC (0-5) /hpf Urine WBC (0-5) /hpf Ur Squamous Epith Cells (0-4) /hpf Urine Bacteria (None) /hpf Urine Mucus (None) /hpf Urine HCG, Qual (Not Detectd) Influenza Type A (PCR) (Not Detectd) Influenza Type B (PCR) (Not Detectd) RSV (PCR) (Not Detectd) SARS-CoV-2 (PCR) (Not Detectd) Disposition <Julia Francisco - Last Filed: 10/05/24 10:25> Is patient prescribed a controlled substance at d/c from ED?: No Time of Disposition: 16:06 <AdamBobby - Last Filed: 10/05/24 16:06> Clinical Impression: UTI (urinary tract infection) Disposition: HOME SELF-CARE Condition: Stable Instructions (If sedation given, give patient instructions): Urinary Tract Infection in Women (ED) Additional Instructions: Prescription sent to pharmacy. Please do follow-up with your primary care physician in the next couple of days for recheck. Please also follow-up with your urologist in the next couple of days for recheck. Return for increased swelling, pain, weakness, fevers, vomiting, worsening symptoms or other concerns. Prescriptions: Cephalexin [Keflex] 500 mg PO TID #30 cap Referrals: Letha South MD [Primary Care Provider] - 1-2 days Cristobal Eid MD [STAFF PHYSICIAN] - 1-2 days
[2024-10-05 11:29] LABS: Appearance,Urine Cloudy (Clear); Bacteria,Urine Rare /hpf; Bilirubin,Urine Negative (Negative); Blood,Urine Large (Negative); Color,Urine Light Red; Glucose,Urine (UA) Negative (Negative); Ketones,Urine Negative (Negative); Leukocyte Esterase,Urine Large (Negative); Mucus,Urine Occasional /hpf; Nitrite,Urine Negative (Negative); Protein,Urine 1+ (Negative); RBC,Urine >182 /hpf (0-5); Specific Gravity,Urine 1.019 (1.001-1.035); Squamous Epithelial Cell,Urine 1 /hpf (0-4); Urobilinogen,Urine <2.0 mg/dL (<2.0); WBC,Urine 53 /hpf (0-5)
[2024-10-05 11:30] LABS: Basophils % (A) 0 %; Eosinophils # (A) 0.3 k/uL (0-0.7); Eosinophils % (A) 3 %; HCT 44.9 % (34.0-46.0); HGB 14.3 gm/dL (11.4-16.0); Lymphocytes # (A) 2.4 k/uL (1.0-4.8); Lymphocytes % (A) 25 %; MCH 26.5 pg (25.0-35.0); MCHC 31.9 g/dL (31.0-37.0); MCV 83.2 fL (80.0-100.0); Monocytes # (A) 0.6 k/uL (0-1.0); Monocytes % (A) 6 %; Neutrophils # (A) 6.4 k/uL (1.3-7.7); Neutrophils % (A) 65 %; Platelet Count 285 k/uL (150-450); RBC 5.39 m/uL (3.80-5.40); RDW 14.5 % (11.5-15.5); WBC 9.8 k/uL (3.8-10.6)
[2024-10-05 11:31] LABS: ALT 22 U/L (4-34); African American GFR (CKD) 73 (>60 ml/min/1.73 sqM); Albumin 4.3 g/dL (3.5-5.0); Anion Gap 9 mmol/L; Blood Urea Nitrogen 17 mg/dL (7-17); Calcium 9.3 mg/dL (8.4-10.2); Carbon Dioxide 22 mmol/L (22-30); Chloride 105 mmol/L (98-107); Glucose 110 mg/dL (74-99); Non-African American GFR(CKD) 63 (>60 ml/min/1.73 sqM); Sodium 136 mmol/L (137-145); Total Bilirubin 0.9 mg/dL (0.2-1.3); Total Protein 7.4 g/dL (6.3-8.2)
[2024-10-05 11:38] LABS: AST 37 U/L (14-36); Alkaline Phosphatase 55 U/L (38-126); Potassium 5.2 mmol/L (3.5-5.1)
[2024-10-05 11:57] LABS: Influenza A Not Detected (Not Detectd); Influenza B Not Detected (Not Detectd); RSV Not Detected (Not Detectd)
[2024-10-05 13:14] LABS: Creatine Kinase 186 U/L (30-135)
[2024-10-05 13:25] LABS: NT-Pro-B-Type Natriuretic Pept 873 pg/mL
--- NOTE | 2024-10-05 13:54 | US ---
EXAMINATION TYPE: US kidneys/renal and bladder DATE OF EXAM: 10/05/2024 COMPARISON: CT CLINICAL INDICATION: Female, 48 years old with history of stent; Pt states history of renal stones, r ecent right kidney stent placement TECHNIQUE: Grayscale imaging of the bilateral kidneys and urinary bladder: FINDINGS: EXAM MEASUREMENTS: Right Kidney: 10.0 x 5.2 x 5.9 cm Left Kidney: 10.4 x 5.9 x 5.7 cm Right Kidney: Renal pelvis mildly dilated, possible calculi at mid= 7mm Left Kidney: No evidence of hydro, possible calculi mid= 6mm Bladder: wnl Bilateral Jets seen: No IMPRESSION: 1. Nonobstructing bilateral renal stones [facility], , 10/05/2024 1:52 PM
--- NOTE | 2024-10-05 13:55 | US ---
EXAMINATION TYPE: US venous doppler duplex LE DATE OF EXAM: 10/05/2024 1:34 PM COMPARISON: US CLINICAL INDICATION: Female, 48 years old with history of edema; Pain bilateral legs, Pain TECHNIQUE: The lower extremity deep venous system is examined utilizing real time linear array sonog malik with graded compression, color doppler sonography, and spectral doppler. SIDE PERFORMED: Bilateral FINDINGS: VESSELS IMAGED: Common Femoral Vein Deep Femoral Vein Greater Saphenous Vein * Femoral Vein Popliteal Vein Small Saphenous Vein * Proximal Calf Veins (* superficial vessels) Right Leg: Negative for DVT, Color Doppler imaging shows patency of the vessels. Spectral waveforms are within normal limits. Left Leg: Negative for DVT, Color Doppler imaging shows patency of the vessels. Spectral waveforms a re within normal limits. IMPRESSION: 1. Bilateral lower extremity ultrasound negative for venous thrombosis. [facility], , 10/05/2024 1:53 PM
[2024-10-05] MEDS: FUROSEMIDE 10 MG/ML 4 ML VIAL IV STA (14:00)
[2024-10-05] MEDS: MORPHINE SULFATE 4 MG/ML SYRINGE IVP STA (14:01)
--- NOTE | 2024-10-05 15:00 | XR ---
EXAMINATION TYPE: XR chest 2V DATE OF EXAM: 10/05/2024 2:55 PM COMPARISON: 10/22/2021 CLINICAL INDICATION: Female, 48 years old with history of edema, TECHNIQUE: XR chest 2V view(s) obtained. FINDINGS: The heart size is normal. The pulmonary vasculature is normal. The lungs are clear. IMPRESSION: 1. No acute pulmonary process. [facility], , 10/05/2024 2:58 PM
[2024-10-05 17:45] VITALS: BP 110/76; PULSE 89; RESP 19; TEMP 98.2
== END 2024-10-05 17:30 | disposition home or self-care (01) ==
LOC: EC 09:41
DX: N39.0 Urinary tract infection, site not specified (principal); N20.0 Calculus of kidney; Z87.442 Personal history of urinary calculi
CPT/HCPCS: 36415; 83880; 80053; 82550; 83605; 84484; 85025; 81001; 81025; 87086; 87636; 71046; 76770; 93970; 99284; 96374; 96375; J2270; J1940

== ENCOUNTER 2025-01-11 06:28 | Day surgery (SDC) | payer OTHER ==
[2025-01-10 09:09] VITALS: BMI 47.9
[2025-01-11] MEDS ORDERED: LIDOCAINE 1% (10MG/ML) FOR IV START INTRADERMA PRN (06:29)
[2025-01-11] MEDS ORDERED: LACTATED RINGERS 1,000 ML IV SCH (06:29)
[2025-01-11] MEDS: IV FLUID CONTINUATION 1,000 ML IV ONE (07:10)
[2025-01-11 07:33] LABS: Glucose,Whole Blood 144 mg/dL (70-110)
[2025-01-11 07:54] VITALS: RESP 16; TEMP 98
[2025-01-11] MEDS ORDERED: PROPOFOL 10 MG/ML 20 ML VIAL IV ONE (08:18)
--- NOTE | 2025-01-11 08:19 | P.GSHP ---
History of Present Illness H&P Date: 01/11/25 Chief Complaint: History of colon cancer Is a 41-year-old female. History of colon cancer. Patient presents today for colonoscopy. Patient underwent right colectomy in 2017. Past Medical History Past Medical History: Cancer, Diabetes Mellitus, GERD/Reflux, Hyperlipidemia, Hypertension, Sleep Apnea/CPAP/BIPAP Additional Past Medical History / Comment(s): Intermittent diarrhea since gallbladder surgery, colon cancer stage 3 received chemotherapy for 6 months completed 04/24/19 (second round), port a cath-REMOVED, received immunotherapy none since 04/27, kidney stones History of Any Multi-Drug Resistant Organisms: None Reported Past Surgical History: Bowel Resection, Section, Cholecystectomy Additional Past Surgical History / Comment(s): colon CA removal, med port placed and removed x2, several colonoscopies, CYSTOSCOPY WITH LITHOTRIPSY Past Anesthesia/Blood Transfusion Reactions: Previous Problems w/ Anesthesia, Motion Sickness Additional Past Anesthesia/Blood Transfusion Reaction / Comment(s): Pt states she woke from anesthesia very confused in past after lap. brittany., no problems since, no hx. of transfusion reaction Smoking Status: Never smoker - Past Family History Mother Family Medical History: Diabetes Mellitus Father Family Medical History: No Reported History Additional Family Medical History / Comment(s): Father is 64 yrs old. Medications and Allergies Home Medications Medication Instructions Recorded Confirmed Type Famotidine 20 mg PO HS 06/05/21 01/11/25 History Losartan Potassium [Cozaar] 100 mg PO QAM 06/05/21 01/11/25 History Pantoprazole [Protonix] 40 mg PO QAM 06/06/21 01/11/25 History Ferrous Sulfate [Iron] 325 mg PO DAILY 10/09/21 01/11/25 History metFORMIN HCL [Glucophage] 500 mg PO BID 01/05/23 01/11/25 History Fluticasone Nasal [place] [Flonase 2 spr EA NOSTRIL DAILY #16 gm 03/13/23 01/11/25 Rx Nasal [place]] Cholecalciferol [Vitamin D3 (25 25 mcg PO DAILY 12/07/23 01/11/25 History Mcg = 1000 Iu)] Metoprolol Succinate (ER) [Toprol 25 mg PO QAM 12/07/23 01/11/25 History Xl] [place]-3/Dha/Epa/Fish Oil [Fish Oil 1 each PO DAILY 12/07/23 01/11/25 History 1,000 mg Softgel] Rosuvastatin Calcium 5 mg PO HS 12/07/23 01/11/25 History Allergies Allergy/AdvReac Type Severity Reaction Status Date / Time No Known Allergies Allergy Verified 01/11/25 07:50 Surgical - Exam Vital Signs Temp Pulse Resp BP Pulse Ox 98 F 106 H 16 128/85 97 01/11/25 07:30 01/11/25 07:30 01/11/25 07:30 01/11/25 07:30 01/11/25 07:30 - General well developed, well nourished, no distress - Eyes PERRL - ENT normal pinna - Neck no masses - Respiratory normal expansion - Cardiovascular Rhythm: regular - Abdomen Abdomen: soft, non tender Results - Labs Abnormal Lab Results - Last 24 Hours (Table) 01/11/25 Range/Units 07:32 POC Glucose (mg/dL) 144 H (70-110) mg/dL Assessment and Plan Assessment: History of colon cancer. Will perform colonoscopy.
--- NOTE | 2025-01-11 08:31 | P.OP ---
Date of Procedure: 01/11/25 Preoperative Diagnosis: History of colon cancer Postoperative Diagnosis: Rectal polyp Procedure(s) Performed: Colonoscopy Anesthesia: MAC Surgeon: Bharat Stein Pathology: other (Rectal polyp) Condition: stable Disposition: PACU Description of Procedure: The patient was placed on the endoscopy table in the lateral position. He received IV sedation. Digital rectal exam was performed this revealed no abnormality. Flex colonoscope was then placed patient Anaspaz throughout the entire colon. Patient with previous right colectomy. The ileocolonic anastomosis was visualized. The transverse colon, descending colon and sigmoid colon appeared normal. In the rectum there is a small sessile polyp. This removed with a cold forcep. Scope was withdrawn from the patient.
[2025-01-11 08:39] VITALS: PULSE 80
[2025-01-11 09:03] VITALS: BP 100/59
== END 2025-01-11 09:25 | disposition home or self-care (01) ==
LOC: ORWHC2ENDO 06:28
PROVIDERS: ATTEND Surgery
DX: Z12.11 Encounter for screening for malignant neoplasm of colon (principal); K62.1 Rectal polyp; I10 Essential (primary) hypertension; E11.9 Type 2 diabetes mellitus without complications; E78.5 Hyperlipidemia, unspecified; G47.33 Obstructive sleep apnea (adult) (pediatric); K21.9 Gastro-esophageal reflux disease without esophagitis; Z91.89 Other specified personal risk factors, not elsewhere classified; Z79.84 Long term (current) use of oral hypoglycemic drugs; Z79.899 Other long term (current) drug therapy; Z85.038 Personal history of other malignant neoplasm of large intestine; Z90.49 Acquired absence of other specified parts of digestive tract
CPT/HCPCS: 45380; 81025; 88305; J2704

== ENCOUNTER → 2025-01-30 | Outpatient (CLI) | payer OTHER ==
--- NOTE | 2025-01-30 13:30 | MM ---
Reason for Exam: Screening (asymptomatic). Last mammogram was performed 1 year(s) and 1 month(s) ago. Patient History: Menarche at age 13. First Full-Term at age 24. Postmenopausal. Colorectal cancer, age 42. Previous chemotherapy at age 42. Maternal cousin (2nd) had breast cancer, age 33. Risk Values: Aye 5 year model risk: 0.8%. NCI Lifetime model risk: 8.2%. Prior Study Comparison: 10/16/2020 Bilateral Screening Mammogram, [facility]. 10/16/2020 Right Diagnostic Mammogram, [facility]. 12/21/2022 Bilateral MG 3D screening mammo w/cad, [facility]. 12/23/2023 Bilateral MG 3D screening mammo w/cad, [facility]. Tissue Density: The breasts are almost entirely fatty. Findings: Analyzed By CAD. Right breast: There is no suspicious group of microcalcifications or new suspicious mass. Benign-appearing calcifications right breast. Left breast: There is no suspicious group of microcalcifications or new suspicious mass. Benign-appearing calcifications left breast. Overall Assessment: Benign, BI-RAD 2 Management: Screening Mammogram of both breasts in [address] [facility] will attempt to contact patient to return for supplemental views and ultrasound if indicated. Patient should continue monthly self-breast exams. A clinical breast exam by your physician is recommended on an annual basis. This exam should not preclude additional follow-up of suspicious palpable abnormalities. Note on Aye scores and lifetime risk: 1. A Aye score greater than 3% is considered moderate risk. If this is the case, consider specialist referral to assess eligibility for a risk reducing agent. 2. If overall lifetime risk for the development of breast cancer is 20% or higher, the patient may qualify for future screening with alternating mammogram and breast MRI. [facility], , 01/30/2025 1:26 PM. Electronically signed and approved by: Rajat Khan DO
== END | disposition home or self-care (01) ==
LOC: RADMAMWWP 12:27
PROVIDERS: ATTEND Internal Medicine Hematology & Oncology
DX: Z12.31 Encounter for screening mammogram for malignant neoplasm of breast (principal); R92.313 Mammographic fatty tissue density, bilateral breasts; Z78.0 Asymptomatic menopausal state; Z80.3 Family history of malignant neoplasm of breast
CPT/HCPCS: 77063; 77067

== ENCOUNTER 2025-02-24 08:06 | Emergency (ER) | payer OTHER ==
--- NOTE | 2025-02-24 08:39 | ED ---
General Adult HPI - General Chief complaint: Urogenital Stated complaint: Bladder issues, vaginal bleeding Time Seen by Provider: 02/24/25 08:11 Source: patient, RN notes reviewed Mode of arrival: ambulatory Limitations: no limitations - History of Present Illness Initial comments: 49-year-old female presenting to emergency department with complaints of pelvic pressure, dysuria, hematuria, and vaginal bleeding over the past week. Patient states that she has a history of a bladder prolapse where she is followed with Dr. Eid outpatient in the spring where he recommended supportive treatment. She reports that over the last week she has been having increasing pelvic pressure and worsening prolapse where she goes to reduce the prolapse however it continuously prolapses. She states that she has been having dysuria, hematuria, vaginal discharge. Endorses chills and nausea with no reported fevers or emesis. Denies constipation. Previous section. - Related Data Home Medications Medication Instructions Recorded Confirmed Famotidine 20 mg PO HS 06/05/21 01/11/25 Losartan Potassium [Cozaar] 100 mg PO QAM 06/05/21 01/11/25 Pantoprazole [Protonix] 40 mg PO QAM 06/06/21 01/11/25 Ferrous Sulfate [Iron] 325 mg PO DAILY 10/09/21 01/11/25 metFORMIN HCL [Glucophage] 500 mg PO BID 01/05/23 01/11/25 Cholecalciferol [Vitamin D3 (25 25 mcg PO DAILY 12/07/23 01/11/25 Mcg = 1000 Iu)] Metoprolol Succinate (ER) [Toprol 25 mg PO QAM 12/07/23 01/11/25 Xl] [place]-3/Dha/Epa/Fish Oil [Fish Oil 1 each PO DAILY 12/07/23 01/11/25 1,000 mg Softgel] Rosuvastatin Calcium 5 mg PO HS 12/07/23 01/11/25 Previous Rx's Medication Instructions Recorded Fluticasone Nasal [place] [Flonase 2 spr EA NOSTRIL DAILY #16 gm 03/13/23 Nasal [place]] Cephalexin [Keflex] 500 mg PO Q6HR #40 cap 02/24/25 metroNIDAZOLE [Flagyl] 500 mg PO TID #30 tab 02/24/25 Allergies Allergy/AdvReac Type Severity Reaction Status Date / Time No Known Allergies Allergy Verified 01/11/25 07:50 Review of Systems ROS Statement: Those systems with pertinent positive or pertinent negative responses have been documented in the HPI. ROS Other: All systems not noted in ROS Statement are negative. Past Medical History Past Medical History: Cancer, Diabetes Mellitus, GERD/Reflux, Hyperlipidemia, Hypertension, Sleep Apnea/CPAP/BIPAP Additional Past Medical History / Comment(s): Intermittent diarrhea since gallbl adder surgery, colon cancer stage 3 received chemotherapy for 6 months completed 04/24/19 (second round), port a cath-REMOVED, received immunotherapy none since 04/27, kidney stones History of Any Multi-Drug Resistant Organisms: None Reported Past Surgical History: Bowel Resection, Section, Cholecystectomy Additional Past Surgical History / Comment(s): colon CA removal, med port placed and removed x2, several colonoscopies, CYSTOSCOPY WITH LITHOTRIPSY Past Anesthesia/Blood Transfusion Reactions: Previous Problems w/ Anesthesia, Motion Sickness Additional Past Anesthesia/Blood Transfusion Reaction / Comment(s): Pt states she woke from anesthesia very confused in past after lap. brittany., no problems since, no hx. of transfusion reaction Past Psychological History: No Psychological Hx Reported Smoking Status: Never smoker - Past Family History Mother Family Medical History: Diabetes Mellitus Father Family Medical History: No Reported History Additional Family Medical History / Comment(s): Father is 64 yrs old. General Exam Limitations: no limitations Neck exam: Present: normal inspection. Absent: tenderness, meningismus, lymp hadenopathy Respiratory exam: Present: normal lung sounds bilaterally. Absent: respiratory distress, wheezes, rales, rhonchi, stridor Cardiovascular Exam: Present: regular rate, normal rhythm, normal heart sounds. Absent: systolic murmur, diastolic murmur, rubs, gallop, clicks GI/Abdominal exam: Present: soft, tenderness (lower pelvic), normal bowel sounds. Absent: distended, guarding, rebound, rigid Speculum exam: Present: vaginal discharge. Absent: foreign body By manual exam: Present: normal by manual exam, uterine tenderness. Absent: adnexal tenderness Extremities exam: Present: normal inspection, full ROM, normal capillary refill. Absent: tenderness, pedal edema, joint swelling, calf tenderness Back exam: Present: normal inspection. Absent: CVA tenderness (R), CVA tenderness (L) Course Vital Signs 02/24/25 02/24/25 08:11 08:54 Temperature 97.7 F Pulse Rate 85 Respiratory 20 17 Rate Blood Pressure 147/103 O2 Sat by Pulse 98 Oximetry Medical Decision Making - Medical Decision Making Was pt. sent in by a medical professional or institution (LIZZETH Samuel, BODY TECHNICIAN, urgent care, hospital, or usp...) When possible be specific @ -No Did you speak to anyone other than the patient for history (EMS, parent, family, police, friend...)? What history was obtained from this source @ -No Did you review nursing and triage notes (agree or disagree)? Why? @ -I reviewed and agree with nursing and triage notes Were old charts reviewed (outside hosp., previous admission, EMS record, old EKG, old radiological studies, urgent care reports/EKG's, usp records)? Report findings @ -No old charts were reviewed Differential Diagnosis (chest pain, altered mental status, abdominal pain women, abdominal pain men, vaginal bleeding, weakness, fever, dyspnea, syncope, headache, dizziness, GI bleed, back pain, seizure, CVA, palpatations, mental health, musculoskeletal)? @ -Differential Abdominal Pain Women: Appendicitis, Cholecystitis, diverticulosis, ischemic bowel, pancreatitis, hepatitis, UTI, gastroenteritis, AAA, incarcerated hernia, bowel obstruction, constipation, inflammatory bowel, hepatitis, peptic ulcer disease, splenic infarction, perforated viscus, vulvitis, ovarian torsion, PID, kidney stone, placenta abruption, this is not meant to be an all-inclusive list EKG interpreted by me (3pts min.). @ -None X-rays interpreted by me (1pt min.). @ -None done CT interpreted by me (1pt min.). @ -None done U/S interpreted by me (1pt. min.). @ -None done What testing was considered but not performed or refused? (CT, X-rays, U/S, labs)? Why? @ -None What meds were considered but not given or refused? Why? @ -None Did you discuss the management of the patient with other professionals (professionals i.e. LIZZETH Samuel, BODY TECHNICIAN, lab, RT, psych nurse, social work administrator, clipper operator, teacher, forward air controller/air officer, watch case polisher)? Give summary @ -No Was smoking cessation discussed for >3mins.? @ -No Was critical care preformed (if so, how long)? @ -No Were there social determinants of health that impacted care today? How? (Homelessness, low income, unemployed, alcoholism, drug addiction, t ransportation, low edu. Level, literacy, decrease access to med. care, snf, rehab)? @ -No Was there de-escalation of care discussed even if they declined (Discuss DNR or withdrawal of care, Hospice)? DNR status @ -No What co-morbidities impacted this encounter? (DM, HTN, Smoking, COPD, CAD, Cancer, CVA, ARF, Chemo, Hep., AIDS, mental health diagnosis, sleep apnea, morbid obesity)? @ -None Was patient admitted / discharged? Hospital course, mention meds given and route, prescriptions, significant lab abnormalities, going to OR and other pertinent info. @ -Discharge. 49-year-old female presents emergency room with complaints of pelvic discomfort, hematuria and dysuria. Physical examination cystoscopy with nursing staff at bedside reveals no obvious evidence of prolapse with v aginal discharge that is malodorous. Cervix is not definitively visualized however there is mild vaginal erythema with no evidence of abrasions or ulcerations. Patient's urine is concerning for mild infection. Laboratory testing including CBC and CMP is unremarkable. Patient will be treated with Rocephin and outpatient prescription for Keflex and Flagyl, to cover for potential for BV, and instructed to follow-up with urology for further evaluation of known pelvic organ prolapse. urine sent for culture. recommend that patient have urine reevaluated after completion of antibiotics. Case dis cussed with my attending Dr. Up. Undiagnosed new problem with uncertain prognosis? @ -No Drug Therapy requiring intensive monitoring for toxicity (Heparin, Nitro, Insulin, Cardizem)? @ -No Were any procedures done? @ -No Diagnosis/symptom? @ -Bacterial vaginosis, pelvic organ prolapse, urinary tract infection Acute, or Chronic, or Acute on Chronic? @ -Acute Uncomplicated (without systemic symptoms) or Complicated (systemic symptoms)? @ -Uncomplicated Side effects of treatment? @ -No Exacerbation, Progression, or Severe Exacerbation? @ -No Poses a threat to life or bodily function? How? (Chest pain, USA, IA, pneumonia, PE, COPD, DKA, ARF, appy, cholecystitis, CVA, Diverticulitis, Homicidal, Suicidal, threat to staff... and all critical care pts) @ -No - Lab Data Result diagrams: 02/24/25 09:47 02/24/25 09:47 Lab Results 02/24/25 02/24/25 02/24/25 Range/Units 09:27 09:47 09:47 WBC 7.46 (4.50-10.00) 10*3/uL RBC 4.93 (4.10-5.20) 10*6/uL Hgb 13.5 (12.0-15.0) g/dL Hct 41.7 (37.2-46.3) % MCV 84.6 (80.0-97.0) fL MCH 27.4 (27.0-32.0) pg MCHC 32.4 (32.0-37.0) g/dL Plt Count 173 (140-440) 10*3/uL MPV 11.3 (9.5-12.2) fL Immature Gran % (Auto) 0.4 % Neutrophils % 73.1 % Lymphocytes % 14.3 % Monocytes % 8.6 % Eosinophils % 2.9 % Basophils % 0.7 % Immature Gran # 0.03 (0.00-0.04) 10*3/uL Neutrophils # 5.45 (1.80-7.70) 10*3/uL Lymphocytes # 1.07 (0.90-5.00) 10*3/uL Monocytes # 0.64 (0.20-1.00) 10*3/uL Eosinophils # 0.22 (0.04-0.35) 10*3/uL Basophils # 0.05 (0.00-0.10) 10*3/uL Sodium 142 (137-145) mmol/L Potassium 4.2 (3.5-5.1) mmol/L Chloride 108 H (98-107) mmol/L Carbon Dioxide 23 (22-30) mmol/L Anion Gap 11 mmol/L BUN 17 (7-17) mg/dL Creatinine 0.98 (0.52-1.04) mg/dL Est GFR (CKD-EPI)AfAm 78 (>60 ml/min/1.73 sqM) Est GFR (CKD-EPI)NonAf 68 (>60 ml/min/1.73 sqM) Glucose 111 H (74-99) mg/dL Plasma Lactic Acid [place] (0.7-2.0) mmol/L Calcium 9.2 (8.4-10.2) mg/dL Total Bilirubin 0.7 (0.2-1.3) mg/dL AST 23 (14-36) U/L ALT 21 (4-34) U/L Alkaline Phosphatase 65 (38-126) U/L Total Protein 6.9 (6.3-8.2) g/dL Albumin 4.1 (3.5-5.0) g/dL Urine Color Light Yellow Urine Appearance Clear (Clear) Urine pH 5.5 (5.0-8.0) Ur Specific [place] 1.024 (1.001-1.035) Urine Protein Negative (Negative) Urine Glucose (UA) Negative (Negative) Urine Ketones Negative (Negative) Urine Blood Small H (Negative) Urine Nitrite Negative (Negative) Urine Bilirubin Negative (Negative) Urine Urobilinogen <2.0 (<2.0) mg/dL Ur Leukocyte Esterase Large H (Negative) Urine RBC 23 H (0-5) /hpf Urine WBC 15 H (0-5) /hpf Ur Squamous Epith Cells 1 (0-4) /hpf Urine Mucus Rare H (None) /hpf 02/24/25 Range/Units 09:47 WBC (4.50-10.00) 10*3/uL RBC (4.10-5.20) 10*6/uL Hgb (12.0-15.0) g/dL Hct (37.2-46.3) % MCV (80.0-97.0) fL MCH (27.0-32.0) pg MCHC (32.0-37.0) g/dL Plt Count (140-440) 10*3/uL MPV (9.5-12.2) fL Immature Gran % (Auto) % Neutrophils % % Lymphocytes % % Monocytes % % Eosinophils % % Basophils % % Immature Gran # (0.00-0.04) 10*3/uL Neutrophils # (1.80-7.70) 10*3/uL Lymphocytes # (0.90-5.00) 10*3/uL Monocytes # (0.20-1.00) 10*3/uL Eosinophils # (0.04-0.35) 10*3/uL Basophils # (0.00-0.10) 10*3/uL Sodium (137-145) mmol/L Potassium (3.5-5.1) mmol/L Chloride (98-107) mmol/L Carbon Dioxide (22-30) mmol/L Anion Gap mmol/L BUN (7-17) mg/dL Creatinine (0.52-1.04) mg/dL Est GFR (CKD-EPI)AfAm (>60 ml/min/1.73 sqM) Est GFR (CKD-EPI)NonAf (>60 ml/min/1.73 sqM) Glucose (74-99) mg/dL Plasma Lactic Acid [place] 2.2 H* (0.7-2.0) mmol/L Calcium (8.4-10.2) mg/dL Total Bilirubin (0.2-1.3) mg/dL AST (14-36) U/L ALT (4-34) U/L Alkaline Phosphatase (38-126) U/L Total Protein (6.3-8.2) g/dL Albumin (3.5-5.0) g/dL Urine Color Urine Appearance (Clear) Urine pH (5.0-8.0) Ur Specific [place] (1.001-1.035) Urine Protein (Negative) Urine Glucose (UA) (Negative) Urine Ketones (Negative) Urine Blood (Negative) Urine Nitrite (Negative) Urine Bilirubin (Negative) Urine Urobilinogen (<2.0) mg/dL Ur Leukocyte Esterase (Negative) Urine RBC (0-5) /hpf Urine WBC (0-5) /hpf Ur Squamous Epith Cells (0-4) /hpf Urine Mucus (None) /hpf Disposition Clinical Impression: Prolapse of female pelvic organs, Urinary tract infection Disposition: HOME SELF-CARE Condition: Stable Instructions (If sedation given, give patient instructions): Urinary Tract Infection in Women (ED) Additional Instructions: Please return to the Emergency Department if symptoms worsen or any other concerns. Complete full course of antibiotics as prescribed. Please follow-up with urologist on Wednesday for further evaluation Prescriptions: metroNIDAZOLE [Flagyl] 500 mg PO TID #30 tab Cephalexin [Keflex] 500 mg PO Q6HR #40 cap Is patient prescribed a controlled substance at d/c from ED?: No Referrals: Letha South MD [Primary Care Provider] - 1-2 days Cristobal Eid MD [STAFF PHYSICIAN] - 1-2 days Time of Disposition: 10:51
[2025-02-24 09:48] LABS: Bilirubin,Urine Negative (Negative); Blood,Urine Small (Negative); Color,Urine Light Yellow; Glucose,Urine (UA) Negative (Negative); Ketones,Urine Negative (Negative); Leukocyte Esterase,Urine Large (Negative); Mucus,Urine Rare /hpf; Nitrite,Urine Negative (Negative); PH, Urine 5.5 (5.0-8.0); Protein,Urine Negative (Negative); RBC,Urine 23 /hpf (0-5); Specific Gravity,Urine 1.024 (1.001-1.035); Squamous Epithelial Cell,Urine 1 /hpf (0-4); Urobilinogen,Urine <2.0 mg/dL (<2.0); WBC,Urine 15 /hpf (0-5)
[2025-02-24 09:53] LABS: Basophils # (A) 0.05 10*3/uL (0.00-0.10); Basophils % (A) 0.7 %; Eosinophils # (A) 0.22 10*3/uL (0.04-0.35); Eosinophils % (A) 2.9 %; HCT 41.7 % (37.2-46.3); HGB 13.5 g/dL (12.0-15.0); Lymphocytes # (A) 1.07 10*3/uL (0.90-5.00); Lymphocytes % (A) 14.3 %; MCH 27.4 pg (27.0-32.0); MCHC 32.4 g/dL (32.0-37.0); MCV 84.6 fL (80.0-97.0); Monocytes # (A) 0.64 10*3/uL (0.20-1.00); Monocytes % (A) 8.6 %; Neutrophils # (A) 5.45 10*3/uL (1.80-7.70); Neutrophils % (A) 73.1 %; Platelet Count 173 10*3/uL (140-440); RBC 4.93 10*6/uL (4.10-5.20); RDW 14.5 % (11.5-14.5); WBC 7.46 10*3/uL (4.50-10.00)
[2025-02-24 10:07] LABS: ALT 21 U/L (4-34); AST 23 U/L (14-36); African American GFR (CKD) 78 (>60 ml/min/1.73 sqM); Albumin 4.1 g/dL (3.5-5.0); Alkaline Phosphatase 65 U/L (38-126); Anion Gap 11 mmol/L; Blood Urea Nitrogen 17 mg/dL (7-17); Calcium 9.2 mg/dL (8.4-10.2); Carbon Dioxide 23 mmol/L (22-30); Chloride 108 mmol/L (98-107); Glucose 111 mg/dL (74-99); Non-African American GFR(CKD) 68 (>60 ml/min/1.73 sqM); Potassium 4.2 mmol/L (3.5-5.1); Sodium 142 mmol/L (137-145); Total Protein 6.9 g/dL (6.3-8.2)
[2025-02-24] MEDS: cefTRIAXone IN SWFI 1,000 MG/10 ML SYRINGE IVP STA (11:36)
[2025-02-24 11:40] VITALS: BP 126/79; PULSE 90; RESP 18; TEMP 98
== END 2025-02-24 11:40 | disposition home or self-care (01) ==
LOC: EC 08:06
DX: N76.0 Acute vaginitis (principal); N81.9 Female genital prolapse, unspecified
CPT/HCPCS: 36415; 80053; 83605; 85025; 81001; 87086; 99283; 96374; J0696